=== PATIENT | female | born 1960 | race Caucasian/White ===

== ENCOUNTER 2016-08-26 19:50 | Inpatient (IN) | payer BC ==
[~2016-08-26] VITALS: Ht 167.6 cm; Wt 76.6 kg
[2016-08-26 19:51] VITALS: BP 184/81; PULSE 88; RESP 16; TEMP 98; O2SAT 96
[2016-08-26] MEDS ORDERED: SODIUM CHLOR 0.9% 1000 ML INJ 1,000 ML IV SCH (20:06)
--- NOTE | 2016-08-26 20:07 | PD ---
HPI Chief Complaint: GI Complaint Time Seen by Provider: 20:07 Travel History International Travel<30 days: No Contact w/Intl Traveler<30days: No Traveled to known affect area: No History of Present Illness HPI 56-year-old female presents to the emergency department for evaluation of abdominal pain with nausea and vomiting. The patient states that she has had intermittent abdominal pain for 5 months. States that it has become more frequent and over the past 2 days has become constant. States that the worst of the pain is epigastric and describes it as a squeezing. States that she has had bright blood in her stool intermittently for the past month. States that she has had brown vaginal discharge for the past week and intermittent light vaginal bleeding for 5 months. States her last bowel movement was this morning but was very small. States that she has been taking ibuprofen and drinking alcohol to try to help her pain. States she has been drinking 4 large glasses of wine daily for the past month. She denies any fever, chills, chest pain, shortness of breath, burning with urination, painful urination, hematuria. Denies any prior abdominal surgeries. States that she has not seen a physician or gone to the hospital about these complaints, today is the first time she has been seen because the pain was much worse today. No other complaints. [facility] Past Medical History Medical History: Denies Significant Hx ?: Not Past Surgical History Surgical History: No Previous Surgery Social History Alcohol Use: Yes (4 GLASSES OF WINE PER NIGHT) Tobacco Use: Yes (1 PPD) Substance Use: No Allergies-Medications (Allergen,Severity, Reaction): Coded Allergies: No Known Allergies (Unverified , 08/26/16) Reported Meds & Prescriptions Reported Meds & Active Scripts Active No Active Prescriptions or Reported Medications Review of Systems Except as stated in HPI: all other systems reviewed are Neg Physical Exam Narrative GENERAL: Well-nourished and well-developed pleasant patient in moderate amount of pain but no acute distress. SKIN: Warm and dry. HEAD: Normocephalic and atraumatic. EYES: No injection, drainage, or hyphema noted. PERRLA. EOMI. ENT: No nasal drainage noted. Oropharynx is clear. NECK: Supple and the trachea is midline. CARDIOVASCULAR: Regular rate and rhythm. RESPIRATORY: Breath sounds are equal bilaterally with no accessory muscle use, wheezing, rhonchi, or crackles. GASTROINTESTINAL: Diffuse tenderness to palpation worse in epigastric region. Positive rebound tenderness and guarding. Abdomen is soft and nondistended. GENITOURINARY: Normal external genitalia without lesions or erythema. Vaginal vault with small amount of brown discharge. Cervix noted with ulcerous lesion at 2'clock position. Cervix is friable and bleeds easily. No cervical motion tenderness. Slightly enlarged uterus but nontender. Bilateral adnexa nontender without masses. Rectovaginal exam does not reveal any obvious fistula or mass. Performed in the presence of Loly SAMAYOA. MUSCULOSKELETAL: No obvious deformities, swelling, cyanosis, or ecchymosis is present throughout the upper and lower extremities. Patient has full range of motion without any signs of neurovascular compromise. NEUROLOGICAL: Awake, alert, and oriented. Normal speech and gait. Cranial nerves are grossly intact. Data Data Last Documented VS Vital Signs Date Time Temp Pulse Resp B/P Pulse Ox O2 Delivery O2 Flow Rate FiO2 08/26/16 20:44 16 08/26/16 20:43 98 Room Air 08/26/16 19:51 98.0 88 184/81 Orders Complete Blood Count With Diff (08/26/16 20:06) Comprehensive Metabolic Panel (08/26/16 20:06) Lipase (08/26/16 20:06) Prothrombin Time / Inr (Pt) (08/26/16 20:06) Act Partial Throm Time (Ptt) (08/26/16 20:06) Urinalysis - C+S If Indicated (08/26/16 20:06) Ct Abd/Pel W Iv Contrast(Rout) (08/26/16 20:06) Iv Access Insert/Monitor (08/26/16 20:06) Ecg Monitoring (08/26/16 20:06) Oximetry (08/26/16 20:06) NPO (08/26/16 20:06) Morphine Inj (Morphine Inj) (08/26/16 20:15) Ondansetron Inj (Zofran Inj) (08/26/16 20:15) Sodium Chlor 0.9% 1000 Ml Inj (Ns 1000 M (08/26/16 20:06) Sodium Chloride 0.9% Flush (Ns Flush) (08/26/16 20:15) Troponin I (08/26/16 20:20) Electrocardiogram (08/26/16 20:20) Gc And Chlamydia Pcr (08/26/16 20:40) Wet Prep Profile (08/26/16 20:40) Iohexol 350 Inj (Omnipaque 350 Inj) (08/26/16 21:38) Lactic Acid Sepsis Protocol (08/26/16 21:56) Blood Culture (08/26/16 21:56) Hydromorphone Pf Inj (Dilaudid Pf Inj) (08/26/16 22:00) Metronidazole 500 Mg Inj (Flagyl 500 Mg (08/26/16 22:15) Levofloxacin 500 Mg Premix Inj (Levaquin (08/26/16 22:15) Urine Culture (08/26/16 22:10) Admit Order (Ed Use Only) (08/26/16 22:18) Consult General Surgery (08/26/16 ) Levofloxacin 750 Mg Premix Inj (Levaquin (08/27/16 22:00) Metronidazole 500 Mg Inj (Flagyl 500 Mg (08/27/16 06:00) Admit To Inpatient (08/26/16 ) Vital Signs (Adult) Q4H (08/26/16 22:18) Activity Oob With Assistance (08/26/16 22:18) Specialist Wound Care / Telemetry .CONTINUOUS (08/26/16 22:18) Intake + Output LISA.QSHIFT (08/26/16 22:18) Diet Clear Liquid (08/27/16 Breakfast) Sodium Chlor 0.9% 1000 Ml Inj (Ns 1000 M (08/26/16 22:18) Sodium Chloride 0.9% Flush (Ns Flush) (08/26/16 22:30) Sodium Chloride 0.9% Flush (Ns Flush) (08/27/16 09:00) Ondansetron Inj (Zofran Inj) (08/26/16 22:30) Bisacodyl Supp (Dulcolax Supp) (08/26/16 22:30) Comprehensive Metabolic Panel (08/27/16 06:00) Complete Blood Count With Diff (08/27/16 06:00) Scd Bilateral/Knee High LISA.BID (08/26/16 22:18) Acetaminophen (Tylenol) (08/26/16 22:30) Hydromorphone Pf Inj (Dilaudid Pf Inj) (08/26/16 22:30) Hydromorphone Pf Inj (Dilaudid Pf Inj) (08/26/16 22:30) Inpatient Certification (08/26/16 ) Lipase (08/27/16 06:00) Labs Laboratory Tests Test 08/26/16 08/26/16 08/26/16 20:15 20:50 21:15 White Blood Count 13.4 TH/MM3 Red Blood Count 4.56 MIL/MM3 Hemoglobin 15.2 GM/DL Hematocrit 44.5 % Mean Corpuscular Volume 97.6 FL Mean Corpuscular Hemoglobin 33.4 PG Mean Corpuscular Hemoglobin 34.2 % Concent Red Cell Distribution Width 12.4 % Platelet Count 458 TH/MM3 Mean Platelet Volume 7.9 FL Neutrophils (%) (Auto) 88.3 % Lymphocytes (%) (Auto) 6.5 % Monocytes (%) (Auto) 4.8 % Eosinophils (%) (Auto) 0.2 % Basophils (%) (Auto) 0.2 % Neutrophils # (Auto) 11.8 TH/MM3 Lymphocytes # (Auto) 0.9 TH/MM3 Monocytes # (Auto) 0.6 TH/MM3 Eosinophils # (Auto) 0.0 TH/MM3 Basophils # (Auto) 0.0 TH/MM3 CBC Comment DIFF FINAL Differential Comment Prothrombin Time 10.7 SEC Prothromb Time International 1.0 RATIO Ratio Activated Partial 24.5 SEC Thromboplast Time Sodium Level 133 MEQ/L Potassium Level 3.5 MEQ/L Chloride Level 96 MEQ/L Carbon Dioxide Level 26.1 MEQ/L Anion Gap 11 MEQ/L Blood Urea Nitrogen 15 MG/DL Creatinine 0.87 MG/DL Estimat Glomerular Filtration 67 ML/MIN Rate Random Glucose 187 MG/DL Calcium Level 9.1 MG/DL Total Bilirubin 0.3 MG/DL Aspartate Amino Transf 20 U/L (AST/SGOT) Alanine Aminotransferase 34 U/L (ALT/SGPT) Alkaline Phosphatase 122 U/L Total Protein 8.0 GM/DL Albumin 3.7 GM/DL Lipase 629 U/L Clue Cells (Wet Prep) PRESENT Vaginal Trichomonas (Wet Prep) NONE SEEN Vaginal Yeast (Wet Prep) NONE SEEN Urine Color YELLOW Urine Turbidity CLEAR Urine pH 5.5 Urine Specific [place] 1.021 Urine Protein 30 mg/dL Urine Glucose (UA) NEG mg/dL Urine Ketones 40 mg/dL Urine Occult Blood SMALL Urine Nitrite POS Urine Bilirubin NEG Urine Urobilinogen LESS THAN 2.0 MG/DL Urine Leukocyte Esterase SMALL Urine RBC 4 /hpf Urine WBC 7 /hpf Urine Squamous Epithelial <1 /hpf Cells Urine Bacteria RARE /hpf Urine Mucus FEW /lpf Microscopic Urinalysis Comment CULT NOT INDICATED MDM Medical Decision Making Medical Screen Exam Complete: Yes Emergency Medical Condition: Yes Differential Diagnosis Colitis versus diverticulitis versus gastritis versus malignancy versus vaginitis versus cervicitis versus uterine fibroids Narrative Course 56-year-old female presents to the emergency department for evaluation of abdominal pain, intermittent vaginal bleeding, intermittent bloody stool and vomiting. Patient is afebrile, vital signs are stable. Abdominal examination reveals diffusely tender abdomen. IV access is obtained, labs were drawn and sent. Patient is administered morphine 4 mg IV, Zofran 4 mg IV and a liter of fluid. CBC shows an elevated white blood cell count 13.4 and slightly elevated platelet count of 458. CMP shows slightly decreased sodium of 133 and elevated alkaline phosphatase of 122. Lipase is elevated at 629. Coags are unremarkable. Wet prep shows positive clue cells. Urinalysis shows 30 protein, 40 ketones, small occult blood, positive nitrites, small leukocyte esterase, 4 red blood cells, 7 white blood cells, rare bacteria and few mucus. CT of the abdomen and pelvis with IV contrast shows abnormal appearance to proximal small bowel with thickening and increased enhancement in several loops with associated fluid in the mesentery, tracking to the right upper quadrant and a moderate amount of free fluid in the pelvis. No dilated loops of small bowel or large bowel. The findings suggest a neoplastic or infectious process involving the jejunum. Patient is administered Levaquin and Flagyl IV as well as IV fluids. My attending physician spoke with Dr. Evangelista who requests Dr. Kenyon be consulted as well as LOCAL [employer]WORK SYSTEMS ADMINSTRATOR for evaluation of postmenopausal bleeding. She will be admitted to medicine service. [facility] Point of Care Internal Pos. & Neg. Controls: Passed Fecal Specimen Occult Blood: Positive Physician Communication Physician Communication Dr. Ovalle spoke with Dr. Evangelista regarding the patient's exam, CT and laboratory findings. He requests Dr. Kenyon be consulted as well as gynecology. I spoke with Dr. Mansfield OB hospitalist regarding the patient's vaginal bleeding. He requests I order a pelvic ultrasound to assess endometrial thickness and to consult the OB hospitalist who is on-call tomorrow, Dr. Rice. Diagnosis Primary Impression: Abdominal pain Qualified Code: R10.84 - Generalized abdominal pain Additional Impressions: Enteritis Postmenopausal vaginal bleeding GI bleed Qualified Code: K92.2 - Gastrointestinal hemorrhage, unspecified gastrointestinal hemorrhage type Admitting Information Admitting Physician Requests: Admit Scripts No Active Prescriptions or Reported Meds Trini Beltran Aug 26, 2016 20:07
[2016-08-26] MEDS ORDERED: MORPHINE SULFATE 4 MG/ML INJ IV PUSH ONE (20:15)
[2016-08-26] MEDS ORDERED: SODIUM CHLORIDE 0.9% FLUSH 5 ML FLUSH IVF PRN (20:15)
[2016-08-26] MEDS ORDERED: ONDANSETRON HCL 4 MG/2 ML VIAL IVP ONE (20:15)
[2016-08-26 20:43] VITALS: O2SAT 98
[2016-08-26 21:05] LABS: AUTOMATED NEUTROPHIL # 11.8 TH/MM3 (1.8-7.7); BASOPHIL % 0.2 % (0.0-2.0); EOSINOPHIL % 0.2 % (0.0-4.0); HEMATOCRIT 44.5 % (35.0-46.0); HEMO FLAGS DIFF FINAL; LYMPH % 6.5 % (9.0-44.0); LYMPHOCYTE # 0.9 TH/MM3 (1.0-4.8); MEAN CELL VOLUME 97.6 FL (80.0-100.0); MEAN CORPUSCULAR HEMOGLOBIN 33.4 PG (27.0-34.0); MEAN CORPUSCULAR HGB CONC 34.2 % (32.0-36.0); MONO % 4.8 % (0.0-8.0); NEUT % 88.3 % (16.0-70.0); PLATELET COUNT 458 TH/MM3 (150-450); RED BLOOD COUNT 4.56 MIL/MM3 (4.00-5.30); RED CELL DISTRIBUTION WIDTH 12.4 % (11.6-17.2); WHITE BLOOD COUNT 13.4 TH/MM3 (4.0-11.0)
[2016-08-26 21:12] LABS: APTT (PATIENT) 24.5 SEC (24.3-30.1); PROTHROMBIN TIME - PATIENT 10.7 SEC (9.8-11.6)
[2016-08-26 21:21] LABS: ANION GAP 11 MEQ/L (5-15); AST (GOT) 20 U/L (15-37); BICARBONATE 26.1 MEQ/L (21.0-32.0); BLOOD UREA NITROGEN 15 MG/DL (7-18); CHLORIDE 96 MEQ/L (98-107); GLOMERULAR FILTRATION RATE 67 ML/MIN (>89); POTASSIUM 3.5 MEQ/L (3.5-5.1); SODIUM (NA) 133 MEQ/L (136-145)
[2016-08-26 21:24] LABS: ALKALINE PHOSPHATASE 122 U/L (45-117); ALT (GPT) 34 U/L (10-53); TOTAL BILIRUBIN ADULT 0.3 MG/DL (0.2-1.0)
[2016-08-26] MEDS ORDERED: IOHEXOL 350 MG/ML 10 ML VIAL (for RAD DIAG) IV ONE (21:38)
--- NOTE | 2016-08-26 21:52 | RADRPT ---
EXAM DATE/TIME: 08/26/2016 21:37 This report includes an Addendum and supersedes previous reports for this exam. [facility] COMPARISON: No previous studies available for comparison. INDICATIONS : Medial abdominal pain with nausea and vomiting. IV CONTRAST: 95 cc Omnipaque 350 (iohexol) IV ORAL CONTRAST: No oral contrast ingested. RADIATION DOSE: 6.74 CTDIvol (mGy) MEDICAL HISTORY : None SURGICAL HISTORY : None. ENCOUNTER: Initial ACUITY: 1 day PAIN SCALE: 10/10 LOCATION: medial abdomen TECHNIQUE: Volumetric scanning of the abdomen and pelvis was performed. Using automated exposure control and ad justment of the mA and/or kV according to patient size, radiation dose was kept as low as reasonably achievable to obtain optimal diagnostic quality images. FINDINGS: LOWER LUNGS: The visualized lower lungs are clear. LIVER: Homogeneous density without lesion. There is no dilation of the biliary tree. No calcified gallston es. SPLEEN: Normal size without lesion. PANCREAS: Within normal limits. KIDNEYS: Normal in size and shape. There is no mass, stone or hydronephrosis. 2.5 cm cyst medial mid pole le ft kidney. 5 mm cortical cyst lower pole right kidney. ADRENAL GLANDS: Within normal limits. VASCULAR: There is no aortic aneurysm. BOWEL/MESENTERY: Abnormal appearance to the proximal small bowel with increased enhancement and thickness in the small bowel wall. No distended lumen. There is focal free fluid about the mesentery adjacent to these th ickened small bowel wall and some free fluid tracking around the free edge of the liver and into Celso son's pouch. Free fluid is also seen in the pelvis measuring up to 3.5 cm in thickness. ABDOMINAL WALL: Within normal limits. RETROPERITONEUM: There is no lymphadenopathy. BLADDER: No wall thickening or mass. REPRODUCTIVE: Within normal limits. INGUINAL: There is no lymphadenopathy or hernia. MUSCULOSKELETAL: Within normal limits for patient age. CONCLUSION: Abnormal appearance to proximal small bowel with thickening and increased enhancement in several loop s with associated fluid in the mesentery, tracking to the right upper quadrant and a moderate amount of free fluid in the pelvis. No dilated loops of small or large bowel. The findings suggest a neopl astic or infectious process involving the jejunum. Jose Aguilar MD on August 26, 2016 at 21:45 Board Certified Radiologist. This report was verified electronically. ADDENDUM: On evaluation of the images, there does appear to be some free air in the upper abdomen underneath th e hemidiaphragms. There is a small amount of fluid adjacent to the liver. There appears to be some in flammatory changes involving the proximal duodenum. There is some free fluid in the pelvis. These fin dings were discussed by telephone with the colorectal surgeon. The free air in the upper abdomen an i nflammatory-type changes associated with the proximal duodenum suggest a possible perforated peptic u lcer. Lico Thomas MD on August 27, 2016 at 12:45 Board Certified Radiologist. This report was verified electronically.
[2016-08-26 21:54] LABS: BACTERIA, URINE RARE /hpf; BLOOD, URINE SMALL (NEG); COMMENT (UR) CULT NOT INDICATED; CULTURE IF INDICATED CULT NOT INDICATED; GLUCOSE,URINE NEG (NEG); KETONE, URINE 40 mg/dL (NEG); MUCUS URINE FEW /lpf (OCC); PH, URINE 5.5 (5.0-8.5); SQUAMOUS EPITHELIAL CELL URINE <1 /hpf (0-5); URINE COLOR YELLOW (YELLW/STRAW)
[2016-08-26 21:56] LABS: NITRITE,URINE POS (NEG)
[2016-08-26 22:00] VITALS: BP 142/74; PULSE 83; RESP 16; O2SAT 99
[2016-08-26] MEDS ORDERED: HYDROmorphone HCL PF 1 MG/ML VIAL IV PUSH ONE (22:00)
--- NOTE | 2016-08-26 22:09 | PD ---
Physical Exam Narrative Patient was seen and examined with my college sports assistant. Data Data Last Documented VS Vital Signs Date Time Temp Pulse Resp B/P Pulse Ox O2 Delivery O2 Flow Rate FiO2 08/26/16 20:44 16 08/26/16 20:43 98 Room Air 08/26/16 19:51 98.0 88 184/81 Orders Complete Blood Count With Diff (08/26/16 20:06) Comprehensive Metabolic Panel (08/26/16 20:06) Lipase (08/26/16 20:06) Prothrombin Time / Inr (Pt) (08/26/16 20:06) Act Partial Throm Time (Ptt) (08/26/16 20:06) Urinalysis - C+S If Indicated (08/26/16 20:06) Ct Abd/Pel W Iv Contrast(Rout) (08/26/16 20:06) Iv Access Insert/Monitor (08/26/16 20:06) Ecg Monitoring (08/26/16 20:06) Oximetry (08/26/16 20:06) NPO (08/26/16 20:06) Morphine Inj (Morphine Inj) (08/26/16 20:15) Ondansetron Inj (Zofran Inj) (08/26/16 20:15) Sodium Chlor 0.9% 1000 Ml Inj (Ns 1000 M (08/26/16 20:06) Sodium Chloride 0.9% Flush (Ns Flush) (08/26/16 20:15) Troponin I (08/26/16 20:20) Electrocardiogram (08/26/16 20:20) Gc And Chlamydia Pcr (08/26/16 20:40) Wet Prep Profile (08/26/16 20:40) Iohexol 350 Inj (Omnipaque 350 Inj) (08/26/16 21:38) Lactic Acid Sepsis Protocol (08/26/16 21:56) Blood Culture (08/26/16 21:56) Hydromorphone Pf Inj (Dilaudid Pf Inj) (08/26/16 22:00) Metronidazole 500 Mg Inj (Flagyl 500 Mg (08/26/16 22:15) Levofloxacin 500 Mg Premix Inj (Levaquin (08/26/16 22:15) Labs Laboratory Tests Test 08/26/16 08/26/16 08/26/16 20:15 20:50 21:15 White Blood Count 13.4 TH/MM3 Red Blood Count 4.56 MIL/MM3 Hemoglobin 15.2 GM/DL Hematocrit 44.5 % Mean Corpuscular Volume 97.6 FL Mean Corpuscular Hemoglobin 33.4 PG Mean Corpuscular Hemoglobin 34.2 % Concent Red Cell Distribution Width 12.4 % Platelet Count 458 TH/MM3 Mean Platelet Volume 7.9 FL Neutrophils (%) (Auto) 88.3 % Lymphocytes (%) (Auto) 6.5 % Monocytes (%) (Auto) 4.8 % Eosinophils (%) (Auto) 0.2 % Basophils (%) (Auto) 0.2 % Neutrophils # (Auto) 11.8 TH/MM3 Lymphocytes # (Auto) 0.9 TH/MM3 Monocytes # (Auto) 0.6 TH/MM3 Eosinophils # (Auto) 0.0 TH/MM3 Basophils # (Auto) 0.0 TH/MM3 CBC Comment DIFF FINAL Differential Comment Prothrombin Time 10.7 SEC Prothromb Time International 1.0 RATIO Ratio Activated Partial 24.5 SEC Thromboplast Time Sodium Level 133 MEQ/L Potassium Level 3.5 MEQ/L Chloride Level 96 MEQ/L Carbon Dioxide Level 26.1 MEQ/L Anion Gap 11 MEQ/L Blood Urea Nitrogen 15 MG/DL Creatinine 0.87 MG/DL Estimat Glomerular Filtration 67 ML/MIN Rate Random Glucose 187 MG/DL Calcium Level 9.1 MG/DL Total Bilirubin 0.3 MG/DL Aspartate Amino Transf 20 U/L (AST/SGOT) Alanine Aminotransferase 34 U/L (ALT/SGPT) Alkaline Phosphatase 122 U/L Total Protein 8.0 GM/DL Albumin 3.7 GM/DL Lipase 629 U/L Clue Cells (Wet Prep) PRESENT Vaginal Trichomonas (Wet Prep) NONE SEEN Vaginal Yeast (Wet Prep) NONE SEEN Urine Color YELLOW Urine Turbidity CLEAR Urine pH 5.5 Urine Specific [place] 1.021 Urine Protein 30 mg/dL Urine Glucose (UA) NEG mg/dL Urine Ketones 40 mg/dL Urine Occult Blood SMALL Urine Nitrite POS Urine Bilirubin NEG Urine Urobilinogen LESS THAN 2.0 MG/DL Urine Leukocyte Esterase SMALL Urine RBC 4 /hpf Urine WBC 7 /hpf Urine Squamous Epithelial <1 /hpf Cells Urine Bacteria RARE /hpf Urine Mucus FEW /lpf Microscopic Urinalysis Comment CULT NOT INDICATED MDM Supervised Visit with FILIBERTO: Yes Scripts No Active Prescriptions or Reported Meds Vasquez,Hung MD Aug 26, 2016 22:09
[2016-08-26] MEDS ORDERED: metroNIDAZOLE 500 MG INJ 100 ML IV ONE (22:15)
[2016-08-26] MEDS ORDERED: LEVOFLOXACIN 500 MG PREMIX INJ 100 ML IV ONE (22:15)
--- NOTE | 2016-08-26 22:22 | HHI.HP ---
[facility] Service [place] [facility] Primary Care Physician No Primary Care Physician Admission Diagnosis Abdominal Pain, Enteritis, Postmenopausal Bleeding, GI Bleed, UTI Diagnoses: (1) Enteritis Diagnosis: Principal (2) Pancreatitis Diagnosis: Principal (3) GI bleed Diagnosis: Principal (4) Postmenopausal vaginal bleeding Diagnosis: Principal (5) UTI (urinary tract infection) Diagnosis: Principal Travel History International Travel<30 Days: No Contact w/Intl Traveler <30 Da: No Traveled to Known Affected Are: No History of Present Illness This is a 56-year-old female with no significant PMH who presented to the ER with complaints of abdominal pain, nausea and vomiting. States symptoms have been intermittent for approx 5 months, however they have become more frequent over the last 2-3 days. Denies fever, chills or diarrhea. Also notes intermittent vaginal bleeding and BRBPR since the start of her abdominal pain 5 months ago. Has not sought medical attention until now. On arrival, BP 184/81 , HR 88, O2 sat 96% on RA, Afebrile. WBC 13.4. Chemistry essentially unremarkable except for decreased GFR of 67. Lipase 629. Lactic Acid 1.1. UA positive for UTI. Hemoccult positive. CT Abd/Pelvis w/ abnormal appearance of proximal small bowel with thickening and increased enhancement in several loops with associated fluid in the mesentery tracking to the right upper quadrant and moderate amount of free fluid in the pelvis, findings suggestive of neoplastic or infectious process in the associate professor of theology in am. Dr. Evangelista consulted by ER physician , recommended further evaluation by Dr. Kenyon and Gynecology Consult in am. Review of Systems Other ROS: 14 point review of systems otherwise negative. Past Family Social History Past Medical History PMH: None Past Surgical History PAST SURGICAL HISTORY: None Allergies: Coded Allergies: No Known Allergies (Unverified , 08/26/16) Family History PAST FAMILY HISTORY: Reviewed. No h/o DM or CAD Social History PAST SOCIAL HISTORY: Drinks 4 glasses of wine per night. Smokes 1ppd. Negative for drugs. Physical Exam Vital Signs Vital Signs Date Time Temp Pulse Resp B/P Pulse Ox O2 Delivery O2 Flow Rate FiO2 08/26/16 20:44 16 08/26/16 20:43 98 Room Air 08/26/16 19:51 98.0 88 16 184/81 96 Physical Exam PE: GENERAL: Middle-aged white female in no acute distress. HEENT: PERRLA, EOMI. No scleral icterus or conjunctival pallor. No lid lag or facial droop. CARDIOVASCULAR: Regular rate and rhythm. No obvious murmurs to auscultation. No chest tenderness to palpation. RESPIRATORY: No obvious rhonchi or wheezing. Clear to auscultation. Breath sounds equal bilaterally. GASTROINTESTINAL: Abdomen soft, diffuse tenderness to palpation, nondistended. BS normal. MUSCULOSKELETAL: Extremities without clubbing, cyanosis, or edema. No obvious deformities. NEUROLOGICAL: Awake, alert and oriented x4. No focal neurologic deficits. Moving both upper and lower extremities spontaneously. Laboratory Laboratory Tests Test 08/26/16 08/26/16 08/26/16 20:15 20:50 21:15 White Blood Count 13.4 Red Blood Count 4.56 Hemoglobin 15.2 Hematocrit 44.5 Mean Corpuscular Volume 97.6 Mean Corpuscular Hemoglobin 33.4 Mean Corpuscular Hemoglobin 34.2 Concent Red Cell Distribution Width 12.4 Platelet Count 458 Mean Platelet Volume 7.9 Neutrophils (%) (Auto) 88.3 Lymphocytes (%) (Auto) 6.5 Monocytes (%) (Auto) 4.8 Eosinophils (%) (Auto) 0.2 Basophils (%) (Auto) 0.2 Neutrophils # (Auto) 11.8 Lymphocytes # (Auto) 0.9 Monocytes # (Auto) 0.6 Eosinophils # (Auto) 0.0 Basophils # (Auto) 0.0 CBC Comment DIFF FINAL Differential Comment Prothrombin Time 10.7 Prothromb Time International 1.0 Ratio Activated Partial 24.5 Thromboplast Time Sodium Level 133 Potassium Level 3.5 Chloride Level 96 Carbon Dioxide Level 26.1 Anion Gap 11 Blood Urea Nitrogen 15 Creatinine 0.87 Estimat Glomerular Filtration 67 Rate Random Glucose 187 Calcium Level 9.1 Total Bilirubin 0.3 Aspartate Amino Transf 20 (AST/SGOT) Alanine Aminotransferase 34 (ALT/SGPT) Alkaline Phosphatase 122 Total Protein 8.0 Albumin 3.7 Lipase 629 Clue Cells (Wet Prep) PRESENT Vaginal Trichomonas (Wet Prep) NONE SEEN Vaginal Yeast (Wet Prep) NONE SEEN Urine Color YELLOW Urine Turbidity CLEAR Urine pH 5.5 Urine Specific [place] 1.021 Urine Protein 30 Urine Glucose (UA) NEG Urine Ketones 40 Urine Occult Blood SMALL Urine Nitrite POS Urine Bilirubin NEG Urine Urobilinogen LESS THAN 2.0 Urine Leukocyte Esterase SMALL Urine RBC 4 Urine WBC 7 Urine Squamous Epithelial <1 Cells Urine Bacteria RARE Urine Mucus FEW Microscopic Urinalysis Comment CULT NOT INDICATED Result Diagram: 08/26/16201408/26/162014 Assessment and Plan Problem List: (1) Enteritis ICD Code: K52.9 Status: Acute (2) Pancreatitis ICD Code: K85.90 Status: Acute (3) GI bleed ICD Code: K92.2 Status: Acute (4) Postmenopausal vaginal bleeding ICD Code: N95.0 Status: Acute (5) UTI (urinary tract infection) ICD Code: N39.0 Status: Acute Assessment and Plan A/P: 1. Enteritis: c/o intermittent abdominal pain x5 months, symptoms worse in last 2-3 days, CT Abd/Pelvis w/ neoplastic vs infectious etiology, possible enteritis, images reviewed by me. Afebrile, WBC 13.4. S/p Levaquin/Flagyl in ER. Will continue w/ IV Abx, IVF, analgesics/antiemetics. Dr. Evangelista consulted by ER physician, recommendation for eval w/ Dr. Keynon and Gynecology in am. 2. Vaginal Bleeding: Postmenopausal vaginal bleeding x5 months, Consult for Gynecology placed for further eval. Transvaginal US w/ abnormal endometrial thickening and moderate free fluid in pelvis, images reviewed. 3. GI Bleed: h/o BRBPR, +Hemoccult. Vitals stable. Hgb 15.2. IVF, Protonix IV, Consult for GI. 4. UTI: U/a w/ UTI, s/p Levaquin/Flagyl for Enteritis, will continue w/ IV Abx for coverage of both. IVF, repeat labs in am. 5. DVT Prophylaxis: SCD/Teds. 6. Social work for d/c planning as needed. 7. Case discussed w/ ER physician at length. Physician Certification 2 Midnight Certification Type: Admission for Inpatient Services Order for Inpatient Services The services are ordered in accordance with Medicare regulations or non- Medicare payer requirements, as applicable. In the case of services not specified as inpatient-only, they are appropriately provided as inpatient services in accordance with the 2-midnight benchmark. Estimated LOS (days): 2 days is the estimated time the patient will need to remain in the hospital, assuming treatment plan goals are met and no additional complications. Post-Hospital Plan: Not yet determined Problem Qualifiers (1) GI bleed: Qualified Code: K92.2 - Gastrointestinal hemorrhage, unspecified gastrointestinal hemorrhage type Amy Lees MD Aug 26, 2016 22:22
[2016-08-26] MEDS ORDERED: SODIUM CHLORIDE 0.9% FLUSH 5 ML FLUSH FLUSH PRN (22:30)
[2016-08-26] MEDS ORDERED: HYDROmorphone HCL PF 1 MG/ML VIAL IV PRN (22:30)
[2016-08-26] MEDS ORDERED: BISACODYL 10 MG SUPP PR PRN (22:30)
[2016-08-26] MEDS ORDERED: ACETAMINOPHEN 325 MG TAB PO PRN (22:30)
[2016-08-26 23:58] LABS: CHLAMYDIA PCR NOT DETECTED (NOT DETECT); NEISSERIA PCR NOT DETECTED (NOT DETECT)
[2016-08-27] VITALS (7 sets, daily range): BP systolic 80–132; BP diastolic 49–76; PULSE 61–90; RESP 17–20; TEMP 96–97.8; O2SAT 92–97
[2016-08-27] MEDS: SODIUM CHLOR 0.9% 1000 ML INJ 1,000 ML IV SCH ×4 (00:18→21:33)
--- NOTE | 2016-08-27 00:38 | RADRPT ---
EXAM DATE/TIME: 08/26/2016 23:28 [place] COMPARISON: CT ABDOMEN & PELVIS W CONTRAST, August 26, 2016, 21:37. INDICATIONS : Pelvic pain and postmenopausal bleeding. MEDICAL HISTORY : . . SURGICAL HISTORY : None. ENCOUNTER: Initial ACUITY: 1 day PAIN SCORE: 8/10 LOCATION: Bilateral pelvis MEASUREMENTS: UTERUS: 5.5 x 4.5 x 2.8 cm ENDOMETRIAL STRIPE: 9.1 mm RIGHT OVARY: Non visualized. LEFT OVARY: Non visualized. FINDINGS: UTERUS: The endometrium is thickened up to 9.1 mm in this postmenopausal patient. There is a sliver of fluid in the endometrial cavity. RIGHT OVARY: Not visualized. LEFT OVARY: Not visualized. MISCELLANEOUS: Moderate amount of free fluid in the pelvis. CONCLUSION: 1. Moderate free fluid complex in appearance. 2. Abnormal endometrial thickening in this postmenopausal patient. 3. The ovaries are not seen. Hemanth Rice MD on August 27, 2016 at 0:34 Board Certified Radiologist. This report was verified electronically.
[2016-08-27] MEDS: HYDROmorphone HCL PF 1 MG/ML VIAL IV PRN ×4 (01:20→10:59)
[2016-08-27] MEDS: ONDANSETRON HCL 4 MG/2 ML VIAL IVP PRN ×2 (01:43→08:07)
[2016-08-27] MEDS ORDERED: HYDROmorphone HCL PF 1 MG/ML VIAL IV PUSH ONE ×2 (02:15→11:15)
[2016-08-27] MEDS: metroNIDAZOLE 500 MG INJ 100 ML IV SCH ×3 (05:04→21:28)
[2016-08-27 05:29] LABS: ALKALINE PHOSPHATASE 86 U/L (45-117); ALT (GPT) 27 U/L (10-53); ANION GAP 9 MEQ/L (5-15); AST (GOT) 13 U/L (15-37); BICARBONATE 24.9 MEQ/L (21.0-32.0); BLOOD UREA NITROGEN 14 MG/DL (7-18); CHLORIDE 102 MEQ/L (98-107); GLOMERULAR FILTRATION RATE 105 ML/MIN (>89); POTASSIUM 3.7 MEQ/L (3.5-5.1); SODIUM (NA) 136 MEQ/L (136-145); TOTAL BILIRUBIN ADULT 0.4 MG/DL (0.2-1.0)
[2016-08-27 05:37] LABS: AUTOMATED NEUTROPHIL # 6.7 TH/MM3 (1.8-7.7); BASOPHIL % 0.2 % (0.0-2.0); HEMATOCRIT 40.3 % (35.0-46.0); HEMO FLAGS DIFF FINAL; LYMPH % 2.8 % (9.0-44.0); LYMPHOCYTE # 0.2 TH/MM3 (1.0-4.8); MEAN CELL VOLUME 97.3 FL (80.0-100.0); MEAN CORPUSCULAR HEMOGLOBIN 34.1 PG (27.0-34.0); MONO % 4.4 % (0.0-8.0); NEUT % 92.6 % (16.0-70.0); PLATELET COUNT 294 TH/MM3 (150-450); RED BLOOD COUNT 4.14 MIL/MM3 (4.00-5.30); WHITE BLOOD COUNT 7.3 TH/MM3 (4.0-11.0)
[2016-08-27] MEDS: SODIUM CHLORIDE 0.9% FLUSH 5 ML FLUSH FLUSH SCH ×2 (08:08→21:28)
[2016-08-27] MEDS: PANTOPRAZOLE SODIUM 40 MG VIAL IV PUSH SCH ×2 (08:08→21:28)
--- NOTE | 2016-08-27 08:26 | PD.CONS ---
HPI Chief Complaint Abdominal pain, N/V, vaginal bleeding Date Seen: Aug 27, 2016 Time Seen: 08:17 Travel History International Travel<30 Days: No Contact w/Intl Traveler<30Days: No Known Affected Area: No History of Present Illness HPI Mrs. Vora is a 56 yo F with no significant PMH who presented to [facility] 08/26 with complaints of abdominal pain and nausea/vomiting. Abdominal pain has been crampy in nature and intermittently present for ~5 mo; nausea/vomiting has occurred for the past ~2-3 days. Patient also reports that she has had frequent dark brown, "tarry" vaginal "discharge" when wiping after urination for the past several months. Patient states that she occasionally also sees bright red blood after wiping. Quantity of dark brown/bright red vaginal blood is small/spotting and only noticed after voiding, and patient does not soak pads or require pad changes during the day. Patient states that she has been drinking more recently. Patient denies significant weight loss. No reported headache, visual changes, shortness of breath, chest pain. Patient reports less strength, but that she has also stopped exercising. Patient has not seen a physician in the past 25-30 years; she has not had a PAP smear in ~30 years. No reported pathology on prior PAP. Patient has a sister with cervical cancer requiring radiation therapy; no other family history of cervical, uterine, or ovarian cancer. Patient had menopause at 38 years; no vaginal bleeding reported until recently. Para: 2 : 2 History Past Medical History Narrative Medical Tobacco abuse Lack of medical care for >20 yrs Obstetric History Obstetric History Past Surgical History Surgical History: No Previous Surgery Family History Narrative Family History Sistercervical cancer diagnosed 2 years ago; requiring radiation therapy No other family history of malignancy reported Social History Narrative Social History Smoking- One pack per day for prolonged duration, ?PK yrs Patient reports chronic alcohol use which is recently increased due to her abdominal pain Patient reports prior marijuana use, but none recently Alcohol Use: Yes Tobacco Use: Yes Substance Abuse: Yes Allergies-Medications (Allergen,Severity, Reaction): Coded Allergies: No Known Allergies (Unverified , 08/26/16) Home Meds No Active Prescriptions or Reported Meds Review of Systems General / Constitutional: No: Weight Loss Eyes: No: Blurred Vision HENT: No: Headaches Cardiovascular: No: Chest Pain or Discomfort Respiratory: No: Short of Breath Gastrointestinal: Nausea, Vomiting, Abdominal Pain Genitourinary: No: Dysuria Physical Exam Narrative GENERAL: Patient appears uncomfortable; vomiting at initiation of exam. Nursing staff notified and patient received Zofran; since comfortable SKIN: Warm and dry, no rashes appreciated HEENT: No conjunctival erythema, EOM grossly I. Normal oral mucous membranes NECK: No appreciated pathology CARDIOVASCULAR: Regular rate and rhythm without murmurs. Normal peripheral perfusion grossly RESPIRATORY: Normal respiratory rate. Questionable minimal wheezing GASTROINTESTINAL: Abdomen firm, mild pain to palpation; exam limited due to pain. MUSCULOSKELETAL: No lower extremity swelling. No appreciated calf asymmetry. NEURO/PSYCH: Awake, alert, and oriented. Cranial nerves grossly normal. Grossly normal motor and sensory function. Pelvic/Speculum (performed by Dr. Mansfield): No external vaginal pathology. No visible cervical pathology. Bloody discharge within vaginal vault. Posterior vaginal wall with necrotic cavitary mass ~3-4 cm in diameter seemingly extending to rectum, with areas of firmness/nodularity and associated bleeding. Data Data Vital Signs Reviewed: Yes Orders Complete Blood Count With Diff (08/26/16 20:06) Comprehensive Metabolic Panel (08/26/16 20:06) Lipase (08/26/16 20:06) Prothrombin Time / Inr (Pt) (08/26/16 20:06) Act Partial Throm Time (Ptt) (08/26/16 20:06) Urinalysis - C+S If Indicated (08/26/16 20:06) Ct Abd/Pel W Iv Contrast(Rout) (08/26/16 20:06) Iv Access Insert/Monitor (08/26/16 20:06) Ecg Monitoring (08/26/16 20:06) Oximetry (08/26/16 20:06) NPO (08/26/16 20:06) Morphine Inj (Morphine Inj) (08/26/16 20:15) Ondansetron Inj (Zofran Inj) (08/26/16 20:15) Sodium Chlor 0.9% 1000 Ml Inj (Ns 1000 M (08/26/16 20:06) Sodium Chloride 0.9% Flush (Ns Flush) (08/26/16 20:15) Troponin I (08/26/16 20:20) Electrocardiogram (08/26/16 20:20) Gc And Chlamydia Pcr (08/26/16 20:40) Wet Prep Profile (08/26/16 20:40) Iohexol 350 Inj (Omnipaque 350 Inj) (08/26/16 21:38) Lactic Acid Sepsis Protocol (08/26/16 21:56) Blood Culture (08/26/16 21:56) Hydromorphone Pf Inj (Dilaudid Pf Inj) (08/26/16 22:00) Metronidazole 500 Mg Inj (Flagyl 500 Mg (08/26/16 22:15) Levofloxacin 500 Mg Premix Inj (Levaquin (08/26/16 22:15) Urine Culture (08/26/16 22:10) Admit Order (Ed Use Only) (08/26/16 22:18) Consult General Surgery (08/26/16 ) Levofloxacin 750 Mg Premix Inj (Levaquin (08/27/16 22:00) Metronidazole 500 Mg Inj (Flagyl 500 Mg (08/27/16 06:00) Admit To Inpatient (08/26/16 ) Vital Signs (Adult) Q4H (08/26/16 22:18) Activity Oob With Assistance (08/26/16 22:18) Utilization Review Coordinator / Telemetry .CONTINUOUS (08/26/16 22:18) Intake + Output LISA.QSHIFT (08/26/16 22:18) Diet Clear Liquid (08/27/16 Breakfast) Sodium Chlor 0.9% 1000 Ml Inj (Ns 1000 M (08/26/16 22:18) Sodium Chloride 0.9% Flush (Ns Flush) (08/26/16 22:30) Sodium Chloride 0.9% Flush (Ns Flush) (08/27/16 09:00) Ondansetron Inj (Zofran Inj) (08/26/16 22:30) Bisacodyl Supp (Dulcolax Supp) (08/26/16 22:30) Comprehensive Metabolic Panel (08/27/16 06:00) Complete Blood Count With Diff (08/27/16 06:00) Scd Bilateral/Knee High LISA.BID (08/26/16 22:18) Acetaminophen (Tylenol) (08/26/16 22:30) Hydromorphone Pf Inj (Dilaudid Pf Inj) (08/26/16 22:30) Hydromorphone Pf Inj (Dilaudid Pf Inj) (08/26/16 22:30) Inpatient Certification (08/26/16 ) Lipase (08/27/16 06:00) Consult Gynecology (08/26/16 ) (Hub Use Only)Inp Phy Cons/Ref (08/26/16 ) Consult Gastroenterology (08/26/16 ) (Hub Use Only)Inp Phy Cons/Ref (08/26/16 ) (Hub Use Only)Inp Phy Cons/Ref (08/26/16 ) Us Pelvis Comp W Dop Transvag (08/26/16 ) Pantoprazole Inj (Protonix Inj) (08/27/16 09:00) Hydromorphone Pf Inj (Dilaudid Pf Inj) (08/27/16 02:15) Physician Name Changes (08/27/16 ) Labs Laboratory Tests Test 08/26/16 08/26/16 08/26/16 08/26/16 20:15 20:50 21:15 22:15 White Blood Count 13.4 Red Blood Count 4.56 Hemoglobin 15.2 Hematocrit 44.5 Mean Corpuscular Volume 97.6 Mean Corpuscular Hemoglobin 33.4 Mean Corpuscular Hemoglobin 34.2 Concent Red Cell Distribution Width 12.4 Platelet Count 458 Mean Platelet Volume 7.9 Neutrophils (%) (Auto) 88.3 Lymphocytes (%) (Auto) 6.5 Monocytes (%) (Auto) 4.8 Eosinophils (%) (Auto) 0.2 Basophils (%) (Auto) 0.2 Neutrophils # (Auto) 11.8 Lymphocytes # (Auto) 0.9 Monocytes # (Auto) 0.6 Eosinophils # (Auto) 0.0 Basophils # (Auto) 0.0 CBC Comment DIFF FINAL Differential Comment Prothrombin Time 10.7 Prothromb Time International 1.0 Ratio Activated Partial 24.5 Thromboplast Time Sodium Level 133 Potassium Level 3.5 Chloride Level 96 Carbon Dioxide Level 26.1 Anion Gap 11 Blood Urea Nitrogen 15 Creatinine 0.87 Estimat Glomerular Filtration 67 Rate Random Glucose 187 Calcium Level 9.1 Total Bilirubin 0.3 Aspartate Amino Transf 20 (AST/SGOT) Alanine Aminotransferase 34 (ALT/SGPT) Alkaline Phosphatase 122 Total Protein 8.0 Albumin 3.7 Lipase 629 Troponin I LESS THAN 0.02 Clue Cells (Wet Prep) PRESENT Vaginal Trichomonas (Wet Prep) NONE SEEN Vaginal Yeast (Wet Prep) NONE SEEN Chlamydia trachomatis DNA NOT DETECTED (PCR) Neisseria gonorrhoeae DNA NOT DETECTED (PCR) Urine Color YELLOW Urine Turbidity CLEAR Urine pH 5.5 Urine Specific [place] 1.021 Urine Protein 30 Urine Glucose (UA) NEG Urine Ketones 40 Urine Occult Blood SMALL Urine Nitrite POS Urine Bilirubin NEG Urine Urobilinogen LESS THAN 2.0 Urine Leukocyte Esterase SMALL Urine RBC 4 Urine WBC 7 Urine Squamous Epithelial <1 Cells Urine Bacteria RARE Urine Mucus FEW Microscopic Urinalysis Comment CULT NOT INDICATED Lactic Acid Level 1.1 Test 08/27/16 04:15 White Blood Count 7.3 Red Blood Count 4.14 Hemoglobin 14.1 Hematocrit 40.3 Mean Corpuscular Volume 97.3 Mean Corpuscular Hemoglobin 34.1 Mean Corpuscular Hemoglobin 35.0 Concent Red Cell Distribution Width 12.0 Platelet Count 294 Mean Platelet Volume 8.1 Neutrophils (%) (Auto) 92.6 Lymphocytes (%) (Auto) 2.8 Monocytes (%) (Auto) 4.4 Eosinophils (%) (Auto) 0.0 Basophils (%) (Auto) 0.2 Neutrophils # (Auto) 6.7 Lymphocytes # (Auto) 0.2 Monocytes # (Auto) 0.3 Eosinophils # (Auto) 0.0 Basophils # (Auto) 0.0 CBC Comment DIFF FINAL Differential Comment Sodium Level 136 Potassium Level 3.7 Chloride Level 102 Carbon Dioxide Level 24.9 Anion Gap 9 Blood Urea Nitrogen 14 Creatinine 0.59 Estimat Glomerular Filtration 105 Rate Random Glucose 143 Calcium Level 8.1 Total Bilirubin 0.4 Aspartate Amino Transf 13 (AST/SGOT) Alanine Aminotransferase 27 (ALT/SGPT) Alkaline Phosphatase 86 Total Protein 6.6 Albumin 2.9 Lipase 921 Date/Time Procedure Status Source Growth 08/26/16 22:00 Aerobic Blood Culture Received Blood Peripheral Pending 08/26/16 22:00 Anaerobic Blood Culture Received Blood Peripheral Pending 08/26/16 21:15 Urine Culture Received Urine Clean Catch Pending MDM Medical Record Reviewed: Yes Narrative Course / MDM Ms. 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 Likely source of vaginal bleeding CT A/P visualized neoplastic/infectious process of jejunum but did not report rectal pathology; will plan to discuss with radiologist -Dr. Mansfield discussed with with Hospitalist Dr. Bauman: -Recommend Colorectal Surgery consultation for suspected rectal malignancy -Consultation placed to QUALITY ASSURANCE ENGINEER Oncology to assess for vaginal origin -Will check CEA and CA 125 markers -After discharge, patient will require PAP smear and endometrial biopsy; however , this is not suspected as cause of symptoms due to mass on exam Abdominal pain/vomiting Impression: Suspect pancreatitis due to lipase elevation, tenderness on exam, and alcohol use. Rectal/vaginal mass may also be contributing significantly symptoms -Management per primary team Admitting diagnosis: Abdominal Pain, Enteritis, Postmenopausal Bleeding, GI Bleed, UTI Scripts No Active Prescriptions or Reported Meds Ja Ham MD R2 Aug 27, 2016 08:26
--- NOTE | 2016-08-27 09:45 | PD.CONS ---
HPI Chief Complaint post menopausal bleeding abdominal pain Date Seen: Aug 27, 2016 Travel History International Travel<30 Days: No Contact w/Intl Traveler<30Days: No Known Affected Area: No History of Present Illness HPI 56-year-old white female with post menopausal bleeding for several months. And recent onset of severe abdominal pain. She's not had a gynecologic exam or Pap smear in 30 years she has also has a positive nausea and vomiting and her abdominal pain is mainly epigastric and upper abdominal Para: 2 : 2 History Obstetric History Obstetric History 2 vaginal deliveries Social History Alcohol Use: Yes Tobacco Use: Yes Substance Abuse: No Allergies-Medications (Allergen,Severity, Reaction): Coded Allergies: No Known Allergies (Unverified , 08/26/16) Home Meds No Active Prescriptions or Reported Meds Review of Systems Gastrointestinal: Nausea, Vomiting, Abdominal Pain Physical Exam Narrative GENERAL: Well-nourished, well-developed patient. SKIN: Warm and dry. HEAD: Normocephalic and atraumatic. EYES: No scleral icterus. No injection or drainage. ENT: No nasal drainage noted. Mucous membranes pink. Airway patent. NECK: Supple, trachea midline. No JVD. CARDIOVASCULAR: Regular rate and rhythm without murmurs, gallops, or rubs. RESPIRATORY: Breath sounds equal bilaterally. No accessory muscle use. BREASTS: Bilateral exam showed no masses , no retractions, no nipple discharge. ABDOMEN/GI: Abdomen firm, tender, bowel sounds present, no rebound minimal guarding Gravid to [-] weeks size Fundal Height: [-] GENITOURINARY: External Genitalia: intact and normal in appearance the posterior vagina lower 1/3 has a 3 cm necrotic crater indurated bleeding slightly and extends down toward the rectum which is likely a rectal neoplasm that has eroded into the vagina , however it is possible that it began as a vaginal cancer that spread down., rectal exam - I can feel a mass on the left side impinging on the lumen , there was no stool to sample Cervix: normal uterus and adnexa WNL EXTREMITIES: No cyanosis or edema. BACK: Nontender without obvious deformity. No CVA tenderness. NEUROLOGICAL: Awake and alert. Motor and sensory grossly within normal limits. Five out of 5 muscle strength in all muscle groups. Normal speech. Data Data Orders Complete Blood Count With Diff (08/26/16 20:06) Comprehensive Metabolic Panel (08/26/16 20:06) Lipase (08/26/16 20:06) Prothrombin Time / Inr (Pt) (08/26/16 20:06) Act Partial Throm Time (Ptt) (08/26/16 20:06) Urinalysis - C+S If Indicated (08/26/16 20:06) Ct Abd/Pel W Iv Contrast(Rout) (08/26/16 20:06) Iv Access Insert/Monitor (08/26/16 20:06) Ecg Monitoring (08/26/16 20:06) Oximetry (08/26/16 20:06) NPO (08/26/16 20:06) Morphine Inj (Morphine Inj) (08/26/16 20:15) Ondansetron Inj (Zofran Inj) (08/26/16 20:15) Sodium Chlor 0.9% 1000 Ml Inj (Ns 1000 M (08/26/16 20:06) Sodium Chloride 0.9% Flush (Ns Flush) (08/26/16 20:15) Troponin I (08/26/16 20:20) Electrocardiogram (08/26/16 20:20) Gc And Chlamydia Pcr (08/26/16 20:40) Wet Prep Profile (08/26/16 20:40) Iohexol 350 Inj (Omnipaque 350 Inj) (08/26/16 21:38) Lactic Acid Sepsis Protocol (08/26/16 21:56) Blood Culture (08/26/16 21:56) Hydromorphone Pf Inj (Dilaudid Pf Inj) (08/26/16 22:00) Metronidazole 500 Mg Inj (Flagyl 500 Mg (08/26/16 22:15) Levofloxacin 500 Mg Premix Inj (Levaquin (08/26/16 22:15) Urine Culture (08/26/16 22:10) Admit Order (Ed Use Only) (08/26/16 22:18) Consult General Surgery (08/26/16 ) Levofloxacin 750 Mg Premix Inj (Levaquin (08/27/16 22:00) Metronidazole 500 Mg Inj (Flagyl 500 Mg (08/27/16 06:00) Admit To Inpatient (08/26/16 ) Vital Signs (Adult) Q4H (08/26/16 22:18) Activity Oob With Assistance (08/26/16 22:18) Environmental Sciences Professor / Telemetry .CONTINUOUS (08/26/16 22:18) Intake + Output LISA.QSHIFT (08/26/16 22:18) Diet Clear Liquid (08/27/16 Breakfast) Sodium Chlor 0.9% 1000 Ml Inj (Ns 1000 M (08/26/16 22:18) Sodium Chloride 0.9% Flush (Ns Flush) (08/26/16 22:30) Sodium Chloride 0.9% Flush (Ns Flush) (08/27/16 09:00) Ondansetron Inj (Zofran Inj) (08/26/16 22:30) Bisacodyl Supp (Dulcolax Supp) (08/26/16 22:30) Comprehensive Metabolic Panel (08/27/16 06:00) Complete Blood Count With Diff (08/27/16 06:00) Scd Bilateral/Knee High LISA.BID (08/26/16 22:18) Acetaminophen (Tylenol) (08/26/16 22:30) Hydromorphone Pf Inj (Dilaudid Pf Inj) (08/26/16 22:30) Hydromorphone Pf Inj (Dilaudid Pf Inj) (08/26/16 22:30) Inpatient Certification (08/26/16 ) Lipase (08/27/16 06:00) Consult Gynecology (08/26/16 ) (Hub [facility] ([facility] ) Consult Gastroenterology (08/26/16 ) (Hub Use Only)[facility] Cons[facility] (08/26/16 ) Us Pelvis Comp W Dop Transvag (08/26/16 ) Pantoprazole Inj (Protonix Inj) (08/27/16 09:00) Hydromorphone Pf Inj (Dilaudid Pf Inj) (08/27/16 02:15) Physician Name Changes (08/27/16 ) Consult Catarino Nfs (08/27/16 ) (Hub Use Only)[facility] Cons[facility]Ref (08/27/16 09:09) Consult Resistance Machine Welder Setter Oncology (08/27/16 ) Labs Laboratory Tests Test 08/26/16 08/26/16 08/26/16 08/26/16 20:15 20:50 21:15 22:15 White Blood Count 13.4 Red Blood Count 4.56 Hemoglobin 15.2 Hematocrit 44.5 Mean Corpuscular Volume 97.6 Mean Corpuscular Hemoglobin 33.4 Mean Corpuscular Hemoglobin 34.2 Concent Red Cell Distribution Width 12.4 Platelet Count 458 Mean Platelet Volume 7.9 Neutrophils (%) (Auto) 88.3 Lymphocytes (%) (Auto) 6.5 Monocytes (%) (Auto) 4.8 Eosinophils (%) (Auto) 0.2 Basophils (%) (Auto) 0.2 Neutrophils # (Auto) 11.8 Lymphocytes # (Auto) 0.9 Monocytes # (Auto) 0.6 Eosinophils # (Auto) 0.0 Basophils # (Auto) 0.0 CBC Comment DIFF FINAL Differential Comment Prothrombin Time 10.7 Prothromb Time International 1.0 Ratio Activated Partial 24.5 Thromboplast Time Sodium Level 133 Potassium Level 3.5 Chloride Level 96 Carbon Dioxide Level 26.1 Anion Gap 11 Blood Urea Nitrogen 15 Creatinine 0.87 Estimat Glomerular Filtration 67 Rate Random Glucose 187 Calcium Level 9.1 Total Bilirubin 0.3 Aspartate Amino Transf 20 (AST/SGOT) Alanine Aminotransferase 34 (ALT/SGPT) Alkaline Phosphatase 122 Total Protein 8.0 Albumin 3.7 Lipase 629 Troponin I LESS THAN 0.02 Clue Cells (Wet Prep) PRESENT Vaginal Trichomonas (Wet Prep) NONE SEEN Vaginal Yeast (Wet Prep) NONE SEEN Chlamydia trachomatis DNA NOT DETECTED (PCR) Neisseria gonorrhoeae DNA NOT DETECTED (PCR) Urine Color YELLOW Urine Turbidity CLEAR Urine pH 5.5 Urine Specific [place] 1.021 Urine Protein 30 Urine Glucose (UA) NEG Urine Ketones 40 Urine Occult Blood SMALL Urine Nitrite POS Urine Bilirubin NEG Urine Urobilinogen LESS THAN 2.0 Urine Leukocyte Esterase SMALL Urine RBC 4 Urine WBC 7 Urine Squamous Epithelial <1 Cells Urine Bacteria RARE Urine Mucus FEW Microscopic Urinalysis Comment CULT NOT INDICATED Lactic Acid Level 1.1 Test 08/27/16 04:15 White Blood Count 7.3 Red Blood Count 4.14 Hemoglobin 14.1 Hematocrit 40.3 Mean Corpuscular Volume 97.3 Mean Corpuscular Hemoglobin 34.1 Mean Corpuscular Hemoglobin 35.0 Concent Red Cell Distribution Width 12.0 Platelet Count 294 Mean Platelet Volume 8.1 Neutrophils (%) (Auto) 92.6 Lymphocytes (%) (Auto) 2.8 Monocytes (%) (Auto) 4.4 Eosinophils (%) (Auto) 0.0 Basophils (%) (Auto) 0.2 Neutrophils # (Auto) 6.7 Lymphocytes # (Auto) 0.2 Monocytes # (Auto) 0.3 Eosinophils # (Auto) 0.0 Basophils # (Auto) 0.0 CBC Comment DIFF FINAL Differential Comment Sodium Level 136 Potassium Level 3.7 Chloride Level 102 Carbon Dioxide Level 24.9 Anion Gap 9 Blood Urea Nitrogen 14 Creatinine 0.59 Estimat Glomerular Filtration 105 Rate Random Glucose 143 Calcium Level 8.1 Total Bilirubin 0.4 Aspartate Amino Transf 13 (AST/SGOT) Alanine Aminotransferase 27 (ALT/SGPT) Alkaline Phosphatase 86 Total Protein 6.6 Albumin 2.9 Lipase 921 Date/Time Procedure Status Source Growth 08/26/16 22:00 Aerobic Blood Culture Received Blood Peripheral Pending 08/26/16 22:00 Anaerobic Blood Culture Received Blood Peripheral Pending 08/26/16 21:15 Urine Culture Received Urine Clean Catch Pending MDM Interpretation(s) This patient's 56-year-old white female with 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
[2016-08-27] MEDS ORDERED: HYDROmorphone HCL 4 MG TAB PO PRN (10:30)
--- NOTE | 2016-08-27 11:58 | HHI.PR ---
Subjective Remarks With nausea and vomiting. She also reports abdominal pain and says dilaudid did not help. Change to morphine. No fever or chills. Says she had a dark colored stool last night. Objective Vitals Vital Signs Date Time Temp Pulse Resp B/P Pulse Ox O2 Delivery O2 Flow Rate FiO2 08/27/16 11:39 97.8 80 18 99/66 97 08/27/16 07:43 97.5 78 17 94/57 95 08/27/16 04:00 96.7 61 20 117/76 96 08/27/16 01:51 90 08/27/16 00:30 96.2 83 20 132/60 96 08/26/16 22:00 83 16 142/74 99 Room Air 08/26/16 20:44 16 08/26/16 20:43 98 Room Air 08/26/16 19:51 98.0 88 16 184/81 96 I/O 08/26/16 08/26/16 08/26/16 08/27/16 08/27/16 08/27/16 07:00 15:00 23:00 07:00 15:00 23:00 Intake Total 859 ml 120 ml Output Total 300 ml Balance 559 ml 120 ml Intake Oral 120 ml 120 ml IV Total 739 ml Output Urine Total 300 ml # Voids 1 # Bowel Movements 0 Result Diagram: 08/27/165 08/27/165 Imaging Last Impressions Abdomen/Pelvis CT 08/26/162005 Signed Impressions: Service Date/Time: Friday, August 26, 2016 21:37 - CONCLUSION: Abnormal appearance to proximal small bowel with thickening and increased enhancement in several loops with associated fluid in the mesentery, tracking to the right upper quadrant and a moderate amount of free fluid in the pelvis. No dilated loops of small or large bowel. The findings suggest a neoplastic or infectious process involving the jejunum. Jose Aguilar MD Abdomen/Pelvis/Transvag US 08/26/16 0000 Signed Impressions: Service Date/Time: Friday, August 26, 2016 23:28 - CONCLUSION: 1. Moderate free fluid complex in appearance. 2. Abnormal endometrial thickening in this postmenopausal patient. 3. The ovaries are not seen. Hemanth Rice MD Objective Remarks GENERAL: Middle-aged white female in no acute distress. HEENT: PERRLA, EOMI. No scleral icterus or conjunctival pallor. No lid lag or facial droop. CARDIOVASCULAR: Regular rate and rhythm. No obvious murmurs to auscultation. No chest tenderness to palpation. RESPIRATORY: No obvious rhonchi or wheezing. Clear to auscultation. Breath sounds equal bilaterally. GASTROINTESTINAL: Abdomen soft, diffuse tenderness to palpation, nondistended. BS normal. MUSCULOSKELETAL: Extremities without clubbing, cyanosis, or edema. No obvious deformities. NEUROLOGICAL: Awake, alert and oriented x4. No focal neurologic deficits. Moving both upper and lower extremities spontaneously. A/P Problem List: (1) Enteritis ICD Code: K52.9 Status: Acute (2) Pancreatitis ICD Code: K85.90 Status: Acute (3) GI bleed ICD Code: K92.2 Status: Acute (4) Postmenopausal vaginal bleeding ICD Code: N95.0 Status: Acute (5) UTI (urinary tract infection) ICD Code: N39.0 Status: Acute Assessment and Plan Abdominal pain. Nausea/vomiting GI Bleed: h/o BRBPR, +Hemoccult. Vitals stable. Hgb 15.2. IVF, Protonix IV, Consult for GI. Enteritis: c/o intermittent abdominal pain x5 months, symptoms worse in last 2- 3 days, CT Abd/Pelvis w/ neoplastic vs infectious etiology, possible enteritis, images reviewed by me. Afebrile, WBC 13.4. S/p Levaquin/Flagyl in ER. Will continue w/ IV Abx, IVF, analgesics/antiemetics. Surgery on consult Dr. Evangelista Gynecology consulted GI also consulted, seen by Dr Mcarthur GI , insert NGT, cee for EGD in the morning Pain meds per pain scale, change dilaudid to morphine IV as per patient it works better for pain Vaginal Bleeding: Postmenopausal vaginal bleeding x5 months, Consult for Gynecology. Transvaginal US w/ abnormal endometrial thickening and moderate free fluid in pelvis, images reviewed. Discussed with media relations coordinator service Dr Mansfield recommends data officer/onc consultation. 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 Consult colorectal surgery UTI: U/a w/ UTI, s/p Levaquin/Flagyl for Enteritis, will continue w/ IV Abx for coverage of both. IVF, repeat labs in am. DVT Prophylaxis: SCD/Teds. CM for d/c planning as needed. Discussed with the patient, nurse, GI service, Certified Orthoptist service Problem Qualifiers (1) GI bleed: Qualified Code: K92.2 - Gastrointestinal hemorrhage, unspecified gastrointestinal hemorrhage type Ally Bauman MD Aug 27, 2016 11:58
[2016-08-27] MEDS ORDERED: ACETAMINOPHEN/HYDROcodone 325 MG/5 MG TAB PO PRN (12:00)
[2016-08-27] MEDS ORDERED: NALOXONE HCL 0.4 MG/ML AMP IV PRN ×2 (12:00→14:45)
[2016-08-27] MEDS ORDERED: MORPHINE SULFATE 4 MG/ML INJ IV PRN ×3 (12:00)
[2016-08-27] MEDS ORDERED: SODIUM CHLOR 0.9% 1000 ML INJ 1,000 ML IV ONE (12:15)
--- NOTE | 2016-08-27 12:15 | HHI.GIFU ---
Objective Vitals I&O Vital Signs Date Time Temp Pulse Resp B/P Pulse Ox O2 Delivery O2 Flow Rate FiO2 08/27/16 11:39 97.8 80 18 99/66 97 08/27/16 07:43 97.5 78 17 94/57 95 08/27/16 04:00 96.7 61 20 117/76 96 08/27/16 01:51 90 08/27/16 00:30 96.2 83 20 132/60 96 08/26/16 22:00 83 16 142/74 99 Room Air 08/26/16 20:44 16 08/26/16 20:43 98 Room Air 08/26/16 19:51 98.0 88 16 184/81 96 I/O 08/26/16 08/26/16 08/26/16 08/27/16 08/27/16 08/27/16 07:00 15:00 23:00 07:00 15:00 23:00 Intake Total 859 ml 120 ml Output Total 300 ml Balance 559 ml 120 ml Intake Oral 120 ml 120 ml IV Total 739 ml Output Urine Total 300 ml # Voids 1 # Bowel Movements 0 Laboratory Laboratory Tests Test 08/26/16 08/26/16 08/26/16 08/26/16 20:15 20:50 21:15 22:15 White Blood Count 13.4 Red Blood Count 4.56 Hemoglobin 15.2 Hematocrit 44.5 Mean Corpuscular Volume 97.6 Mean Corpuscular Hemoglobin 33.4 Mean Corpuscular Hemoglobin 34.2 Concent Red Cell Distribution Width 12.4 Platelet Count 458 Mean Platelet Volume 7.9 Neutrophils (%) (Auto) 88.3 Lymphocytes (%) (Auto) 6.5 Monocytes (%) (Auto) 4.8 Eosinophils (%) (Auto) 0.2 Basophils (%) (Auto) 0.2 Neutrophils # (Auto) 11.8 Lymphocytes # (Auto) 0.9 Monocytes # (Auto) 0.6 Eosinophils # (Auto) 0.0 Basophils # (Auto) 0.0 CBC Comment DIFF FINAL Differential Comment Prothrombin Time 10.7 Prothromb Time International 1.0 Ratio Activated Partial 24.5 Thromboplast Time Sodium Level 133 Potassium Level 3.5 Chloride Level 96 Carbon Dioxide Level 26.1 Anion Gap 11 Blood Urea Nitrogen 15 Creatinine 0.87 Estimat Glomerular Filtration 67 Rate Random Glucose 187 Calcium Level 9.1 Total Bilirubin 0.3 Aspartate Amino Transf 20 (AST/SGOT) Alanine Aminotransferase 34 (ALT/SGPT) Alkaline Phosphatase 122 Total Protein 8.0 Albumin 3.7 Lipase 629 Troponin I LESS THAN 0.02 Clue Cells (Wet Prep) PRESENT Vaginal Trichomonas (Wet Prep) NONE SEEN Vaginal Yeast (Wet Prep) NONE SEEN Chlamydia trachomatis DNA NOT DETECTED (PCR) Neisseria gonorrhoeae DNA NOT DETECTED (PCR) Urine Color YELLOW Urine Turbidity CLEAR Urine pH 5.5 Urine Specific [place] 1.021 Urine Protein 30 Urine Glucose (UA) NEG Urine Ketones 40 Urine Occult Blood SMALL Urine Nitrite POS Urine Bilirubin NEG Urine Urobilinogen LESS THAN 2.0 Urine Leukocyte Esterase SMALL Urine RBC 4 Urine WBC 7 Urine Squamous Epithelial <1 Cells Urine Bacteria RARE Urine Mucus FEW Microscopic Urinalysis Comment CULT NOT INDICATED Lactic Acid Level 1.1 Test 08/27/16 08/27/16 04:15 09:58 White Blood Count 7.3 Red Blood Count 4.14 Hemoglobin 14.1 Hematocrit 40.3 Mean Corpuscular Volume 97.3 Mean Corpuscular Hemoglobin 34.1 Mean Corpuscular Hemoglobin 35.0 Concent Red Cell Distribution Width 12.0 Platelet Count 294 Mean Platelet Volume 8.1 Neutrophils (%) (Auto) 92.6 Lymphocytes (%) (Auto) 2.8 Monocytes (%) (Auto) 4.4 Eosinophils (%) (Auto) 0.0 Basophils (%) (Auto) 0.2 Neutrophils # (Auto) 6.7 Lymphocytes # (Auto) 0.2 Monocytes # (Auto) 0.3 Eosinophils # (Auto) 0.0 Basophils # (Auto) 0.0 CBC Comment DIFF FINAL Differential Comment Sodium Level 136 Potassium Level 3.7 Chloride Level 102 Carbon Dioxide Level 24.9 Anion Gap 9 Blood Urea Nitrogen 14 Creatinine 0.59 Estimat Glomerular Filtration 105 Rate Random Glucose 143 Calcium Level 8.1 Total Bilirubin 0.4 Aspartate Amino Transf 13 (AST/SGOT) Alanine Aminotransferase 27 (ALT/SGPT) Alkaline Phosphatase 86 Total Protein 6.6 Albumin 2.9 Lipase 921 Carcinoembryonic Antigen 6.4 CA 125 Antigen 7.4 Date/Time Procedure Status Source Growth 08/26/16 22:00 Aerobic Blood Culture - Preliminary Resulted Blood Peripheral NO GROWTH IN 1 DAY 08/26/16 22:00 Anaerobic Blood Culture - Preliminary Resulted Blood Peripheral NO GROWTH IN 1 DAY 08/26/16 21:15 Urine Culture Received Urine Clean Catch Pending Assessment and Plan Physician Comments dictation line not available for now due to technical issues-we will dictate consult later mrcp enteroscopy in am ngt to suction iv antibiotics ivf colonoscopy when able to drink prep if enteroscopy negative ct enterography surgical evaluation await rn gynecology/oncology, colorectal evaluation also for pelvic mass Marilyn Mcarthur MD Aug 27, 2016 12:15 enteroscopy in am ngt to suction iv antibiotics ivf colonoscopy when able to drink prep if enteroscopy negative ct enterography surgical evaluation Marilyn Mcarthur MD Aug 27, 2016 12:15
--- NOTE | 2016-08-27 12:27 | EKG ---
Date Performed: 08/26/2016 Time Performed: 20:53:59 PTAGE: 56 years EKG: Sinus rhythm POSSIBLE LEFT ATRIAL ENLARGEMENT NONSPECIFIC T-WAVE ABNORMALITY BORDERLINE ECG NO PREVIOUS TRACING DOCTOR: Roge Smith Interpretating Date/Time 08/27/2016 12:25:23
--- NOTE | 2016-08-27 14:33 | HHI.PR ---
Subjective Remarks Pt seen. Full consult dictated. Moderate to severe abdominal pain. Objective Vital Signs Date Time Temp Pulse Resp B/P Pulse Ox O2 Delivery O2 Flow Rate FiO2 08/27/16 11:39 97.8 80 18 99/66 97 08/27/16 07:43 97.5 78 17 94/57 95 08/27/16 04:00 96.7 61 20 117/76 96 08/27/16 01:51 90 08/27/16 00:30 96.2 83 20 132/60 96 08/26/16 22:00 83 16 142/74 99 Room Air 08/26/16 20:44 16 08/26/16 20:43 98 Room Air 08/26/16 19:51 98.0 88 16 184/81 96 I/O 08/26/16 08/26/16 08/26/16 08/27/16 08/27/16 08/27/16 07:00 15:00 23:00 07:00 15:00 23:00 Intake Total 859 ml 120 ml Output Total 300 ml 550 ml Balance 559 ml -430 ml Intake Oral 120 ml 120 ml IV Total 739 ml Output Urine Total 300 ml Gastric Drainage Total 550 ml # Voids 1 # Bowel Movements 0 Result Diagram: 08/27/16 0415 08/27/16 0415 Objective Remarks Abd: severe guarding and diffusely tender on exam Assessment and Plan Assessment and Plan Free air on CT scan. No diverticulitis. ? perf ulcer. Palpable anterior rectal cancer with probable invasion of vagina D/W Dr Kenyon. He will see when out of OR. If he wishes assist I am available. I cancelled MRI as I don't think it will add to our clinical picture. I will plan on a colonoscopy when appropriate. She will at some point need pre- op RT and chemo for Rectal CA. Bernardino Barreto MD Aug 27, 2016 14:33
[2016-08-27] MEDS: PCA - TOTAL MG MORPHINE DELIVERED PER SHIFT SCH ×2 (14:45→21:32)
[2016-08-27] MEDS: MORPHINE SULFATE 30 MG/30 ML PCA IV SCH ×2 (15:17→23:27)
--- NOTE | 2016-08-27 15:36 | MB ---
cc: TAD SAWANT M.D., CARL N. MD TOLLAND,EAN Finn M.D. KAEL HARPER MD,MADHURI Esteban M.D. DOMINICK GALARZA MD DATE OF CONSULTATION: 08/27/2016 CHIEF COMPLAINT Abdominal pain. HISTORY OF PRESENT ILLNESS This patient says that she has been having about five months of abdominal pain. It has been progressively getting worse and she worked yesterday at a [employer] and by the end of the day she was having more in the way of pain and came to the emergency room last night about 7:[address] She [address] CT scanning of the abdomen and CT scan at that time showed abnormal appearance of the proximal small bowel, increased enhancement and thickness in the small bowel wall, but no distended lumen. There was focal free fluid about the mesentery adjacent to the thickened small bowel, free fluid tracking around the free edge of the liver and in Morison's pouch. There was free fluid seen in the pelvis as well. In speaking to Dr. Lico Thomas, radiologist pilot control operator, he said that in reviewing the CT scan he feels that the patient has free air. He said it is not a massive amount of free air but it is in the upper abdomen and it does show up over the liver as well. He sees the fluid around the Morison's pouch region and in the jejunal region. There is nothing in the lesser sac and the plane between the pancreas and the stomach is normal appearing. He does see some thickening in the rectum as well along with the pelvic fluid. He favors a perforated duodenal ulcer as a source of the free air, although he is not certain of the etiology of free air obviously. The patient did have IV contrast on the CT scan but no oral contrast. The patient has been seen by the hospitalist, gastroenterology and there is a consult for general surgery as well as for us. The patient states that she is still having a fair degree of pain and that the Dilaudid that they gave her really is not covering her. The morphine is starting to cover it a little bit and a nasogastric tube has been placed about an hour or two ago. She says that has given her some relief as well. Only about 200-400 cc of contents came out with vomiting and the nasogastric tube. She says that up until yesterday she was eating normally. She ate some food yesterday including soup and some yogurt, although no real solids. She did have bowel motion yesterday but she says it has been abnormal lately. She has seen blood both in her stool intermittently as well as brown vaginal drainage. She was seen by gynecology who felt that there was a rectal and a vaginal mass. The patient says that she has had no fevers or chills but has just not felt well for the last several months and as I said worsened over the last 24 hours. PAST MEDICAL HISTORY, FAMILY HISTORY, SOCIAL HISTORY, REVIEW OF SYSTEMS: Otherwise negative. SOCIAL HISTORY The patient smokes one pack of cigarettes per day and drinks four glasses of wine nightly. PHYSICAL EXAMINATION GENERAL: A well-developed, well-nourished female in moderate to severe abdominal pain. SKIN: Warm and dry. HEENT: Extraocular muscles intact. NECK: Supple. ABDOMEN: Firm with guarding throughout. She is tender throughout her abdomen on palpation. She is actually less tender in the epigastrium and softer than anywhere else. Rectovaginal examination reveals roughening in the vagina consistent with a growth into the vagina. Digital rectal examination reveals an obvious anterior rectal cancer, probably eroding into the posterior wall of the vagina above the anorectal ring. This is most likely an adenocarcinoma of the rectum as opposed to a squamous cell carcinoma of the anal canal. This lesion is not obstructing by any means and is palpably a cancer. EXTREMITIES: Range of motion within normal limits. NEUROLOGIC: Grossly normal. IMPRESSION 1. Rectal cancer with vaginal invasion. 2. Acute onset of abdominal pain less than 24 hours ago on top of chronic abdominal pain for the last months. CT scan shows free intra-abdominal air in the upper abdomen on last night's CT scan. PLAN She definitely has a rectal cancer and a vaginal component. At some point I will do a colonoscopy and a vaginal exam and biopsy this. This likely will require routine preoperative radiation therapy and chemotherapy prior to any surgical treatment. I do not think that this rectal cancer and vaginal component has anything to do with her abdominal pain, however. She is not distended, she has no diverticula on the CT scan, she has no areas of diverticulitis. It does not appear that she has any sort of bowel obstruction. I would favor duodenal ulcer possible perforation with the free air. I have discussed this case with Dr. Kenyon who is in the operating room and he will see the patient tonight. He has already been consulted and knows a little bit about the case. If he decides that laparotomy is in order and wants to do that, he will do that at his discretion. If he wants me present, I will be happy to be present to take care of any possible colorectal problem. An MRI was ordered of the abdomen and pelvis and I do not think this is necessary as we seem to have at least some etiology for her pain at this time. If Dr. Kenyon wants to proceed with the MRI, he will reorder that examination. I will continue to follow with you and if Dr. Kenyon wants me to assist in the operating room, I would be happy to do so. MD KLEBER Flores/EDWARD /2:20 PM /3:18 PM
--- NOTE | 2016-08-27 16:49 | HHI.GIFU ---
GI Follow-up Note Consult Follow-up Discussed with -there was a reevaluation of initial ct done -concern for free air, possible perforated duodenal ulcer-we will hold off on enteroscopy for now await surgical input if treated conservatively will need an enteroscopy in the near future , consider ugi series with Gastrografin -depending on surgery plan colonoscopy as per colorectal ASSESSMENT/PLAN: It was a pleasure seeing Michelle Vora Thank you for this consult. Entered by: Marilyn Maurice MD Aug 27, 2016 16:49
--- NOTE | 2016-08-27 17:44 | MB ---
cc: TAD SAWANT M.D. DATE OF CONSULTATION 08/27/2016 DATE OF [address] Bauman. REASON FOR CONSULTATION Abnormal CT, abdominal pain, rectal bleed. HISTORY The patient was seen earlier today and attempt to dictate the consultation was made, unfortunately the dictation system had technical issues, so the dictation is done a little bit later in the day. The patient was admitted yesterday through the emergency room with complaints of nausea and vomiting, abdominal pain. The patient has on and off abdominal pain for approximately five months, it got worse for the last few days to the point that she could not tolerate it anymore and she had to come to the emergency room. She reports having some vaginal bleeding and occasional rectal bleed. She denies any rectal bleed recently. She denies any major weight loss, constipation, diarrhea, dysphagia or odynophagia. She is taking [employer] classes and she stated she had lost some weight during this type of exercise. Never had an endoscopy or colonoscopy. The patient was evaluated by MANAGER ENT and she was felt to have vaginal mass beginning in the rectal vault and eroding in the posterior vagina, unclear which is the primary. Gynecologic oncology and surgical consultation and colorectal surgical consultation was obtained. Also general surgery consultation was called in view of CT findings. The patient is on clear liquid diet at this time. She stated that she has nausea and vomiting. The pain is uncontrolled by current treatment. She is quite agitated and she would like something done about this pain. PAST MEDICAL HISTORY None. PAST SURGICAL HISTORY None. ALLERGIES None. FAMILY HISTORY Denies any significant family history of colon cancer or any GI pathology. SOCIAL HISTORY She drinks four glasses of wine per night. Smokes one-half pack of cigarettes per day. Negative for drugs. REVIEW OF SYSTEMS She denies any fever or chills, weight loss or weight gain. ENT: No alteration in baseline hearing or visual acuity PULMONARY: Denies any chest pain, shortness of breath. GASTROINTESTINAL: As above. GENITOURINARY: Denies dysuria, hematuria. HEMATOLOGIC: No history of anemia or bleeding disorder. SKIN: No alteration in baseline skin lesion. NEUROLOGICAL: No history of TIA or CVA kind of symptoms. PHYSICAL EXAMINATION GENERAL: On clinical exam, the patient is sitting in bed in mild distress due to pain, trying to vomit. She wants more pain medications secondary to increase in abdominal pain. VITAL SIGNS: Temperature is 97.8, pulse 80, respiration 18, blood pressure 99/66, saturation 97%. HEENT: SANDRA. NECK: No JVD. No lymphadenopathy. CHEST: Clear to auscultation and palpation. CARDIOVASCULAR: S1-S2. No murmur. ABDOMEN: Soft but distended, tender in the epigastrium and lower abdomen. CENTRAL NERVOUS SYSTEM: Awake, alert, oriented x3. RECTAL/GYNECOLOGIC: She refused to have this done by me as she already had it done by secret code expert and she is in tremendous discomfort at this time. LABORATORY DATA Her hemoglobin is 14, white count 7.3. WBC was 13.4 upon admission. Hemoglobin was 15.2, platelets 294. Her glucose 187 currently 143, alkaline phosphatase was 122 currently 86. Lipase was 921, it was 629 before. A CEA level is 6.4. IMAGING She had a transvaginal ultrasound which showed a moderate free fluid complex in appearance, abnormal endometrial thickening in a postmenopausal patient. An abdominal CT scan showed abnormal appearance to proximal small bowel with thickening and increased enhancement in several loops with associated fluid in the mesentery , the right upper quadrant a moderate amount of free fluid in the pelvis. No dilated loops of small or large bowel. The findings suggest a neoplastic or infectious process involving the jejunum. IMPRESSION 1. Ms. Vora is a 56-year-old lady with multiple medical issues discovered on the current admission, admitted with nausea and vomiting, found to have abnormal CT, questionable mass in the jejunum 2.rectal bleed most likely secondary to the pelvic mass. May benefit from a colonoscopy when she is able to drink the contrast. 3. Vaginal bleeding secondary to pelvic mass. Sap Gatherer evaluated the patient already. 4. Elevated lipase, abdominal pain. Abnormal CT scan around the jejunum. Needs MRCP for further evaluation. RECOMMENDATIONS 1. N.p.o., NG tube to low intermittent suction. 2. Enteroscopy in the morning unless indicated otherwise. 3. Continue IV antibiotics, IV Protonix. 4. Await MANAGER ENT, oncology, colorectal surgery and surgical consultation. Further recommendation will depend on the patient's clinical status and the above results. Pain management to be adjusted by primary care team. Thank you again we will continue to follow the patient along with you. MD ALYSON Ennis/GRADY /4:40 PM /5:18 PM ZEN
[2016-08-27] MEDS: LEVOFLOXACIN 750 MG PREMIX INJ 150 ML IV SCH (21:33)
[2016-08-28 00:05] VITALS: BP 90/52; PULSE 89; RESP 21; TEMP 96; O2SAT 92
[2016-08-28] MEDS: metroNIDAZOLE 500 MG INJ 100 ML IV SCH ×3 (04:08→20:18)
[2016-08-28] MEDS: PCA - TOTAL MG MORPHINE DELIVERED PER SHIFT SCH ×3 (04:09→20:28)
[2016-08-28] MEDS: SODIUM CHLOR 0.9% 1000 ML INJ 1,000 ML IV SCH ×4 (04:09→20:20)
[2016-08-28 05:21] LABS: AUTOMATED NEUTROPHIL # 11.8 TH/MM3 (1.8-7.7); BASOPHIL % 0.3 % (0.0-2.0); EOSINOPHIL % 0.1 % (0.0-4.0); HEMATOCRIT 40.5 % (35.0-46.0); LYMPHOCYTE # 0.1 TH/MM3 (1.0-4.8); MEAN CELL VOLUME 99.9 FL (80.0-100.0); MEAN CORPUSCULAR HEMOGLOBIN 33.5 PG (27.0-34.0); MEAN CORPUSCULAR HGB CONC 33.5 % (32.0-36.0); MONO % 15.9 % (0.0-8.0); NEUT % 82.7 % (16.0-70.0); PLATELET COUNT 317 TH/MM3 (150-450); RED BLOOD COUNT 4.05 MIL/MM3 (4.00-5.30); RED CELL DISTRIBUTION WIDTH 12.3 % (11.6-17.2); WHITE BLOOD COUNT 14.3 TH/MM3 (4.0-11.0)
[2016-08-28 05:28] LABS: HEMO FLAGS AUTO DIFF
[2016-08-28 06:01] LABS: BICARBONATE 22.7 MEQ/L (21.0-32.0); POTASSIUM 4.2 MEQ/L (3.5-5.1)
--- NOTE | 2016-08-28 07:56 | MB ---
cc: TAD SAWANT M.D., JOHN T. M.D. BIANCHI, JOSEPH D. M.D. DATE OF CONSULTATION: 08/27/2016 REASON FOR CONSULTATION Abdominal pain, questionable mass in the jejunum. Later it was found that she had free air on the CT scan. HISTORY OF PRESENT ILLNESS This is a 56-year-old female who was admitted to the hospital by the medical team after a CT scan done for vaginal bleeding showed what was thought to be a jejunal mass. Subsequently, she was found to have actually a rectal tumor growing into her vagina. CT scan revealed a small amount of free air in the hemidiaphragms and surgery was consulted for surgical opinion. She noticed the abdominal pain started on Sunday. PAST MEDICAL HISTORY Negative for any chronic medical problems. No neurologic, cardiovascular or respiratory issues. SOCIAL HISTORY She is employed. ALLERGIES She is not allergic to anything. MEDICATIONS No prescriptions on outpatient. PHYSICAL EXAMINATION GENERAL: A pleasant lady, slightly obese. NECK: Supple. CHEST: Clear. HEART: Regular rate. ABDOMEN: Obese, soft, tender mainly in the left upper quadrant midepigastric region. There is no rebound or guarding. EXTREMITIES: She is sitting up Pakistani style in the bed. She is able to walk to the restroom as well. /RECTAL: Rectal and vaginal exam not performed as it was just recently performed by the hypnotherapist and the colorectal surgeon. IMAGING STUDIES CT scan shows this fluid and some free air thought to be perforated gastric ulcer or duodenal ulcer. She also has this rectal tumor. LABORATORY DATA White count is 7, H&H 14 and 40. Chemistries essentially normal. Creatinine is 0.5. Lipase is 921. CA-125 is 7.1. CEA is 6.4. I discussed with Dr. Barreto. I discussed with Dr. Sawant. Reviewed the images. ASSESSMENT/RECOMMENDATIONS A 56-year-old female who appears to have a rectal tumor growing into the vagina. She also has findings consistent with most likely a perforated ulcer that has been I think treated at this point nonoperatively with antibiotics and anti-ulcer medicine. At this time clinically will follow her. If she progresses then she will require surgical intervention for her suspected ulcer. If she is able to progress we can begin workup and treatment of her colorectal tumor. MD TESS Cherry/EDWARD /10:32 PM /7:34 AM
[2016-08-28 08:00] VITALS: BP 85/51; PULSE 88; RESP 17; TEMP 95.5; O2SAT 92
[2016-08-28] MEDS: SODIUM CHLORIDE 0.9% FLUSH 5 ML FLUSH FLUSH SCH ×2 (08:19→20:28)
[2016-08-28] MEDS: PANTOPRAZOLE SODIUM 40 MG VIAL IV PUSH SCH ×2 (08:19→20:22)
--- NOTE | 2016-08-28 08:40 | RADRPT ---
EXAM DATE/TIME: 08/28/2016 07:57 [facility] COMPARISON: No previous studies available for comparison. INDICATIONS : Patient has abdomen pain. MEDICAL HISTORY : None. SURGICAL HISTORY : None. ENCOUNTER: Subsequent ACUITY: 2 days PAIN SCORE: 5/10 LOCATION: Bilateral abdomen FINDINGS: Nasogastric tube is across the GE junction. Moderate free intraperitoneal air is present. Bowel gas pattern is otherwise unremarkable. Lung bases are clear. CONCLUSION: Moderate free air. Gino Hinds MD FACR on August 28, 2016 at 8:15 Board Certified Radiologist. This report was verified electronically.
--- NOTE | 2016-08-28 08:44 | HHI.PR ---
Subjective Subjective Notes DAILY PROGRESS NOTE FOR SURGICAL ATTENDING, DR. FAUSTO KENYON Pain 7 out of [address] tube in [address] Points to midepigastric region were tenderness is Objective Vitals/I&O Vital Signs Date Time Temp Pulse Resp B/P Pulse Ox O2 Delivery O2 Flow Rate FiO2 08/28/16 04:09 16 08/28/16 00:05 96.0 89 90/52 92 08/26/16 22:00 Room Air Labs Laboratory Tests Test 08/27/16 08/27/16 08/28/16 09:58 12:26 04:57 Carcinoembryonic Antigen 6.4 CA 125 Antigen 7.4 Erythrocyte Sedimentation Rate 27 White Blood Count 14.3 Red Blood Count 4.05 Hemoglobin 13.6 Hematocrit 40.5 Mean Corpuscular Volume 99.9 Mean Corpuscular Hemoglobin 33.5 Mean Corpuscular Hemoglobin 33.5 Concent Red Cell Distribution Width 12.3 Platelet Count 317 Mean Platelet Volume 7.8 Neutrophils (%) (Auto) 82.7 Lymphocytes (%) (Auto) 1.0 Monocytes (%) (Auto) 15.9 Eosinophils (%) (Auto) 0.1 Basophils (%) (Auto) 0.3 Neutrophils # (Auto) 11.8 Lymphocytes # (Auto) 0.1 Monocytes # (Auto) 2.3 Eosinophils # (Auto) 0.0 Basophils # (Auto) 0.0 CBC Comment AUTO DIFF Sodium Level 136 Potassium Level 4.2 Chloride Level 104 Carbon Dioxide Level 22.7 Anion Gap 9 Blood Urea Nitrogen 26 Creatinine 1.02 Estimat Glomerular Filtration 56 Rate Random Glucose 108 Calcium Level 7.9 Date/Time Procedure Status Source Growth 08/26/16 22:00 Aerobic Blood Culture - Preliminary Resulted Blood Peripheral NO GROWTH IN 1 DAY 08/26/16 22:00 Anaerobic Blood Culture - Preliminary Resulted Blood Peripheral NO GROWTH IN 1 DAY 08/26/16 21:15 Urine Culture - Preliminary Resulted Urine Clean Catch Gram Negative Manny [facility] KUB from today shows a lot more free air discussed with Dr. Vivek Hinds Last Impressions Abdomen/Pelvis CT 08/26/162005 Signed Impressions: Service Date/Time: Friday, August 26, 2016 21:37 - CONCLUSION: Abnormal appearance to proximal small bowel with thickening and increased enhancement in several loops with associated fluid in the mesentery, tracking to the right upper quadrant and a moderate amount of free fluid in the pelvis. No dilated loops of small or large bowel. The findings suggest a neoplastic or infectious process involving the jejunum. Jose Aguilar MD ADDENDUM: On evaluation of the images, there does appear to be some free air in the upper abdomen underneath the hemidiaphragms. There is a small amount of fluid adjacent to the liver. There appears to be some inflammatory changes involving the proximal duodenum. There is some free fluid in the pelvis. These findings were discussed by telephone with the colorectal surgeon. The free air in the upper abdomen an inflammatory-type changes associated with the proximal duodenum suggest a possible perforated peptic ulcer. Lico Thomas MD Abdomen/Pelvis/Transvag US 08/26/16 0000 Signed Impressions: Service Date/Time: Friday, August 26, 2016 23:28 - CONCLUSION: 1. Moderate free fluid complex in appearance. 2. Abnormal endometrial thickening in this postmenopausal patient. 3. The ovaries are not seen. Hemanth Rice MD Cardiovascular: Regular Lungs: Clear Abdomen: Other (tenderness with guarding) Extremities: Perfused A/P Problem List: (1) Free intraperitoneal air Plan: Much increased from last imaging study (2) Abdominal pain (3) Elevated white blood cell count (4) Enteritis (5) Pancreatitis (6) UTI (urinary tract infection) (7) GI bleed (8) Rectal mass Assessment and Plan 56-year-old female who has much more free air on examination her white counts elevated creatinines elevated her tenderness is still 7 out of 10 She also has a rectal mass that is being worked up by the colorectal surgeon Dr. Noe Barreto She will require operative intervention because of this increasing free air, which I suspect to be a perforated ulcer Problem Qualifiers (1) Abdominal pain: Qualified Code: R10.84 - Generalized abdominal pain (2) GI bleed: Qualified Code: K92.2 - Gastrointestinal hemorrhage, unspecified gastrointestinal hemorrhage type Fausto Kenyon MD Aug 28, 2016 08:44
[2016-08-28 08:53] LABS: BANDS 36 % (0-6); METAMYELOCYTES 10 % (0-1); MYELOCYTES 2 % (0-0); POLYS (SEG NEUTROPHILS) 50 % (16-70); WBC DIFF SAMPLE 100
[2016-08-28 08:54] LABS: PLATELET ESTIMATE SMEAR NORMAL (NORMAL); PLATELET MORPHOLOGY NORMAL (NORMAL); SCAN/DIFF FINAL DIFF MANUAL
--- NOTE | 2016-08-28 09:17 | HHI.GIFU ---
GI Follow-up Note Consult Follow-up Pt off floor in OR Entered by: Filomena Sanchez (Filomena Sanchez) Filomena Sanchez Aug 28, 2016 09:17 Carlos Machado MD Aug 28, 2016 23:15
[2016-08-28] MEDS ORDERED: MIDAZOLAM HCL 2 MG/2 ML VIAL ONE (09:24)
--- NOTE | 2016-08-28 09:52 | MB ---
cc: TAD MCARTHUR M.D., KELLY L. MD TOLLAND,EAN Finn M.D. KAEL MANSFIELD MD,MADHURI Esteban M.D. DOMINICK GALARZA MD DATE OF CONSULTATION 08/28/[address] Dominick Galarza REASON FOR CONSULTATION Postmenopausal bleeding, vaginal mass, thickened endometrial stripe. REASON FOR ADMISSION Abdominal pain, nausea, vomiting, necrotic pelvic mass. Abnormal-appearing small bowel, possible small amount of free air in the peritoneal cavity. This patient is seen. Her findings are reviewed. She is evaluated by me and examined by me in conjunction with our nurse practitioner (Akash Rios). I agree with the findings. ASSESSMENT AND PLAN OF CARE This is a 56-year-old female who says that she has been feeling poorly for least five months. Included in those symptoms are abdominal pain, nausea, vomiting, vaginal bleeding, rectal bleeding. She has not noticed any hematuria. In recent days she has not passed flatus or had bowel movement and she progressively felt worse. She presented to the emergency room. Evaluation thus far includes imaging. CAT scan of the abdomen and pelvis shows a small amount of possible free air underneath the diaphragm. There is an abnormal appearance to the proximal small bowel with increased enhancement and thickness in the small bowel. There is focal free fluid in the mesentery tracking around the liver. There is fluid seen in the pelvis. No overt adenopathy. CAT scan does not further elicit the reproductive anatomy. Pelvic ultrasound was obtained which shows slightly prominent endometrial stripe at 9 mm with a small amount of fluid in the cavity. The ovaries are not well-visualized. Preliminary WOOD GRAINER evaluation by Dr. Mansfield on his exam found a mass in the posterior vaginal wall that he believes is neoplastic and it is his impression that it is a probable tumor that started in the rectum and grew through the vaginal wall. No tissue was obtained. The possibility of a primary vaginal neoplasm must also be considered. She is seen now in consultation for further evaluation and recommendations regarding these findings. PAST MEDICAL HISTORY, MEDICATIONS, ALLERGIES, PAST SURGICAL HISTORY, FAMILY HISTORY All reviewed and are as documented in the chart. I did not decipher any further details other than as documented. Points to emphasize are the fact that it has been at least 30 years since her last gynecologic exam and Pap smear and she reports that her duration of symptoms are at least 5 months, possibly longer. PHYSICAL EXAMINATION VITAL SIGNS: She is afebrile, pulse 84-89, respirations 16-20, blood pressure 80-90/49-52, O2 saturations greater than or equal to 95% while awake. GENERAL: She is alert and oriented x3, in no acute distress. Nasogastric tube is in place on suction. She reports that her stomach is feeling somewhat better. ABDOMEN: Distended, slightly tense and slightly tender but no acute rebound or guarding. BACK: No CVA tenderness or spinal point tenderness. PELVIC EXAM: Deferred until exam under anesthesia. DISCUSSION Time is spent in discussion with her, reviewing the findings in her case to date. The reason for WOOD GRAINER Oncology consultation is explained. We are trying to further clarify the abnormalities seen on CAT scan and on preliminary exam as well as clarify the reason for her symptomatology. The WOOD GRAINER issues are that of the postmenopausal bleeding. It is uncertain if this is from the mass effect in the posterior vagina versus the endometrium, cervix or a combination of these findings. I recommend we obtain tissue biopsy of the vaginal mass and it may be prudent to consider dilation and curettage to sample the endometrium and cervix. This can be best obtained while under anesthesia and while under anesthesia it may be reasonable to perform cystoscopy to assess the bladder anatomy as well. We know that a number of physicians have been consulted and are involved in her case and we will try to coordinate these procedures with the other care services. If in fact of procedures under anesthesia are planned, the most important thing is to get tissue biopsy especially of the abnormality in the low pelvis and the anterior of vagina and rectal region, and we will try to clarify if this is or is not a primarily a WOOD GRAINER problem and try to clarify the source of problem so that appropriate treatment can be provided. She understands that the findings are suggestive of probable abnormality in the digestive tract as per input from Drs. Mcarthur and Dr. Barreto and I believe Dr. Tal Kenyon of General Surgery may also be seeing her as well. We will try to coordinate efforts in our effort to evaluate and make treatment recommendations. Discussion ensued. Questions were answered. She understands that our proposed procedure is diagnostic only, will not treat the problem but will hopefully help clarify the problem so that subsequent treatment recommendations may be made. She expresses good understanding and agrees. ASSESSMENT 1. Posterior vaginal wall mass, thickened endometrial stripe and postmenopausal bleeding. 2. Possible rectal mass, thickened small bowel with some intraperitoneal fluid, possible small amount of free air with signs and symptoms of ileus versus intestinal obstruction. 3. Discussion. PLAN 1. Tentatively schedule for tomorrow afternoon exam under anesthesia, biopsies of posterior vaginal wall mass, D&C, cystoscopy. 2. We will try to coordinate diagnostic efforts with other services as they move forward in their recommendations and procedures. MD SHELIA Jacobo/ALEXIA /7:50 AM /9:19 AM
--- NOTE | 2016-08-28 09:57 | PD.CONS ---
History of Present Illness Service NURSING FACULTY/ONC Consult Requested By Dr. Bauman Reason for Consult vaginal bleeding/ vaginal mass possible head of history malignancy Primary Care Physician No Primary Care Physician Diagnoses: (1) Rectal mass (2) Vaginal bleeding, abnormal (3) Vaginal mass History of Present Illness This is a 56 year old female who came into the ER with complaints of a 5 month history of abdominal pain, nausea and vomiting that she reports as intermittent. Patent reports that her symptoms have gotten worse over the past 3 days. She also states she has noticed rectal and vaginal bleeding. She states she has not had a head of history exam for many years and reports no PCP. Ct scan was obtained that shown proximal small bowel with thickening and increased enhancement in several loops with associated fluids in the mesentery and tracking to RUQ. Dr. Mansfield did a head of history exam and commented on blood in vaginal canal felt to be rectal tumor that was spreading to vaginal canal. U/S reported thickened endometrial stripe aprox 9mm with moderate amount of fluid in the endometrial canal. Gastroenterology and colorectal surgery has been consulted and are following. Review of Systems Constitutional: COMPLAINS OF: Weight loss Gastrointestinal: COMPLAINS OF: Abdominal pain, Nausea, Vomiting Genitourinary: COMPLAINS OF: Abnormal vaginal bleeding Past Family Social History Allergies: Coded Allergies: No Known Allergies (Unverified , 08/26/16) Past Medical History none reported Past Surgical History none Reported Medications none reported Active Ordered Medications Current Medications Morphine Sulfate (Morphine Inj) 4 mg ONCE ONCE IV PUSH Last administered on 20:39; Start 08/26/16 at 20:15; Stop 08/26/16 at 20:16; Status DC Ondansetron HCl 4 mg 4 mg ONCE ONCE IVP Last administered on 08/26/16 20:39; Start 08/26/16 at 20:15; Stop 08/26/16 at 20:16; Status DC Sodium Chloride (NS 1000 ml Inj) 1,000 ml @ 1,000 mls/hr Q1H IV Last administered on 08/26/16 20:38; Start 08/26/16 at 20:06; Stop 08/26/16 at 21:05 ; Status DC IV Flush (NS Flush) 2 ml UNSCH PRN IVF FLUSH AFTER USING IV ACCESS; Start 08/26 at 20:15; Stop 08/26/16 at 22:26; Status DC Iohexol (Omnipaque 350 Inj) 94 ml STK-MED ONCE IV Last administered on 21:38; Start 08/26/16 at 21:38; Stop 08/26/16 at 21:39; Status DC Hydromorphone HCl 1 mg 1 mg ONCE ONCE IV PUSH Last administered on 08/26/16 22:21; Start 08/26/16 at 22:00; Stop 08/27/16 at 11:52; Status DC Metronidazole 100 ml @ 100 mls/hr ONCE ONCE IV Last administered on 22:21; Start 08/26/16 at 22:15; Stop 08/26/16 at 23:14; Status DC Levofloxacin/ Dextrose 100 ml @ 100 mls/hr ONCE ONCE IV Last administered on 08/27/16 00:18; Start 08/26/16 at 22:15; Stop 08/26/16 at 23:14; Status DC Levofloxacin/ Dextrose 150 ml @ 100 mls/hr Q24H IV Last administered on 21:33; Start 08/27/16 at 22:00 Metronidazole 100 ml @ 100 mls/hr Q8H IV Last administered on 08/28/16 04:08 ; Start 08/27/16 at 06:00 Sodium Chloride (NS 1000 ml Inj) 1,000 ml @ 175 mls/hr Q5H43M IV Last administered on 08/28/16 08:34; Start 08/26/16 at 22:18 IV Flush (NS Flush) 2 ml UNSCH PRN FLUSH FLUSH AFTER USING IV ACCESS; Start at 22:30 IV Flush (NS Flush) 2 ml BID FLUSH Last administered on 08/28/16 08:19; Start 08/27/16 at 09:00 Ondansetron HCl (Zofran Inj) 4 mg Q6H PRN IVP NAUSEA OR VOMITING Last administered on 08/27/16 08:07; Start 08/26/16 at 22:30 Bisacodyl (Dulcolax Supp) 10 mg DAILY PRN MT CONSTIPATION; Start 08/26/16 at 22 :30 Acetaminophen (Tylenol) 650 mg Q6H PRN PO FEVER/PAIN SCALE 1 TO 2 Last administered on 08/27/16 00:17; Start 08/26/16 at 22:30 Hydromorphone HCl (Dilaudid Pf Inj) 0.5 mg Q3H PRN IV Pain 3-5; Start 08/26/16 at 22:30; Stop 08/27/16 at 11:52; Status DC Hydromorphone HCl (Dilaudid Pf Inj) 1 mg Q3H PRN IV Pain 6-10 Last administered on 08/27/16 08:24; Start 08/26/16 at 22:30; Stop 08/27/16 at 11:52 ; Status DC Pantoprazole Sodium (Protonix Inj) 40 mg Q12H IV PUSH Last administered on 08/28 08:19; Start 08/27/16 at 09:00 Hydromorphone HCl (Dilaudid Pf Inj) 1 mg ONCE ONCE IV PUSH Last administered on 08/27/16 02:42; Start 08/27/16 at 02:15; Stop 08/27/16 at 11:52; Status DC Hydromorphone HCl (Dilaudid) 4 mg Q4H PRN PO BREAKTHROUGH PAIN; Start 08/27/16 at 10:30; Stop 08/27/16 at 11:52; Status DC Hydromorphone HCl (Dilaudid Pf Inj) 1 mg NOW ONCE IV PUSH Last administered on 08/27/16 11:10; Start 08/27/16 at 11:15; Stop 08/27/16 at 11:52; Status DC Acetaminophen/ Hydrocodone Bitart (Sumerco 5-325 Mg) 1 tab Q4H PRN PO PAIN SCALE 3 TO 5; Start 08/27/16 at 12:00 Acetaminophen/ Hydrocodone Bitart (Sumerco 10-325 Mg) 1 tab Q4H PRN PO PAIN SCALE 6 TO 10; Start 08/27/16 at 12:00 Morphine Sulfate (Morphine Inj) 2 mg Q4H PRN IV Pain 3-5; if unable to take PO ; Start 08/27/16 at 12:00 Morphine Sulfate (Morphine Inj) 4 mg Q4H PRN IV Pain 6-10;if unable to take PO Last administered on 08/27/16 12:03; Start 08/27/16 at 12:00 Morphine Sulfate (Morphine Inj) 4 mg Q4H PRN IV BREAKTHROUGH PAIN; Start at 12:00 Naloxone HCl 0.4 mg 0.4 mg UNSCH PRN IV SEE LABEL COMMENTS; Start 08/27/16 at 12:00 Sodium Chloride (NS 1000 ml Inj) 1,000 ml @ 999 mls/hr BOLUS ONCE IV Last administered on 08/27/16 13:26; Start 08/27/16 at 12:15; Stop 08/27/16 at 13:15 ; Status DC Naloxone HCl (Narcan Inj) 0.4 mg UNSCH PRN IV RESPIRATORY RATE LESS THAN 10; Start 08/27/16 at 14:45 Morphine Sulfate (Morphine 1 Mg/ ml PRECISION LATHE OPERATOR) 30 mg UNSCH IV Last administered on 23:27; Start 08/27/16 at 14:45 PRECISION LATHE OPERATOR Dosage Infused (Pha) 1 Q8HR .XX Last administered on 08/28/16 04:09; Start 08/27/16 at 14:45 Social History drinks 4 glasses or wine per night smoker 1 ppd denies drugs Physical Exam Vital Signs Vital Signs Date Time Temp Pulse Resp B/P Pulse Ox O2 Delivery O2 Flow Rate FiO2 08/28/16 04:09 16 08/28/16 00:05 96.0 89 21 90/52 92 08/27/16 23:55 18 08/27/16 23:27 18 08/27/16 20:00 96.0 89 20 80/51 92 08/27/16 16:00 97.4 84 18 80/49 95 08/27/16 15:17 18 08/27/16 11:39 97.8 80 18 99/66 97 Physical Exam GENERAL: This is a well-nourished, well-developed patient, in no apparent distress. SKIN: No rashes, ecchymoses or lesions. Cool and dry. HEAD: Atraumatic. Normocephalic. No temporal or scalp tenderness. EYES: Pupils equal round and reactive. Extraocular motions intact. No scleral icterus. No injection or drainage. NECK: Trachea midline. CARDIOVASCULAR: Regular rate and rhythm without murmurs, gallops, or rubs. RESPIRATORY: Clear to auscultation. Breath sounds equal bilaterally. No wheezes , rales, or rhonchi. GASTROINTESTINAL: Abdomen soft, nondistended. No guarding. generalized tenderness to palpation NURSING FACULTY: differed for EUA MUSCULOSKELETAL: Extremities without clubbing, cyanosis, or edema. NEUROLOGICAL: Awake and alert. Normal speech. Laboratory Laboratory Tests Test 08/27/16 08/27/16 08/28/16 09:58 12:26 04:57 Carcinoembryonic Antigen 6.4 CA 125 Antigen 7.4 Erythrocyte Sedimentation Rate 27 White Blood Count 14.3 Red Blood Count 4.05 Hemoglobin 13.6 Hematocrit 40.5 Mean Corpuscular Volume 99.9 Mean Corpuscular Hemoglobin 33.5 Mean Corpuscular Hemoglobin 33.5 Concent Red Cell Distribution Width 12.3 Platelet Count 317 Mean Platelet Volume 7.8 Neutrophils (%) (Auto) 82.7 Lymphocytes (%) (Auto) 1.0 Monocytes (%) (Auto) 15.9 Eosinophils (%) (Auto) 0.1 Basophils (%) (Auto) 0.3 Neutrophils # (Auto) 11.8 Lymphocytes # (Auto) 0.1 Monocytes # (Auto) 2.3 Eosinophils # (Auto) 0.0 Basophils # (Auto) 0.0 CBC Comment AUTO DIFF Differential Total Cells 100 Counted Neutrophils % (Manual) 50 Band Neutrophils % 36 Lymphocytes % 2 Neutrophils # (Manual) 14.0 Metamyelocytes 10 Myelocytes 2 Differential Comment FINAL DIFF MANUAL Platelet Estimate NORMAL Platelet Morphology Comment NORMAL Sodium Level 136 Potassium Level 4.2 Chloride Level 104 Carbon Dioxide Level 22.7 Anion Gap 9 Blood Urea Nitrogen 26 Creatinine 1.02 Estimat Glomerular Filtration 56 Rate Random Glucose 108 Calcium Level 7.9 Date/Time Procedure Status Source Growth 08/26/16 22:00 Aerobic Blood Culture - Preliminary Resulted Blood Peripheral NO GROWTH IN 1 DAY 08/26/16 22:00 Anaerobic Blood Culture - Preliminary Resulted Blood Peripheral NO GROWTH IN 1 DAY 08/26/16 21:15 Urine Culture - Preliminary Resulted Urine Clean Catch Gram Negative Manny Result Diagram: 08/28/16 0457 08/28/16 0457 Imaging Last Impressions Abdomen/Pelvis CT 08/26/162005 Signed Impressions: Service Date/Time: Friday, August 26, 2016 21:37 - CONCLUSION: Abnormal appearance to proximal small bowel with thickening and increased enhancement in several loops with associated fluid in the mesentery, tracking to the right upper quadrant and a moderate amount of free fluid in the pelvis. No dilated loops of small or large bowel. The findings suggest a neoplastic or infectious process involving the jejunum. oJse Aguilar MD ADDENDUM: On evaluation of the images, there does appear to be some free air in the upper abdomen underneath the hemidiaphragms. There is a small amount of fluid adjacent to the liver. There appears to be some inflammatory changes involving the proximal duodenum. There is some free fluid in the pelvis. These findings were discussed by telephone with the colorectal surgeon. The free air in the upper abdomen an inflammatory-type changes associated with the proximal duodenum suggest a possible perforated peptic ulcer. Lico Thomas MD Abdomen/Pelvis/Transvag US 08/26/16 0000 Signed Impressions: Service Date/Time: Friday, August 26, 2016 23:28 - CONCLUSION: 1. Moderate free fluid complex in appearance. 2. Abnormal endometrial thickening in this postmenopausal patient. 3. The ovaries are not seen. Hemanth Rice MD Assessment and Plan Problem List: (1) Vaginal bleeding, abnormal Status: Acute (2) Vaginal mass Status: Acute Plan: Dr. Cruz is planning an EUA D&C with bx and cystoscopy to evaluate the endometrium and mass...tentatively scheduled for [facility] 08/29/[address] Cruz will contact Dr. Barreto and see if EUA can be combined with GI or colorectal surgery...NPO after midnight Consent from are signed and in pt's chart Biopsies will be obtained to obtain pathology treatment recommendations will be based on final pathology (3) Rectal mass Status: Acute (4) Thickened endometrium Status: Acute Discussed Condition With Dr. Cruz and he is in agreement with this plan and any additional orders may follow. Akash Rios Aug 28, 2016 09:57
--- NOTE | 2016-08-28 11:01 | HHI.PR ---
Subjective Remarks D/W Dr Kenyon. He has taken pt for laparotomy this AM for perforated viscous. Pt has a rectal cancer with invasion of posterior vaginal wall which will be addressed at another time. Objective Vital Signs Date Time Temp Pulse Resp B/P Pulse Ox O2 Delivery O2 Flow Rate FiO2 08/28/16 08:00 95.5 88 17 85/51 92 08/28/16 04:09 16 08/28/16 00:05 96.0 89 21 90/52 92 08/27/16 23:55 18 08/27/16 23:27 18 08/27/16 20:00 96.0 89 20 80/51 92 08/27/16 16:00 97.4 84 18 80/49 95 08/27/16 15:17 18 08/27/16 11:39 97.8 80 18 99/66 97 I/O 08/27/16 08/27/16 08/27/16 08/28/16 08/28/16 08/28/16 07:00 15:00 23:00 07:00 15:00 23:00 Intake Total 859 ml 1880 ml 1600 ml 2000 ml Output Total 300 ml 750 ml 800 ml 325 ml Balance 559 ml 1130 ml 800 ml 1675 ml Intake Oral 120 ml 840 ml 0 ml 0 ml IV Total 739 ml 1040 ml 1600 ml 2000 ml Output Urine Total 300 ml 200 ml 600 ml 250 ml Gastric Drainage Total 550 ml 200 ml 75 ml # Voids 1 # Bowel Movements 0 0 0 0 Result Diagram: 08/28/16 0457 08/28/16 0457 Assessment and Plan Assessment and Plan Laparotomy today. D/W Dr Kenyon. Will confirm rectal cancer with obvious vaginal invasion on bimanual exam at an interval when recovered from acute surgery. Bernardino Barreto MD Aug 28, 2016 11:01
--- NOTE | 2016-08-28 11:56 | HHI.PR ---
cc: Fausto Kenyon MD; Marilyn Mcarthur MD; Angeline Cruz MD; Bernardino Barreto MD Immediate Post Op Note Procedure Date: Aug 28, 2016 Pre Op Diagnosis: (1) Rectal mass (2) Abdominal pain (3) GI bleed (4) Elevated white blood cell count (5) Free intraperitoneal air Post Op Diagnosis: (1) Perforated duodenal ulcer (2) Free intraperitoneal air (3) Intra-abdominal abscess (4) GI bleed (5) Abdominal pain (6) Rectal mass (7) Elevated white blood cell count Surgeon: Fausto Kenyon M.D. Rental Manager(s): Please refer to OR records Procedure: Diagnostic lap Repair of duodenal ulcer with Jack patch Drainage of intra-abdominal abscess Findings: Large amount of free air Large amount of gastric contents in the intra-abdominal cavity Large perforated duodenal ulcer Normal small bowel Complications: None Specimen(s) removed: None Anesthesia: General Drains: None, GIO IVF Patient to: PACU Patient Condition: Good Implant/Devices: SEE IMPLANT LOG (if applicable) Date/Time of Procedure: SEE SURGICAL CARE RECORD Fausto Kenyon MD Aug 28, 2016 11:56
[2016-08-28] MEDS ORDERED: PHENYLEPH/NS 1000 MCG/10 ML SYR IV ONE (12:00)
[2016-08-28] MEDS ORDERED: ONDANSETRON HCL 4 MG/2 ML VIAL IV PUSH ONE (12:00)
[2016-08-28] MEDS ORDERED: LACTATED RINGER'S 1000 ML INJ 2,000 ML IV ONE (12:00)
[2016-08-28] MEDS ORDERED: PROPOFOL 200 MG/20 ML AMP IV ONE (12:00)
[2016-08-28] MEDS ORDERED: NEOSTIGMINE 3 MG/3 ML SYR IV ONE (12:00)
[2016-08-28] MEDS ORDERED: FERRIC SUBSULFATE 8 ML TOP SOLN TOPICAL ONE (12:18)
[2016-08-28] MEDS ORDERED: fentaNYL CITRATE 250 MCG/5 ML AMP ONE (12:51)
--- NOTE | 2016-08-28 12:52 | HHI.PR ---
Subjective Remarks Went for surgery today. S Was seen after surgery. With NG tube on suctioning copious amount of clear fluid. Says she doesn't have any pain at this time. Feels somehow much better. No n/v/d/c. Objective Vitals Vital Signs Date Time Temp Pulse Resp B/P Pulse Ox O2 Delivery O2 Flow Rate FiO2 08/28/16 08:00 95.5 88 17 85/51 92 08/28/16 04:09 16 08/28/16 00:05 96.0 89 21 90/52 92 08/27/16 23:55 18 08/27/16 23:27 18 08/27/16 20:00 96.0 89 20 80/51 92 08/27/16 16:00 97.4 84 18 80/49 95 08/27/16 15:17 18 I/O 08/27/16 08/27/16 08/27/16 08/28/16 08/28/16 08/28/16 07:00 15:00 23:00 07:00 15:00 23:00 Intake Total 859 ml 1880 ml 1600 ml 2000 ml Output Total 300 ml 750 ml 800 ml 325 ml Balance 559 ml 1130 ml 800 ml 1675 ml Intake Oral 120 ml 840 ml 0 ml 0 ml IV Total 739 ml 1040 ml 1600 ml 2000 ml Output Urine Total 300 ml 200 ml 600 ml 250 ml Gastric Drainage Total 550 ml 200 ml 75 ml # Voids 1 # Bowel Movements 0 0 0 0 Result Diagram: 08/28/16 0457 08/28/16 0457 Imaging Last Impressions Abdomen/Pelvis CT 08/26/162005 Signed Impressions: Service Date/Time: Friday, August 26, 2016 21:37 - CONCLUSION: Abnormal appearance to proximal small bowel with thickening and increased enhancement in several loops with associated fluid in the mesentery, tracking to the right upper quadrant and a moderate amount of free fluid in the pelvis. No dilated loops of small or large bowel. The findings suggest a neoplastic or infectious process involving the jejunum. Jose Aguilar MD ADDENDUM: On evaluation of the images, there does appear to be some free air in the upper abdomen underneath the hemidiaphragms. There is a small amount of fluid adjacent to the liver. There appears to be some inflammatory changes involving the proximal duodenum. There is some free fluid in the pelvis. These findings were discussed by telephone with the colorectal surgeon. The free air in the upper abdomen an inflammatory-type changes associated with the proximal duodenum suggest a possible perforated peptic ulcer. Lico Thomas MD Abdomen/Pelvis/Transvag US 08/26/16 0000 Signed Impressions: Service Date/Time: Friday, August 26, 2016 23:28 - CONCLUSION: 1. Moderate free fluid complex in appearance. 2. Abnormal endometrial thickening in this postmenopausal patient. 3. The ovaries are not seen. Hemanth Rice MD Objective Remarks GENERAL: Middle-aged white female in no acute distress. HEENT: PERRLA, EOMI. No scleral icterus or conjunctival pallor. No lid lag or facial droop. CARDIOVASCULAR: Regular rate and rhythm. No obvious murmurs to auscultation. No chest tenderness to palpation. RESPIRATORY: No obvious rhonchi or wheezing. Clear to auscultation. Breath sounds equal bilaterally. GASTROINTESTINAL: Abdomen soft, diffuse tenderness to palpation, nondistended. BS normal. MUSCULOSKELETAL: Extremities without clubbing, cyanosis, or edema. No obvious deformities. NEUROLOGICAL: Awake, alert and oriented x4. No focal neurologic deficits. Moving both upper and lower extremities spontaneously. A/P Problem List: (1) Enteritis ICD Code: K52.9 Status: Acute (2) Pancreatitis ICD Code: K85.90 Status: Acute (3) GI bleed ICD Code: K92.2 Status: Acute (4) Postmenopausal vaginal bleeding ICD Code: N95.0 Status: Acute (5) UTI (urinary tract infection) ICD Code: N39.0 Status: Acute Assessment and Plan Abdominal pain. Nausea/vomiting GI Bleed: h/o BRBPR, +Hemoccult. Vitals stable. Hgb 15.2. IVF, Protonix IV, Consult for GI. Enteritis: c/o intermittent abdominal pain x5 months, symptoms worse in last 2- 3 days, CT Abd/Pelvis w/ neoplastic vs infectious etiology, possible enteritis, images reviewed by me. Afebrile, WBC 13.4. S/p Levaquin/Flagyl in ER. Will continue w/ IV Abx, IVF, analgesics/antiemetics. Surgery on consult Dr. Evangelista Gynecology consulted GI also consulted, seen by Dr Mcarthur GI , insert NGT, cee for EGD in the morning Pain meds per pain scale, change dilaudid to morphine IV as per patient it works better for pain S/P multiple surgeries by Dr Kenyon 08/28/16: Diagnostic lap. Repair of duodenal ulcer with Jack patch. Drainage of intra-abdominal abscess Vaginal Bleeding: Postmenopausal vaginal bleeding x5 months, Consult for Gynecology. Transvaginal US w/ abnormal endometrial thickening and moderate free fluid in pelvis, images reviewed. Discussed with structural shop helper service Dr Mansfield recommends clay modeler/onc consultation. 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 Consult colorectal surgery Dr. Cruz is planning an EUA D&C with bx and cystoscopy to evaluate the endometrium and mass...tentatively scheduled for [facility] 08/29/[address] Cruz will contact Dr. Barreto and see if EUA can be combined with GI or colorectal surgery...NPO after midnight Biopsies will be obtained to obtain pathology treatment recommendations will be based on final pathology UTI: U/a w/ UTI, s/p Levaquin/Flagyl for Enteritis, will continue w/ IV Abx for coverage of both. IVF, repeat labs in am. DVT Prophylaxis: SCD/Teds. CM for d/c planning as needed. Discussed with the patient, nurse Problem Qualifiers (1) GI bleed: Qualified Code: K92.2 - Gastrointestinal hemorrhage, unspecified gastrointestinal hemorrhage type Ally Bauman MD Aug 28, 2016 12:52
[2016-08-28] MEDS ORDERED: DO NOT ADM ANY ANTICOAGULANT DRUGS XX PRN (14:00)
[2016-08-28] MEDS: FLUCONAZOLE 400 MG PREMIX BAG 200 ML IV SCH (15:09)
[2016-08-28] MEDS ORDERED: SODIUM CHLOR 0.9% 1000 ML INJ 1,000 ML IV ONE (15:45)
[2016-08-28 16:00] VITALS: BP 97/55; PULSE 100; RESP 18; TEMP 95.3; O2SAT 91
[2016-08-28 20:00] VITALS: BP 94/52; PULSE 84; RESP 18; TEMP 97.7; O2SAT 93
[2016-08-28] MEDS: MORPHINE SULFATE 30 MG/30 ML PCA IV SCH (20:11)
[2016-08-28] MEDS: LEVOFLOXACIN 750 MG PREMIX INJ 150 ML IV SCH (20:19)
[2016-08-29] VITALS: BP 90/58; PULSE 85; RESP 18; TEMP 96.5; O2SAT 93
[2016-08-29 04:00] VITALS: BP 90/52; PULSE 85; RESP 18; TEMP 97.5; O2SAT 93
[2016-08-29] MEDS: PCA - TOTAL MG MORPHINE DELIVERED PER SHIFT SCH ×3 (05:36→22:00)
[2016-08-29] MEDS: metroNIDAZOLE 500 MG INJ 100 ML IV SCH ×3 (05:36→22:12)
[2016-08-29] MEDS: SODIUM CHLOR 0.9% 1000 ML INJ 1,000 ML IV SCH ×4 (05:39→22:17)
[2016-08-29 05:51] LABS: MEAN CELL VOLUME 99.1 FL (80.0-100.0); MEAN CORPUSCULAR HEMOGLOBIN 33.2 PG (27.0-34.0); MEAN CORPUSCULAR HGB CONC 33.5 % (32.0-36.0); PLATELET COUNT 295 TH/MM3 (150-450); RED BLOOD COUNT 3.73 MIL/MM3 (4.00-5.30); RED CELL DISTRIBUTION WIDTH 12.2 % (11.6-17.2); REVIEW FLAG FINAL; WHITE BLOOD COUNT 13.2 TH/MM3 (4.0-11.0)
[2016-08-29 06:23] LABS: BICARBONATE 23.2 MEQ/L (21.0-32.0); MAGNESIUM 1.7 MG/DL (1.5-2.5); POTASSIUM 3.6 MEQ/L (3.5-5.1)
[2016-08-29 06:29] LABS: INDIRECT BILIRUBIN 0.2 MG/DL (0.0-0.8); TOTAL BILIRUBIN ADULT 0.3 MG/DL (0.2-1.0)
[2016-08-29] MEDS: PANTOPRAZOLE SODIUM 40 MG VIAL IV PUSH SCH ×2 (07:37→22:15)
[2016-08-29] MEDS: SODIUM CHLORIDE 0.9% FLUSH 5 ML FLUSH FLUSH SCH ×2 (07:47→21:00)
[2016-08-29 08:00] VITALS: BP 97/61; PULSE 85; RESP 16; TEMP 98.9; O2SAT 95
--- NOTE | 2016-08-29 10:09 | HHI.PR ---
Subjective Subjective Notes DAILY PROGRESS NOTE FOR SURGICAL ATTENDING, DR. FAUSTO KENYON i feel much better can you remove the ro Objective Vitals/I&O Vital Signs Date Time Temp Pulse Resp B/P Pulse Ox O2 Delivery O2 Flow Rate FiO2 08/29/16 08:00 98.9 85 16 97/61 95 08/28/16 14:15 Room Air 08/28/16 13:30 1.5 Labs Laboratory Tests Test 08/29/16 05:18 White Blood Count 13.2 Red Blood Count 3.73 Hemoglobin 12.4 Hematocrit 37.0 Mean Corpuscular Volume 99.1 Mean Corpuscular Hemoglobin 33.2 Mean Corpuscular Hemoglobin 33.5 Concent Red Cell Distribution Width 12.2 Platelet Count 295 Mean Platelet Volume 7.9 Sodium Level 138 Potassium Level 3.6 Chloride Level 107 Carbon Dioxide Level 23.2 Anion Gap 8 Blood Urea Nitrogen 23 Creatinine 0.59 Estimat Glomerular Filtration 105 Rate Random Glucose 82 Calcium Level 7.6 Magnesium Level 1.7 Total Bilirubin 0.3 Direct Bilirubin 0.1 Indirect Bilirubin 0.2 Aspartate Amino Transf 29 (AST/SGOT) Alanine Aminotransferase 27 (ALT/SGPT) Alkaline Phosphatase 51 Total Protein 5.2 Albumin 1.9 Date/Time Procedure Status Source Growth 08/28/16 10:27 Gram Stain Received Abscess Abdomen Pending 08/28/16 10:27 Wound Culture Received Abscess Abdomen Pending 08/28/16 10:27 Fungal Smear Received Abscess Abdomen Pending 08/28/16 10:27 Fungal Culture Received Abscess Abdomen Pending 08/28/16 10:27 Acid Fast Stain - Final Resulted Abscess Abdomen NO ACID FAST BACILLI SEEN 08/28/16 10:27 Mycobacterial Culture Resulted Abscess Abdomen Pending 08/26/16 22:00 Aerobic Blood Culture - Preliminary Resulted Blood Peripheral NO GROWTH IN 2 DAYS 08/26/16 22:00 Anaerobic Blood Culture - Preliminary Resulted Blood Peripheral NO GROWTH IN 2 DAYS 08/26/16 21:15 Urine Culture - Final Complete Urine Clean Catch Escherichia Coli Radiology KUB from today shows a lot more free air discussed with Dr. Vivek Hinds Last Impressions Abdomen/Pelvis CT 08/26/162005 Signed Impressions: Service Date/Time: Friday, August 26, 2016 21:37 - CONCLUSION: Abnormal appearance to proximal small bowel with thickening and increased enhancement in several loops with associated fluid in the mesentery, tracking to the right upper quadrant and a moderate amount of free fluid in the pelvis. No dilated loops of small or large bowel. The findings suggest a neoplastic or infectious process involving the jejunum. Jose Aguilar MD ADDENDUM: On evaluation of the images, there does appear to be some free air in the upper abdomen underneath the hemidiaphragms. There is a small amount of fluid adjacent to the liver. There appears to be some inflammatory changes involving the proximal duodenum. There is some free fluid in the pelvis. These findings were discussed by telephone with the colorectal surgeon. The free air in the upper abdomen an inflammatory-type changes associated with the proximal duodenum suggest a possible perforated peptic ulcer. Lico Thomas MD Abdomen/Pelvis/Transvag US 08/26/16 0000 Signed Impressions: Service Date/Time: Friday, August 26, 2016 23:28 - CONCLUSION: 1. Moderate free fluid complex in appearance. 2. Abnormal endometrial thickening in this postmenopausal patient. 3. The ovaries are not seen. Hemanth Rice MD Cardiovascular: Regular Lungs: Clear Abdomen: Other (NG tube in place GIO in place serosanguineous), Post-op tenderness Extremities: Perfused Wound Wound : Wound Location: Abdomen Appearance: Clean & Dry A/P Problem List: (1) Perforated duodenal ulcer (2) Rectal malignant neoplasm (3) Abdominal pain (4) Elevated white blood cell count (5) Pancreatitis (6) UTI (urinary tract infection) (7) Rectal mass (8) Intra-abdominal abscess Assessment and Plan 56-year-old female who has much improved after urgent surgery for perforated duodenal ulcer. She's also has a rectal cancer growing into her vagina She's done very well postoperatively with pain control and overall clinical condition Continue NG tube and nothing by mouth status Ambulate incentive spirometer dc ro Mobilize Problem Qualifiers (1) Abdominal pain: Qualified Code: R10.84 - Generalized abdominal pain (2) Pancreatitis: Fausto Kenyon MD Aug 29, 2016 10:09
[2016-08-29] MEDS: ACETAMINOPHEN INJ 100 ML IV SCH ×3 (10:31→23:00)
[2016-08-29] MEDS: FLUCONAZOLE 400 MG PREMIX BAG 200 ML IV SCH (10:33)
[2016-08-29 12:00] VITALS: BP 103/54; PULSE 88; RESP 17; TEMP 99; O2SAT 94
--- NOTE | 2016-08-29 13:55 | HHI.PR ---
Subjective Remarks At the margin of the bed. Dominguez removed and NGT clamped. Says she was able to void. Says she was walking. Using RESIDENTIAL SUPPORT WORKER pump, says pain is controlled by meds. Feels better today Objective Vitals Vital Signs Date Time Temp Pulse Resp B/P Pulse Ox O2 Delivery O2 Flow Rate FiO2 08/29/16 12:00 99.0 88 17 103/54 94 08/29/16 08:00 98.9 85 16 97/61 95 08/29/16 05:36 18 08/29/16 04:00 97.5 85 18 90/52 93 08/29/16 00:00 96.5 85 18 90/58 93 08/28/16 20:28 18 08/28/16 20:11 18 08/28/16 20:00 97.7 84 18 94/52 93 08/28/16 16:00 95.3 100 18 97/55 91 08/28/16 14:15 98.3 99 16 105/62 95 Room Air 08/28/16 14:00 99 16 105/60 97 Room Air I/O 08/28/16 08/28/16 08/28/16 08/29/16 08/29/16 08/29/16 07:00 15:00 23:00 07:00 15:00 23:00 Intake Total 2000 ml 4625 ml 669 ml 1440 ml 920 ml Output Total 325 ml 325 ml 450 ml 25 ml 30 ml Balance 1675 ml 4300 ml 219 ml 1415 ml 890 ml Intake Oral 0 ml 0 ml 0 ml IV Total 2000 ml 2625 ml 669 ml 1440 ml 920 ml Other 2000 ml Output Urine Total 250 ml 250 ml 425 ml Gastric Drainage Total 75 ml 0 ml Drainage Total 25 ml 25 ml 25 ml 30 ml Estimated Blood Loss 50 ml # Bowel Movements 0 0 Result Diagram: 08/29/1618 08/29/16 0518 Imaging Last Impressions Abdomen X-Ray 08/28/16 0600 Signed Impressions: Service Date/Time: Sunday, August 28, 2016 07:57 - CONCLUSION: Moderate free air. Gino Hinds MD FACR Abdomen/Pelvis CT 08/26/162005 Signed Impressions: Service Date/Time: Friday, August 26, 2016 21:37 - CONCLUSION: Abnormal appearance to proximal small bowel with thickening and increased enhancement in several loops with associated fluid in the mesentery, tracking to the right upper quadrant and a moderate amount of free fluid in the pelvis. No dilated loops of small or large bowel. The findings suggest a neoplastic or infectious process involving the jejunum. Jose Aguilar MD ADDENDUM: On evaluation of the images, there does appear to be some free air in the upper abdomen underneath the hemidiaphragms. There is a small amount of fluid adjacent to the liver. There appears to be some inflammatory changes involving the proximal duodenum. There is some free fluid in the pelvis. These findings were discussed by telephone with the colorectal surgeon. The free air in the upper abdomen an inflammatory-type changes associated with the proximal duodenum suggest a possible perforated peptic ulcer. Lico Thomas MD Abdomen/Pelvis/Transvag US 08/26/16 0000 Signed Impressions: Service Date/Time: Friday, August 26, 2016 23:28 - CONCLUSION: 1. Moderate free fluid complex in appearance. 2. Abnormal endometrial thickening in this postmenopausal patient. 3. The ovaries are not seen. Hemanth Rice MD Objective Remarks GENERAL: Middle-aged white female in no acute distress. HEENT: PERRLA, EOMI. No scleral icterus or conjunctival pallor. No lid lag or facial droop. CARDIOVASCULAR: Regular rate and rhythm. No obvious murmurs to auscultation. No chest tenderness to palpation. RESPIRATORY: No obvious rhonchi or wheezing. Clear to auscultation. Breath sounds equal bilaterally. GASTROINTESTINAL: Abdomen soft, diffuse tenderness to palpation, nondistended. BS normal. MUSCULOSKELETAL: Extremities without clubbing, cyanosis, or edema. No obvious deformities. NEUROLOGICAL: Awake, alert and oriented x4. No focal neurologic deficits. Moving both upper and lower extremities spontaneously. A/P Problem List: (1) Enteritis ICD Code: K52.9 Status: Acute (2) Pancreatitis ICD Code: K85.90 Status: Acute (3) GI bleed ICD Code: K92.2 Status: Acute (4) Postmenopausal vaginal bleeding ICD Code: N95.0 Status: Acute (5) UTI (urinary tract infection) ICD Code: N39.0 Status: Acute Assessment and Plan Abdominal pain. Nausea/vomiting GI Bleed: h/o BRBPR, +Hemoccult. Vitals stable. Hgb 15.2. IVF, Protonix IV, Consult for GI. Enteritis: c/o intermittent abdominal pain x5 months, symptoms worse in last 2- 3 days, CT Abd/Pelvis w/ neoplastic vs infectious etiology, possible enteritis, images reviewed by me. Afebrile, WBC 13.4. S/p Levaquin/Flagyl in ER. Will continue w/ IV Abx, IVF, analgesics/antiemetics. Surgery on consult Dr. Evangelista Gynecology consulted GI also consulted, seen by Dr Mcarthur GI , insert NGT, cee for EGD in the morning Pain meds per pain scale. RESIDENTIAL SUPPORT WORKER pump after surgery switch to Po and IV as tolerated S/P multiple surgeries by Dr Kenyon 08/28/16: Diagnostic lap. Repair of duodenal ulcer with Jack patch. Drainage of intra-abdominal abscess. Vaginal Bleeding: Postmenopausal vaginal bleeding x5 months, Consult for Gynecology. Transvaginal US w/ abnormal endometrial thickening and moderate free fluid in pelvis, images reviewed. Discussed with commutator undercutter service Dr Mansfield recommends safety sealer/onc consultation. 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 Consult colorectal surgery Dr. Cruz is planning an EUA D&C with bx and cystoscopy to evaluate the endometrium and mass...tentatively scheduled for [facility] 08/29/[address] Cruz will contact Dr. Barreto and see if EUA can be combined with GI or colorectal surgery...NPO after midnight Biopsies will be obtained to obtain pathology treatment recommendations will be based on final pathology UTI: U/a w/ UTI, s/p Levaquin/Flagyl for Enteritis, will continue w/ IV Abx for coverage of both. IVF, repeat labs in am. DVT Prophylaxis: SCD/Teds. CM for d/c planning as needed. Discussed with the patient, nurse Problem Qualifiers (1) Pancreatitis: (2) GI bleed: Qualified Code: K92.2 - Gastrointestinal hemorrhage, unspecified gastrointestinal hemorrhage type Ally Bauman MD Aug 29, 2016 13:55
--- NOTE | 2016-08-29 14:29 | HHI.GIFU ---
Subjective Remarks Resting in bed. NPO. NGT to LIWS. No flatus/stool yet. Pain controlled. ( Filomena Sanchez) Objective Vitals I&O Vital Signs Date Time Temp Pulse Resp B/P Pulse Ox O2 Delivery O2 Flow Rate FiO2 08/29/16 12:00 99.0 88 17 103/54 94 08/29/16 08:00 98.9 85 16 97/61 95 08/29/16 05:36 18 08/29/16 04:00 97.5 85 18 90/52 93 08/29/16 00:00 96.5 85 18 90/58 93 08/28/16 20:28 18 08/28/16 20:11 18 08/28/16 20:00 97.7 84 18 94/52 93 08/28/16 16:00 95.3 100 18 97/55 91 I/O 08/28/16 08/28/16 08/28/16 08/29/16 08/29/16 08/29/16 07:00 15:00 23:00 07:00 15:00 23:00 Intake Total 2000 ml 4625 ml 669 ml 1440 ml 920 ml Output Total 325 ml 325 ml 450 ml 25 ml 30 ml Balance 1675 ml 4300 ml 219 ml 1415 ml 890 ml Intake Oral 0 ml 0 ml 0 ml IV Total 2000 ml 2625 ml 669 ml 1440 ml 920 ml Other 2000 ml Output Urine Total 250 ml 250 ml 425 ml Gastric Drainage Total 75 ml 0 ml Drainage Total 25 ml 25 ml 25 ml 30 ml Estimated Blood Loss 50 ml # Bowel Movements 0 0 Laboratory Laboratory Tests Test 08/29/16 05:18 White Blood Count 13.2 Red Blood Count 3.73 Hemoglobin 12.4 Hematocrit 37.0 Mean Corpuscular Volume 99.1 Mean Corpuscular Hemoglobin 33.2 Mean Corpuscular Hemoglobin 33.5 Concent Red Cell Distribution Width 12.2 Platelet Count 295 Mean Platelet Volume 7.9 Sodium Level 138 Potassium Level 3.6 Chloride Level 107 Carbon Dioxide Level 23.2 Anion Gap 8 Blood Urea Nitrogen 23 Creatinine 0.59 Estimat Glomerular Filtration 105 Rate Random Glucose 82 Calcium Level 7.6 Magnesium Level 1.7 Total Bilirubin 0.3 Direct Bilirubin 0.1 Indirect Bilirubin 0.2 Aspartate Amino Transf 29 (AST/SGOT) Alanine Aminotransferase 27 (ALT/SGPT) Alkaline Phosphatase 51 Total Protein 5.2 Albumin 1.9 Date/Time Procedure Status Source Growth 08/28/16 10:27 Gram Stain - Final Resulted Abscess Abdomen 08/28/16 10:27 Wound Culture - Preliminary Resulted Esther Albicans 08/28/16 10:27 Fungal Smear - Final Resulted Abscess Abdomen RARE BUDDING YEAST CELLS 08/28/16 10:27 Fungal Culture Resulted Abscess Abdomen Pending 08/28/16 10:27 Acid Fast Stain - Final Resulted Abscess Abdomen NO ACID FAST BACILLI SEEN 08/28/16 10:27 Mycobacterial Culture Resulted Abscess Abdomen Pending 08/26/16 22:00 Aerobic Blood Culture - Preliminary Resulted Blood Peripheral NO GROWTH IN 3 DAYS 08/26/16 22:00 Anaerobic Blood Culture - Preliminary Resulted Blood Peripheral NO GROWTH IN 3 DAYS 08/26/16 21:15 Urine Culture - Final Complete Urine Clean Catch Escherichia Coli Imaging Last Impressions Abdomen X-Ray 08/28/16 0600 Signed Impressions: Service Date/Time: Sunday, August 28, 2016 07:57 - CONCLUSION: Moderate free air. Gino Hidns MD FACR Abdomen/Pelvis CT 08/26/162005 Signed Impressions: Service Date/Time: Friday, August 26, 2016 21:37 - CONCLUSION: Abnormal appearance to proximal small bowel with thickening and increased enhancement in several loops with associated fluid in the mesentery, tracking to the right upper quadrant and a moderate amount of free fluid in the pelvis. No dilated loops of small or large bowel. The findings suggest a neoplastic or infectious process involving the jejunum. Jose Aguilar MD ADDENDUM: On evaluation of the images, there does appear to be some free air in the upper abdomen underneath the hemidiaphragms. There is a small amount of fluid adjacent to the liver. There appears to be some inflammatory changes involving the proximal duodenum. There is some free fluid in the pelvis. These findings were discussed by telephone with the colorectal surgeon. The free air in the upper abdomen an inflammatory-type changes associated with the proximal duodenum suggest a possible perforated peptic ulcer. Lico Thomas MD Abdomen/Pelvis/Transvag US 08/26/16 0000 Signed Impressions: Service Date/Time: Friday, August 26, 2016 23:28 - CONCLUSION: 1. Moderate free fluid complex in appearance. 2. Abnormal endometrial thickening in this postmenopausal patient. 3. The ovaries are not seen. Hemanth Rice MD Physical Exam HEENT: Normocephalic CARDIOVASCULAR: RRR RESPIRATORY: CTA. Breath sounds equal bilaterally. GASTROINTESTINAL: Abdomen soft, diffuse tenderness to palpation, nondistended. midline incision drsg d/i with ashwini drain. Abdominal binder, nGT to liws MUSCULOSKELETAL: Extremities without clubbing, cyanosis, or edema. NEUROLOGICAL: Awake, alert and oriented x4. No focal neurologic deficits. Moving both upper and lower extremities spontaneously. (Filomena Sanchez) Assessment and Plan Plan ASSESSMENT: - Perforated duodenal ulcer. Abdomen/Pelvis CT (08/26/16)----> Abnormal appearance to proximal small bowel with thickening and increased enhancement in several loops with associated fluid in the mesentery, tracking to the right upper quadrant and a moderate amount of free fluid in the pelvis. No dilated loops of small or large bowel. The findings suggest a neoplastic or infectious process involving the jejunum. Jose Aguilar MD ADDENDUM: On evaluation of the images, there does appear to be some free air in the upper abdomen underneath the hemidiaphragms. There is a small amount of fluid adjacent to the liver. There appears to be some inflammatory changes involving the proximal duodenum. There is some free fluid in the pelvis. These findings were discussed by telephone with the colorectal surgeon. The free air in the upper abdomen an inflammatory-type changes associated with the proximal duodenum suggest a possible perforated peptic ulcer. S/P Exploratory laparotomy repair for duodenal ulcer with ammon patch and evaluation of abscess (08/29/16). NPO with NGT to LIWS. Midline drsg d/i with ashwini drain, abdominal binder. - Elevated lipase, likely related to above. - Rectal cancer cancer with invasion of posterior vaginal wall. CRS following. PLAN: - NPO - NGT to LIWS - S/P exp. lap for repair of duodenal ulcer with ammon patch/evaluation of absess - Post op care per GS - CRS following for rectal cancer with invasion of posterior vaginal wall - GI will sign off, please reconsult as needed - Pt seen and examined by Dr. Machado and myself and this note is written on his behalf (Filomena Sanchez) Physician Comments Patient seen and examined Agree with above Continue with current supportive care Monitor labs Plans as per surgery and colorectal surgery We will sign off (Carlos Machado MD) Filomena Sanchez Aug 29, 2016 14:29 Carlos Machado MD Aug 29, 2016 23:23
[2016-08-29 16:00] VITALS: BP 108/64; PULSE 89; RESP 16; TEMP 97.2; O2SAT 94
[2016-08-29 20:00] VITALS: BP 107/62; PULSE 85; RESP 20; TEMP 97.1; O2SAT 95
[2016-08-29] MEDS: MORPHINE SULFATE 30 MG/30 ML PCA IV SCH (22:10)
[2016-08-29] MEDS: LEVOFLOXACIN 750 MG PREMIX INJ 150 ML IV SCH (22:13)
[2016-08-30] VITALS (8 sets, daily range): BP systolic 102–134; BP diastolic 57–79; PULSE 80–93; RESP 16–20; TEMP 96.4–98.5; O2SAT 94–97
[2016-08-30] MEDS: ACETAMINOPHEN INJ 100 ML IV SCH (05:10)
[2016-08-30] MEDS: metroNIDAZOLE 500 MG INJ 100 ML IV SCH ×3 (05:11→23:12)
[2016-08-30] MEDS: SODIUM CHLOR 0.9% 1000 ML INJ 1,000 ML IV SCH ×4 (05:11→19:55)
[2016-08-30] MEDS: PCA - TOTAL MG MORPHINE DELIVERED PER SHIFT SCH ×3 (05:11→19:55)
[2016-08-30 06:42] LABS: HEMATOCRIT 36.6 % (35.0-46.0); MEAN CORPUSCULAR HEMOGLOBIN 32.8 PG (27.0-34.0); MEAN CORPUSCULAR HGB CONC 33.1 % (32.0-36.0); PLATELET COUNT 283 TH/MM3 (150-450); RED CELL DISTRIBUTION WIDTH 12.9 % (11.6-17.2); REVIEW FLAG FINAL; WHITE BLOOD COUNT 14.6 TH/MM3 (4.0-11.0)
[2016-08-30 07:06] LABS: BICARBONATE 22.4 MEQ/L (21.0-32.0); MAGNESIUM 1.9 MG/DL (1.5-2.5); POTASSIUM 3.1 MEQ/L (3.5-5.1)
[2016-08-30] MEDS: SODIUM CHLORIDE 0.9% FLUSH 5 ML FLUSH FLUSH SCH ×2 (08:31→19:54)
[2016-08-30] MEDS: PANTOPRAZOLE SODIUM 40 MG VIAL IV PUSH SCH ×2 (08:31→19:54)
--- NOTE | 2016-08-30 08:58 | HHI.PR ---
Subjective Subjective Notes DAILY PROGRESS NOTE FOR SURGICAL ATTENDING, DR. FAUSTO KENYON Sitting up in bed Doing well; pain controlled Has walked in the hallways multiple times Objective Vitals/I&O Vital Signs Date Time Temp Pulse Resp B/P Pulse Ox O2 Delivery O2 Flow Rate FiO2 08/30/16 05:11 18 08/30/16 04:00 96.7 93 115/60 95 08/28/16 14:15 Room Air 08/28/16 13:30 1.5 Labs Laboratory Tests Test 08/30/16 06:05 White Blood Count 14.6 Red Blood Count 3.70 Hemoglobin 12.1 Hematocrit 36.6 Mean Corpuscular Volume 99.0 Mean Corpuscular Hemoglobin 32.8 Mean Corpuscular Hemoglobin 33.1 Concent Red Cell Distribution Width 12.9 Platelet Count 283 Mean Platelet Volume 7.6 Sodium Level 138 Potassium Level 3.1 Chloride Level 104 Carbon Dioxide Level 22.4 Anion Gap 12 Blood Urea Nitrogen 17 Creatinine 0.44 Estimat Glomerular Filtration 147 Rate Random Glucose 78 Calcium Level 7.5 Magnesium Level 1.9 Date/Time Procedure Status Source Growth 1/30/17 10:27 Gram Stain - Final Resulted Abscess Abdomen 08/28/16 10:27 Wound Culture - Preliminary Resulted Esther Albicans 08/28/16 10:27 Fungal Smear - Final Resulted Abscess Abdomen RARE BUDDING YEAST CELLS 08/28/16 10:27 Fungal Culture Resulted Abscess Abdomen Pending 08/28/16 10:27 Acid Fast Stain - Final Resulted Abscess Abdomen NO ACID FAST BACILLI SEEN 08/28/16 10:27 Mycobacterial Culture Resulted Abscess Abdomen Pending 08/26/16 22:00 Aerobic Blood Culture - Preliminary Resulted Blood Peripheral NO GROWTH IN 3 DAYS 08/26/16 22:00 Anaerobic Blood Culture - Preliminary Resulted Blood Peripheral NO GROWTH IN 3 DAYS 08/26/16 21:15 Urine Culture - Final Complete Urine Clean Catch Escherichia Coli Radiology Last Impressions Abdomen X-Ray 08/28/16 0600 Signed Impressions: Service Date/Time: Sunday, August 28, 2016 07:57 - CONCLUSION: Moderate free air. Gino Hinds MD FACR Abdomen/Pelvis CT 08/26/162005 Signed Impressions: Service Date/Time: Friday, August 26, 2016 21:37 - CONCLUSION: Abnormal appearance to proximal small bowel with thickening and increased enhancement in several loops with associated fluid in the mesentery, tracking to the right upper quadrant and a moderate amount of free fluid in the pelvis. No dilated loops of small or large bowel. The findings suggest a neoplastic or infectious process involving the jejunum. Jose Aguilar MD ADDENDUM: On evaluation of the images, there does appear to be some free air in the upper abdomen underneath the hemidiaphragms. There is a small amount of fluid adjacent to the liver. There appears to be some inflammatory changes involving the proximal duodenum. There is some free fluid in the pelvis. These findings were discussed by telephone with the colorectal surgeon. The free air in the upper abdomen an inflammatory-type changes associated with the proximal duodenum suggest a possible perforated peptic ulcer. Lico Thomas MD Abdomen/Pelvis/Transvag US 08/26/16 0000 Signed Impressions: Service Date/Time: Friday, August 26, 2016 23:28 - CONCLUSION: 1. Moderate free fluid complex in appearance. 2. Abnormal endometrial thickening in this postmenopausal patient. 3. The ovaries are not seen. Hemanth Rice MD Cardiovascular: Regular Lungs: Clear Abdomen: Other (midline incision---stapled---no drainage; GIO in place with SS drainage ) Extremities: No edema Narrative Exam NGT in place GIO with serosanguineous A/P Problem List: (1) Duodenal ulcer due to nonsteroidal anti-inflammatory drug (NSAID) (2) Perforated duodenal ulcer (3) Rectal malignant neoplasm (4) Abdominal pain (5) Elevated white blood cell count (6) Pancreatitis (7) UTI (urinary tract infection) (8) Rectal mass (9) Intra-abdominal abscess Assessment and Plan 56-year-old female POD2 ax lap for perforated duodenal ulcer. 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 FAUSTO KENYON I agree with above assessment and plan. Obtain upper GI tomorrow to evaluate Jack duran Progressing nicely The exam, history, and the medical decision-making described in the above note were completed with the assistance of the mid-level provider. I reviewed and agree with the findings presented. I attest that I had a [id number] encounter with the patient on the same day, and personally performed and documented my assessment and findings in the medical record. The following services were provided during this hospital visit: Chart data review, vital sign assessments/reviewing monitor data Review of consultations notes if present. Medication orders/review and/or management Ordering and/or reviewing lab tests Ordering and/or interpreting/reviewing x-rays and/or diagnostic studies Care of the patient and discussion of the patient with the care team Documentation time To help prompt me to consider important information that might be impacting today's encounter and assessment, information from prior notes written by myself or my colleagues may have been "brought forward/copy and pasted" into today's note. Problem Qualifiers (1) Abdominal pain: Qualified Code: R10.84 - Generalized abdominal pain (2) Elevated white blood cell count: Qualified Code: D72.825 - Bandemia (3) Pancreatitis: Rosangela Valdes Aug 30, 2016 08:58 Fausto Kenyon MD Aug 30, 2016 11:17
--- NOTE | 2016-08-30 10:23 | HHI.PR ---
Subjective Remarks With abdominal pain. No nausea or vomiting. NGT in place suctioning. Says abd pain is controlled by meds. She is ambulating. Has a good UOP. No fever or chills. Objective Vitals Vital Signs Date Time Temp Pulse Resp B/P Pulse Ox O2 Delivery O2 Flow Rate FiO2 08/30/16 08:00 96.4 80 16 108/60 95 08/30/16 05:11 18 08/30/16 04:00 96.7 93 20 115/60 95 08/30/16 00:00 96.7 83 20 102/57 94 08/29/16 22:10 18 08/29/16 22:00 18 08/29/16 20:00 97.1 85 20 107/62 95 08/29/16 16:00 97.2 89 16 108/64 94 08/29/16 12:00 99.0 88 17 103/54 94 I/O 08/29/16 08/29/16 08/29/16 08/30/16 08/30/16 08/30/16 07:00 15:00 23:00 07:00 15:00 23:00 Intake Total 1440 ml 920 ml 1471 ml 396 ml Output Total 25 ml 455 ml 400 ml 600 ml Balance 1415 ml 465 ml 1071 ml -204 ml Intake Oral 0 ml 0 ml 0 ml IV Total 1440 ml 920 ml 1471 ml 396 ml Output Urine Total 425 ml 400 ml 600 ml Drainage Total 25 ml 30 ml # Bowel Movements 0 Result Diagram: 08/30/16 0605 08/30/16 0605 Imaging Last Impressions Abdomen X-Ray 08/28/16 06 Signed Impressions: Service Date/Time: Sunday, August 28, 2016 07:57 - CONCLUSION: Moderate free air. Gino Hinds MD FACR Abdomen/Pelvis CT 08/26/162005 Signed Impressions: Service Date/Time: Friday, August 26, 2016 21:37 - CONCLUSION: Abnormal appearance to proximal small bowel with thickening and increased enhancement in several loops with associated fluid in the mesentery, tracking to the right upper quadrant and a moderate amount of free fluid in the pelvis. No dilated loops of small or large bowel. The findings suggest a neoplastic or infectious process involving the jejunum. Jose Aguilar MD ADDENDUM: On evaluation of the images, there does appear to be some free air in the upper abdomen underneath the hemidiaphragms. There is a small amount of fluid adjacent to the liver. There appears to be some inflammatory changes involving the proximal duodenum. There is some free fluid in the pelvis. These findings were discussed by telephone with the colorectal surgeon. The free air in the upper abdomen an inflammatory-type changes associated with the proximal duodenum suggest a possible perforated peptic ulcer. Lico Thomas MD Abdomen/Pelvis/Transvag US 08/26/16 0000 Signed Impressions: Service Date/Time: Friday, August 26, 2016 23:28 - CONCLUSION: 1. Moderate free fluid complex in appearance. 2. Abnormal endometrial thickening in this postmenopausal patient. 3. The ovaries are not seen. Hemanth Rice MD Objective Remarks GENERAL: Middle-aged white female in no acute distress. HEENT: PERRLA, EOMI. No scleral icterus or conjunctival pallor. No lid lag or facial droop. CARDIOVASCULAR: Regular rate and rhythm. No obvious murmurs to auscultation. No chest tenderness to palpation. RESPIRATORY: No obvious rhonchi or wheezing. Clear to auscultation. Breath sounds equal bilaterally. GASTROINTESTINAL: Abdomen soft, diffuse tenderness to palpation, nondistended. BS normal. MUSCULOSKELETAL: Extremities without clubbing, cyanosis, or edema. No obvious deformities. NEUROLOGICAL: Awake, alert and oriented x4. No focal neurologic deficits. Moving both upper and lower extremities spontaneously. A/P Problem List: (1) Enteritis ICD Code: K52.9 Status: Acute (2) Pancreatitis ICD Code: K85.90 Status: Acute (3) GI bleed ICD Code: K92.2 Status: Acute (4) Postmenopausal vaginal bleeding ICD Code: N95.0 Status: Acute (5) UTI (urinary tract infection) ICD Code: N39.0 Status: Acute Assessment and Plan Abdominal pain. Nausea/vomiting Perforated duodenal ulcer s/p lap GI Bleed: h/o BRBPR, +Hemoccult. Vitals stable. Hgb 15.2. IVF, Protonix IV, Consult for GI. Enteritis: c/o intermittent abdominal pain x5 months, symptoms worse in last 2- 3 days, CT Abd/Pelvis w/ neoplastic vs infectious etiology, possible enteritis, images reviewed by me. Afebrile, WBC 13.4. S/p Levaquin/Flagyl in ER. Will continue w/ IV Abx, IVF, analgesics/antiemetics. Surgery on consult Dr. Evangelista Gynecology consulted GI also consulted, seen by Dr Mcarthur GI , insert NGT Pain meds per pain scale. PLANT PATHOLOGIST pump after surgery switch to Po and IV as tolerated S/P multiple surgeries by Dr Kenyon 08/28/16: Diagnostic lap. Repair of duodenal ulcer with Jack patch. Drainage of intra-abdominal abscess. Vaginal Bleeding: Postmenopausal vaginal bleeding x5 months, Consult for Gynecology. Transvaginal US w/ abnormal endometrial thickening and moderate free fluid in pelvis, images reviewed. Discussed with credit manager service Dr Mansfield recommends media job titles/onc consultation. 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 Consult colorectal surgery Dr. Cruz is planning an EUA D&C with bx and cystoscopy to evaluate the endometrium and mass...tentatively scheduled for eda 08/29/16 afternoon, however not done Dr Cruz will decide. Patient is s/p lap duodenal repair. . Dr. Cruz will contact Dr. Barreto and see if EUA can be combined with GI or colorectal surgery... Biopsies will be obtained to obtain pathology treatment recommendations will be based on final pathology UTI: U/a w/ UTI, s/p Levaquin/Flagyl for Enteritis, will continue w/ IV Abx for coverage of both. IVF, repeat labs in am. DVT Prophylaxis: SCD/Teds. CM for d/c planning as needed. Discussed with the patient, nurse Problem Qualifiers (1) Pancreatitis: (2) GI bleed: Qualified Code: K92.2 - Gastrointestinal hemorrhage, unspecified gastrointestinal hemorrhage type Ally Bauman MD Aug 30, 2016 10:23
[2016-08-30] MEDS: FLUCONAZOLE 400 MG PREMIX BAG 200 ML IV SCH (11:32)
[2016-08-30] MEDS: MORPHINE SULFATE 30 MG/30 ML PCA IV SCH (16:14)
[2016-08-30] MEDS: LEVOFLOXACIN 750 MG PREMIX INJ 150 ML IV SCH (19:54)
[2016-08-31] MEDS: SODIUM CHLOR 0.9% 1000 ML INJ 1,000 ML IV SCH ×4 (00:45→17:54)
[2016-08-31 04:15] VITALS: BP 130/63; PULSE 98; RESP 17; TEMP 98.3; O2SAT 95
[2016-08-31 06:00] VITALS: RESP 18
[2016-08-31] MEDS: PCA - TOTAL MG MORPHINE DELIVERED PER SHIFT SCH ×3 (06:00→20:08)
[2016-08-31] MEDS: metroNIDAZOLE 500 MG INJ 100 ML IV SCH ×3 (06:13→20:05)
[2016-08-31 08:00] VITALS: BP 106/67; PULSE 96; RESP 16; TEMP 97.8; O2SAT 94
[2016-08-31] MEDS: PANTOPRAZOLE SODIUM 40 MG VIAL IV PUSH SCH ×2 (08:37→20:04)
[2016-08-31] MEDS: SODIUM CHLORIDE 0.9% FLUSH 5 ML FLUSH FLUSH SCH ×2 (08:39→20:08)
[2016-08-31] MEDS ORDERED: DIATRIZOATE MEGLUM/DIATRIZOATE SOD 120 ML BTL (for RAD DIAG) PO ONE (09:34)
[2016-08-31] MEDS: MORPHINE SULFATE 30 MG/30 ML PCA IV SCH (10:42)
--- NOTE | 2016-08-31 11:01 | RADRPT ---
EXAM DATE/TIME: 08/31/2016 09:26 [facility] COMPARISON: No previous studies available for comparison. INDICATIONS : Post duodenal ulcer repair. FLUORO TIME: 1.4 minutes IMAGE COUNT: 14 CONTRAST: 1. MD [place]urbin MEDICAL HISTORY : None. SURGICAL HISTORY : None. ENCOUNTER: Initial ACUITY: 3 days PAIN SCORE: 6/10 LOCATION: Left abdomen. FINDINGS: Preliminary film shows surgical drain in place in the right upper quadrant. The patient swallowed Gastrografin contrast. Contrast passes without delay into the stomach. Gastroes ophageal Junction within normal limits. There is focal luminal narrowing of the duodenal bulb with luminal diameter of a 2 cm long segment me asuring 1cm. There is grossly moderate delay in gastric emptying observed. A small amount of contrast is seen in t he duodenum/proximal jejunum on the 20 minute minute radiograph. CONCLUSION: Luminal narrowing of the duodenal bulb in the postsurgical region. No evidence of contrast leak. Mode rate delay in gastric emptying. Tres Reed MD on August 31, 2016 at 10:51 Board Certified Radiologist. This report was verified electronically.
[2016-08-31 12:00] VITALS: BP 119/64; PULSE 101; RESP 16; TEMP 98.4; O2SAT 94
--- NOTE | 2016-08-31 12:01 | HHI.PR ---
Subjective Subjective Notes DAILY PROGRESS NOTE FOR SURGICAL ATTENDING, DR. FAUSTO KENYON Just back from UGI Objective Vitals/I&O Vital Signs Date Time Temp Pulse Resp B/P Pulse Ox O2 Delivery O2 Flow Rate FiO2 08/31/16 10:42 18 08/31/16 08:00 97.8 96 106/67 94 08/28/16 14:15 Room Air 08/28/16 13:30 1.5 Labs Date/Time Procedure Status Source Growth 08/28/16 10:27 Gram Stain - Final Complete Abscess Abdomen 08/28/16 10:27 Wound Culture - Final Complete Esther Albicans 08/28/16 10:27 Fungal Smear - Final Resulted Abscess Abdomen RARE BUDDING YEAST CELLS 08/28/16 10:27 Fungal Culture Resulted Abscess Abdomen Pending 08/28/16 10:27 Acid Fast Stain - Final Resulted Abscess Abdomen NO ACID FAST BACILLI SEEN 08/28/16 10:27 Mycobacterial Culture Resulted Abscess Abdomen Pending 08/26/16 22:00 Aerobic Blood Culture - Final Complete Blood Peripheral NO GROWTH IN 5 DAYS 08/26/16 22:00 Anaerobic Blood Culture - Final Complete Blood Peripheral NO GROWTH IN 5 DAYS 08/26/16 21:15 Urine Culture - Final Complete Urine Clean Catch Escherichia Coli Radiology Last Impressions Upper GI Series 08/31/16 06 Signed Impressions: Service Date/Time: August 09:26 - CONCLUSION: Luminal narrowing of the duodenal bulb in the postsurgical region. No evidence of contrast leak. Moderate delay in gastric emptying. Tres Reed MD Lower Extremity Ultrasound 08/31/16 0000 Signed Impressions: Service Date/Time: August 20:40 - CONCLUSION: Negative. No DVT of either lower extremity. Bernardino Rea MD Abdomen X-Ray 08/28/16 06 Signed Impressions: Service Date/Time: Sunday, August 28, 2016 07:57 - CONCLUSION: Moderate free air. Gino Hinds MD FACR Abdomen/Pelvis CT 08/26/162005 Signed Impressions: Service Date/Time: Friday, August 26, 2016 21:37 - CONCLUSION: Abnormal appearance to proximal small bowel with thickening and increased enhancement in several loops with associated fluid in the mesentery, tracking to the right upper quadrant and a moderate amount of free fluid in the pelvis. No dilated loops of small or large bowel. The findings suggest a neoplastic or infectious process involving the jejunum. Jose Aguilar MD ADDENDUM: On evaluation of the images, there does appear to be some free air in the upper abdomen underneath the hemidiaphragms. There is a small amount of fluid adjacent to the liver. There appears to be some inflammatory changes involving the proximal duodenum. There is some free fluid in the pelvis. These findings were discussed by telephone with the colorectal surgeon. The free air in the upper abdomen an inflammatory-type changes associated with the proximal duodenum suggest a possible perforated peptic ulcer. Lico Thomas MD Abdomen/Pelvis/Transvag US 08/26/16 0000 Signed Impressions: Service Date/Time: Friday, August 26, 2016 23:28 - CONCLUSION: 1. Moderate free fluid complex in appearance. 2. Abnormal endometrial thickening in this postmenopausal patient. 3. The ovaries are not seen. Hemanth Rice MD Cardiovascular: Regular Lungs: Clear Abdomen: Other (midline incision with minimal drainage on bandage; GIO with serous drainage (about 10 cc) ) Extremities: Other (generalized edema ) Narrative Exam NGT in place to suction A/P Problem List: (1) Duodenal ulcer due to nonsteroidal anti-inflammatory drug (NSAID) (2) Perforated duodenal ulcer (3) Rectal malignant neoplasm (4) Abdominal pain (5) Elevated white blood cell count (6) Pancreatitis (7) UTI (urinary tract infection) (8) Rectal mass (9) Intra-abdominal abscess Assessment and Plan 56-year-old female POD3 ex lap for perforated duodenal ulcer. -She also has a rectal cancer growing into her vagina -Keep NGT to suction unless walking -Sips of water okay -Await results from UGI -Change dressing daily and PRN -Ambulate in hallways -Incentive spirometer -Pain control -Discussed with DANITA Larsen Attending Statement NOTE FOR SURGICAL ATTENDING, DR. FAUSTO KENYON I agree with above assessment and plan. Patient feels great Unfortunately N G-tube fell out but upper GI through does not show any leak through the ulcer repair Minimal output from GIO mostly serosanguineous The exam, history, and the medical decision-making described in the above note were completed with the assistance of the mid-level provider. I reviewed and agree with the findings presented. I attest that I had a [id number] encounter with the patient on the same day, and personally performed and documented my assessment and findings in the medical record. The following services were provided during this hospital visit: Chart data review, vital sign assessments/reviewing monitor data Review of consultations notes if present. Medication orders/review and/or management Ordering and/or reviewing lab tests Ordering and/or interpreting/reviewing x-rays and/or diagnostic studies Care of the patient and discussion of the patient with the care team Documentation time To help prompt me to consider important information that might be impacting today's encounter and assessment, information from prior notes written by myself or my colleagues may have been "brought forward/copy and pasted" into today's note. Problem Qualifiers (1) Abdominal pain: Qualified Code: R10.84 - Generalized abdominal pain (2) Elevated white blood cell count: Qualified Code: D72.825 - Bandemia (3) Pancreatitis: Rosangela Valdes Aug 31, 2016 12:01 Fausto Kenyon MD Sep 01, 2016 17:34
[2016-08-31] MEDS: FLUCONAZOLE 400 MG PREMIX BAG 200 ML IV SCH (12:12)
--- NOTE | 2016-08-31 12:17 | MP ---
cc: TAD SAWANT M.D., KELLY L. MD TOLLAND, JOHN T. M.D. BIANCHI, JOSEPH D. M.D. DATE OF SURGERY 08/28/2016 PREOPERATIVE DIAGNOSIS Free air. POSTOPERATIVE DIAGNOSIS Duodenal ulcer, about 2 cm. PROCEDURE 1. Diagnostic laparotomy with evacuation of large amount of enteric contents from perforated duodenal ulcer. 2. Repair of duodenal ulcer with Jack patch with drainage. ANESTHESIA General. SURGEON Dr. Kenyon. INDICATIONS This is a pleasant 56-year-old female who came into the emergency room complaining of abdominal pain. It was found that she had a rectal cancer eroding into her vagina. In addition she was found to have a small amount of free air on CT scan. It was thought that we might be able to treat her nonoperatively for her suspected perforated ulcer; however, her imaging showed more free air and there were some changes in her blood work and clinical condition. Plans were made for above. PROCEDURE The patient was taken to the operating room, placed in supine on the operating room table. After anesthesia her abdomen was prepped with Betadine. We did a time-out. I entered the abdomen. There was a fair amount of free air that was evacuated, a fair amount of enteric gastric contents that is evacuated, probably over 1 liter. Explored the abdomen. The gallbladder is slightly edematous, a reaction from this 2 cm perforated duodenal ulcer about 2 cm from the pylorus. It is not bleeding but obviously needs to be repaired. We did irrigate. We run the small bowel because of the reading on the x-ray that thought there was something in the mid-jejunum. I do not feel anything; I think it is just reactions for the perforation. All the fluid is evacuated. Her uterus has a small fibroid. Both ovaries are palpate and appear normal. Once we evacuate all the enteric contents and wash it out with 3 liters of saline, we then repaired the duodenal ulcer. We sharply dissected away from the gallbladder where it was slightly stuck up. We freed up the superior aspect of the duodenum identifying the artery, the superior pancreaticoduodenal artery which is preserved. The area is then ready for primary closure and this is accomplished with silk pop-off sutures in a systematic fashion to reapproximate this in a vertical fashion to prevent narrowing of the proximal duodenum. Once all the sutures were placed, we left the long tags. We then filled the abdomen with water and I thread the NG tube past the pylorus and Anesthesia pumps in a fair amount of air. There is no leakage from the repair. This air is then evacuated. We then place a Jack patch by taking the harmonic scalpel and a tongue of the omentum and placing it in between the sutures where it is secured down to hold the omental flap on the repair in typical fashion for a Jack patch. We then place 4 cc of Tisseel around the repair, placed a GIO just below the gallbladder and next to the duodenum for drainage. We then close the abdomen with a #1 PDS suture and the skin is loosely reapproximated with skin stapling device. Sterile bandage applied. Dr. 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 Barreto and he going to do an exam and possible biopsy to get a tissue diagnosis. Fausto Kenyon MD JDB/SSB /11:40 AM /12:04 PM
[2016-08-31 13:52] LABS: ENDOMYSIAL AB TITER ND (<1:5); TISSUE TRANSGLUTAMINASE AB LESS THAN 1 U/mL (())
[2016-08-31 15:59] LABS: IGA SERUM 269 mg/dL (81-463); TISSUE TRANSGLUTAMINASE AB IGG ND U/mL (())
[2016-08-31 16:00] VITALS: BP 131/62; PULSE 92; RESP 16; TEMP 98.3; O2SAT 95
[2016-08-31 19:15] LABS: BICARBONATE 15.4 MEQ/L (21.0-32.0); POTASSIUM 3.1 MEQ/L (3.5-5.1)
[2016-08-31 20:00] VITALS: BP 131/65; PULSE 101; RESP 18; TEMP 96.4; O2SAT 97
[2016-08-31] MEDS: LEVOFLOXACIN 750 MG PREMIX INJ 150 ML IV SCH (20:05)
[2016-08-31] MEDS ORDERED: POTASSIUM CL 40 MEQ/30 ML LIQ UDC PO ONE (21:30)
--- NOTE | 2016-08-31 21:51 | HHI.PR ---
Subjective Remarks Deferred entry, patient seen at 6 PM. Patient complains of swollen bilateral lower extremities, she states her thighs are tight and bigger Creatinine trending down Denies chest pain or shots of breath Stable vital signs Objective Vitals Vital Signs Date Time Temp Pulse Resp B/P Pulse Ox O2 Delivery O2 Flow Rate FiO2 08/31/16 20:08 18 08/31/16 16:00 98.3 92 16 131/62 95 08/31/16 14:00 18 08/31/16 12:00 98.4 101 16 119/64 94 08/31/16 10:42 18 08/31/16 08:00 97.8 96 16 106/67 94 08/31/16 06:00 18 08/31/16 06:00 18 08/31/16 04:15 98.3 98 17 130/63 95 08/30/16 23:47 98.5 90 17 130/79 95 I/O 08/30/16 08/30/16 08/30/16 08/31/16 08/31/16 08/31/16 07:00 15:00 23:00 07:00 15:00 23:00 Intake Total 396 ml 3396 ml 1154 ml 1630 ml 1400 ml Output Total 600 ml 930 ml 600 ml 620 ml 305 ml Balance -204 ml 2466 ml 554 ml 1010 ml 1095 ml Intake Oral 0 ml 1998 ml 280 ml 360 ml 0 ml IV Total 396 ml 1398 ml 874 ml 1270 ml 1400 ml Output Urine Total 600 ml 800 ml 600 ml 600 ml 300 ml Gastric Drainage Total 100 ml 0 ml 0 ml Drainage Total 30 ml 20 ml 5 ml # Bowel Movements 0 0 Result Diagram: 08/30/16 0605 08/31/16 1840 Imaging Last Impressions Upper GI Series 08/31/16599 Signed Impressions: Service Date/Time: August 09:26 - CONCLUSION: Luminal narrowing of the duodenal bulb in the postsurgical region. No evidence of contrast leak. Moderate delay in gastric emptying. Tres Reed MD Abdomen X-Ray 08/28/16599 Signed Impressions: Service Date/Time: Sunday, August 28, 2016 07:57 - CONCLUSION: Moderate free air. Gino Hinds MD FACR Abdomen/Pelvis CT 08/26/162005 Signed Impressions: Service Date/Time: Friday, August 26, 2016 21:37 - CONCLUSION: Abnormal appearance to proximal small bowel with thickening and increased enhancement in several loops with associated fluid in the mesentery, tracking to the right upper quadrant and a moderate amount of free fluid in the pelvis. No dilated loops of small or large bowel. The findings suggest a neoplastic or infectious process involving the jejunum. Jose Aguilar MD ADDENDUM: On evaluation of the images, there does appear to be some free air in the upper abdomen underneath the hemidiaphragms. There is a small amount of fluid adjacent to the liver. There appears to be some inflammatory changes involving the proximal duodenum. There is some free fluid in the pelvis. These findings were discussed by telephone with the colorectal surgeon. The free air in the upper abdomen an inflammatory-type changes associated with the proximal duodenum suggest a possible perforated peptic ulcer. Lico Thomas MD Abdomen/Pelvis/Transvag US 08/26/16 0000 Signed Impressions: Service Date/Time: Friday, August 26, 2016 23:28 - CONCLUSION: 1. Moderate free fluid complex in appearance. 2. Abnormal endometrial thickening in this postmenopausal patient. 3. The ovaries are not seen. Hemanth Rice MD Objective Remarks GENERAL: Middle-aged white female in no acute distress. HEENT: PERRLA, EOMI. No scleral icterus or conjunctival pallor. No lid lag or facial droop. CARDIOVASCULAR: Regular rate and rhythm. No obvious murmurs to auscultation. No chest tenderness to palpation. RESPIRATORY: No obvious rhonchi or wheezing. Clear to auscultation. Breath sounds equal bilaterally. GASTROINTESTINAL: midline incision with minimal drainage on bandage; GIO with serous drainage. Bowel sounds present, abdomen is soft and mildly tender to palpation especially around the incision. MUSCULOSKELETAL: Extremities without clubbing, cyanosis, edema upper seed in bilateral thighs. No obvious deformities. NEUROLOGICAL: Awake, alert and oriented x4. No focal neurologic deficits. Moving both upper and lower extremities spontaneously. SKIN: Mottled skin in lower extremities. Procedures 1. Diagnostic laparotomy with a question of large amount of enteric contents from perforated duodenal ulcer. 2. Repair of duodenal ulcer with Jack patch with drainage. Medications and IVs Current Medications Medications (Trade) Dose Ordered Sig/Steven Route Start Time Stop Time Status Last Admin Levofloxacin/ Dextrose 150 ml @ 100 mls/hr Q24H IV 08/27/16 22:00 08/31/16 20:05 (Flagyl 500 Mg Inj) 100 ml @ 100 mls/hr Q8H IV 08/27/16 06:00 08/31/16 20:05 (NS Flush) 2 ml UNSCH PRN FLUSH 08/26/16 22:30 (NS Flush) 2 ml BID FLUSH 08/27/16 09:00 08/29/16 07:47 (Zofran Inj) 4 mg Q6H PRN IVP 08/26/16 22:30 08/27/16 08:07 (Dulcolax Supp) 10 mg DAILY PRN ND 08/26/16 22:30 (Tylenol) 650 mg Q6H PRN PO 08/26/16 22:30 08/27/16 00:17 (Protonix Inj) 40 mg Q12H IV PUSH 08/27/16 09:00 08/31/16 20:04 ([place] 5-325 Mg) 1 tab Q4H PRN PO 08/27/16 12:00 ([place] 10-325 Mg) 1 tab Q4H PRN PO 08/27/16 12:00 (Morphine Inj) 2 mg Q4H PRN IV 08/27/16 12:00 (Morphine Inj) 4 mg Q4H PRN IV 08/27/16 12:00 08/27/16 12:03 (Morphine Inj) 4 mg Q4H PRN IV 08/27/16 12:00 (Narcan Inj) 0.4 mg UNSCH PRN IV 08/27/16 12:00 (Narcan Inj) 0.4 mg UNSCH PRN IV 08/27/16 14:45 (Morphine 1 Mg/ ml CAR PORTER) 30 mg UNSCH IV 08/27/16 14:45 08/31/16 10:42 CAR PORTER Dosage Infused (Pha) 1 1 Q8HR .XX 08/27/16 14:45 08/31/16 20:08 (Diflucan 400 Mg Premix Bag) 200 ml @ 100 mls/hr Q24H IV 08/28/16 12:00 08/31/16 12:12 Urinary Catheter: No Vascular Central Line Catheter: No A/P Problem List: (1) GI bleed ICD Code: K92.2 Status: Resolved Plan: Patient with history of bright red blood per rectum, Hemoccult positive. CT abdomen and pelvis with neoplastic versus infectious tele-G, possible enteritis. GI consulted. Patient seen by Dr. Rm from GI, NG tube inserted Patient evaluated by surgery status post diagnostic laparotomy with a question of large amount of enteric contents from perforated duodenal ulcer as well as repair of duodenal ulcer with Jack patch with drainage of intra-abdominal abscess. This was performed and date 08/28/16 NG tube has been discontinued, GI has signed off. (2) Duodenal ulcer due to nonsteroidal anti-inflammatory drug (NSAID) ICD Code: T39.391A Status: Resolved Plan: As above Status post upper GI series, which shows moderate free air. (3) Perforated duodenal ulcer ICD Code: K26.5 Status: Resolved Plan: Post post multiple surgeries by Dr. Victoria and she as detailed above. Follow-up general surgery recommendations. (4) UTI (urinary tract infection) ICD Code: N39.0 Status: Resolved Plan: Continue Levaquin and Flagyl. Monitor BMP and CBC with differential. (5) Elevated lipase ICD Code: R74.8 Status: Acute Plan: Patient with elevated lipase likely secondary to enteritis and perforated duodenal ulcer. (6) Rectal mass ICD Code: K62.9 Status: Acute Plan: Possible rectal mass, thickened small bowel with some intraperitoneal fluid, possible small amount of free air with signs of symptoms of ileus versus intestinal obstruction. Follow-up MATERIAL CLERK versus oncology recommendations. (7) Postmenopausal vaginal bleeding ICD Code: N95.0 Status: Acute Plan: Patient presented with postmenopausal vaginal bleeding than 5 months. Check consulted. Transvaginal ultrasound showed abnormal endometrial thickening and moderate free fluid in pelvis. The case was discussed with CERTIFIED NURSES' AIDE service, Dr. Mansfield who recommended MATERIAL CLERK process on consultation. Dr Cruz consulted. Patient with posterior vaginal wall mass, thickened endometrial stripe and postmenopausal bleeding. Follow-up MATERIAL CLERK for stress oncology recommendations. Tentatively exam under anesthesia, biopsies of posterior vaginal wall mass, D&C and cystoscopy. (8) Thigh edema ICD Code: R60.0 Status: Acute Plan: Bilateral edema to thighs. Discontinue IV fluids. We'll check Dopplers of bilateral lower extremities to rule out DVT. (9) Hypokalemia ICD Code: E87.6 Status: Acute Plan: Likely secondary to decreased oral intake. Replace potassium R Byrant and continue to monitor BMP. Assessment and Plan Prophylaxis: PPI. DVT prophylaxis: SCDs, as per general surgery recommendations. Discharge Planning Jaymie to monitor in the medical floor. Problem Qualifiers (1) GI bleed: Qualified Code: K92.2 - Gastrointestinal hemorrhage, unspecified gastrointestinal hemorrhage type Rashawn Mahan MD Aug 31, 2016 21:51
--- NOTE | 2016-08-31 22:03 | RADRPT ---
EXAM DATE/TIME: 08/31/2016 20:40 [facility] COMPARISON: No previous studies available for comparison. INDICATIONS : Swelling. MEDICAL HISTORY : Dentures. Abdominal pain. Nausea. Vomitting. Weight loss. SURGICAL HISTORY : No previous surgery. ENCOUNTER: Initial ACUITY: 2 day PAIN SCORE: 5/10 LOCATION: Bilateral legs. TECHNIQUE: Venous ultrasound of the left and right leg was performed from the inguinal ligament to the proximal calf. Real-time, color Doppler and spectral tracing, compression and augmentation techniques were us ed. FINDINGS: RIGHT LEG: There is normal compressibility of the deep venous system from the inguinal region to the proximal ca lf. No echogenic clot is seen in the lumen of the common femoral, femoral, popliteal, and posterior tibial veins. There is a normal response of the venous system to proximal and distal augmentation an d respiration. LEFT LEG: There is normal compressibility of the deep venous system from the inguinal region to the proximal ca lf. No echogenic clot is seen in the lumen of the common femoral, femoral, popliteal, and posterior tibial veins. There is a normal response of the venous system to proximal and distal augmentation an d respiration. CONCLUSION: Negative. No DVT of either lower extremity. Bernardino Rea MD on August 31, 2016 at 22:01 Board Certified Radiologist. This report was verified electronically.
[2016-09-01] VITALS: BP 103/59; PULSE 93; RESP 17; TEMP 97.2; O2SAT 94
[2016-09-01] MEDS: metroNIDAZOLE 500 MG INJ 100 ML IV SCH ×3 (04:03→20:36)
[2016-09-01] MEDS: MORPHINE SULFATE 30 MG/30 ML PCA IV SCH ×2 (04:19→18:40)
[2016-09-01] MEDS: PCA - TOTAL MG MORPHINE DELIVERED PER SHIFT SCH ×3 (04:20→20:36)
[2016-09-01 04:23] VITALS: RESP 18
[2016-09-01 04:38] LABS: AUTOMATED NEUTROPHIL # 14.1 TH/MM3 (1.8-7.7); BASOPHIL # 0.1 TH/MM3 (0-0.2); BASOPHIL % 0.7 % (0.0-2.0); EOSINOPHIL # 0.1 TH/MM3 (0-0.4); EOSINOPHIL % 0.3 % (0.0-4.0); LYMPH % 3.2 % (9.0-44.0); LYMPHOCYTE # 0.5 TH/MM3 (1.0-4.8); MEAN CELL VOLUME 97.5 FL (80.0-100.0); MEAN CORPUSCULAR HEMOGLOBIN 32.9 PG (27.0-34.0); MEAN CORPUSCULAR HGB CONC 33.7 % (32.0-36.0); MONO % 10.2 % (0.0-8.0); NEUT % 85.6 % (16.0-70.0); PLATELET COUNT 321 TH/MM3 (150-450); RED BLOOD COUNT 3.79 MIL/MM3 (4.00-5.30); RED CELL DISTRIBUTION WIDTH 12.8 % (11.6-17.2); WHITE BLOOD COUNT 16.5 TH/MM3 (4.0-11.0)
[2016-09-01 04:48] LABS: HEMO FLAGS AUTO DIFF
[2016-09-01 05:09] LABS: ALKALINE PHOSPHATASE 70 U/L (45-117); ALT (GPT) 15 U/L (10-53); ANION GAP 9 MEQ/L (5-15); AST (GOT) 13 U/L (15-37); BICARBONATE 23.8 MEQ/L (21.0-32.0); BLOOD UREA NITROGEN 10 MG/DL (7-18); CHLORIDE 107 MEQ/L (98-107); GLOMERULAR FILTRATION RATE 133 ML/MIN (>89); MAGNESIUM 1.6 MG/DL (1.5-2.5); SODIUM (NA) 140 MEQ/L (136-145); TOTAL BILIRUBIN ADULT 0.2 MG/DL (0.2-1.0)
[2016-09-01 05:21] LABS: POTASSIUM 2.9 MEQ/L (3.5-5.1)
[2016-09-01] MEDS ORDERED: POTASSIUM CHLORIDE 10 MEQ CONTROLLED RELEASE TAB PO ONE ×2 (05:45→23:00)
[2016-09-01 07:23] LABS: BANDS 2 % (0-6); EOSINOPHILS 1 % (0-4); METAMYELOCYTES 2 % (0-1); MYELOCYTES 1 % (0-0); NEUTROPHIL # MANUAL DIFF 14.2 TH/MM3 (1.8-7.7); PLATELET ESTIMATE SMEAR NORMAL (NORMAL); PLATELET MORPHOLOGY NORMAL (NORMAL); POLYS (SEG NEUTROPHILS) 81 % (16-70); SCAN/DIFF FINAL DIFF MANUAL; WBC DIFF SAMPLE 100
[2016-09-01 08:00] VITALS: BP 111/59; PULSE 87; RESP 14; TEMP 97.8; O2SAT 94
--- NOTE | 2016-09-01 08:43 | MB ---
cc: TAD SAWANT M.D., JOSEPH D. M.D. MOLPUS, KELLY L. MD TOLLAND,EAN Finn M.D. TIA CURTIS MD DATE OF CONSULTATION: 09/01/2016 FOLLOW-UP CONSULT NOTE I met again with Michelle Vora to update her on the findings and as per our other discussion while she was under anesthesia from the procedure to repair her perforated ulcer by Dr. Kenyon, we moved forward with examination under anesthesia, fractional dilation and curettage, cystoscopy and biopsies from the rectal and vaginal tumor. I wanted to update her on the results and let her know that the findings confirmed the clinical suspicion and what had previously been discussed by Dr. Barreto and others that this appears to be an adenocarcinoma arising from the rectum that had grown completely through the bowel wall through the rectovaginal septum and into the vagina creating a disruption of the tissue between these two organs with a fairly large ulcerative an exophytic tumor present in the vagina. I explained that biopsies are adenocarcinoma that under the microscope and with special staining are consistent with adenocarcinoma from the rectum. It is not a squamous cell carcinoma arising from the vagina and accordingly any further evaluation and treatment will be guided by the colorectal team and treatment may include involvement of a radiation oncologist and possibly medical oncologist, and possibly surgical intervention, and they will outline treatment plan. The immediate goal is to get her well from her ulcer surgery and she seems to be recovering and once she is satisfactorily recovered, can move forward to address the rectal carcinoma. I explained from a SUPERINTENDENT SANITATION standpoint that D&C was performed, the endocervix and endometrial tissues were benign and cystoscopy of the bladder showed no significant abnormality. In further discussion with her she reports that she has had drainage from her vagina that is malodorous and had qualities of feculent drainage for many weeks prior to presentation to the hospital and she brings that to our attention again today. I again explained that there is abnormal communication between the rectum and the vagina due to the tumor eroding through this tissue such that the drainage discharge is resultant of a fistulous communication with chronic drainage, irritation and discharge. It is hoped that treatment will ultimately be able to resolve this issue. I wish her all the best and continued improvement. Discussion ensued. Questions were answered. She was grateful for the care provided. Angeline MD MIO Cruz 8:21 AM 8:29 AM
[2016-09-01] MEDS: MAGNESIUM SULFATE 1 GM PREMIX 100 ML IV SCH ×2 (08:54→10:04)
[2016-09-01] MEDS: PANTOPRAZOLE SODIUM 40 MG VIAL IV PUSH SCH ×2 (08:55→20:36)
[2016-09-01] MEDS: SODIUM CHLORIDE 0.9% FLUSH 5 ML FLUSH FLUSH SCH ×2 (08:56→20:35)
--- NOTE | 2016-09-01 10:51 | HHI.PR ---
Subjective . Pt seen again yesterday. Pathology of Rectal cancer was discussed. Objective . Abd: post op.tenderness. Assessment/Plan . Rectal cancer with direct invasion of posterior vaginal wall Plan: Will see in office in next couple weeks and do a colonoscopy when stable. Will likely get pre op RT and chemotherapy Bernardino Barreto MD Sep 01, 2016 10:51
[2016-09-01 12:00] VITALS: BP 97/54; PULSE 88; RESP 14; TEMP 97; O2SAT 95
[2016-09-01] MEDS: FLUCONAZOLE 400 MG PREMIX BAG 200 ML IV SCH (12:15)
--- NOTE | 2016-09-01 12:45 | MP ---
cc: TIA CURTIS MD, BEATRICE S. M.D. MOLPUS, KELLY L. MD TOLLAND, JOHN T. M.D. MADHURI KENYON M.D. DATE OF SURGERY: 08/28/2016 PREOPERATIVE DIAGNOSIS Mass in distal vagina and rectum, postmenopausal bleeding, thickened endometrial stripe. POSTOPERATIVE DIAGNOSIS Mass in distal vagina and rectum, postmenopausal bleeding, thickened endometrial stripe. PROCEDURE Examination under anesthesia, biopsies of distal vaginal mass, fractional dilation and curettage, cystoscopy, proctoscopy with biopsy of rectal mass. SURGEON Nancy STORE LOSS PREVENTION MANAGER Ware Regrader ANESTHESIA General endotracheal. ESTIMATED BLOOD LOSS Less than 20 cc. HISTORY A 56-year-old female whose history is well-outlined in the chart. She was seen by us this morning in consultation. She presented with a constellation of symptoms and findings including nausea, vomiting, abdominal distension, intraperitoneal free air postmenopausal bleeding, and a mass-like effect in the vagina and rectum. She was explored by Dr. Tal Kenyon for a perforated ulcer and he has completed exploration and surgical repair of the perforated ulcer which was the etiology of the intraperitoneal free air. She was counseled this morning and consented for a diagnostic procedure from our standpoint and we move forward with these steps while she is under anesthesia to avoid the necessity of additional anesthesia for her. FINDINGS On exam under anesthesia there is no appreciably enlarged inguinal lymph nodes. External genitalia without mass or lesion. On the posterior vaginal wall approximately 3-4 cm from the introitus starts an ulcerative and exophytic lesion that has essentially replaced the posterior vaginal wall and extends essentially to the 3 and 9 o'clock position of the vagina. It is across the entire posterior wall of the vagina and estimated 6-7 cm in width. On rectovaginal exam there is a palpable exophytic nodular mass just proximal to the anal sphincter approximately 3-4 cm proximal to the anus. The tumor is mostly on the anterior and lateral monge of the anorectal region. The uterus sounds to 8 cm. The amount of tissue obtained from the cervix and the endometrium is relatively small. No overt neoplastic change is found on preliminary evaluation. On cystoscopy the bladder mucosa appears normal circumferentially. There is no mass, polyp or nodularity. The ureteral ostia are well-visualized with good efflux of urine bilaterally. Frozen section analysis of the biopsy from the vaginal mass shows it to be an adenocarcinoma with necrosis in the tissue. DETAILS OF PROCEDURE The patient was already under general anesthesia. She was repositioned in lithotomy position and re-prepped for this procedure after an exam under anesthesia was performed with findings as described above. Biopsies were obtained from the posterior vaginal mass and sent for frozen section analysis. Additional biopsies were obtained to have additional tissue for permanent histopathologic analysis. The cervix was grasped, the uterine cavity was sounded, the cervix was dilated. Endocervical curettings were performed with multiple passes circumferentially. Tissue was labeled as endocervical curettings. The cervix was then further dilated and multiple passes were obtained from the endometrium. Tissue was collected as endometrial curettings. Cystoscopy was performed using a 30 degree scope with findings as described above. The bladder was drained and then rigid proctosigmoidoscopy was used just in the distal anus to visualize the tumor but the rigid proctoscope was not placed proximal to this in an effort to try to avoid tumor disruption or bleeding. An anal speculum was used to isolate the tumor which was visible just above the anal sphincter. Biopsies were obtained and rendered hemostatic with topical Monsel's solution. A change of sterile gloves was undertaken. The vaginal tumor was rendered hemostatic with Monsel's solution. We confirmed that we had an adequate diagnosis from the tissue showing adenocarcinoma and it was felt that all reasonable surgical objectives had been completed. There were no remaining foreign objects in the vagina. Preliminary and final counts from our procedure were correct. She was returned to dorsal supine position and was pending reversal of anesthesia when I left the operating room to precede her to the post-anesthesia care unit. MD SHELIA Jacobo/EDWARD /7:47 AM /12:34 PM
--- NOTE | 2016-09-01 14:38 | HHI.PR ---
Subjective Subjective Notes DAILY PROGRESS NOTE FOR SURGICAL ATTENDING, DR. FAUSTO KENYON Informed by RN at 0705 that patient now has green bile in GIO---saw immediately Ms. Vora reports pain slightly worse than yesterday Objective Vitals/I&O Vital Signs Date Time Temp Pulse Resp B/P Pulse Ox O2 Delivery O2 Flow Rate FiO2 09/01/16 13:46 18 09/01/16 12:00 97.0 88 97/54 95 08/28/16 14:15 Room Air 08/28/16 13:30 1.5 Labs Laboratory Tests Test 08/31/16 09/01/16 18:40 03:24 Sodium Level 140 140 Potassium Level 3.1 2.9 Chloride Level 107 107 Carbon Dioxide Level 15.4 23.8 Anion Gap 18 9 Blood Urea Nitrogen 12 10 Creatinine 0.45 0.48 Estimat Glomerular Filtration 143 133 Rate Random Glucose 102 163 Calcium Level 7.5 7.5 White Blood Count 16.5 Red Blood Count 3.79 Hemoglobin 12.5 Hematocrit 37.0 Mean Corpuscular Volume 97.5 Mean Corpuscular Hemoglobin 32.9 Mean Corpuscular Hemoglobin 33.7 Concent Red Cell Distribution Width 12.8 Platelet Count 321 Mean Platelet Volume 7.7 Neutrophils (%) (Auto) 85.6 Lymphocytes (%) (Auto) 3.2 Monocytes (%) (Auto) 10.2 Eosinophils (%) (Auto) 0.3 Basophils (%) (Auto) 0.7 Neutrophils # (Auto) 14.1 Lymphocytes # (Auto) 0.5 Monocytes # (Auto) 1.7 Eosinophils # (Auto) 0.1 Basophils # (Auto) 0.1 CBC Comment AUTO DIFF Differential Total Cells 100 Counted Neutrophils % (Manual) 81 Band Neutrophils % 2 Lymphocytes % 2 Monocytes % 11 Eosinophils % 1 Neutrophils # (Manual) 14.2 Metamyelocytes 2 Myelocytes 1 Differential Comment FINAL DIFF MANUAL Platelet Estimate NORMAL Platelet Morphology Comment NORMAL Phosphorus Level 1.3 Magnesium Level 1.6 Total Bilirubin 0.2 Aspartate Amino Transf 13 (AST/SGOT) Alanine Aminotransferase 15 (ALT/SGPT) Alkaline Phosphatase 70 Total Protein 4.7 Albumin 1.6 Date/Time Procedure Status Source Growth 08/28/16 10:27 Gram Stain - Final Complete Abscess Abdomen 08/28/16 10:27 Wound Culture - Final Complete Esther Albicans 08/28/16 10:27 Fungal Smear - Final Resulted Abscess Abdomen RARE BUDDING YEAST CELLS 08/28/16 10:27 Fungal Culture Resulted Abscess Abdomen Pending 08/28/16 10:27 Acid Fast Stain - Final Resulted Abscess Abdomen NO ACID FAST BACILLI SEEN 08/28/16 10:27 Mycobacterial Culture Resulted Abscess Abdomen Pending Radiology Last Impressions Abdomen X-Ray 08/28/16 0600 Signed Impressions: Service Date/Time: Sunday, August 28, 2016 07:57 - CONCLUSION: Moderate free air. Gino Hinds MD FACR Abdomen/Pelvis CT 08/26/162005 Signed Impressions: Service Date/Time: Friday, August 26, 2016 21:37 - CONCLUSION: Abnormal appearance to proximal small bowel with thickening and increased enhancement in several loops with associated fluid in the mesentery, tracking to the right upper quadrant and a moderate amount of free fluid in the pelvis. No dilated loops of small or large bowel. The findings suggest a neoplastic or infectious process involving the jejunum. Jose Aguilar MD ADDENDUM: On evaluation of the images, there does appear to be some free air in the upper abdomen underneath the hemidiaphragms. There is a small amount of fluid adjacent to the liver. There appears to be some inflammatory changes involving the proximal duodenum. There is some free fluid in the pelvis. These findings were discussed by telephone with the colorectal surgeon. The free air in the upper abdomen an inflammatory-type changes associated with the proximal duodenum suggest a possible perforated peptic ulcer. Lico Thomas MD Abdomen/Pelvis/Transvag US 08/26/16 0000 Signed Impressions: Service Date/Time: Friday, August 26, 2016 23:28 - CONCLUSION: 1. Moderate free fluid complex in appearance. 2. Abnormal endometrial thickening in this postmenopausal patient. 3. The ovaries are not seen. Hemanth Rice MD Cardiovascular: Regular Lungs: Clear Abdomen: Other (midline incision without drainage; GIO with large amount of cloudy green drainage ) Extremities: Other (mild generalized edema ) Narrative Exam Has bile coming from GIO now A/P Problem List: (1) Bile leak Plan: From duodenal ulcer repair (2) Duodenal ulcer due to nonsteroidal anti-inflammatory drug (NSAID) (3) Perforated duodenal ulcer (4) Rectal malignant neoplasm (5) Abdominal pain (6) Elevated white blood cell count (7) Pancreatitis (8) UTI (urinary tract infection) (9) Rectal mass (10) Intra-abdominal abscess (11) Hypokalemia due to loss of potassium (12) Magnesium deficiency Assessment and Plan 56-year-old female POD4 ex lap for perforated duodenal ulcer. -She also has a rectal cancer growing into her vagina -Insert NGT and place to LIWS -NPO -Change dressing daily and PRN -Ambulate in hallways -Incentive spirometer -Pain control -Discussed with DANITA Henry -Discussed also with Dr. Kenyon Attending Statement NOTE FOR SURGICAL ATTENDING, DR. FAUSTO KENYON I agree with above assessment and plan. Patient has bile leak from repair will cont GIO drainage replace ngt Replacement magnesium and potassium The exam, history, and the medical decision-making described in the above note were completed with the assistance of the mid-level provider. I reviewed and agree with the findings presented. I attest that I had a [id number] encounter with the patient on the same day, and personally performed and documented my assessment and findings in the medical record. The following services were provided during this hospital visit: Chart data review, vital sign assessments/reviewing monitor data Review of consultations notes if present. Medication orders/review and/or management Ordering and/or reviewing lab tests Ordering and/or interpreting/reviewing x-rays and/or diagnostic studies Care of the patient and discussion of the patient with the care team Documentation time To help prompt me to consider important information that might be impacting today's encounter and assessment, information from prior notes written by myself or my colleagues may have been "brought forward/copy and pasted" into today's note. Problem Qualifiers (1) Abdominal pain: Qualified Code: R10.84 - Generalized abdominal pain (2) Elevated white blood cell count: Qualified Code: D72.825 - Bandemia (3) Pancreatitis: Rosangela Valdes Sep 01, 2016 14:38 Fausto Kenyon MD Sep 01, 2016 17:37
[2016-09-01 16:00] VITALS: BP 113/64; PULSE 79; RESP 14; O2SAT 98
--- NOTE | 2016-09-01 17:40 | HHI.PR ---
Subjective Remarks Patient presented green bile in the GIO drain it in the morning. NG tube in place, patient denies nausea vomiting. Denies abdominal pain Stable vital signs Low phosphorus Low potassium noted. Objective Vitals Vital Signs Date Time Temp Pulse Resp B/P Pulse Ox O2 Delivery O2 Flow Rate FiO2 09/01/16 13:46 18 09/01/16 12:00 97.0 88 14 97/54 95 09/01/16 08:00 97.8 87 14 111/59 94 09/01/16 04:23 18 09/01/16 04:20 18 09/01/16 04:19 18 09/01/16 00:00 97.2 93 17 103/59 94 08/31/16 20:08 18 08/31/16 20:00 96.4 101 18 131/65 97 08/31/16 20:00 18 I/O 08/31/16 08/31/16 08/31/16 09/01/16 09/01/16 09/01/16 07:00 15:00 23:00 07:00 15:00 23:00 Intake Total 1630 ml 1400 ml 669 ml 582 ml 300 ml Output Total 620 ml 305 ml 500 ml 455 ml 1200 ml 80 ml Balance 1010 ml 1095 ml 169 ml 127 ml -900 ml -80 ml Intake Oral 360 ml 0 ml 240 ml 240 ml 0 ml IV Total 1270 ml 1400 ml 429 ml 342 ml 300 ml Output Urine Total 600 ml 300 ml 500 ml 400 ml 660 ml Gastric Drainage Total 0 ml 150 ml Drainage Total 20 ml 5 ml 0 ml 55 ml 390 ml 80 ml # Bowel Movements 0 0 Result Diagram: 09/01/16 0324 09/01/16 0324 Objective Remarks GENERAL: Middle-aged white female in no acute distress. HEENT: PERRLA, EOMI. No scleral icterus or conjunctival pallor. No lid lag or facial droop. CARDIOVASCULAR: Regular rate and rhythm. No obvious murmurs to auscultation. No chest tenderness to palpation. RESPIRATORY: No obvious rhonchi or wheezing. Clear to auscultation. Breath sounds equal bilaterally. GASTROINTESTINAL: midline incision with minimal drainage on bandage; GIO with serous drainage. Bowel sounds present, abdomen is soft and mildly tender to palpation especially around the incision. MUSCULOSKELETAL: Extremities without clubbing, cyanosis, edema upper seed in bilateral thighs. No obvious deformities. NEUROLOGICAL: Awake, alert and oriented x4. No focal neurologic deficits. Moving both upper and lower extremities spontaneously. SKIN: Mottled skin in lower extremities. Procedures 1. Diagnostic laparotomy with a question of large amount of enteric contents from perforated duodenal ulcer. 2. Repair of duodenal ulcer with Jack patch with drainage. A/P Problem List: (1) GI bleed ICD Code: K92.2 Status: Resolved Plan: Patient with history of bright red blood per rectum, Hemoccult positive. CT abdomen and pelvis with neoplastic versus infectious tele-G, possible enteritis. GI consulted. Patient seen by Dr. Rm from GI, NG tube inserted Patient evaluated by surgery status post diagnostic laparotomy with a question of large amount of enteric contents from perforated duodenal ulcer as well as repair of duodenal ulcer with Jack patch with drainage of intra-abdominal abscess. This was performed and date 08/28/16 NG tube has been discontinued, GI has signed off. (2) Duodenal ulcer due to nonsteroidal anti-inflammatory drug (NSAID) ICD Code: T39.391A Status: Resolved Plan: As above Status post upper GI series, which shows moderate free air. (3) Perforated duodenal ulcer ICD Code: K26.5 Status: Resolved Plan: Post post multiple surgeries by Dr. Victoria and she as detailed above. NG tube placed today. Follow-up general surgery recommendations. (4) UTI (urinary tract infection) ICD Code: N39.0 Status: Resolved Plan: Continue Levaquin and Flagyl. Monitor BMP and CBC with differential. (5) Elevated lipase ICD Code: R74.8 Status: Acute Plan: Patient with elevated lipase likely secondary to enteritis and perforated duodenal ulcer. (6) Rectal mass ICD Code: K62.9 Status: Acute Plan: Possible rectal mass, thickened small bowel with some intraperitoneal fluid, possible small amount of free air with signs of symptoms of ileus versus intestinal obstruction. Follow-up MEATMAN versus oncology recommendations. 2/3 patient is status post semination under anesthesia, biopsies of distal vaginal mass, fractional dilation and curettage, cystoscopy cooperative test. Biopsy of rectal mass. Follow-up pathology (7) Postmenopausal vaginal bleeding ICD Code: N95.0 Status: Acute Plan: Patient presented with postmenopausal vaginal bleeding than 5 months. Check consulted. Transvaginal ultrasound showed abnormal endometrial thickening and moderate free fluid in pelvis. The case was discussed with [employer] SUPERVISOR service, Dr. Mansfield who recommended MEATMAN process on consultation. Dr Cruz consulted. Patient with posterior vaginal wall mass, thickened endometrial stripe and postmenopausal bleeding. Follow-up MEATMAN for stress oncology recommendations. Tentatively exam under anesthesia, biopsies of posterior vaginal wall mass, D&C and cystoscopy. 2. 3 as above. (8) Thigh edema ICD Code: R60.0 Status: Acute Plan: Bilateral edema to thighs. I refuses continue. The Proteus and negative for DVTs. (9) Hypokalemia ICD Code: E87.6 Status: Acute Plan: Likely secondary to decreased oral intake. Monitor potassium and continue to replace as needed. Potassium 2.9 today. Systemic equivalent of oral potassium given in a.m. I will give 40 mEq more. Assessment and Plan Prophylaxis: PPI. DVT prophylaxis: SCDs, as per general surgery recommendations. Discharge Planning Jaymie to monitor in the medical floor. Problem Qualifiers (1) GI bleed: Qualified Code: K92.2 - Gastrointestinal hemorrhage, unspecified gastrointestinal hemorrhage type Rashawn Mahan MD Sep 01, 2016 17:40
[2016-09-01 20:00] VITALS: BP 133/64; PULSE 82; RESP 17; TEMP 96.8; O2SAT 97
[2016-09-01] MEDS: LEVOFLOXACIN 750 MG PREMIX INJ 150 ML IV SCH (21:47)
[2016-09-02] VITALS: BP 128/64; PULSE 77; RESP 17; TEMP 96.4; O2SAT 98
[2016-09-02 05:29] LABS: AUTOMATED NEUTROPHIL # 12.9 TH/MM3 (1.8-7.7); BASOPHIL % 0.2 % (0.0-2.0); EOSINOPHIL # 0.1 TH/MM3 (0-0.4); HEMATOCRIT 38.2 % (35.0-46.0); LYMPH % 4.3 % (9.0-44.0); LYMPHOCYTE # 0.6 TH/MM3 (1.0-4.8); MEAN CELL VOLUME 98.3 FL (80.0-100.0); MEAN CORPUSCULAR HEMOGLOBIN 32.8 PG (27.0-34.0); MEAN CORPUSCULAR HGB CONC 33.4 % (32.0-36.0); MONO % 8.7 % (0.0-8.0); NEUT % 85.8 % (16.0-70.0); PLATELET COUNT 331 TH/MM3 (150-450); RED BLOOD COUNT 3.89 MIL/MM3 (4.00-5.30); RED CELL DISTRIBUTION WIDTH 13.2 % (11.6-17.2); WHITE BLOOD COUNT 15.1 TH/MM3 (4.0-11.0)
[2016-09-02 05:38] LABS: HEMO FLAGS AUTO DIFF
[2016-09-02 05:47] LABS: ALT (GPT) 16 U/L (10-53); ANION GAP 9 MEQ/L (5-15); AST (GOT) 16 U/L (15-37); BICARBONATE 25.2 MEQ/L (21.0-32.0); BLOOD UREA NITROGEN 10 MG/DL (7-18); CHLORIDE 108 MEQ/L (98-107); GLOMERULAR FILTRATION RATE 198 ML/MIN (>89); MAGNESIUM 2.1 MG/DL (1.5-2.5); POTASSIUM 3.1 MEQ/L (3.5-5.1); SODIUM (NA) 142 MEQ/L (136-145)
[2016-09-02 05:49] LABS: ALKALINE PHOSPHATASE 65 U/L (45-117); TOTAL BILIRUBIN ADULT 0.3 MG/DL (0.2-1.0)
[2016-09-02] MEDS: PCA - TOTAL MG MORPHINE DELIVERED PER SHIFT SCH ×3 (06:00→22:00)
[2016-09-02] MEDS: metroNIDAZOLE 500 MG INJ 100 ML IV SCH ×2 (06:04→14:22)
[2016-09-02 08:00] VITALS: BP 113/70; PULSE 78; RESP 12; TEMP 97.8; O2SAT 96
[2016-09-02] MEDS: SODIUM CHLORIDE 0.9% FLUSH 5 ML FLUSH FLUSH SCH ×2 (08:53→20:59)
[2016-09-02] MEDS: PANTOPRAZOLE SODIUM 40 MG VIAL IV PUSH SCH ×2 (08:53→20:58)
--- NOTE | 2016-09-02 10:28 | HHI.PR ---
Subjective Subjective Notes feels fine, NG makes nose sore. Objective Vitals/I&O Vital Signs Date Time Temp Pulse Resp B/P Pulse Ox O2 Delivery O2 Flow Rate FiO2 09/02/16 08:00 97.8 78 12 113/70 96 Labs Laboratory Tests Test 09/01/16 09/02/16 22:03 04:06 Potassium Level 2.8 3.1 White Blood Count 15.1 Red Blood Count 3.89 Hemoglobin 12.7 Hematocrit 38.2 Mean Corpuscular Volume 98.3 Mean Corpuscular Hemoglobin 32.8 Mean Corpuscular Hemoglobin 33.4 Concent Red Cell Distribution Width 13.2 Platelet Count 331 Mean Platelet Volume 7.9 Neutrophils (%) (Auto) 85.8 Lymphocytes (%) (Auto) 4.3 Monocytes (%) (Auto) 8.7 Eosinophils (%) (Auto) 1.0 Basophils (%) (Auto) 0.2 Neutrophils # (Auto) 12.9 Lymphocytes # (Auto) 0.6 Monocytes # (Auto) 1.3 Eosinophils # (Auto) 0.1 Basophils # (Auto) 0.0 CBC Comment AUTO DIFF Sodium Level 142 Chloride Level 108 Carbon Dioxide Level 25.2 Anion Gap 9 Blood Urea Nitrogen 10 Creatinine 0.34 Estimat Glomerular Filtration 198 Rate Random Glucose 108 Calcium Level 7.8 Phosphorus Level 1.9 Magnesium Level 2.1 Total Bilirubin 0.3 Aspartate Amino Transf 16 (AST/SGOT) Alanine Aminotransferase 16 (ALT/SGPT) Alkaline Phosphatase 65 Total Protein 5.0 Albumin 1.6 Date/Time Procedure Status Source Growth 08/28/16 10:27 Gram Stain - Final Complete Abscess Abdomen 08/28/16 10:27 Wound Culture - Final Complete Esther Albicans 08/28/16 10:27 Fungal Smear - Final Resulted Abscess Abdomen RARE BUDDING YEAST CELLS 08/28/16 10:27 Fungal Culture Resulted Abscess Abdomen Pending 08/28/16 10:27 Acid Fast Stain - Final Resulted Abscess Abdomen NO ACID FAST BACILLI SEEN 08/28/16 10:27 Mycobacterial Culture Resulted Abscess Abdomen Pending Radiology Last Impressions Upper GI Series 08/31/16 0600 Signed Impressions: Service Date/Time: August 09:26 - CONCLUSION: Luminal narrowing of the duodenal bulb in the postsurgical region. No evidence of contrast leak. Moderate delay in gastric emptying. Tres Reed MD Lower Extremity Ultrasound 08/31/16 0000 Signed Impressions: Service Date/Time: August 20:40 - CONCLUSION: Negative. No DVT of either lower extremity. Bernardino Rea MD Abdomen X-Ray 08/28/16 0600 Signed Impressions: Service Date/Time: Sunday, August 28, 2016 07:57 - CONCLUSION: Moderate free air. Gino Hinds MD FACR Abdomen/Pelvis CT 08/26/162005 Signed Impressions: Service Date/Time: Friday, August 26, 2016 21:37 - CONCLUSION: Abnormal appearance to proximal small bowel with thickening and increased enhancement in several loops with associated fluid in the mesentery, tracking to the right upper quadrant and a moderate amount of free fluid in the pelvis. No dilated loops of small or large bowel. The findings suggest a neoplastic or infectious process involving the jejunum. Jose Aguilar MD ADDENDUM: On evaluation of the images, there does appear to be some free air in the upper abdomen underneath the hemidiaphragms. There is a small amount of fluid adjacent to the liver. There appears to be some inflammatory changes involving the proximal duodenum. There is some free fluid in the pelvis. These findings were discussed by telephone with the colorectal surgeon. The free air in the upper abdomen an inflammatory-type changes associated with the proximal duodenum suggest a possible perforated peptic ulcer. Lico Thomas MD Abdomen/Pelvis/Transvag US 08/26/16 0000 Signed Impressions: Service Date/Time: Friday, August 26, 2016 23:28 - CONCLUSION: 1. Moderate free fluid complex in appearance. 2. Abnormal endometrial thickening in this postmenopausal patient. 3. The ovaries are not seen. 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 will check KUB today GIO to low wall suction. K Problem Qualifiers (1) Abdominal pain: Qualified Code: R10.84 - Generalized abdominal pain (2) Elevated white blood cell count: Qualified Code: D72.825 - Bandemia (3) Pancreatitis: North Garcia MD Sep 02, 2016 10:28
[2016-09-02] MEDS: NS + KCL 40 MEQ INJ 1,000 ML IV SCH (10:56)
[2016-09-02] MEDS: FLUCONAZOLE 400 MG PREMIX BAG 200 ML IV SCH (10:59)
[2016-09-02 11:03] LABS: BANDS 15 % (0-6); EOSINOPHILS 2 % (0-4); NEUTROPHIL # MANUAL DIFF 13.4 TH/MM3 (1.8-7.7); POLYS (SEG NEUTROPHILS) 74 % (16-70); WBC DIFF SAMPLE 100
[2016-09-02 11:04] LABS: PLATELET ESTIMATE SMEAR NORMAL (NORMAL); PLATELET MORPHOLOGY NORMAL (NORMAL); SCAN/DIFF FINAL DIFF MANUAL
--- NOTE | 2016-09-02 11:07 | RADRPT ---
EXAM DATE/TIME: 09/02/2016 10:43 [facility] COMPARISON: No previous studies available for comparison. INDICATIONS : Abdominal Pain, Confirm NG Tube Placement. MEDICAL HISTORY : None. SURGICAL HISTORY : Duodenal Ulcer Repair. ENCOUNTER: Initial ACUITY: 1 day PAIN SCORE: 5/10 LOCATION: Abdomen. FINDINGS: Supine view of the abdomen was performed. Residual contrast in the colon. Nasogastric tube tip in st omach. Postsurgical changes. Surgical drain in right abdomen. The abdominal bowel gas pattern is norm al. No abnormal masses, calcifications, or organomegaly is seen. The osseous structures are unremar kable. CONCLUSION: No acute abnormalities. Postsurgical changes. NG tube with tip in stomach. Gama Medrano MD on September 02, 2016 at 11:05 Board Certified Radiologist. This report was verified electronically.
[2016-09-02 12:00] VITALS: BP 103/60; PULSE 83; RESP 14; TEMP 98.2; O2SAT 97
[2016-09-02] MEDS ORDERED: POTASSIUM CHLORIDE 10 MEQ CONTROLLED RELEASE TAB PO ONE (14:00)
--- NOTE | 2016-09-02 14:34 | HHI.PR ---
Subjective Remarks denies cp sob Denies fevers or chills Has mild diffuse abdominal pain Denies nausea or vomiting As per RN, NG tube was advanced by surgery and GIO drain was placed to suction. Objective Vitals Vital Signs Date Time Temp Pulse Resp B/P Pulse Ox O2 Delivery O2 Flow Rate FiO2 09/02/16 12:00 98.2 83 14 103/60 97 09/02/16 08:00 97.8 78 12 113/70 96 09/02/16 06:00 18 09/02/16 00:00 96.4 77 17 128/64 98 09/01/16 20:36 18 09/01/16 20:00 96.8 82 17 133/64 97 09/01/16 18:45 20 09/01/16 18:40 18 09/01/16 16:00 79 14 113/64 98 I/O 09/01/16 09/01/16 09/01/16 09/02/16 09/02/16 09/02/16 07:00 15:00 23:00 07:00 15:00 23:00 Intake Total 582 ml 300 ml 780 ml 630 ml Output Total 455 ml 1200 ml 610 ml 895 ml Balance 127 ml -900 ml 170 ml -265 ml Intake Oral 240 ml 0 ml 0 ml 240 ml IV Total 342 ml 300 ml 780 ml 390 ml Output Urine Total 400 ml 660 ml 400 ml 600 ml Gastric Drainage Total 150 ml 150 ml Drainage Total 55 ml 390 ml 210 ml 145 ml # Bowel Movements 0 # Sanitary Pads 1 Pads Result Diagram: 09/02/16 0406 09/02/16 0406 Imaging Last Impressions Abdomen X-Ray 09/02/16 0000 Signed Impressions: Service Date/Time: Friday, September 02, 2016 10:43 - CONCLUSION: No acute abnormalities. Postsurgical changes. NG tube with tip in stomach. Gama Medrano MD Upper GI Series 08/31/16 0600 Signed Impressions: Service Date/Time: August 09:26 - CONCLUSION: Luminal narrowing of the duodenal bulb in the postsurgical region. No evidence of contrast leak. Moderate delay in gastric emptying. Tres Reed MD Lower Extremity Ultrasound 08/31/16 0000 Signed Impressions: Service Date/Time: August 20:40 - CONCLUSION: Negative. No DVT of either lower extremity. Bernardino Rea MD Abdomen/Pelvis CT 08/26/162005 Signed Impressions: Service Date/Time: Friday, August 26, 2016 21:37 - CONCLUSION: Abnormal appearance to proximal small bowel with thickening and increased enhancement in several loops with associated fluid in the mesentery, tracking to the right upper quadrant and a moderate amount of free fluid in the pelvis. No dilated loops of small or large bowel. The findings suggest a neoplastic or infectious process involving the jejunum. Jose Aguilar MD ADDENDUM: On evaluation of the images, there does appear to be some free air in the upper abdomen underneath the hemidiaphragms. There is a small amount of fluid adjacent to the liver. There appears to be some inflammatory changes involving the proximal duodenum. There is some free fluid in the pelvis. These findings were discussed by telephone with the colorectal surgeon. The free air in the upper abdomen an inflammatory-type changes associated with the proximal duodenum suggest a possible perforated peptic ulcer. Lico Thomas MD Abdomen/Pelvis/Transvag US 08/26/16 0000 Signed Impressions: Service Date/Time: Friday, August 26, 2016 23:28 - CONCLUSION: 1. Moderate free fluid complex in appearance. 2. Abnormal endometrial thickening in this postmenopausal patient. 3. The ovaries are not seen. Hemanth Rice MD Objective Remarks GENERAL: Middle-aged white female in no acute distress. HEENT: PERRLA, EOMI. No scleral icterus or conjunctival pallor. No lid lag or facial droop. CARDIOVASCULAR: Regular rate and rhythm. No obvious murmurs to auscultation. No chest tenderness to palpation. RESPIRATORY: No obvious rhonchi or wheezing. Clear to auscultation. Breath sounds equal bilaterally. GASTROINTESTINAL: midline incision with minimal drainage on bandage; GIO with serous drainage. Bowel sounds present, abdomen is soft and mildly tender to palpation especially around the incision. MUSCULOSKELETAL: Extremities without clubbing, cyanosis, edema upper seed in bilateral thighs. No obvious deformities. NEUROLOGICAL: Awake, alert and oriented x4. No focal neurologic deficits. Moving both upper and lower extremities spontaneously. SKIN: Mottled skin in lower extremities. Procedures 1. Diagnostic laparotomy with a question of large amount of enteric contents from perforated duodenal ulcer. 2. Repair of duodenal ulcer with Jack patch with drainage. Medications and IVs Current Medications Medications (Trade) Dose Ordered Sig/Steven Route Start Time Stop Time Status Last Admin Levofloxacin/ Dextrose 150 ml @ 100 mls/hr Q24H IV 08/27/16 22:00 09/01/16 21:47 (Flagyl 500 Mg Inj) 100 ml @ 100 mls/hr Q8H IV 08/27/16 06:00 09/02/16 06:04 (NS Flush) 2 ml UNSCH PRN FLUSH 08/26/16 22:30 (NS Flush) 2 ml BID FLUSH 08/27/16 09:00 09/02/16 08:53 (Zofran Inj) 4 mg Q6H PRN IVP 08/26/16 22:30 08/27/16 08:07 (Dulcolax Supp) 10 mg DAILY PRN NH 08/26/16 22:30 (Tylenol) 650 mg Q6H PRN PO 08/26/16 22:30 08/27/16 00:17 (Protonix Inj) 40 mg Q12H IV PUSH 08/27/16 09:00 09/02/16 08:53 ([place] 5-325 Mg) 1 tab Q4H PRN PO 08/27/16 12:00 ([place] 10-325 Mg) 1 tab Q4H PRN PO 08/27/16 12:00 (Morphine Inj) 2 mg Q4H PRN IV 08/27/16 12:00 (Morphine Inj) 4 mg Q4H PRN IV 08/27/16 12:00 08/27/16 12:03 (Morphine Inj) 4 mg Q4H PRN IV 08/27/16 12:00 (Narcan Inj) 0.4 mg UNSCH PRN IV 08/27/16 12:00 (Narcan Inj) 0.4 mg UNSCH PRN IV 08/27/16 14:45 (Morphine 1 Mg/ ml BOOM MAN) 30 mg UNSCH IV 08/27/16 14:45 09/01/16 18:40 BOOM MAN Dosage Infused (Pha) 1 1 Q8HR .XX 08/27/16 14:45 09/02/16 06:00 Fluconazole/ Sodium Chloride 200 ml @ 100 mls/hr Q24H IV 08/28/16 12:00 09/02/16 10:59 (NS + KCl 40 Meq Inj) 1,000 ml @ 84 mls/hr [id number] IV 09/02/16 11:00 09/02/16 10:56 A/P Problem List: (1) GI bleed ICD Code: K92.2 Status: Resolved (2) Duodenal ulcer due to nonsteroidal anti-inflammatory drug (NSAID) ICD Code: T39.391A Status: Resolved (3) Perforated duodenal ulcer ICD Code: K26.5 Status: Resolved (4) UTI (urinary tract infection) ICD Code: N39.0 Status: Resolved (5) Elevated lipase ICD Code: R74.8 Status: Acute (6) Rectal mass ICD Code: K62.9 Status: Acute (7) Postmenopausal vaginal bleeding ICD Code: N95.0 Status: Acute (8) Thigh edema ICD Code: R60.0 Status: Acute (9) Hypokalemia ICD Code: E87.6 Status: Acute Assessment and Plan (1) GI bleed Plan: Patient with history of bright red blood per rectum, Hemoccult positive. CT abdomen and pelvis with neoplastic versus infectious tele-G, possible enteritis. GI consulted. Patient seen by Dr. Rm from GI, NG tube inserted Patient evaluated by surgery status post diagnostic laparotomy with a question of large amount of enteric contents from perforated duodenal ulcer as well as repair of duodenal ulcer with Jack patch with drainage of intra-abdominal abscess. This was performed and date 08/28/16 NG tube has been discontinued, GI has signed off. (2) Duodenal ulcer due to nonsteroidal anti-inflammatory drug (NSAID) Plan: As above Status post upper GI series, which shows moderate free air. (3) Perforated duodenal ulcer Plan: Post post multiple surgeries by Dr. Kenyon as detailed above. NG tube placed today. Follow-up general surgery recommendations. 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 will check KUB today - per GS GIO to low wall suction. - as per GS Consult ID - wound culture growing carlos albicans - Patient on Fluconazole (4) UTI (urinary tract infection) Plan: Patient on Levaquin, urine culture gre pansensitive E coli (5) Elevated lipase Plan: Patient with elevated lipase likely secondary to enteritis and perforated duodenal ulcer. (6) Rectal mass Plan: Possible rectal mass, thickened small bowel with some intraperitoneal fluid, possible small amount of free air with signs of symptoms of ileus versus intestinal obstruction. Follow-up MATH AND SCIENCE INSTRUCTOR versus oncology recommendations. 2/3 patient is status post semination under anesthesia, biopsies of distal vaginal mass, fractional dilation and curettage, cystoscopy cooperative test. Biopsy of rectal mass. Follow-up pathology (7) Postmenopausal vaginal bleeding ICD Code: N95.0 Status: Acute Plan: Patient presented with postmenopausal vaginal bleeding than 5 months. Check consulted. Transvaginal ultrasound showed abnormal endometrial thickening and moderate free fluid in pelvis. The case was discussed with CARBONIZER service, Dr. Mansfield who recommended MATH AND SCIENCE INSTRUCTOR process on consultation. Dr Cruz consulted. Patient with posterior vaginal wall mass, thickened endometrial stripe and postmenopausal bleeding. Follow-up MATH AND SCIENCE INSTRUCTOR for stress oncology recommendations. Tentatively exam under anesthesia, biopsies of posterior vaginal wall mass, D&C and cystoscopy. 2. 3 as above. (8) Thigh edema ICD Code: R60.0 Status: Acute Plan: Bilateral edema to thighs. I refuses continue. The Proteus and negative for DVTs. (9) Hypokalemia ICD Code: E87.6 Status: Acute Plan: Likely secondary to decreased oral intake. Monitor potassium and continue to replace as needed. K 3.1. K added to fluids by GS - I will give extra 30 mep PO x1. Assessment and Plan Prophylaxis: PPI. DVT prophylaxis: SCDs, as per general surgery recommendations. Discharge Planning Continue to monitor in the medical floor. Problem Qualifiers (1) GI bleed: Qualified Code: K92.2 - Gastrointestinal hemorrhage, unspecified gastrointestinal hemorrhage type Rashawn Mahan MD Sep 02, 2016 14:34
[2016-09-02] MEDS: MORPHINE SULFATE 30 MG/30 ML PCA IV SCH (14:35)
[2016-09-02 16:00] VITALS: BP 106/68; PULSE 82; RESP 16; TEMP 97.8; O2SAT 98
--- NOTE | 2016-09-02 18:51 | MB ---
cc: CHARLIE BRAMBILA MD DATE OF CONSULTATION 07/02/[address] Delvalle REASON FOR CONSULTATION Abdominal abscess with Esther. HISTORY OF PRESENT ILLNESS This is a 56-year-old white female who came to the emergency department for evaluation of abdominal pain, nausea and vomiting. The patient was evaluated and found to have free air under her diaphragm. There was abnormal appearance of the proximal small bowel with thickening and increased enhancement in several loops and associated free fluid in the mesentery track into the right upper quadrant and also moderate amount of free fluid in the pelvis. Plain x-ray of the abdomen on 08/28 showed free air. The patient was taken to surgery and was found to have a duodenal ulcer. This was perforated and a large amount of enteric contents was evacuated from the peritoneum. The patient underwent repair of the ulcer with a ammon patch. The patient currently has an NG tube in place. Culture from the fluid from surgery came back with Esther albicans. She also has UTI due to E-coli. She also had biopsies taken of the vagina and rectal masses. These were sent for pathology. The patient is in no acute distress currently. She does have pain in abdomen and is using FLOOR SPECIALIST. Her white count is still elevated at 15.1 and has been high since 08/28. She is currently in no acute distress. She has an NG tube in place and a GIO tube in the abdomen. The GIO abdomen tube is draining bilious fluid. PAST MEDICAL HISTORY Unremarkable. ALLERGIES NO KNOWN DRUG ALLERGIES. MEDICATIONS 1. Fluconazole. 2. Levaquin. 3. Morphine via FLOOR SPECIALIST. 4. Protonix. 5. Metronidazole. 6. Potassium. SOCIAL HISTORY The patient has been a smoker of 3/4 packs of cigarettes a day for the past 40 years. The patient drinks wine daily. No illicit drugs. FAMILY HISTORY Noncontributory. REVIEW OF SYSTEMS Significant for abdominal pain otherwise negative. PHYSICAL EXAMINATION GENERAL: She is a well-developed female who is in no acute distress. She is awake and alert and oriented. VITAL SIGNS: Temperature 97.8, BP 106/68, respirations 16, heart rate 82. HEENT: Head atraumatic. Extraocular movements grossly intact, pupils reactive to light. No icterus. No conjunctival erythema. Nose - No bleeding or drainage. Oropharynx - moist mucosa without lesions. NECK: Supple. No adenopathy or swelling. LUNGS: Clear breath sounds bilateral. HEART: Regular rate and rhythm without murmurs or rubs or gallops. ABDOMEN: Bowel sounds present, mildly tender. Incision appears intact. RECTAL: Not performed. EXTREMITIES: No clubbing or cyanosis or edema. SKIN: No rash. NEUROLOGIC: Nonfocal. PSYCHIATRIC: The patient calm and cooperative. LABORATORY DATA WBC 15.1, 85% neutrophils, hemoglobin 12.7, platelets 331. Creatinine 0.34, BUN 10, sodium 142. IMPRESSION 1. Peritonitis due to Esther albicans secondary to duodenal perforation 2. Leukocytosis 3. Status post perforated duodenum repair RECOMMENDATIONS 1. Continue fluconazole 2. Discontinue Flagyl 3. Discontinue Levaquin 4. Monitor white blood cell count 5. Monitor clinical status Thank you for this consultation. The patient's progress will be monitored and further recommendations will be given on followup if necessary. Charlie Brambila MD FD/ /6:08 PM /6:34 PM MTDD
[2016-09-02 20:00] VITALS: BP 117/63; PULSE 94; RESP 20; TEMP 97.5; O2SAT 94
[2016-09-03] VITALS: BP 118/69; PULSE 89; RESP 20; TEMP 97.8; O2SAT 97
[2016-09-03] MEDS: NS + KCL 40 MEQ INJ 1,000 ML IV SCH ×3 (03:03→19:45)
[2016-09-03] MEDS: PCA - TOTAL MG MORPHINE DELIVERED PER SHIFT SCH ×3 (06:00→19:44)
[2016-09-03 07:43] LABS: BICARBONATE 28.2 MEQ/L (21.0-32.0); POTASSIUM 3.4 MEQ/L (3.5-5.1)
[2016-09-03 08:00] VITALS: BP 125/63; PULSE 83; RESP 18; TEMP 97; O2SAT 93
[2016-09-03] MEDS: PANTOPRAZOLE SODIUM 40 MG VIAL IV PUSH SCH ×2 (08:25→19:43)
[2016-09-03] MEDS: SODIUM CHLORIDE 0.9% FLUSH 5 ML FLUSH FLUSH SCH ×2 (08:26→19:43)
[2016-09-03] MEDS ORDERED: POTASSIUM CHLORIDE 10 MEQ CONTROLLED RELEASE TAB PO ONE (11:45)
[2016-09-03] MEDS ORDERED: FUROSEMIDE 20 MG/2 ML VIAL IV PUSH ONE (11:45)
[2016-09-03 12:00] VITALS: BP 144/76; PULSE 80; RESP 18; TEMP 97; O2SAT 99
[2016-09-03 12:46] LABS: AUTOMATED NEUTROPHIL # 13.3 TH/MM3 (1.8-7.7); BASOPHIL # 0.1 TH/MM3 (0-0.2); BASOPHIL % 0.5 % (0.0-2.0); EOSINOPHIL # 0.1 TH/MM3 (0-0.4); EOSINOPHIL % 0.9 % (0.0-4.0); HEMATOCRIT 34.4 % (35.0-46.0); LYMPH % 4.8 % (9.0-44.0); LYMPHOCYTE # 0.7 TH/MM3 (1.0-4.8); MEAN CELL VOLUME 97.7 FL (80.0-100.0); MEAN CORPUSCULAR HEMOGLOBIN 32.6 PG (27.0-34.0); MEAN CORPUSCULAR HGB CONC 33.4 % (32.0-36.0); MONO % 6.5 % (0.0-8.0); NEUT % 87.3 % (16.0-70.0); PLATELET COUNT 331 TH/MM3 (150-450); RED BLOOD COUNT 3.52 MIL/MM3 (4.00-5.30); RED CELL DISTRIBUTION WIDTH 13.1 % (11.6-17.2); WHITE BLOOD COUNT 15.2 TH/MM3 (4.0-11.0)
[2016-09-03 12:48] LABS: HEMO FLAGS AUTO DIFF
[2016-09-03 13:03] LABS: ANION GAP 8 MEQ/L (5-15); AST (GOT) 16 U/L (15-37); BICARBONATE 27.9 MEQ/L (21.0-32.0); BLOOD UREA NITROGEN 9 MG/DL (7-18); CHLORIDE 108 MEQ/L (98-107); GLOMERULAR FILTRATION RATE 164 ML/MIN (>89); POTASSIUM 4.1 MEQ/L (3.5-5.1); SODIUM (NA) 144 MEQ/L (136-145)
[2016-09-03 13:08] LABS: ALKALINE PHOSPHATASE 71 U/L (45-117); ALT (GPT) 14 U/L (10-53); TOTAL BILIRUBIN ADULT 0.3 MG/DL (0.2-1.0)
[2016-09-03] MEDS: SUCRALFATE 1 GM/10 ML CUP PO SCH ×3 (13:08→19:43)
[2016-09-03] MEDS: FLUCONAZOLE 400 MG PREMIX BAG 200 ML IV SCH (13:08)
[2016-09-03] MEDS: MORPHINE SULFATE 30 MG/30 ML PCA IV SCH (13:20)
[2016-09-03 13:37] LABS: BANDS 16 % (0-6); MYELOCYTES 1 % (0-0); NEUTROPHIL # MANUAL DIFF 14.6 TH/MM3 (1.8-7.7); PLATELET ESTIMATE SMEAR NORMAL (NORMAL); PLATELET MORPHOLOGY NORMAL (NORMAL); POLYS (SEG NEUTROPHILS) 79 % (16-70); SCAN/DIFF FINAL DIFF MANUAL; TOXIC GRANULATION 1+ (NORMAL); WBC DIFF SAMPLE 100
[2016-09-03 16:00] VITALS: BP 130/60; PULSE 100; RESP 18; TEMP 96; O2SAT 93
--- NOTE | 2016-09-03 17:38 | HHI.PR ---
Subjective Subjective Notes still with high evaristo output, no nausea ng to sxn Objective Vitals/I&O Vital Signs Date Time Temp Pulse Resp B/P Pulse Ox O2 Delivery O2 Flow Rate FiO2 09/03/16 13:20 16 09/03/16 12:00 97.0 80 144/76 99 Labs Laboratory Tests Test 09/03/16 09/03/16 05:58 12:15 Sodium Level 143 144 Potassium Level 3.4 4.1 Chloride Level 107 108 Carbon Dioxide Level 28.2 27.9 Anion Gap 8 8 Blood Urea Nitrogen 10 9 Creatinine 0.34 0.40 Estimat Glomerular Filtration 198 164 Rate Random Glucose 118 149 Calcium Level 7.6 7.5 White Blood Count 15.2 Red Blood Count 3.52 Hemoglobin 11.5 Hematocrit 34.4 Mean Corpuscular Volume 97.7 Mean Corpuscular Hemoglobin 32.6 Mean Corpuscular Hemoglobin 33.4 Concent Red Cell Distribution Width 13.1 Platelet Count 331 Mean Platelet Volume 7.9 Neutrophils (%) (Auto) 87.3 Lymphocytes (%) (Auto) 4.8 Monocytes (%) (Auto) 6.5 Eosinophils (%) (Auto) 0.9 Basophils (%) (Auto) 0.5 Neutrophils # (Auto) 13.3 Lymphocytes # (Auto) 0.7 Monocytes # (Auto) 1.0 Eosinophils # (Auto) 0.1 Basophils # (Auto) 0.1 CBC Comment AUTO DIFF Differential Total Cells 100 Counted Neutrophils % (Manual) 79 Band Neutrophils % 16 Lymphocytes % 2 Monocytes % 2 Neutrophils # (Manual) 14.6 Myelocytes 1 Differential Comment FINAL DIFF MANUAL Toxic Granulation 1+ Platelet Estimate NORMAL Platelet Morphology Comment NORMAL Total Bilirubin 0.3 Aspartate Amino Transf 16 (AST/SGOT) Alanine Aminotransferase 14 (ALT/SGPT) Alkaline Phosphatase 71 Total Protein 5.2 Albumin 1.7 Radiology Last Impressions Upper GI Series 08/31/16 0600 Signed Impressions: Service Date/Time: August 09:26 - CONCLUSION: Luminal narrowing of the duodenal bulb in the postsurgical region. No evidence of contrast leak. Moderate delay in gastric emptying. Tres Reed MD Lower Extremity Ultrasound 08/31/16 0000 Signed Impressions: Service Date/Time: August 20:40 - CONCLUSION: Negative. No DVT of either lower extremity. Bernardino Rea MD Abdomen X-Ray 1/30/17 0600 Signed Impressions: Service Date/Time: Sunday, August 28, 2016 07:57 - CONCLUSION: Moderate free air. Gino Hinds MD FACR Abdomen/Pelvis CT 08/26/162005 Signed Impressions: Service Date/Time: Friday, August 26, 2016 21:37 - CONCLUSION: Abnormal appearance to proximal small bowel with thickening and increased enhancement in several loops with associated fluid in the mesentery, tracking to the right upper quadrant and a moderate amount of free fluid in the pelvis. No dilated loops of small or large bowel. The findings suggest a neoplastic or infectious process involving the jejunum. Jose Aguilar MD ADDENDUM: On evaluation of the images, there does appear to be some free air in the upper abdomen underneath the hemidiaphragms. There is a small amount of fluid adjacent to the liver. There appears to be some inflammatory changes involving the proximal duodenum. There is some free fluid in the pelvis. These findings were discussed by telephone with the colorectal surgeon. The free air in the upper abdomen an inflammatory-type changes associated with the proximal duodenum suggest a possible perforated peptic ulcer. Lico Thomas MD Abdomen/Pelvis/Transvag US 08/26/16 0000 Signed Impressions: Service Date/Time: Friday, August 26, 2016 23:28 - CONCLUSION: 1. Moderate free fluid complex in appearance. 2. Abnormal endometrial thickening in this postmenopausal patient. 3. The ovaries are not seen. Hemanth Rice MD Cardiovascular: Regular Lungs: Clear Abdomen: Other (soft mild ttp, incisions well approximated Evaristo- bilious) A/P Problem List: (1) Bile leak (2) Duodenal ulcer due to nonsteroidal anti-inflammatory drug (NSAID) (3) Perforated duodenal ulcer (4) Rectal malignant neoplasm (5) Abdominal pain (6) Elevated white blood cell count (7) Pancreatitis (8) UTI (urinary tract infection) (9) Rectal mass (10) Intra-abdominal abscess (11) Hypokalemia due to loss of potassium (12) Magnesium deficiency Assessment and Plan s/p exp lap for perf ulcer pod5 controlled fistula with EVARISTO kub shows NG in good position, EVARISTO to low wall suction. K improved BLE edema- will give 20mg lasix and replace K carafate added encourage oob Problem Qualifiers (1) Abdominal pain: Qualified Code: R10.84 - Generalized abdominal pain (2) Elevated white blood cell count: Qualified Code: D72.825 - Bandemia (3) Pancreatitis: Mukesh Alonso MD Sep 03, 2016 17:38
[2016-09-03 20:00] VITALS: BP 134/71; PULSE 87; RESP 18; TEMP 97.8; O2SAT 95
--- NOTE | 2016-09-03 23:18 | HHI.PR ---
Subjective Remarks Deferred entry - patient seen at 11:20 am Patient denies nausea, vomiting or diarrhea. Still draining biliary fluid into GIO drain Denies fevers or chills Stable Vital signs Objective Vitals Vital Signs Date Time Temp Pulse Resp B/P Pulse Ox O2 Delivery O2 Flow Rate FiO2 09/03/16 20:00 97.8 87 18 134/71 95 09/03/16 16:00 96.0 100 18 130/60 93 09/03/16 13:35 16 09/03/16 13:20 16 09/03/16 13:08 16 09/03/16 12:00 97.0 80 18 144/76 99 09/03/16 08:00 97.0 83 18 125/63 93 09/03/16 06:00 20 09/03/16 00:00 97.8 89 20 118/69 97 I/O 09/02/16 09/02/16 09/02/16 09/03/16 09/03/16 09/03/16 07:00 15:00 23:00 07:00 15:00 23:00 Intake Total 630 ml 1280 ml 360 ml 1730 ml 1623 ml 555 ml Output Total 895 ml 1500 ml 500 ml 1150 ml 2050 ml 350 ml Balance -265 ml -220 ml -140 ml 580 ml -427 ml 205 ml Intake Oral 240 ml 600 ml 360 ml 240 ml 1080 ml IV Total 390 ml 680 ml 1490 ml 543 ml 555 ml Output Urine Total 600 ml 800 ml 200 ml 1200 ml Gastric Drainage Total 150 ml 400 ml 750 ml 500 ml 250 ml Drainage Total 145 ml 300 ml 300 ml 400 ml 350 ml 100 ml # Voids 2 # Bowel Movements 0 0 0 0 # Sanitary Pads 0 Pads Result Diagram: 09/03/16 1215 09/03/16 1215 Objective Remarks GENERAL: Middle-aged white female in no acute distress. HEENT: PERRLA, EOMI. No scleral icterus or conjunctival pallor. No lid lag or facial droop. CARDIOVASCULAR: Regular rate and rhythm. No obvious murmurs to auscultation. No chest tenderness to palpation. RESPIRATORY: No obvious rhonchi or wheezing. Clear to auscultation. Breath sounds equal bilaterally. GASTROINTESTINAL: midline incision with minimal drainage on bandage; GIO with serous drainage. Bowel sounds present, abdomen is soft and mildly tender to palpation especially around the incision. MUSCULOSKELETAL: Extremities without clubbing, cyanosis, edema present in lower extremities which is +2 in lower extremities and nonpitting in thighs. No obvious deformities. NEUROLOGICAL: Awake, alert and oriented x4. No focal neurologic deficits. Moving both upper and lower extremities spontaneously. SKIN: Mottled skin in lower extremities. Procedures 1. Diagnostic laparotomy with a question of large amount of enteric contents from perforated duodenal ulcer. 2. Repair of duodenal ulcer with Jack patch with drainage. A/P Problem List: (1) GI bleed ICD Code: K92.2 Status: Resolved (2) Duodenal ulcer due to nonsteroidal anti-inflammatory drug (NSAID) ICD Code: T39.391A Status: Resolved (3) Perforated duodenal ulcer ICD Code: K26.5 Status: Resolved (4) UTI (urinary tract infection) ICD Code: N39.0 Status: Resolved (5) Elevated lipase ICD Code: R74.8 Status: Acute (6) Rectal mass ICD Code: K62.9 Status: Acute (7) Postmenopausal vaginal bleeding ICD Code: N95.0 Status: Acute (8) Thigh edema ICD Code: R60.0 Status: Acute (9) Hypokalemia ICD Code: E87.6 Status: Acute (10) Edema of both legs ICD Code: R60.0 Status: Acute (11) Bile leak ICD Code: K83.9 Status: Acute (12) Hypokalemia due to loss of potassium ICD Code: E87.6 Status: Acute (13) Colon cancer ICD Code: C18.9 Status: Acute Assessment and Plan (1) GI bleed Plan: Patient with history of bright red blood per rectum, Hemoccult positive. CT abdomen and pelvis with neoplastic versus infectious tele-G, possible enteritis. GI consulted. Patient seen by Dr. Rm from GI, NG tube inserted Patient evaluated by surgery status post diagnostic laparotomy with a question of large amount of enteric contents from perforated duodenal ulcer as well as repair of duodenal ulcer with Jack patch with drainage of intra-abdominal abscess. This was performed and date 08/28/16 NG tube has been discontinued, GI has signed off. (2) Duodenal ulcer due to nonsteroidal anti-inflammatory drug (NSAID) Plan: As above Status post upper GI series, which shows moderate free air. (3) Perforated duodenal ulcer Plan: Post post multiple surgeries by Dr. Kenyon as detailed above. NG tube placed today. Follow-up general surgery recommendations. 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 will check KUB today - per GS GIO to low wall suction. - as per GS Consult ID - wound culture growing carlos albicans - Patient on Fluconazole 09/03 ID consulted, appreciate recommendations. Levaquin and Flagyl discontinued and fluconazole continued as per ID recommendations. Continue antibiotics as per ID. (4) UTI (urinary tract infection) Plan: Patient on Levaquin, urine culture grew pansensitive E coli Levaquin stop date to 09/03/16 (5) Elevated lipase Plan: Patient with elevated lipase likely secondary to enteritis and perforated duodenal ulcer. (6) Rectal mass Plan: Possible rectal mass, thickened small bowel with some intraperitoneal fluid, possible small amount of free air with signs of symptoms of ileus versus intestinal obstruction. Follow-up CAR STORER versus oncology recommendations. 09/01 patient is status post examination under anesthesia, biopsies of distal vaginal mass, fractional dilation and curettage, cystoscopy cooperative test. Biopsy of rectal mass. Follow-up pathology. 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 Follow-up CAR STORER oncology recommendations. (7) Postmenopausal vaginal bleeding Plan: Patient presented with postmenopausal vaginal bleeding than 5 months. Check consulted. Transvaginal ultrasound showed abnormal endometrial thickening and moderate free fluid in pelvis. The case was discussed with LAUNDRY SUPERINTENDENT service, Dr. Mansfield who recommended CAR STORER process on consultation. Dr Cruz consulted. Patient with posterior vaginal wall mass, thickened endometrial stripe and postmenopausal bleeding. Follow-up CAR STORER for stress oncology recommendations. Tentatively exam under anesthesia, biopsies of posterior vaginal wall mass, D&C and cystoscopy. 2. 3 as above. (8) bilateral lower extremity edema Plan: Bilateral edema to thighs. DVT ruled out with venous Dopplers. Patient was given 1 dose of IV Lasix by general surgery. I will place on Lasix 20 mg by mouth daily. Monitor edema lower extremities (9) Hypokalemia Plan: Likely secondary to decreased oral intake. Potassium level now 4.1. Continue to monitor and replace as needed Assessment and Plan Prophylaxis: PPI. DVT prophylaxis: SCDs, as per general surgery recommendations. Discharge Planning Continue to monitor in the medical floor. Problem Qualifiers (1) GI bleed: Qualified Code: K92.2 - Gastrointestinal hemorrhage, unspecified gastrointestinal hemorrhage type Delvalle Solomon,Rashawn MD Sep 03, 2016 23:18
[2016-09-04] VITALS (7 sets, daily range): BP systolic 120–134; BP diastolic 61–75; PULSE 79–88; RESP 17–20; TEMP 97.3–97.7; O2SAT 95–97
[2016-09-04] MEDS: SUCRALFATE 1 GM/10 ML CUP PO SCH ×4 (05:03→20:08)
[2016-09-04] MEDS: PCA - TOTAL MG MORPHINE DELIVERED PER SHIFT SCH ×3 (05:04→20:08)
[2016-09-04 05:34] LABS: MEAN CELL VOLUME 97.8 FL (80.0-100.0); MEAN CORPUSCULAR HGB CONC 33.7 % (32.0-36.0); PLATELET COUNT 331 TH/MM3 (150-450); RED BLOOD COUNT 3.79 MIL/MM3 (4.00-5.30); RED CELL DISTRIBUTION WIDTH 13.1 % (11.6-17.2); REVIEW FLAG FINAL; WHITE BLOOD COUNT 16.1 TH/MM3 (4.0-11.0)
[2016-09-04 05:59] LABS: BICARBONATE 27.1 MEQ/L (21.0-32.0); POTASSIUM 3.4 MEQ/L (3.5-5.1)
[2016-09-04] MEDS: SODIUM CHLORIDE 0.9% FLUSH 5 ML FLUSH FLUSH SCH ×2 (08:13→20:08)
[2016-09-04] MEDS: PANTOPRAZOLE SODIUM 40 MG VIAL IV PUSH SCH ×2 (08:13→20:08)
[2016-09-04] MEDS: FUROSEMIDE 20 MG TAB PO SCH (08:14)
[2016-09-04] MEDS: NS + KCL 40 MEQ INJ 1,000 ML IV SCH (09:15)
[2016-09-04] MEDS: MORPHINE SULFATE 30 MG/30 ML PCA IV SCH (10:04)
[2016-09-04] MEDS: FLUCONAZOLE 400 MG PREMIX BAG 200 ML IV SCH (10:59)
--- NOTE | 2016-09-04 11:45 | HHI.PR ---
Subjective Subjective Notes feels better no nausea or vomiting Objective Vitals/I&O Vital Signs Date Time Temp Pulse Resp B/P Pulse Ox O2 Delivery O2 Flow Rate FiO2 09/04/16 10:13 22 09/04/16 08:00 97.6 86 120/61 95 Labs Laboratory Tests Test 09/03/16 09/04/16 12:15 04:24 White Blood Count 15.2 16.1 Red Blood Count 3.52 3.79 Hemoglobin 11.5 12.5 Hematocrit 34.4 37.0 Mean Corpuscular Volume 97.7 97.8 Mean Corpuscular Hemoglobin 32.6 33.0 Mean Corpuscular Hemoglobin 33.4 33.7 Concent Red Cell Distribution Width 13.1 13.1 Platelet Count 331 331 Mean Platelet Volume 7.9 8.4 Neutrophils (%) (Auto) 87.3 Lymphocytes (%) (Auto) 4.8 Monocytes (%) (Auto) 6.5 Eosinophils (%) (Auto) 0.9 Basophils (%) (Auto) 0.5 Neutrophils # (Auto) 13.3 Lymphocytes # (Auto) 0.7 Monocytes # (Auto) 1.0 Eosinophils # (Auto) 0.1 Basophils # (Auto) 0.1 CBC Comment AUTO DIFF Differential Total Cells 100 Counted Neutrophils % (Manual) 79 Band Neutrophils % 16 Lymphocytes % 2 Monocytes % 2 Neutrophils # (Manual) 14.6 Myelocytes 1 Differential Comment FINAL DIFF MANUAL Toxic Granulation 1+ Platelet Estimate NORMAL Platelet Morphology Comment NORMAL Sodium Level 144 142 Potassium Level 4.1 3.4 Chloride Level 108 105 Carbon Dioxide Level 27.9 27.1 Anion Gap 8 10 Blood Urea Nitrogen 9 6 Creatinine 0.40 0.33 Estimat Glomerular Filtration 164 205 Rate Random Glucose 149 118 Calcium Level 7.5 7.8 Total Bilirubin 0.3 Aspartate Amino Transf 16 (AST/SGOT) Alanine Aminotransferase 14 (ALT/SGPT) Alkaline Phosphatase 71 Total Protein 5.2 Albumin 1.7 Radiology Last Impressions Abdomen X-Ray 09/02/16 0000 Signed Impressions: Service Date/Time: Friday, September 02, 2016 10:43 - CONCLUSION: No acute abnormalities. Postsurgical changes. NG tube with tip in stomach. Gama Medrano MD Upper GI Series 08/31/16 0600 Signed Impressions: Service Date/Time: August 09:26 - CONCLUSION: Luminal narrowing of the duodenal bulb in the postsurgical region. No evidence of contrast leak. Moderate delay in gastric emptying. Tres Reed MD Lower Extremity Ultrasound 08/31/16 0000 Signed Impressions: Service Date/Time: August 20:40 - CONCLUSION: Negative. No DVT of either lower extremity. Bernardino Rea MD Abdomen/Pelvis CT 08/26/162005 Signed Impressions: Service Date/Time: Friday, August 26, 2016 21:37 - CONCLUSION: Abnormal appearance to proximal small bowel with thickening and increased enhancement in several loops with associated fluid in the mesentery, tracking to the right upper quadrant and a moderate amount of free fluid in the pelvis. No dilated loops of small or large bowel. The findings suggest a neoplastic or infectious process involving the jejunum. Jose Aguilar MD ADDENDUM: On evaluation of the images, there does appear to be some free air in the upper abdomen underneath the hemidiaphragms. There is a small amount of fluid adjacent to the liver. There appears to be some inflammatory changes involving the proximal duodenum. There is some free fluid in the pelvis. These findings were discussed by telephone with the colorectal surgeon. The free air in the upper abdomen an inflammatory-type changes associated with the proximal duodenum suggest a possible perforated peptic ulcer. Lico Thomas MD Abdomen/Pelvis/Transvag US 08/26/16 0000 Signed Impressions: Service Date/Time: Friday, August 26, 2016 23:28 - CONCLUSION: 1. Moderate free fluid complex in appearance. 2. Abnormal endometrial thickening in this postmenopausal patient. 3. The ovaries are not seen. Hemanth Rice MD Cardiovascular: Regular Lungs: Clear Abdomen: Non-distended, Post-op tenderness Extremities: SCD's on Narrative Exam Has less bile coming from GIO now on wall suction Wound Wound : Wound Location: Abdomen Appearance: Clean & Dry Dressing: Dry A/P Problem List: (1) Bile leak (2) Duodenal ulcer due to nonsteroidal anti-inflammatory drug (NSAID) (3) Magnesium deficiency (4) Hypokalemia due to loss of potassium (5) Perforated duodenal ulcer (6) Rectal malignant neoplasm (7) Abdominal pain (8) Elevated white blood cell count (9) Rectal mass Assessment and Plan 56-year-old female who has much improved after urgent surgery for perforated duodenal ulcer. She's also has a rectal cancer growing into her vagina She's done very well postoperatively with pain control. Continue NG tube and nothing by mouth status Ambulate incentive spirometer will need to start TPN Problem Qualifiers (1) Abdominal pain: Qualified Code: R10.84 - Generalized abdominal pain (2) Elevated white blood cell count: Qualified Code: D72.825 - Bandemia Fausto Kenyon MD Sep 04, 2016 11:45
--- NOTE | 2016-09-04 19:37 | HHI.PR ---
Subjective Remarks Appears in nad. She is ambulating in the hallways. Complaints of LE edema getting worse today. Feels sob if she walks too much. No n/v/d/c. No fever or chills overnight. Objective Vitals Vital Signs Date Time Temp Pulse Resp B/P Pulse Ox O2 Delivery O2 Flow Rate FiO2 09/04/16 14:00 20 09/04/16 12:00 97.4 88 17 123/66 95 09/04/16 10:13 22 09/04/16 10:04 20 09/04/16 08:00 97.6 86 18 120/61 95 09/04/16 05:04 18 09/04/16 04:00 97.3 81 18 134/73 97 09/04/16 00:00 97.6 86 18 127/66 95 09/03/16 20:00 97.8 87 18 134/71 95 I/O 09/03/16 09/03/16 09/03/16 09/04/16 09/04/16 09/04/16 07:00 15:00 23:00 07:00 15:00 23:00 Intake Total 1730 ml 1623 ml 915 ml 460 ml 812 ml Output Total 1150 ml 2050 ml 350 ml 430 ml 625 ml Balance 580 ml -427 ml 565 ml 30 ml 187 ml Intake Oral 240 ml 1080 ml 360 ml 460 ml 150 ml IV Total 1490 ml 543 ml 555 ml 662 ml Output Urine Total 1200 ml Gastric Drainage Total 750 ml 500 ml 250 ml 180 ml 600 ml Drainage Total 400 ml 350 ml 100 ml 250 ml 25 ml # Voids 2 2 3 5 # Bowel Movements 0 0 0 0 0 # Sanitary Pads 0 Pads Result Diagram: 09/04/16 0424 09/04/16 0424 Objective Remarks GENERAL: Middle-aged white female in no acute distress. HEENT: PERRLA, EOMI. No scleral icterus or conjunctival pallor. No lid lag or facial droop. CARDIOVASCULAR: Regular rate and rhythm. No obvious murmurs to auscultation. No chest tenderness to palpation. RESPIRATORY: No obvious rhonchi or wheezing. Clear to auscultation. Breath sounds equal bilaterally. GASTROINTESTINAL: Abdomen soft, diffuse tenderness to palpation, nondistended. BS normal. Mid abdominal surgical scar with diamante on, healing well. MUSCULOSKELETAL: Extremities without clubbing, cyanosis, or edema. No obvious deformities. NEUROLOGICAL: Awake, alert and oriented x4. No focal neurologic deficits. Moving both upper and lower extremities spontaneously. Procedures 1. Diagnostic laparotomy with a question of large amount of enteric contents from perforated duodenal ulcer. 2. Repair of duodenal ulcer with Jack patch with drainage. A/P Problem List: (1) GI bleed ICD Code: K92.2 Status: Resolved (2) Duodenal ulcer due to nonsteroidal anti-inflammatory drug (NSAID) ICD Code: T39.391A Status: Resolved (3) Perforated duodenal ulcer ICD Code: K26.5 Status: Resolved (4) UTI (urinary tract infection) ICD Code: N39.0 Status: Resolved (5) Elevated lipase ICD Code: R74.8 Status: Acute (6) Rectal mass ICD Code: K62.9 Status: Acute (7) Postmenopausal vaginal bleeding ICD Code: N95.0 Status: Acute (8) Thigh edema ICD Code: R60.0 Status: Acute (9) Hypokalemia ICD Code: E87.6 Status: Acute (10) Edema of both legs ICD Code: R60.0 Status: Acute (11) Bile leak ICD Code: K83.9 Status: Acute (12) Hypokalemia due to loss of potassium ICD Code: E87.6 Status: Acute (13) Colon cancer ICD Code: C18.9 Status: Acute Assessment and Plan (1) GI bleed Plan: Patient with history of bright red blood per rectum, Hemoccult positive. CT abdomen and pelvis with neoplastic versus infectious tele-G, possible enteritis. GI consulted. Patient seen by Dr. Rm from GI, NG tube inserted Patient evaluated by surgery status post diagnostic laparotomy with a question of large amount of enteric contents from perforated duodenal ulcer as well as repair of duodenal ulcer with Jack patch with drainage of intra-abdominal abscess. This was performed and date 08/28/16 NG tube has been discontinued, GI has signed off. (2) Duodenal ulcer due to nonsteroidal anti-inflammatory drug (NSAID) Plan: As above Status post upper GI series, which shows moderate free air. (3) Perforated duodenal ulcer Plan: Post post multiple surgeries by Dr. Kenyon as detailed above. NG tube placed today. Follow-up general surgery recommendations. 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 will check KUB today - per GS GIO to low wall suction. - as per GS Consult ID - wound culture growing carlos albicans - Patient on Fluconazole 09/03 ID consulted, appreciate recommendations. Levaquin and Flagyl discontinued and fluconazole continued as per ID recommendations. Continue antibiotics as per ID. (4) UTI (urinary tract infection) Plan: Patient on Levaquin, urine culture grew pansensitive E coli Levaquin stop date to 09/03/16 (5) Elevated lipase Plan: Patient with elevated lipase likely secondary to enteritis and perforated duodenal ulcer. (6) Rectal mass Plan: Possible rectal mass, thickened small bowel with some intraperitoneal fluid, possible small amount of free air with signs of symptoms of ileus versus intestinal obstruction. Follow-up DATA SECURITY ANALYST versus oncology recommendations. 2/3 patient is status post examination under anesthesia, biopsies of distal vaginal mass, fractional dilation and curettage, cystoscopy cooperative test. Biopsy of rectal mass. Follow-up pathology. 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 Follow-up DATA SECURITY ANALYST oncology recommendations. (7) Postmenopausal vaginal bleeding Plan: Patient presented with postmenopausal vaginal bleeding than 5 months. Check consulted. Transvaginal ultrasound showed abnormal endometrial thickening and moderate free fluid in pelvis. The case was discussed with APPEALS AND GENERALIST CLERK service, Dr. Mansfield who recommended DATA SECURITY ANALYST process on consultation. Dr Cruz consulted. Patient with posterior vaginal wall mass, thickened endometrial stripe and postmenopausal bleeding. Follow-up DATA SECURITY ANALYST for stress oncology recommendations. Tentatively exam under anesthesia, biopsies of posterior vaginal wall mass, D&C and cystoscopy. 2. 3 as above. (8) bilateral lower extremity edema Plan: Bilateral edema to thighs. DVT ruled out with venous Dopplers. Patient was given 1 dose of IV Lasix by general surgery. Give Lasix 20 mg by mouth daily. Monitor edema lower extremities DC IVF (9) Hypokalemia Plan: Likely secondary to decreased oral intake. Potassium level now 4.1. Continue to monitor and replace as needed Assessment and Plan Prophylaxis: PPI. DVT prophylaxis: SCDs, as per general surgery recommendations. Discharge Planning Continue to monitor in the medical floor. Discussed with the patient, nurse, family at bedside Problem Qualifiers (1) GI bleed: Qualified Code: K92.2 - Gastrointestinal hemorrhage, unspecified gastrointestinal hemorrhage type Ally Bauman MD Sep 04, 2016 19:37
[2016-09-05 04:47] LABS: BASOPHIL % 0.1 % (0.0-2.0); EOSINOPHIL # 0.1 TH/MM3 (0-0.4); HEMATOCRIT 34.1 % (35.0-46.0); HEMO FLAGS DIFF FINAL; LYMPH % 5.6 % (9.0-44.0); LYMPHOCYTE # 0.8 TH/MM3 (1.0-4.8); MEAN CELL VOLUME 97.3 FL (80.0-100.0); MEAN CORPUSCULAR HEMOGLOBIN 32.5 PG (27.0-34.0); MEAN CORPUSCULAR HGB CONC 33.4 % (32.0-36.0); MONO % 5.7 % (0.0-8.0); NEUT % 87.6 % (16.0-70.0); PLATELET COUNT 346 TH/MM3 (150-450); RED CELL DISTRIBUTION WIDTH 13.2 % (11.6-17.2); WHITE BLOOD COUNT 14.8 TH/MM3 (4.0-11.0)
[2016-09-05] MEDS: SUCRALFATE 1 GM/10 ML CUP PO SCH ×4 (04:48→21:01)
[2016-09-05] MEDS: PCA - TOTAL MG MORPHINE DELIVERED PER SHIFT SCH ×3 (04:49→21:03)
[2016-09-05] MEDS: MORPHINE SULFATE 30 MG/30 ML PCA IV SCH (04:52)
[2016-09-05 05:02] LABS: BICARBONATE 29.4 MEQ/L (21.0-32.0); POTASSIUM 3.2 MEQ/L (3.5-5.1)
[2016-09-05 08:00] VITALS: BP 122/81; PULSE 79; RESP 20; TEMP 97.8; O2SAT 96
[2016-09-05] MEDS ORDERED: POTASSIUM CL 40 MEQ/30 ML LIQ UDC PO ONE ×2 (08:00→10:00)
[2016-09-05] MEDS: PANTOPRAZOLE SODIUM 40 MG VIAL IV PUSH SCH ×2 (08:14→21:02)
[2016-09-05] MEDS: SODIUM CHLORIDE 0.9% FLUSH 5 ML FLUSH FLUSH SCH ×2 (08:15→21:02)
[2016-09-05] MEDS: FUROSEMIDE 20 MG TAB PO SCH (08:15)
--- NOTE | 2016-09-05 08:26 | HHI.PR ---
Subjective Remarks Discussed with the patient regarding TPN use, she is reluctant. Patient says she feels much better today. However her electrolytes are low and were replaced. Says she felt nauseated after she had K supplements. Did not have a BM/Has LE wedema, says is getting better. Will also consult precision instrument maker and repairer. Objective Vitals Vital Signs Date Time Temp Pulse Resp B/P Pulse Ox O2 Delivery O2 Flow Rate FiO2 09/05/16 04:52 18 09/05/16 04:49 18 09/04/16 23:43 97.7 80 20 131/75 95 09/04/16 20:30 18 09/04/16 20:08 18 09/04/16 20:00 97.6 79 20 133/73 96 09/04/16 14:00 20 09/04/16 12:00 97.4 88 17 123/66 95 09/04/16 10:13 22 09/04/16 10:04 20 I/O 09/04/16 09/04/16 09/04/16 09/05/16 09/05/16 09/05/16 07:00 15:00 23:00 07:00 15:00 23:00 Intake Total 460 ml 812 ml 30 ml 625 ml Output Total 430 ml 625 ml 950 ml 1200 ml Balance 30 ml 187 ml -920 ml -575 ml Intake Oral 460 ml 150 ml 30 ml 0 ml IV Total 662 ml 625 ml Output Urine Total 900 ml 1000 ml Gastric Drainage Total 180 ml 600 ml 50 ml 200 ml Drainage Total 250 ml 25 ml 0 ml 0 ml # Voids 3 5 # Bowel Movements 0 0 0 0 # Sanitary Pads 0 Pads Result Diagram: 09/05/165 09/05/16 0315 Imaging Last Impressions Abdomen X-Ray 09/02/16 0000 Signed Impressions: Service Date/Time: Friday, September 02, 2016 10:43 - CONCLUSION: No acute abnormalities. Postsurgical changes. NG tube with tip in stomach. Gama Medrano MD Upper GI Series 08/31/16 0600 Signed Impressions: Service Date/Time: August 09:26 - CONCLUSION: Luminal narrowing of the duodenal bulb in the postsurgical region. No evidence of contrast leak. Moderate delay in gastric emptying. Tres Reed MD Lower Extremity Ultrasound 08/31/16 0000 Signed Impressions: Service Date/Time: August 20:40 - CONCLUSION: Negative. No DVT of either lower extremity. Bernardino Rea MD Abdomen/Pelvis CT 08/26/162005 Signed Impressions: Service Date/Time: Friday, August 26, 2016 21:37 - CONCLUSION: Abnormal appearance to proximal small bowel with thickening and increased enhancement in several loops with associated fluid in the mesentery, tracking to the right upper quadrant and a moderate amount of free fluid in the pelvis. No dilated loops of small or large bowel. The findings suggest a neoplastic or infectious process involving the jejunum. Jose Aguilar MD ADDENDUM: On evaluation of the images, there does appear to be some free air in the upper abdomen underneath the hemidiaphragms. There is a small amount of fluid adjacent to the liver. There appears to be some inflammatory changes involving the proximal duodenum. There is some free fluid in the pelvis. These findings were discussed by telephone with the colorectal surgeon. The free air in the upper abdomen an inflammatory-type changes associated with the proximal duodenum suggest a possible perforated peptic ulcer. Lico Thomas MD Abdomen/Pelvis/Transvag US 08/26/16 0000 Signed Impressions: Service Date/Time: Friday, August 26, 2016 23:28 - CONCLUSION: 1. Moderate free fluid complex in appearance. 2. Abnormal endometrial thickening in this postmenopausal patient. 3. The ovaries are not seen. Hemanth Rice MD Objective Remarks GENERAL: Middle-aged white female in no acute distress. HEENT: PERRLA, EOMI. No scleral icterus or conjunctival pallor. No lid lag or facial droop. CARDIOVASCULAR: Regular rate and rhythm. No obvious murmurs to auscultation. No chest tenderness to palpation. RESPIRATORY: No obvious rhonchi or wheezing. Clear to auscultation. Breath sounds equal bilaterally. GASTROINTESTINAL: Abdomen soft, diffuse tenderness to palpation, nondistended. BS normal. Mid abdominal surgical scar with diamante on, healing well. MUSCULOSKELETAL: Extremities without clubbing, cyanosis, or edema. No obvious deformities. NEUROLOGICAL: Awake, alert and oriented x4. No focal neurologic deficits. Moving both upper and lower extremities spontaneously. Procedures 1. Diagnostic laparotomy with a question of large amount of enteric contents from perforated duodenal ulcer. 2. Repair of duodenal ulcer with Jack patch with drainage. A/P Problem List: (1) GI bleed ICD Code: K92.2 Status: Resolved (2) Duodenal ulcer due to nonsteroidal anti-inflammatory drug (NSAID) ICD Code: T39.391A Status: Resolved (3) Perforated duodenal ulcer ICD Code: K26.5 Status: Resolved (4) UTI (urinary tract infection) ICD Code: N39.0 Status: Resolved (5) Elevated lipase ICD Code: R74.8 Status: Acute (6) Rectal mass ICD Code: K62.9 Status: Acute (7) Postmenopausal vaginal bleeding ICD Code: N95.0 Status: Acute (8) Thigh edema ICD Code: R60.0 Status: Acute (9) Hypokalemia ICD Code: E87.6 Status: Acute (10) Edema of both legs ICD Code: R60.0 Status: Acute (11) Bile leak ICD Code: K83.9 Status: Acute (12) Hypokalemia due to loss of potassium ICD Code: E87.6 Status: Acute (13) Colon cancer ICD Code: C18.9 Status: Acute Assessment and Plan (1) GI bleed Plan: Patient with history of bright red blood per rectum, Hemoccult positive. CT abdomen and pelvis with neoplastic versus infectious tele-G, possible enteritis. GI consulted. Patient seen by Dr. Rm from GI, NG tube inserted Patient evaluated by surgery status post diagnostic laparotomy with a question of large amount of enteric contents from perforated duodenal ulcer as well as repair of duodenal ulcer with Jack patch with drainage of intra-abdominal abscess. This was performed and date 08/28/16 NG tube has been discontinued, GI has signed off. (2) Duodenal ulcer due to nonsteroidal anti-inflammatory drug (NSAID) Plan: As above Status post upper GI series, which shows moderate free air. (3) Perforated duodenal ulcer Plan: Post post multiple surgeries by Dr. Kenyon as detailed above. NG tube placed today. Follow-up general surgery recommendations. 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 will check KUB today - per GS GIO to low wall suction. - as per GS Consult ID - wound culture growing carlos albicans - Patient on Fluconazole 2/ ID consulted, appreciate recommendations. Levaquin and Flagyl discontinued and fluconazole continued as per ID recommendations. Continue antibiotics as per ID. (4) UTI (urinary tract infection) Plan: Patient on Levaquin, urine culture grew pansensitive E coli Levaquin stop date to 09/03/16 (5) Elevated lipase Plan: Patient with elevated lipase likely secondary to enteritis and perforated duodenal ulcer. (6) Rectal mass Plan: Possible rectal mass, thickened small bowel with some intraperitoneal fluid, possible small amount of free air with signs of symptoms of ileus versus intestinal obstruction. Follow-up YARDING AND FOLDING MACHINE OPERATOR versus oncology recommendations. 2/3 patient is status post examination under anesthesia, biopsies of distal vaginal mass, fractional dilation and curettage, cystoscopy cooperative test. Biopsy of rectal mass. Follow-up pathology. 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 Follow-up YARDING AND FOLDING MACHINE OPERATOR oncology recommendations. (7) Postmenopausal vaginal bleeding Plan: Patient presented with postmenopausal vaginal bleeding than 5 months. Check consulted. Transvaginal ultrasound showed abnormal endometrial thickening and moderate free fluid in pelvis. The case was discussed with CHEMICAL ETCHING PROCESSOR service, Dr. Mansfield who recommended YARDING AND FOLDING MACHINE OPERATOR process on consultation. Dr Cruz consulted. Patient with posterior vaginal wall mass, thickened endometrial stripe and postmenopausal bleeding. Follow-up YARDING AND FOLDING MACHINE OPERATOR for stress oncology recommendations. Tentatively exam under anesthesia, biopsies of posterior vaginal wall mass, D&C and cystoscopy. 2. 3 as above. (8) bilateral lower extremity edema Plan: Bilateral edema to thighs. DVT ruled out with venous Dopplers. Patient was given 1 dose of IV Lasix by general surgery. Give Lasix 20 mg by mouth daily. Monitor edema lower extremities DC IVF (9) Hypokalemia Severe protein angel luis malnutrition, low albumin. Plan: Likely secondary to decreased oral intake. Continue to monitor and replace as needed Check mag and phos Consult precision instrument maker and repairer Prophylaxis: PPI. DVT prophylaxis: SCDs, as per general surgery recommendations. Discharge Planning Continue to monitor in the medical floor. Discussed with the patient, nurse, family at bedside Problem Qualifiers (1) GI bleed: Qualified Code: K92.2 - Gastrointestinal hemorrhage, unspecified gastrointestinal hemorrhage type Ally Bauman MD Sep 05, 2016 08:26
[2016-09-05] MEDS ORDERED: POTASSIUM CHLORIDE 25 MEQ EFFERVESCENT TAB PO SCH (09:00)
[2016-09-05 09:14] LABS: MAGNESIUM 1.6 MG/DL (1.5-2.5)
[2016-09-05] MEDS: FLUCONAZOLE 400 MG PREMIX BAG 200 ML IV SCH (11:32)
--- NOTE | 2016-09-05 11:48 | HHI.PR ---
Subjective Subjective Notes DAILY PROGRESS NOTE FOR SURGICAL ATTENDING, DR. FAUSTO KENYON Feeling better Fairly active Doesn't want TPN or PPN Objective Vitals/I&O 09/04/16 09/04/16 09/05/16 15:00 23:00 07:00 Intake Total 812 ml 30 ml 625 ml Output Total 625 ml 950 ml 1200 ml Balance 187 ml -920 ml -575 ml Intake Oral 150 ml 30 ml 0 ml IV Total 662 ml 625 ml Output Urine Total 900 ml 1000 ml Gastric Drainage Total 600 ml 50 ml 200 ml Drainage Total 25 ml 0 ml 0 ml # Voids 5 # Bowel Movements 0 0 0 # Sanitary Pads 0 Pads Vital Signs Date Time Temp Pulse Resp B/P Pulse Ox O2 Delivery O2 Flow Rate FiO2 09/05/16 08:00 97.8 79 20 122/81 96 Labs Laboratory Tests Test 09/05/16 03:15 White Blood Count 14.8 Red Blood Count 3.50 Hemoglobin 11.4 Hematocrit 34.1 Mean Corpuscular Volume 97.3 Mean Corpuscular Hemoglobin 32.5 Mean Corpuscular Hemoglobin 33.4 Concent Red Cell Distribution Width 13.2 Platelet Count 346 Mean Platelet Volume 8.3 Neutrophils (%) (Auto) 87.6 Lymphocytes (%) (Auto) 5.6 Monocytes (%) (Auto) 5.7 Eosinophils (%) (Auto) 1.0 Basophils (%) (Auto) 0.1 Neutrophils # (Auto) 13.0 Lymphocytes # (Auto) 0.8 Monocytes # (Auto) 0.9 Eosinophils # (Auto) 0.1 Basophils # (Auto) 0.0 CBC Comment DIFF FINAL Differential Comment Sodium Level 140 Potassium Level 3.2 Chloride Level 101 Carbon Dioxide Level 29.4 Anion Gap 10 Blood Urea Nitrogen 5 Creatinine 0.27 Estimat Glomerular Filtration 258 Rate Random Glucose 92 Calcium Level 7.7 Phosphorus Level 3.4 Magnesium Level 1.6 Radiology Last Impressions Abdomen X-Ray 09/02/16 0000 Signed Impressions: Service Date/Time: Friday, September 02, 2016 10:43 - CONCLUSION: No acute abnormalities. Postsurgical changes. NG tube with tip in stomach. Gama Medrano MD Upper GI Series 08/31/16 0600 Signed Impressions: Service Date/Time: August 09:26 - CONCLUSION: Luminal narrowing of the duodenal bulb in the postsurgical region. No evidence of contrast leak. Moderate delay in gastric emptying. Tres Reed MD Lower Extremity Ultrasound 08/31/16 0000 Signed Impressions: Service Date/Time: August 20:40 - CONCLUSION: Negative. No DVT of either lower extremity. Bernardino Rea MD Abdomen/Pelvis CT 08/26/162005 Signed Impressions: Service Date/Time: Friday, August 26, 2016 21:37 - CONCLUSION: Abnormal appearance to proximal small bowel with thickening and increased enhancement in several loops with associated fluid in the mesentery, tracking to the right upper quadrant and a moderate amount of free fluid in the pelvis. No dilated loops of small or large bowel. The findings suggest a neoplastic or infectious process involving the jejunum. Jose Aguilar MD ADDENDUM: On evaluation of the images, there does appear to be some free air in the upper abdomen underneath the hemidiaphragms. There is a small amount of fluid adjacent to the liver. There appears to be some inflammatory changes involving the proximal duodenum. There is some free fluid in the pelvis. These findings were discussed by telephone with the colorectal surgeon. The free air in the upper abdomen an inflammatory-type changes associated with the proximal duodenum suggest a possible perforated peptic ulcer. Lico Thomas MD Abdomen/Pelvis/Transvag US 08/26/16 0000 Signed Impressions: Service Date/Time: Friday, August 26, 2016 23:28 - CONCLUSION: 1. Moderate free fluid complex in appearance. 2. Abnormal endometrial thickening in this postmenopausal patient. 3. The ovaries are not seen. Hemanth Rice MD Cardiovascular: Regular Lungs: Clear Abdomen: Non-tender, Other Extremities: SCD's on Narrative Exam Has much less bile coming from GIO now on wall suction Good urine output NG tube output slowed A/P Problem List: (1) Bile leak (2) Duodenal ulcer due to nonsteroidal anti-inflammatory drug (NSAID) (3) Magnesium deficiency (4) Hypokalemia due to loss of potassium (5) Perforated duodenal ulcer (6) Rectal malignant neoplasm (7) Abdominal pain (8) Elevated white blood cell count (9) Rectal mass Assessment and Plan 56-year-old female who has much improved after urgent surgery for perforated duodenal ulcer. She's also has a rectal cancer growing into her vagina She's done very well postoperatively with pain control. Continue NG tube and nothing by mouth status Ambulate incentive spirometer will need to start TPN but patient does not want TPN or PPM GIO drainage has slowed significantly We'll obtain upper GI to evaluate ulcer repair tomorrow Replace electrolytes as needed Problem Qualifiers (1) Abdominal pain: Qualified Code: R10.84 - Generalized abdominal pain (2) Elevated white blood cell count: Qualified Code: D72.825 - Bandemia Fausto Kenyon MD Sep 05, 2016 11:48
[2016-09-05 12:00] VITALS: BP 115/72; PULSE 87; RESP 19; TEMP 97.4; O2SAT 95
[2016-09-05 16:00] VITALS: BP 120/72; PULSE 80; RESP 18; TEMP 97.4; O2SAT 95
[2016-09-05] MEDS: SODIUM CHLOR 0.9% 1000 ML INJ 1,000 ML IV SCH (17:09)
[2016-09-05 20:00] VITALS: BP 109/85; PULSE 91; RESP 19; RESP 20; TEMP 96; O2SAT 93
[2016-09-06] VITALS: BP 143/78; PULSE 83; RESP 20; TEMP 96; O2SAT 94
[2016-09-06] MEDS: MORPHINE SULFATE 30 MG/30 ML PCA IV SCH (03:05)
[2016-09-06 04:00] VITALS: BP 115/59; PULSE 89; RESP 20; TEMP 96.5; O2SAT 93
[2016-09-06] MEDS: SUCRALFATE 1 GM/10 ML CUP PO SCH ×4 (04:42→21:23)
[2016-09-06] MEDS: PCA - TOTAL MG MORPHINE DELIVERED PER SHIFT SCH ×3 (04:44→21:24)
[2016-09-06 07:17] LABS: AUTOMATED NEUTROPHIL # 11.5 TH/MM3 (1.8-7.7); BASOPHIL % 0.1 % (0.0-2.0); EOSINOPHIL # 0.1 TH/MM3 (0-0.4); EOSINOPHIL % 0.8 % (0.0-4.0); HEMATOCRIT 32.9 % (35.0-46.0); HEMO FLAGS DIFF FINAL; LYMPH % 4.8 % (9.0-44.0); LYMPHOCYTE # 0.6 TH/MM3 (1.0-4.8); MEAN CELL VOLUME 97.3 FL (80.0-100.0); MEAN CORPUSCULAR HEMOGLOBIN 32.3 PG (27.0-34.0); MEAN CORPUSCULAR HGB CONC 33.2 % (32.0-36.0); MONO % 5.9 % (0.0-8.0); NEUT % 88.4 % (16.0-70.0); PLATELET COUNT 365 TH/MM3 (150-450); RED BLOOD COUNT 3.38 MIL/MM3 (4.00-5.30); WHITE BLOOD COUNT 13.1 TH/MM3 (4.0-11.0)
[2016-09-06 07:40] LABS: BICARBONATE 30.9 MEQ/L (21.0-32.0); MAGNESIUM 1.6 MG/DL (1.5-2.5); POTASSIUM 3.2 MEQ/L (3.5-5.1)
[2016-09-06 08:00] VITALS: BP 125/70; PULSE 82; RESP 17; TEMP 98.2; O2SAT 94
[2016-09-06] MEDS: PANTOPRAZOLE SODIUM 40 MG VIAL IV PUSH SCH ×2 (08:51→21:24)
[2016-09-06] MEDS: POTASSIUM CL 40 MEQ/30 ML LIQ UDC PO SCH (08:51)
[2016-09-06] MEDS: FUROSEMIDE 20 MG TAB PO SCH (08:51)
[2016-09-06] MEDS: SODIUM CHLORIDE 0.9% FLUSH 5 ML FLUSH FLUSH SCH ×2 (08:52→21:24)
--- NOTE | 2016-09-06 09:30 | HHI.PR ---
Subjective Remarks Feels good today. Says she wants to eat and is considering TPN. No n/v/d/c. Says GIO drain is dry and no more drainage. Plan for HIDA scan per gen surg. Objective Vitals Vital Signs Date Time Temp Pulse Resp B/P Pulse Ox O2 Delivery O2 Flow Rate FiO2 09/06/16 08:00 98.2 82 17 125/70 94 09/06/16 04:44 20 09/06/16 04:00 96.5 89 20 115/59 93 09/06/16 03:10 20 09/06/16 03:05 20 09/06/16 00:00 96.0 83 20 143/78 94 09/05/16 21:03 20 09/05/16 20:00 20 09/05/16 20:00 96.0 91 19 109/85 93 09/05/16 16:00 97.4 80 18 120/72 95 09/05/16 14:00 17 09/05/16 12:00 97.4 87 19 115/72 95 I/O 09/05/16 09/05/16 09/05/16 09/06/16 09/06/16 09/06/16 07:00 15:00 23:00 07:00 15:00 23:00 Intake Total 625 ml 1640 ml 60 ml 524 ml Output Total 1200 ml 1700 ml 300 ml 1450 ml Balance -575 ml -60 ml -240 ml -926 ml Intake Oral 0 ml 240 ml 60 ml 0 ml IV Total 625 ml 1400 ml 524 ml Output Urine Total 1000 ml 1100 ml 300 ml 500 ml Gastric Drainage Total 200 ml 300 ml 500 ml Drainage Total 0 ml 300 ml 450 ml # Bowel Movements 0 0 0 0 # Sanitary Pads 0 Pads 0 Pads Result Diagram: 09/06/16 0600 09/06/16 0600 Imaging Last Impressions Upper GI Series 09/06/16 0000 Signed Impressions: Service Date/Time: Tuesday, September 06, 2016 09:58 - CONCLUSION: 1. There is no residual leak. Gino Hinds MD FACR Abdomen X-Ray 09/02/16 0000 Signed Impressions: Service Date/Time: Friday, September 02, 2016 10:43 - CONCLUSION: No acute abnormalities. Postsurgical changes. NG tube with tip in stomach. Gama Medrano MD Lower Extremity Ultrasound 08/31/16 0000 Signed Impressions: Service Date/Time: August 20:40 - CONCLUSION: Negative. No DVT of either lower extremity. Bernardino Rea MD Abdomen/Pelvis CT 08/26/162005 Signed Impressions: Service Date/Time: Friday, August 26, 2016 21:37 - CONCLUSION: Abnormal appearance to proximal small bowel with thickening and increased enhancement in several loops with associated fluid in the mesentery, tracking to the right upper quadrant and a moderate amount of free fluid in the pelvis. No dilated loops of small or large bowel. The findings suggest a neoplastic or infectious process involving the jejunum. Jose Aguilar MD ADDENDUM: On evaluation of the images, there does appear to be some free air in the upper abdomen underneath the hemidiaphragms. There is a small amount of fluid adjacent to the liver. There appears to be some inflammatory changes involving the proximal duodenum. There is some free fluid in the pelvis. These findings were discussed by telephone with the colorectal surgeon. The free air in the upper abdomen an inflammatory-type changes associated with the proximal duodenum suggest a possible perforated peptic ulcer. Lico Thomas MD Abdomen/Pelvis/Transvag US 08/26/16 0000 Signed Impressions: Service Date/Time: Friday, August 26, 2016 23:28 - CONCLUSION: 1. Moderate free fluid complex in appearance. 2. Abnormal endometrial thickening in this postmenopausal patient. 3. The ovaries are not seen. Hemanth Rice MD Objective Remarks GENERAL: Middle-aged white female in no acute distress. HEENT: PERRLA, EOMI. No scleral icterus or conjunctival pallor. No lid lag or facial droop. CARDIOVASCULAR: Regular rate and rhythm. No obvious murmurs to auscultation. No chest tenderness to palpation. RESPIRATORY: No obvious rhonchi or wheezing. Clear to auscultation. Breath sounds equal bilaterally. GASTROINTESTINAL: Abdomen soft, diffuse tenderness to palpation, nondistended. BS normal. Mid abdominal surgical scar with diamante on, healing well. MUSCULOSKELETAL: Extremities without clubbing, cyanosis, or edema. No obvious deformities. NEUROLOGICAL: Awake, alert and oriented x4. No focal neurologic deficits. Moving both upper and lower extremities spontaneously. Procedures 1. Diagnostic laparotomy with a question of large amount of enteric contents from perforated duodenal ulcer. 2. Repair of duodenal ulcer with Jack patch with drainage. A/P Problem List: (1) GI bleed ICD Code: K92.2 Status: Resolved (2) Duodenal ulcer due to nonsteroidal anti-inflammatory drug (NSAID) ICD Code: T39.391A Status: Resolved (3) Perforated duodenal ulcer ICD Code: K26.5 Status: Resolved (4) UTI (urinary tract infection) ICD Code: N39.0 Status: Resolved (5) Elevated lipase ICD Code: R74.8 Status: Acute (6) Rectal mass ICD Code: K62.9 Status: Acute (7) Postmenopausal vaginal bleeding ICD Code: N95.0 Status: Acute (8) Thigh edema ICD Code: R60.0 Status: Acute (9) Hypokalemia ICD Code: E87.6 Status: Acute (10) Edema of both legs ICD Code: R60.0 Status: Acute (11) Bile leak ICD Code: K83.9 Status: Acute (12) Hypokalemia due to loss of potassium ICD Code: E87.6 Status: Acute (13) Colon cancer ICD Code: C18.9 Status: Acute Assessment and Plan (1) GI bleed Plan: Patient with history of bright red blood per rectum, Hemoccult positive. CT abdomen and pelvis with neoplastic versus infectious tele-G, possible enteritis. GI consulted. Patient seen by Dr. Rm from GI, NG tube inserted Patient evaluated by surgery status post diagnostic laparotomy with a question of large amount of enteric contents from perforated duodenal ulcer as well as repair of duodenal ulcer with Jack patch with drainage of intra-abdominal abscess. This was performed and date 08/28/16 GI has signed off. (2) Duodenal ulcer due to nonsteroidal anti-inflammatory drug (NSAID) Plan: As above Status post upper GI series, which shows moderate free air. (3) Perforated duodenal ulcer Plan: Post post multiple surgeries by Dr. Kenyon as detailed above. NG tube placed today. Follow-up general surgery recommendations. 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 will check KUB today - per GS GIO to low wall suction. - as per GS Consult ID - wound culture growing carlos albicans - Patient on Fluconazole 2/ ID consulted, appreciate recommendations. Levaquin and Flagyl discontinued and fluconazole continued as per ID recommendations. Continue antibiotics as per ID. (4) UTI (urinary tract infection) Plan: Patient on Levaquin, urine culture grew pansensitive E coli Levaquin stop date to 09/03/16 (5) Elevated lipase Plan: Patient with elevated lipase likely secondary to enteritis and perforated duodenal ulcer. (6) Rectal mass Plan: Possible rectal mass, thickened small bowel with some intraperitoneal fluid, possible small amount of free air with signs of symptoms of ileus versus intestinal obstruction. Follow-up GUINEA PIG BREEDER versus oncology recommendations. 2/3 patient is status post examination under anesthesia, biopsies of distal vaginal mass, fractional dilation and curettage, cystoscopy cooperative test. Biopsy of rectal mass. Follow-up pathology. 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 Follow-up GUINEA PIG BREEDER oncology recommendations. (7) Postmenopausal vaginal bleeding Plan: Patient presented with postmenopausal vaginal bleeding than 5 months. Check consulted. Transvaginal ultrasound showed abnormal endometrial thickening and moderate free fluid in pelvis. The case was discussed with PLASTIC DOLLS MOLD FILLER service, Dr. Mansfield who recommended GUINEA PIG BREEDER process on consultation. Dr Cruz consulted. Patient with posterior vaginal wall mass, thickened endometrial stripe and postmenopausal bleeding. Follow-up GUINEA PIG BREEDER for stress oncology recommendations. Tentatively exam under anesthesia, biopsies of posterior vaginal wall mass, D&C and cystoscopy. 2. 3 as above. (8) bilateral lower extremity edema Plan: Bilateral edema to thighs. DVT ruled out with venous Dopplers. Patient was given 1 dose of IV Lasix by general surgery. Give Lasix 20 mg by mouth daily. Monitor edema lower extremities DC IVF (9) Hypokalemia Severe protein angel luis malnutrition, low albumin. Plan: Likely secondary to decreased oral intake. Continue to monitor and replace as needed Check mag and phos Consult coding advisor Prophylaxis: PPI. DVT prophylaxis: SCDs, as per general surgery recommendations. Discharge Planning Continue to monitor in the medical floor. Discussed with the patient, nurse Problem Qualifiers (1) GI bleed: Qualified Code: K92.2 - Gastrointestinal hemorrhage, unspecified gastrointestinal hemorrhage type lAly Bauman MD Sep 06, 2016 09:30
--- NOTE | 2016-09-06 10:16 | PD.CONS ---
History & Physical H&P OBGYN CONSULT PROGRESS NOTE Subjective: Pt c/o abdominal pain just left and inferior to epigastrium- hopes the scan will show she can tolerate food since she does not want IV nutrition. Denies vaginal bleeding. Has good understanding of illness- "I have cancer of my rectum that is infiltrating my vaginal wall". We discussed that care of her cancer would be more appropriately managed by the ELECTRONIC ENGINEERING TECHNICIAN oncology doctors, with limited further contributions available from OBGYN team Patient expressed understanding OBGYN signing off while she continues to see ELECTRONIC ENGINEERING TECHNICIAN oncology. She had no questions. Objective: Vital Signs 3 Date Time Temp Pulse Resp B/P Pulse Ox O2 Delivery O2 Flow Rate FiO2 09/06/16 08:00 98.2 82 17 125/70 94 Intake and Output 3 09/05/16 09/05/16 09/06/16 08:00 16:00 00:00 Intake Total 625 ml 1640 ml 60 ml Output Total 1200 ml 1700 ml 300 ml Balance -575 ml -60 ml -240 ml Physical Exam CONST: Adult female in no acute distress. Appears tired, mildly ill. DERM: Warm and dry. CV: Regular rate and rhythm, no murmurs. RESP: Breathing well on room air. ABD: Mildly distended, mildly-tender to palpation : Deferred (Prior exam showed 3 cm necrotic crater of posterior vagina, indurated bleeding slightly, extending down toward the rectum. Cervix/adnexa was wnl) NEURO:Motor and sensory grossly within normal limits Assessment/Plan 56-year-old female admitted 08/26/16 with post menopausal bleeding for several months, lacking milking worker exam or PAP smear in 30 years and severe abdominal pain. 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 -Malignancy would be more appropriately managed by [facility] Onc team who is already following -Will defer further management to [facility] Onc, GI, and primary team -OBGYN signing off DW: Little Arnold MD R1 Sep 06, 2016 10:16
[2016-09-06] MEDS ORDERED: DIATRIZOATE MEGLUM/DIATRIZOATE SOD 120 ML BTL (for RAD DIAG) NG ONE (10:30)
[2016-09-06 12:00] VITALS: BP 127/75; PULSE 83; RESP 18; TEMP 98.5; O2SAT 95
[2016-09-06] MEDS: FLUCONAZOLE 400 MG PREMIX BAG 200 ML IV SCH (12:00)
--- NOTE | 2016-09-06 12:10 | RADRPT ---
EXAM DATE/TIME: 09/06/2016 09:58 [place] COMPARISON: CT ABDOMEN & PELVIS W CONTRAST, August 26, 2016, 21:37. GASTROGRAFIN GI SERIES, August 31, 2016, 9:26. INDICATIONS: Evaluate duodenal ulcer repair. FLUORO TIME: 1.1 minutes IMAGE COUNT: 11 CONTRAST: 1. MD Durbin MEDICAL HISTORY: Rectal CA growing to vagina. SURGICAL HISTORY: Duodenal Ulcer Repair ENCOUNTER: Subsequent ACUITY: 3 days PAIN SCORE: 5/10 LOCATION: Bilateral Abdomen. FINDINGS: There is small amount of air is adjacent to the GIO drain on the plant cytologist film. Gastrografin upper GI wa s performed through the nasogastric tube. There is excellent visualization of the duodenum adjacent to the surgical drain. There is no extrava sation evident. CONCLUSION: 1. There is no residual leak. Gino Hinds MD FACR on September 06, 2016 at 11:25 Board Certified Radiologist. This report was verified electronically.
--- NOTE | 2016-09-06 13:10 | HHI.PR ---
Subjective Subjective Notes DAILY PROGRESS NOTE FOR SURGICAL ATTENDING, DR. FAUSTO KENYON I feel better today I had my upper GI there is no leak Objective Vitals/I&O Vital Signs Date Time Temp Pulse Resp B/P Pulse Ox O2 Delivery O2 Flow Rate FiO2 09/06/16 12:00 98.5 83 18 127/75 95 Labs Laboratory Tests Test 09/06/16 06:00 White Blood Count 13.1 Red Blood Count 3.38 Hemoglobin 10.9 Hematocrit 32.9 Mean Corpuscular Volume 97.3 Mean Corpuscular Hemoglobin 32.3 Mean Corpuscular Hemoglobin 33.2 Concent Red Cell Distribution Width 13.0 Platelet Count 365 Mean Platelet Volume 8.3 Neutrophils (%) (Auto) 88.4 Lymphocytes (%) (Auto) 4.8 Monocytes (%) (Auto) 5.9 Eosinophils (%) (Auto) 0.8 Basophils (%) (Auto) 0.1 Neutrophils # (Auto) 11.5 Lymphocytes # (Auto) 0.6 Monocytes # (Auto) 0.8 Eosinophils # (Auto) 0.1 Basophils # (Auto) 0.0 CBC Comment DIFF FINAL Differential Comment Sodium Level 139 Potassium Level 3.2 Chloride Level 98 Carbon Dioxide Level 30.9 Anion Gap 10 Blood Urea Nitrogen 5 Creatinine 0.29 Estimat Glomerular Filtration 238 Rate Random Glucose 81 Calcium Level 7.6 Magnesium Level 1.6 Prealbumin 6 Radiology Discussed upper GI with Dr. Vivek Hinds no leak small amount of air near the duodenum where the drain is located Last Impressions Upper GI Series 09/06/16 Signed Impressions: Service Date/Time: Tuesday, September 06, 2016 09:58 - CONCLUSION: 1. There is no residual leak. Gino Hinds MD FACR Abdomen X-Ray 09/02/16 0000 Signed Impressions: Service Date/Time: Friday, September 02, 2016 10:43 - CONCLUSION: No acute abnormalities. Postsurgical changes. NG tube with tip in stomach. Gama Medrano MD Lower Extremity Ultrasound 08/31/16 0000 Signed Impressions: Service Date/Time: August 20:40 - CONCLUSION: Negative. No DVT of either lower extremity. Bernardino Rea MD Abdomen/Pelvis CT 08/26/162005 Signed Impressions: Service Date/Time: Friday, August 26, 2016 21:37 - CONCLUSION: Abnormal appearance to proximal small bowel with thickening and increased enhancement in several loops with associated fluid in the mesentery, tracking to the right upper quadrant and a moderate amount of free fluid in the pelvis. No dilated loops of small or large bowel. The findings suggest a neoplastic or infectious process involving the jejunum. Jose Aguilar MD ADDENDUM: On evaluation of the images, there does appear to be some free air in the upper abdomen underneath the hemidiaphragms. There is a small amount of fluid adjacent to the liver. There appears to be some inflammatory changes involving the proximal duodenum. There is some free fluid in the pelvis. These findings were discussed by telephone with the colorectal surgeon. The free air in the upper abdomen an inflammatory-type changes associated with the proximal duodenum suggest a possible perforated peptic ulcer. Lico Thomas MD Abdomen/Pelvis/Transvag US 08/26/16 0000 Signed Impressions: Service Date/Time: Friday, August 26, 2016 23:28 - CONCLUSION: 1. Moderate free fluid complex in appearance. 2. Abnormal endometrial thickening in this postmenopausal patient. 3. The ovaries are not seen. Hemanth Rice MD Cardiovascular: Regular Lungs: Clear Abdomen: Other Extremities: Perfused, SCD's on Narrative Exam Has much less bile coming from GIO now on wall suction Good urine output NG tube output slowed A/P Problem List: (1) Bile leak (2) Duodenal ulcer due to nonsteroidal anti-inflammatory drug (NSAID) (3) Magnesium deficiency (4) Hypokalemia due to loss of potassium (5) Perforated duodenal ulcer (6) Rectal malignant neoplasm (7) Abdominal pain (8) Elevated white blood cell count (9) Rectal mass Assessment and Plan 56-year-old female who has much improved after urgent surgery for perforated duodenal ulcer. She's also has a rectal cancer growing into her vagina She's done very well postoperatively with pain control. NG tube clamped today Ambulate incentive spirometer will need to start TPN but patient does not want TPN or PPM GIO drainage has slowed significantly Replace electrolytes as needed Upper GI no leak Start by mouth clamp NG tube If GIO output increases consider HIDA scan to see with the bile was coming from Problem Qualifiers (1) Abdominal pain: Qualified Code: R10.84 - Generalized abdominal pain (2) Elevated white blood cell count: Qualified Code: D72.825 - Bandemia Fausto Kenyon MD Sep 06, 2016 13:10
[2016-09-06 20:00] VITALS: BP 143/72; PULSE 87; RESP 17; TEMP 98.7; O2SAT 94
[2016-09-06] MEDS: SODIUM CHLOR 0.9% 1000 ML INJ 1,000 ML IV SCH (21:24)
[2016-09-07] VITALS: BP 128/69; PULSE 79; RESP 17; TEMP 98.2; O2SAT 96
[2016-09-07 04:00] VITALS: BP 141/74; PULSE 79; RESP 17; TEMP 97.9; O2SAT 95
[2016-09-07] MEDS: PCA - TOTAL MG MORPHINE DELIVERED PER SHIFT SCH ×3 (06:00→21:58)
[2016-09-07] MEDS: SUCRALFATE 1 GM/10 ML CUP PO SCH ×4 (06:02→21:58)
[2016-09-07] MEDS: FUROSEMIDE 20 MG TAB PO SCH (07:33)
[2016-09-07] MEDS: POTASSIUM CL 40 MEQ/30 ML LIQ UDC PO SCH (07:34)
[2016-09-07] MEDS: PANTOPRAZOLE SODIUM 40 MG VIAL IV PUSH SCH (07:44)
[2016-09-07] MEDS: SODIUM CHLORIDE 0.9% FLUSH 5 ML FLUSH FLUSH SCH ×2 (07:45→21:00)
[2016-09-07 08:00] VITALS: BP 146/71; PULSE 76; RESP 17; TEMP 97.1; O2SAT 95
[2016-09-07] MEDS: MORPHINE SULFATE 30 MG/30 ML PCA IV SCH (08:05)
--- NOTE | 2016-09-07 11:00 | HHI.PR ---
Subjective Remarks Ambulating in the hallways. Doesn't appear in acute distress. No n/v/d/c. Patient says she is able to tolerate diet. No n/v/d/c. Had a normal BM last night. No fever or chills. Abd pain is controlled by meds. Objective Vitals Vital Signs Date Time Temp Pulse Resp B/P Pulse Ox O2 Delivery O2 Flow Rate FiO2 09/07/16 08:00 97.1 76 17 146/71 95 09/07/16 06:00 18 09/07/16 04:00 97.9 79 17 141/74 95 09/07/16 00:00 98.2 79 17 128/69 96 09/06/16 21:24 17 09/06/16 20:00 98.7 87 17 143/72 94 09/06/16 14:00 16 09/06/16 12:00 98.5 83 18 127/75 95 I/O 09/06/16 09/06/16 09/06/16 09/07/16 09/07/16 09/07/16 07:00 15:00 23:00 07:00 15:00 23:00 Intake Total 524 ml 240 ml 689 ml 497 ml Output Total 1450 ml 600 ml 975 ml 500 ml Balance -926 ml -360 ml -286 ml -3 ml Intake Oral 0 ml 240 ml 240 ml 240 ml IV Total 524 ml 449 ml 257 ml Output Urine Total 500 ml 600 ml 350 ml 500 ml Gastric Drainage Total 500 ml 275 ml Drainage Total 450 ml 350 ml 0 ml # Bowel Movements 0 2 # Sanitary Pads 0 Pads Result Diagram: 09/06/16 0600 09/06/16 0600 Imaging Last Impressions Upper GI Series 09/06/16 0000 Signed Impressions: Service Date/Time: Tuesday, September 06, 2016 09:58 - CONCLUSION: 1. There is no residual leak. Gino Hinds MD FACR Abdomen X-Ray 09/02/16 0000 Signed Impressions: Service Date/Time: Friday, September 02, 2016 10:43 - CONCLUSION: No acute abnormalities. Postsurgical changes. NG tube with tip in stomach. Gmaa Medrano MD Lower Extremity Ultrasound 08/31/16 0000 Signed Impressions: Service Date/Time: August 20:40 - CONCLUSION: Negative. No DVT of either lower extremity. Bernardino Rea MD Abdomen/Pelvis CT 08/26/162005 Signed Impressions: Service Date/Time: Friday, August 26, 2016 21:37 - CONCLUSION: Abnormal appearance to proximal small bowel with thickening and increased enhancement in several loops with associated fluid in the mesentery, tracking to the right upper quadrant and a moderate amount of free fluid in the pelvis. No dilated loops of small or large bowel. The findings suggest a neoplastic or infectious process involving the jejunum. Jose Aguilar MD ADDENDUM: On evaluation of the images, there does appear to be some free air in the upper abdomen underneath the hemidiaphragms. There is a small amount of fluid adjacent to the liver. There appears to be some inflammatory changes involving the proximal duodenum. There is some free fluid in the pelvis. These findings were discussed by telephone with the colorectal surgeon. The free air in the upper abdomen an inflammatory-type changes associated with the proximal duodenum suggest a possible perforated peptic ulcer. Lico Thomas MD Abdomen/Pelvis/Transvag US 08/26/16 0000 Signed Impressions: Service Date/Time: Friday, August 26, 2016 23:28 - CONCLUSION: 1. Moderate free fluid complex in appearance. 2. Abnormal endometrial thickening in this postmenopausal patient. 3. The ovaries are not seen. Hemanth Rice MD Objective Remarks GENERAL: Middle-aged white female in no acute distress. HEENT: PERRLA, EOMI. No scleral icterus or conjunctival pallor. No lid lag or facial droop. CARDIOVASCULAR: Regular rate and rhythm. No obvious murmurs to auscultation. No chest tenderness to palpation. RESPIRATORY: No obvious rhonchi or wheezing. Clear to auscultation. Breath sounds equal bilaterally. GASTROINTESTINAL: Abdomen soft, diffuse tenderness to palpation, nondistended. BS normal. Mid abdominal surgical scar with diamante on, healing well. MUSCULOSKELETAL: Extremities without clubbing, cyanosis, or edema. No obvious deformities. NEUROLOGICAL: Awake, alert and oriented x4. No focal neurologic deficits. Moving both upper and lower extremities spontaneously. Procedures 1. Diagnostic laparotomy with a question of large amount of enteric contents from perforated duodenal ulcer. 2. Repair of duodenal ulcer with Jack patch with drainage. A/P Problem List: (1) GI bleed ICD Code: K92.2 Status: Resolved (2) Duodenal ulcer due to nonsteroidal anti-inflammatory drug (NSAID) ICD Code: T39.391A Status: Resolved (3) Perforated duodenal ulcer ICD Code: K26.5 Status: Resolved (4) UTI (urinary tract infection) ICD Code: N39.0 Status: Resolved (5) Elevated lipase ICD Code: R74.8 Status: Acute (6) Rectal mass ICD Code: K62.9 Status: Acute (7) Postmenopausal vaginal bleeding ICD Code: N95.0 Status: Acute (8) Thigh edema ICD Code: R60.0 Status: Acute (9) Hypokalemia ICD Code: E87.6 Status: Acute (10) Edema of both legs ICD Code: R60.0 Status: Acute (11) Bile leak ICD Code: K83.9 Status: Acute (12) Hypokalemia due to loss of potassium ICD Code: E87.6 Status: Acute (13) Colon cancer ICD Code: C18.9 Status: Acute Assessment and Plan (1) GI bleed Plan: Patient with history of bright red blood per rectum, Hemoccult positive. CT abdomen and pelvis with neoplastic versus infectious tele-G, possible enteritis. GI consulted. Patient seen by Dr. Rm from GI, NG tube inserted Patient evaluated by surgery status post diagnostic laparotomy with a question of large amount of enteric contents from perforated duodenal ulcer as well as repair of duodenal ulcer with Jack patch with drainage of intra-abdominal abscess. This was performed and date 08/28/16 GI has signed off. (2) Duodenal ulcer due to nonsteroidal anti-inflammatory drug (NSAID) Plan: As above Status post upper GI series, which shows moderate free air. (3) Perforated duodenal ulcer Plan: Post post multiple surgeries by Dr. Kenyon as detailed above. NG tube placed today. Follow-up general surgery recommendations. 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 will check KUB today - per GS GIO to low wall suction. - as per GS Consult ID - wound culture growing carlos albicans - Patient on Fluconazole / ID consulted, appreciate recommendations. Levaquin and Flagyl discontinued and fluconazole continued as per ID recommendations. Continue antibiotics as per ID. Advanced to regular diet Monitor for refeeding sdr check bmp, mag, phos. (4) UTI (urinary tract infection) Plan: Patient on Levaquin, urine culture grew pansensitive E coli Levaquin stop date to 09/03/16 (5) Elevated lipase Plan: Patient with elevated lipase likely secondary to enteritis and perforated duodenal ulcer. (6) Rectal mass Plan: Possible rectal mass, thickened small bowel with some intraperitoneal fluid, possible small amount of free air with signs of symptoms of ileus versus intestinal obstruction. Follow-up PERSONAL SECURITY SPECIALIST versus oncology recommendations. 2/3 patient is status post examination under anesthesia, biopsies of distal vaginal mass, fractional dilation and curettage, cystoscopy cooperative test. Biopsy of rectal mass. Follow-up pathology. 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 Follow-up PERSONAL SECURITY SPECIALIST oncology recommendations. (7) Postmenopausal vaginal bleeding Plan: Patient presented with postmenopausal vaginal bleeding than 5 months. Check consulted. Transvaginal ultrasound showed abnormal endometrial thickening and moderate free fluid in pelvis. The case was discussed with FITNESS AND WELLNESS MANAGER service, Dr. Mansfield who recommended PERSONAL SECURITY SPECIALIST process on consultation. Dr Cruz consulted. Patient with posterior vaginal wall mass, thickened endometrial stripe and postmenopausal bleeding. Follow-up PERSONAL SECURITY SPECIALIST for stress oncology recommendations. Tentatively exam under anesthesia, biopsies of posterior vaginal wall mass, D&C and cystoscopy. 2. 3 as above. (8) bilateral lower extremity edema Plan: Bilateral edema to thighs. DVT ruled out with venous Dopplers. Patient was given 1 dose of IV Lasix by general surgery. Give Lasix 20 mg by mouth daily. Monitor edema lower extremities DC IVF (9) Hypokalemia Severe protein angel luis malnutrition, low albumin. Plan: Likely secondary to decreased oral intake. Continue to monitor and replace as needed Check mag and phos Consult jigger crown pouncing machine operator Prophylaxis: PPI. DVT prophylaxis: SCDs, as per general surgery recommendations. Discharge Planning Continue to monitor in the medical floor. Discharge when improved and cleared by consultants. Discussed with the patient, nurse Problem Qualifiers (1) GI bleed: Qualified Code: K92.2 - Gastrointestinal hemorrhage, unspecified gastrointestinal hemorrhage type Ally Bauman MD Sep 07, 2016 11:00
[2016-09-07] MEDS: FLUCONAZOLE 400 MG PREMIX BAG 200 ML IV SCH (11:02)
[2016-09-07 12:00] VITALS: BP 142/78; PULSE 82; RESP 18; TEMP 97.7; O2SAT 95
[2016-09-07 14:51] LABS: BICARBONATE 33.5 MEQ/L (21.0-32.0)
[2016-09-07 15:08] LABS: CALCIUM-PROTEIN CORRECTED 8.3 MG/DL (8.5-10.1)
[2016-09-07] MEDS: SODIUM CHLOR 0.9% 1000 ML INJ 1,000 ML IV SCH (15:11)
[2016-09-07 15:25] LABS: POTASSIUM 2.8 MEQ/L (3.5-5.1)
--- NOTE | 2016-09-07 16:54 | HHI.PR ---
Subjective Subjective Notes DAILY PROGRESS NOTE FOR SURGICAL ATTENDING, DR. FAUSTO KENYON I feel good Can I get the NG tube out GIO has slowed output Objective Vitals/I&O Vital Signs Date Time Temp Pulse Resp B/P Pulse Ox O2 Delivery O2 Flow Rate FiO2 09/07/16 12:00 97.7 82 18 142/78 95 Labs Laboratory Tests Test 09/07/16 14:02 Sodium Level 135 Potassium Level 2.8 Chloride Level 95 Carbon Dioxide Level 33.5 Anion Gap 7 Blood Urea Nitrogen 3 Creatinine 0.42 Estimat Glomerular Filtration 155 Rate Random Glucose 133 Calcium Level 7.4 Protein Corrected Calcium 8.3 Phosphorus Level 3.5 Total Protein 5.4 Radiology Discussed upper GI with Dr. Vivek Hinds no leak small amount of air near the duodenum where the drain is located Last Impressions Upper GI Series 09/06/16 0000 Signed Impressions: Service Date/Time: Tuesday, September 06, 2016 09:58 - CONCLUSION: 1. There is no residual leak. Gino Hinds MD FACR Abdomen X-Ray 2/4/17 0000 Signed Impressions: Service Date/Time: Friday, September 02, 2016 10:43 - CONCLUSION: No acute abnormalities. Postsurgical changes. NG tube with tip in stomach. Gama Medrano MD Lower Extremity Ultrasound 08/31/16 0000 Signed Impressions: Service Date/Time: August 20:40 - CONCLUSION: Negative. No DVT of either lower extremity. Bernardino Rea MD Abdomen/Pelvis CT 08/26/162005 Signed Impressions: Service Date/Time: Friday, August 26, 2016 21:37 - CONCLUSION: Abnormal appearance to proximal small bowel with thickening and increased enhancement in several loops with associated fluid in the mesentery, tracking to the right upper quadrant and a moderate amount of free fluid in the pelvis. No dilated loops of small or large bowel. The findings suggest a neoplastic or infectious process involving the jejunum. Jose Aguilar MD ADDENDUM: On evaluation of the images, there does appear to be some free air in the upper abdomen underneath the hemidiaphragms. There is a small amount of fluid adjacent to the liver. There appears to be some inflammatory changes involving the proximal duodenum. There is some free fluid in the pelvis. These findings were discussed by telephone with the colorectal surgeon. The free air in the upper abdomen an inflammatory-type changes associated with the proximal duodenum suggest a possible perforated peptic ulcer. Lico Thomas MD Abdomen/Pelvis/Transvag US 08/26/16 0000 Signed Impressions: Service Date/Time: Friday, August 26, 2016 23:28 - CONCLUSION: 1. Moderate free fluid complex in appearance. 2. Abnormal endometrial thickening in this postmenopausal patient. 3. The ovaries are not seen. Hemanth Rice MD Cardiovascular: Regular Lungs: Clear Abdomen: Non-distended, Post-op tenderness Narrative Exam Minimal GIO output Minimal NG tube output Wound Wound : Wound Location: Abdomen Appearance: Clean & Dry Dressing: Dry A/P Problem List: (1) Bile leak (2) Duodenal ulcer due to nonsteroidal anti-inflammatory drug (NSAID) (3) Magnesium deficiency (4) Hypokalemia due to loss of potassium (5) Perforated duodenal ulcer (6) Rectal malignant neoplasm (7) Abdominal pain (8) Elevated white blood cell count (9) Rectal mass Assessment and Plan 56-year-old female who has much improved after urgent surgery for perforated duodenal ulcer. She's also has a rectal cancer growing into her vagina She's done very well postoperatively with pain control. NG tube clamped today Ambulate incentive spirometer will need to start TPN but patient does not want TPN or PPM GIO drainage has slowed significantly Replace electrolytes as needed Upper GI no leak NG tube removed today We'll keep GIO in place Anticipate discharge in the next 24-48 hours depending on clinical source Problem Qualifiers (1) Abdominal pain: Qualified Code: R10.84 - Generalized abdominal pain (2) Elevated white blood cell count: Qualified Code: D72.825 - Bandemia Fausto Kenyon MD Sep 07, 2016 16:54
[2016-09-07] MEDS ORDERED: POTASSIUM CHLORIDE 20 MEQ CONTROLLED RELEASE TAB PO ONE (18:00)
[2016-09-07] MEDS ORDERED: CALCIUM CARBONATE 500 MG CHEWABLE TAB CHEW ONE (18:00)
[2016-09-07] MEDS ORDERED: MAGNESIUM OXIDE 400 MG TAB PO ONE (18:00)
[2016-09-07] MEDS ORDERED: POTASSIUM CHLOR 20 MEQ PREMIX 100 ML IV ONE (18:00)
[2016-09-07 20:00] VITALS: BP 147/70; PULSE 81; RESP 17; TEMP 98.5; O2SAT 96
[2016-09-07] MEDS: POTASSIUM CHLOR 20 MEQ PREMIX 100 ML IV SCH ×2 (21:57→22:37)
[2016-09-07] MEDS: CALCIUM CARBONATE 500 MG CHEWABLE TAB CHEW SCH (21:58)
[2016-09-07] MEDS: PANTOPRAZOLE SOD 40 MG DELAYED RELEASE TAB PO SCH (21:58)
[2016-09-08] VITALS: BP 149/72; PULSE 70; RESP 17; TEMP 98.3; O2SAT 95
[2016-09-08 04:00] VITALS: BP 155/70; PULSE 78; RESP 17; TEMP 97.7; O2SAT 95
[2016-09-08 05:41] LABS: AUTOMATED NEUTROPHIL # 8.7 TH/MM3 (1.8-7.7); BASOPHIL % 0.3 % (0.0-2.0); EOSINOPHIL # 0.2 TH/MM3 (0-0.4); EOSINOPHIL % 1.8 % (0.0-4.0); HEMATOCRIT 32.4 % (35.0-46.0); HEMO FLAGS DIFF FINAL; LYMPH % 8.5 % (9.0-44.0); LYMPHOCYTE # 0.9 TH/MM3 (1.0-4.8); MEAN CELL VOLUME 96.4 FL (80.0-100.0); MEAN CORPUSCULAR HEMOGLOBIN 32.8 PG (27.0-34.0); MONO % 7.8 % (0.0-8.0); NEUT % 81.6 % (16.0-70.0); PLATELET COUNT 364 TH/MM3 (150-450); RED BLOOD COUNT 3.36 MIL/MM3 (4.00-5.30); RED CELL DISTRIBUTION WIDTH 12.8 % (11.6-17.2); WHITE BLOOD COUNT 10.7 TH/MM3 (4.0-11.0)
[2016-09-08] MEDS: SUCRALFATE 1 GM/10 ML CUP PO SCH ×4 (05:51→21:01)
[2016-09-08] MEDS: PCA - TOTAL MG MORPHINE DELIVERED PER SHIFT SCH ×3 (05:51→21:02)
[2016-09-08 05:53] LABS: BICARBONATE 35.4 MEQ/L (21.0-32.0); MAGNESIUM 1.4 MG/DL (1.5-2.5)
[2016-09-08 06:00] LABS: POTASSIUM 2.8 MEQ/L (3.5-5.1)
[2016-09-08] MEDS ORDERED: POTASSIUM CL 40 MEQ/30 ML LIQ UDC PO ONE (06:15)
[2016-09-08] MEDS ORDERED: MAGNESIUM SULFATE 1 GM PREMIX 100 ML IV ONE (06:15)
[2016-09-08] MEDS: POTASSIUM CHLOR 20 MEQ PREMIX 100 ML IV SCH ×4 (07:04→16:43)
[2016-09-08 08:00] VITALS: BP 131/60; PULSE 76; RESP 18; TEMP 97.7; O2SAT 96
[2016-09-08] MEDS: SODIUM CHLORIDE 0.9% FLUSH 5 ML FLUSH FLUSH SCH ×2 (08:11→21:00)
[2016-09-08] MEDS: MAGNESIUM OXIDE 400 MG TAB PO SCH (08:17)
[2016-09-08] MEDS: FUROSEMIDE 20 MG TAB PO SCH (08:18)
[2016-09-08] MEDS: PANTOPRAZOLE SOD 40 MG DELAYED RELEASE TAB PO SCH ×2 (08:18→21:01)
[2016-09-08] MEDS: CALCIUM CARBONATE 500 MG CHEWABLE TAB CHEW SCH ×2 (08:18→21:01)
[2016-09-08] MEDS: POTASSIUM CL 40 MEQ/30 ML LIQ UDC PO SCH (08:19)
[2016-09-08] MEDS: MORPHINE SULFATE 30 MG/30 ML PCA IV SCH (10:43)
[2016-09-08] MEDS: FLUCONAZOLE 400 MG PREMIX BAG 200 ML IV SCH (11:07)
--- NOTE | 2016-09-08 11:34 | HHI.PR ---
Subjective Remarks Potassium and mag still low. Will replace by IV. Patient says she is eating well. No n/v/d/c. No fever or chills. 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 Ambulating in the hallways at times. Objective Vitals Vital Signs Date Time Temp Pulse Resp B/P Pulse Ox O2 Delivery O2 Flow Rate FiO2 09/08/16 10:43 18 09/08/16 08:00 97.7 76 18 131/60 96 09/08/16 05:51 18 09/08/16 04:00 97.7 78 17 155/70 95 09/08/16 00:00 98.3 70 17 149/72 95 09/07/16 21:58 16 09/07/16 20:00 98.5 81 17 147/70 96 09/07/16 12:00 97.7 82 18 142/78 95 I/O 09/07/16 09/07/16 09/07/16 09/08/16 09/08/16 09/08/16 07:00 15:00 23:00 07:00 15:00 23:00 Intake Total 497 ml 727 ml 715 ml 1213 ml Output Total 500 ml 500 ml 20 ml Balance -3 ml 227 ml 715 ml 1213 ml -20 ml Intake Oral 240 ml 480 ml 480 ml 480 ml IV Total 257 ml 247 ml 235 ml 733 ml Output Urine Total 500 ml 500 ml Drainage Total 0 ml 0 ml 20 ml # Voids 3 3 # Bowel Movements 1 # Sanitary Pads 0 Pads Result Diagram: 09/08/1643809/08/16438 Imaging Last Impressions Upper GI Series 09/06/16 0000 Signed Impressions: Service Date/Time: Tuesday, September 06, 2016 09:58 - CONCLUSION: 1. There is no residual leak. Gino Hinds MD FACR Abdomen X-Ray 09/02/16 0000 Signed Impressions: Service Date/Time: Friday, September 02, 2016 10:43 - CONCLUSION: No acute abnormalities. Postsurgical changes. NG tube with tip in stomach. Gama Medrano MD Lower Extremity Ultrasound 08/31/16 0000 Signed Impressions: Service Date/Time: August 20:40 - CONCLUSION: Negative. No DVT of either lower extremity. Bernardino Rea MD Abdomen/Pelvis CT 08/26/16 2006 Signed Impressions: Service Date/Time: Friday, August 26, 2016 21:37 - CONCLUSION: Abnormal appearance to proximal small bowel with thickening and increased enhancement in several loops with associated fluid in the mesentery, tracking to the right upper quadrant and a moderate amount of free fluid in the pelvis. No dilated loops of small or large bowel. The findings suggest a neoplastic or infectious process involving the jejunum. Jose Aguilar MD ADDENDUM: On evaluation of the images, there does appear to be some free air in the upper abdomen underneath the hemidiaphragms. There is a small amount of fluid adjacent to the liver. There appears to be some inflammatory changes involving the proximal duodenum. There is some free fluid in the pelvis. These findings were discussed by telephone with the colorectal surgeon. The free air in the upper abdomen an inflammatory-type changes associated with the proximal duodenum suggest a possible perforated peptic ulcer. Lico Thomas MD Abdomen/Pelvis/Transvag US 08/26/16 0000 Signed Impressions: Service Date/Time: Friday, August 26, 2016 23:28 - CONCLUSION: 1. Moderate free fluid complex in appearance. 2. Abnormal endometrial thickening in this postmenopausal patient. 3. The ovaries are not seen. Hemanth Rice MD Objective Remarks GENERAL: Middle-aged white female in no acute distress. HEENT: PERRLA, EOMI. No scleral icterus or conjunctival pallor. No lid lag or facial droop. CARDIOVASCULAR: Regular rate and rhythm. No obvious murmurs to auscultation. No chest tenderness to palpation. RESPIRATORY: No obvious rhonchi or wheezing. Clear to auscultation. Breath sounds equal bilaterally. GASTROINTESTINAL: Abdomen soft, diffuse tenderness to palpation, nondistended. BS normal. Mid abdominal surgical scar with diamante on, healing well. MUSCULOSKELETAL: Extremities without clubbing, cyanosis, or edema. No obvious deformities. NEUROLOGICAL: Awake, alert and oriented x4. No focal neurologic deficits. Moving both upper and lower extremities spontaneously. Procedures 1. Diagnostic laparotomy with a question of large amount of enteric contents from perforated duodenal ulcer. 2. Repair of duodenal ulcer with Jack patch with drainage. A/P Problem List: (1) GI bleed ICD Code: K92.2 Status: Resolved (2) Duodenal ulcer due to nonsteroidal anti-inflammatory drug (NSAID) ICD Code: T39.391A Status: Resolved (3) Perforated duodenal ulcer ICD Code: K26.5 Status: Resolved (4) UTI (urinary tract infection) ICD Code: N39.0 Status: Resolved (5) Elevated lipase ICD Code: R74.8 Status: Acute (6) Rectal mass ICD Code: K62.9 Status: Acute (7) Postmenopausal vaginal bleeding ICD Code: N95.0 Status: Acute (8) Thigh edema ICD Code: R60.0 Status: Acute (9) Hypokalemia ICD Code: E87.6 Status: Acute (10) Edema of both legs ICD Code: R60.0 Status: Acute (11) Bile leak ICD Code: K83.9 Status: Acute (12) Hypokalemia due to loss of potassium ICD Code: E87.6 Status: Acute (13) Colon cancer ICD Code: C18.9 Status: Acute Assessment and Plan (1) GI bleed Plan: Patient with history of bright red blood per rectum, Hemoccult positive. CT abdomen and pelvis with neoplastic versus infectious tele-G, possible enteritis. GI consulted. Patient seen by Dr. Rm from GI, NG tube inserted Patient evaluated by surgery status post diagnostic laparotomy with a question of large amount of enteric contents from perforated duodenal ulcer as well as repair of duodenal ulcer with Jack patch with drainage of intra-abdominal abscess. This was performed and date 08/28/16 GI has signed off. (2) Duodenal ulcer due to nonsteroidal anti-inflammatory drug (NSAID) Plan: As above Status post upper GI series, which shows moderate free air. (3) Perforated duodenal ulcer Plan: Post post multiple surgeries by Dr. Kenyon as detailed above. NG tube placed today. Follow-up general surgery recommendations. 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 will check KUB today - per GS GIO to low wall suction. - as per GS Consult ID - wound culture growing carlos albicans - Patient on Fluconazole 2/ ID consulted, appreciate recommendations. Levaquin and Flagyl discontinued and fluconazole continued as per ID recommendations. Continue antibiotics as per ID. Advanced to regular diet Monitor for refeeding sdr check bmp, mag, phos. (4) UTI (urinary tract infection) Plan: Patient on Levaquin, urine culture grew pansensitive E coli Levaquin stop date to 09/03/16 (5) Elevated lipase Plan: Patient with elevated lipase likely secondary to enteritis and perforated duodenal ulcer. (6) Rectal mass Plan: Possible rectal mass, thickened small bowel with some intraperitoneal fluid, possible small amount of free air with signs of symptoms of ileus versus intestinal obstruction. Follow-up PERINATAL BREASTFEEDING ASSISTANT versus oncology recommendations. 2/3 patient is status post examination under anesthesia, biopsies of distal vaginal mass, fractional dilation and curettage, cystoscopy cooperative test. Biopsy of rectal mass. Follow-up pathology. 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 Follow-up PERINATAL BREASTFEEDING ASSISTANT oncology recommendations. (7) Postmenopausal vaginal bleeding Plan: Patient presented with postmenopausal vaginal bleeding than 5 months. Check consulted. Transvaginal ultrasound showed abnormal endometrial thickening and moderate free fluid in pelvis. The case was discussed with HOOP MACHINE OPERATOR service, Dr. Mansfield who recommended PERINATAL BREASTFEEDING ASSISTANT process on consultation. Dr Cruz consulted. Patient with posterior vaginal wall mass, thickened endometrial stripe and postmenopausal bleeding. Follow-up PERINATAL BREASTFEEDING ASSISTANT for stress oncology recommendations. Tentatively exam under anesthesia, biopsies of posterior vaginal wall mass, D&C and cystoscopy. 2. 3 as above. (8) bilateral lower extremity edema Plan: Bilateral edema to thighs. DVT ruled out with venous Dopplers. Patient was given 1 dose of IV Lasix by general surgery. Give Lasix 20 mg by mouth daily. Monitor edema lower extremities DC IVF (9) Hypokalemia Severe protein angel luis malnutrition, low albumin. Plan: Likely secondary to decreased oral intake. Continue to monitor and replace as needed Check mag and phos Consult java analyst Prophylaxis: PPI. DVT prophylaxis: SCDs, as per general surgery recommendations. Discharge Planning Continue to monitor in the medical floor. Discharge when improved and cleared by consultants. Discussed with the patient, nurse Problem Qualifiers (1) GI bleed: Qualified Code: K92.2 - Gastrointestinal hemorrhage, unspecified gastrointestinal hemorrhage type Ally Bauman MD Sep 08, 2016 11:34
[2016-09-08] MEDS ORDERED: MAGN400T3 PO (11:38)
[2016-09-08] MEDS ORDERED: CALC500C16 CHEW (11:38)
[2016-09-08] MEDS ORDERED: EFFE25TA PO (11:38)
[2016-09-08] MEDS ORDERED: NORC5TAB PO (11:39)
--- NOTE | 2016-09-08 11:40 | HHI.DCPOC ---
Discharge Care Plan Goals to Promote Your Health * To prevent worsening of your condition and complications * To maintain your health at the optimal level Directions to Meet Your Goals Take your medications as prescribed Follow your dietary instruction Follow activity as directed Keep your appointments as scheduled Take your immunizations and boosters as scheduled If your symptoms worsen call your PCP, if no PCP go to Urgent Care Center or Emergency Room Smoking is Dangerous to Your Health. Avoid second hand smoke Call the 24-hour hour crisis hotline for domestic abuse at Ally Bauman MD Sep 08, 2016 11:40
--- NOTE | 2016-09-08 11:41 | HHI.FF ---
Face to Face Verification Diagnosis: (1) Rectal mass (2) Free intraperitoneal air (3) Vaginal mass (4) GI bleed (5) Hypokalemia (6) Magnesium deficiency (7) Intra-abdominal abscess (8) UTI (urinary tract infection) (9) Colon cancer (10) Perforated duodenal ulcer (11) Thickened endometrium (12) Edema of both legs (13) Rectal malignant neoplasm (14) Duodenal ulcer due to nonsteroidal anti-inflammatory drug (NSAID) (15) Hypokalemia due to loss of potassium (16) Bile leak Physical Therapy Order: Evaluate and Treat Home Health Nursing Order: Medical education Signs/symptoms of disease process Medication education-adverse effect Nursing assessment with vital signs I have seen patient Michelle Vora on 09/08/16. My clinical findings support the need for the requested home health care services because: Ltd mobility - disease progression I certify that my clinical findings support that this patient is homebound because: Post-op weakness Ally Bauman MD Sep 08, 2016 11:41
[2016-09-08] MEDS ORDERED: FLUC200T2 PO (11:44)
[2016-09-08] MEDS ORDERED: CIPR250T2 PO (11:44)
[2016-09-08 12:00] VITALS: BP 127/66; PULSE 71; RESP 18; TEMP 98.9; O2SAT 95
[2016-09-08] MEDS ORDERED: cefTRIAXone INJ 1,000 MG in SODIUM CHLORIDE 0.9% INJ 100 ML IV SCH (13:00)
[2016-09-08] MEDS: MAGNESIUM SULFATE 1 GM PREMIX 100 ML IV SCH ×2 (13:00→13:53)
--- NOTE | 2016-09-08 15:53 | HHI.PR ---
Subjective Subjective Notes DAILY PROGRESS NOTE FOR SURGICAL ATTENDING, DR. FAUSTO KENYON doing well shereen diet cloudy drainage in GIO Objective Vitals/I&O Vital Signs Date Time Temp Pulse Resp B/P Pulse Ox O2 Delivery O2 Flow Rate FiO2 09/08/16 12:00 98.9 71 18 127/66 95 Labs Laboratory Tests Test 09/08/16 04:39 White Blood Count 10.7 Red Blood Count 3.36 Hemoglobin 11.0 Hematocrit 32.4 Mean Corpuscular Volume 96.4 Mean Corpuscular Hemoglobin 32.8 Mean Corpuscular Hemoglobin 34.0 Concent Red Cell Distribution Width 12.8 Platelet Count 364 Mean Platelet Volume 8.5 Neutrophils (%) (Auto) 81.6 Lymphocytes (%) (Auto) 8.5 Monocytes (%) (Auto) 7.8 Eosinophils (%) (Auto) 1.8 Basophils (%) (Auto) 0.3 Neutrophils # (Auto) 8.7 Lymphocytes # (Auto) 0.9 Monocytes # (Auto) 0.8 Eosinophils # (Auto) 0.2 Basophils # (Auto) 0.0 CBC Comment DIFF FINAL Differential Comment Sodium Level 138 Potassium Level 2.8 Chloride Level 95 Carbon Dioxide Level 35.4 Anion Gap 8 Blood Urea Nitrogen 2 Creatinine 0.36 Estimat Glomerular Filtration 185 Rate Random Glucose 111 Calcium Level 7.6 Phosphorus Level 3.5 Magnesium Level 1.4 Radiology Discussed upper GI with Dr. Vivek Hinds no leak small amount of air near the duodenum where the drain is located Last Impressions Upper GI Series 09/06/16 Signed Impressions: Service Date/Time: Tuesday, September 06, 2016 09:58 - CONCLUSION: 1. There is no residual leak. Gino Hinds MD FACR Abdomen X-Ray 09/02/16 Signed Impressions: Service Date/Time: Friday, September 02, 2016 10:43 - CONCLUSION: No acute abnormalities. Postsurgical changes. NG tube with tip in stomach. Gama Medrano MD Lower Extremity Ultrasound 08/31/16 Signed Impressions: Service Date/Time: August 20:40 - CONCLUSION: Negative. No DVT of either lower extremity. Bernardino Rea MD Abdomen/Pelvis CT 08/26/162005 Signed Impressions: Service Date/Time: Friday, August 26, 2016 21:37 - CONCLUSION: Abnormal appearance to proximal small bowel with thickening and increased enhancement in several loops with associated fluid in the mesentery, tracking to the right upper quadrant and a moderate amount of free fluid in the pelvis. No dilated loops of small or large bowel. The findings suggest a neoplastic or infectious process involving the jejunum. Jose Aguilar MD ADDENDUM: On evaluation of the images, there does appear to be some free air in the upper abdomen underneath the hemidiaphragms. There is a small amount of fluid adjacent to the liver. There appears to be some inflammatory changes involving the proximal duodenum. There is some free fluid in the pelvis. These findings were discussed by telephone with the colorectal surgeon. The free air in the upper abdomen an inflammatory-type changes associated with the proximal duodenum suggest a possible perforated peptic ulcer. Lico Thomas MD Abdomen/Pelvis/Transvag US 08/26/16 0000 Signed Impressions: Service Date/Time: Friday, August 26, 2016 23:28 - CONCLUSION: 1. Moderate free fluid complex in appearance. 2. Abnormal endometrial thickening in this postmenopausal patient. 3. The ovaries are not seen. Hemanth Rice MD Abdomen: Post-op tenderness Narrative Exam Minimal GIO output Minimal NG tube output Wound Wound : Wound Location: Abdomen Appearance: Clean & Dry Dressing: Dry A/P Problem List: (1) Bile leak (2) Duodenal ulcer due to nonsteroidal anti-inflammatory drug (NSAID) (3) Magnesium deficiency (4) Hypokalemia due to loss of potassium (5) Perforated duodenal ulcer (6) Rectal malignant neoplasm (7) Abdominal pain (8) Elevated white blood cell count (9) Rectal mass Assessment and Plan DAILY PROGRESS NOTE FOR SURGICAL ATTENDING, DR. FAUSTO KENYON 56-year-old female who has much improved after urgent surgery for perforated duodenal ulcer. She's also has a rectal cancer growing into her vagina She's done very well postoperatively with pain control. At this point she is ready to discharge from a general surgery standpoint Medical team is working on replacing magnesium and potassium She will need a follow-up appointment next week in my office She will need home health for GIO care I will remove the GIO in the office at the appropriate time Need to continue antifungals as per ID Problem Qualifiers (1) Abdominal pain: Qualified Code: R10.84 - Generalized abdominal pain (2) Elevated white blood cell count: Qualified Code: D72.825 - Bandemia Fausto Kenyon MD Sep 08, 2016 15:53
[2016-09-08 16:00] VITALS: BP 117/57; PULSE 75; RESP 18; TEMP 97.5; O2SAT 97
[2016-09-08] MEDS: SODIUM CHLOR 0.9% 1000 ML INJ 1,000 ML IV SCH (17:30)
[2016-09-08 20:00] VITALS: BP 140/74; PULSE 76; RESP 18; TEMP 98.2; O2SAT 95
[2016-09-08] MEDS ORDERED: MAGNESIUM SULFATE 1 GM PREMIX 100 ML IV SCH (21:15)
[2016-09-08 22:51] LABS: BICARBONATE 35.3 MEQ/L (21.0-32.0); POTASSIUM 3.9 MEQ/L (3.5-5.1)
[2016-09-09] VITALS: BP 138/75; PULSE 79; RESP 18; TEMP 97.8; O2SAT 95
[2016-09-09 04:00] VITALS: BP 134/77; PULSE 72; RESP 18; TEMP 97.5; O2SAT 94
[2016-09-09 05:37] LABS: BICARBONATE 34.7 MEQ/L (21.0-32.0)
[2016-09-09] MEDS: PCA - TOTAL MG MORPHINE DELIVERED PER SHIFT SCH (06:00)
[2016-09-09] MEDS: SUCRALFATE 1 GM/10 ML CUP PO SCH ×2 (06:03→11:17)
[2016-09-09 08:00] VITALS: BP 119/74; PULSE 71; RESP 16; TEMP 97.2; O2SAT 95
[2016-09-09] MEDS: MAGNESIUM OXIDE 400 MG TAB PO SCH (08:16)
[2016-09-09] MEDS: PANTOPRAZOLE SOD 40 MG DELAYED RELEASE TAB PO SCH (08:16)
[2016-09-09] MEDS: POTASSIUM CL 40 MEQ/30 ML LIQ UDC PO SCH (08:16)
[2016-09-09] MEDS: CALCIUM CARBONATE 500 MG CHEWABLE TAB CHEW SCH (08:16)
[2016-09-09] MEDS: FUROSEMIDE 20 MG TAB PO SCH (08:16)
[2016-09-09] MEDS: SODIUM CHLORIDE 0.9% FLUSH 5 ML FLUSH FLUSH SCH (08:17)
[2016-09-09] MEDS: ACETAMINOPHEN/HYDROcodone 325 MG/10 MG TAB PO PRN ×2 (08:23→12:01)
[2016-09-09 09:23] VITALS: RESP 20
--- NOTE | 2016-09-09 10:10 | HHI.PR ---
Subjective Subjective Notes pt feeling better, no fevers, ashwini drain decreasing Objective Vitals/I&O Vital Signs Date Time Temp Pulse Resp B/P Pulse Ox O2 Delivery O2 Flow Rate FiO2 09/09/16 08:00 97.2 71 16 119/74 95 Labs Laboratory Tests Test 09/08/16 09/09/16 22:02 05:05 Sodium Level 136 136 Potassium Level 3.9 4.0 Chloride Level 97 97 Carbon Dioxide Level 35.3 34.7 Anion Gap 4 4 Blood Urea Nitrogen 3 2 Creatinine 0.43 0.46 Estimat Glomerular Filtration 151 140 Rate Random Glucose 121 119 Calcium Level 7.8 8.1 Magnesium Level 2.0 Radiology Discussed upper GI with Dr. Vivek Hinds no leak small amount of air near the duodenum where the drain is located Last Impressions Upper GI Series 09/06/16 0000 Signed Impressions: Service Date/Time: Tuesday, September 06, 2016 09:58 - CONCLUSION: 1. There is no residual leak. Gino Hinds MD FACR Abdomen X-Ray 09/02/16 0000 Signed Impressions: Service Date/Time: Friday, September 02, 2016 10:43 - CONCLUSION: No acute abnormalities. Postsurgical changes. NG tube with tip in stomach. Gama Medrano MD Lower Extremity Ultrasound 08/31/16 Signed Impressions: Service Date/Time: August 20:40 - CONCLUSION: Negative. No DVT of either lower extremity. Bernardino Rea MD Abdomen/Pelvis CT 08/26/162005 Signed Impressions: Service Date/Time: Friday, August 26, 2016 21:37 - CONCLUSION: Abnormal appearance to proximal small bowel with thickening and increased enhancement in several loops with associated fluid in the mesentery, tracking to the right upper quadrant and a moderate amount of free fluid in the pelvis. No dilated loops of small or large bowel. The findings suggest a neoplastic or infectious process involving the jejunum. Jose Aguilar MD ADDENDUM: On evaluation of the images, there does appear to be some free air in the upper abdomen underneath the hemidiaphragms. There is a small amount of fluid adjacent to the liver. There appears to be some inflammatory changes involving the proximal duodenum. There is some free fluid in the pelvis. These findings were discussed by telephone with the colorectal surgeon. The free air in the upper abdomen an inflammatory-type changes associated with the proximal duodenum suggest a possible perforated peptic ulcer. Lico Thomas MD Abdomen/Pelvis/Transvag US 08/26/16 0000 Signed Impressions: Service Date/Time: Friday, August 26, 2016 23:28 - CONCLUSION: 1. Moderate free fluid complex in appearance. 2. Abnormal endometrial thickening in this postmenopausal patient. 3. The ovaries are not seen. Hemanth Rice MD Cardiovascular: Regular Lungs: Clear Abdomen: Other (incisions c/d/i, ashwini greenish white) A/P Problem List: (1) Bile leak (2) Duodenal ulcer due to nonsteroidal anti-inflammatory drug (NSAID) (3) Magnesium deficiency (4) Hypokalemia due to loss of potassium (5) Perforated duodenal ulcer (6) Rectal malignant neoplasm (7) Abdominal pain (8) Elevated white blood cell count (9) Rectal mass Assessment and Plan s/p exp lap for perf ulcer doing well controlled fistula with ASHWINI diet ASHWINI to sxn bulb ok to d/c home Problem Qualifiers (1) Abdominal pain: Qualified Code: R10.84 - Generalized abdominal pain (2) Elevated white blood cell count: Qualified Code: D72.825 - Bandemia Mukesh Alonso MD Sep 09, 2016 10:10
--- NOTE | 2016-09-28 18:22 | HHI.DS ---
Discharge Summary Admission Date Aug 26, 2016 at 22:33 Discharge Date: Sep 09, 2016 Admitting Diagnosis Abdominal Pain, Enteritis, Postmenopausal Bleeding, GI Bleed, UTI (1) GI bleed ICD Code: K92.2 Diagnosis: Principal (2) Duodenal ulcer due to nonsteroidal anti-inflammatory drug (NSAID) ICD Code: T39.391A Diagnosis: Principal (3) Perforated duodenal ulcer ICD Code: K26.5 Diagnosis: Principal (4) UTI (urinary tract infection) ICD Code: N39.0 Diagnosis: Principal (5) Elevated lipase ICD Code: R74.8 Diagnosis: Principal (6) Rectal mass ICD Code: K62.9 Diagnosis: Principal (7) Postmenopausal vaginal bleeding ICD Code: N95.0 Diagnosis: Principal (8) Thigh edema ICD Code: R60.0 Diagnosis: Principal (9) Hypokalemia ICD Code: E87.6 Diagnosis: Principal (10) Edema of both legs ICD Code: R60.0 Diagnosis: Principal (11) Bile leak ICD Code: K83.9 Diagnosis: Principal (12) Hypokalemia due to loss of potassium ICD Code: E87.6 Diagnosis: Principal (13) Colon cancer ICD Code: C18.9 Diagnosis: Principal Procedures 1. Diagnostic laparotomy with a question of large amount of enteric contents from perforated duodenal ulcer. 2. Repair of duodenal ulcer with Jack patch with drainage. Brief History - From Admission This is a 56-year-old female with no significant PMH who presented to the ER with complaints of abdominal pain, nausea and vomiting. States symptoms have been intermittent for approx 5 months, however they have become more frequent over the last 2-3 days. Denies fever, chills or diarrhea. Also notes intermittent vaginal bleeding and BRBPR since the start of her abdominal pain 5 months ago. Has not sought medical attention until now. On arrival, BP 184/81 , HR 88, O2 sat 96% on RA, Afebrile. WBC 13.4. Chemistry essentially unremarkable except for decreased GFR of 67. Lipase 629. Lactic Acid 1.1. UA positive for UTI. Hemoccult positive. CT Abd/Pelvis w/ abnormal appearance of proximal small bowel with thickening and increased enhancement in several loops with associated fluid in the mesentery tracking to the right upper quadrant and moderate amount of free fluid in the pelvis, findings suggestive of neoplastic or infectious process in the hat maker in am. Dr. Evangelista consulted by ER physician , recommended further evaluation by Dr. Kenyon and Gynecology Consult in am. Imaging Last Impressions Upper GI Series 09/06/16 Signed Impressions: Service Date/Time: Tuesday, September 06, 2016 09:58 - CONCLUSION: 1. There is no residual leak. Gino Hinds MD FACR Abdomen X-Ray 09/02/16 Signed Impressions: Service Date/Time: Friday, September 02, 2016 10:43 - CONCLUSION: No acute abnormalities. Postsurgical changes. NG tube with tip in stomach. Gama Medrano MD Lower Extremity Ultrasound 08/31/16 Signed Impressions: Service Date/Time: August 20:40 - CONCLUSION: Negative. No DVT of either lower extremity. Bernardino Rea MD Abdomen/Pelvis CT 08/26/162005 Signed Impressions: Service Date/Time: Friday, August 26, 2016 21:37 - CONCLUSION: Abnormal appearance to proximal small bowel with thickening and increased enhancement in several loops with associated fluid in the mesentery, tracking to the right upper quadrant and a moderate amount of free fluid in the pelvis. No dilated loops of small or large bowel. The findings suggest a neoplastic or infectious process involving the jejunum. Jose Aguilar MD ADDENDUM: On evaluation of the images, there does appear to be some free air in the upper abdomen underneath the hemidiaphragms. There is a small amount of fluid adjacent to the liver. There appears to be some inflammatory changes involving the proximal duodenum. There is some free fluid in the pelvis. These findings were discussed by telephone with the colorectal surgeon. The free air in the upper abdomen an inflammatory-type changes associated with the proximal duodenum suggest a possible perforated peptic ulcer. Lico Thomas MD Abdomen/Pelvis/Transvag US 08/26/16 0000 Signed Impressions: Service Date/Time: Friday, August 26, 2016 23:28 - CONCLUSION: 1. Moderate free fluid complex in appearance. 2. Abnormal endometrial thickening in this postmenopausal patient. 3. The ovaries are not seen. Hemanth Rice MD PE at Discharge GENERAL: Middle-aged white female in no acute distress. HEENT: PERRLA, EOMI. No scleral icterus or conjunctival pallor. No lid lag or facial droop. CARDIOVASCULAR: Regular rate and rhythm. No obvious murmurs to auscultation. No chest tenderness to palpation. RESPIRATORY: No obvious rhonchi or wheezing. Clear to auscultation. Breath sounds equal bilaterally. GASTROINTESTINAL: Abdomen soft, diffuse tenderness to palpation, nondistended. BS normal. Mid abdominal surgical scar with diamante on, healing well. MUSCULOSKELETAL: Extremities without clubbing, cyanosis, or edema. No obvious deformities. NEUROLOGICAL: Awake, alert and oriented x4. No focal neurologic deficits. Moving both upper and lower extremities spontaneously. Pt update on day of discharge Improved. Tolerates PO food. Electrolytes corrected. Feels much better and would like to go home. Cleared for DC by consultants, to followup as OP. Discussed with Dr Gavin gibson/surg Hospital Course (1) GI bleed Plan: Patient with history of bright red blood per rectum, Hemoccult positive. CT abdomen and pelvis with neoplastic versus infectious tele-G, possible enteritis. GI consulted. Patient seen by Dr. Rm from GI, NG tube inserted Patient evaluated by surgery status post diagnostic laparotomy with a question of large amount of enteric contents from perforated duodenal ulcer as well as repair of duodenal ulcer with Jack patch with drainage of intra-abdominal abscess. This was performed and date 08/28/16 GI has signed off. (2) Duodenal ulcer due to nonsteroidal anti-inflammatory drug (NSAID) Plan: As above Status post upper GI series, which shows moderate free air. (3) Perforated duodenal ulcer Plan: Post post multiple surgeries by Dr. Kenyon as detailed above. NG tube placed today. Follow-up general surgery recommendations. 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 will check KUB today - per GS GIO to low wall suction. - as per GS Consult ID - wound culture growing carlos albicans - Patient on Fluconazole 2/ ID consulted, appreciate recommendations. Levaquin and Flagyl discontinued and fluconazole continued as per ID recommendations. Continue antibiotics as per ID. Advanced to regular diet Monitor for refeeding sdr check bmp, mag, phos. (4) UTI (urinary tract infection) Plan: Patient on Levaquin, urine culture grew pansensitive E coli Levaquin stop date to 09/03/16 (5) Elevated lipase Plan: Patient with elevated lipase likely secondary to enteritis and perforated duodenal ulcer. (6) Rectal mass Plan: Possible rectal mass, thickened small bowel with some intraperitoneal fluid, possible small amount of free air with signs of symptoms of ileus versus intestinal obstruction. Follow-up FLUE BLOWER versus oncology recommendations. 2/3 patient is status post examination under anesthesia, biopsies of distal vaginal mass, fractional dilation and curettage, cystoscopy cooperative test. Biopsy of rectal mass. Follow-up pathology. 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 Follow-up FLUE BLOWER oncology recommendations. (7) Postmenopausal vaginal bleeding Plan: Patient presented with postmenopausal vaginal bleeding than 5 months. Check consulted. Transvaginal ultrasound showed abnormal endometrial thickening and moderate free fluid in pelvis. The case was discussed with ENGLISH COMPOSITION TEACHER service, Dr. Mansfield who recommended FLUE BLOWER process on consultation. Dr Cruz consulted. Patient with posterior vaginal wall mass, thickened endometrial stripe and postmenopausal bleeding. Follow-up FLUE BLOWER for stress oncology recommendations. Tentatively exam under anesthesia, biopsies of posterior vaginal wall mass, D&C and cystoscopy. 2. 3 as above. (8) bilateral lower extremity edema Plan: Bilateral edema to thighs. DVT ruled out with venous Dopplers. Patient was given 1 dose of IV Lasix by general surgery. Give Lasix 20 mg by mouth daily. Monitor edema lower extremities DC IVF (9) Hypokalemia Severe protein angel luis malnutrition, low albumin. Plan: Likely secondary to decreased oral intake. Continue to monitor and replace as needed Check mag and phos Consult steel rod buster Prophylaxis: PPI. DVT prophylaxis: SCDs, as per general surgery recommendations. Patient improved, she was walking in the hallways, tolerated PO, electrolyte improved and normal, pain controlled by meds Cleared by consultants for DC. To follow up as OP with PCP and consultants. She was discharged home with home health in stable condition. Pt Condition on Discharge: Stable Discharge Disposition: Disch w/ Home Health Serv Discharge Time: > 30 minutes Discharge Instructions DIET: Follow Instructions for: As Tolerated, No Restrictions Activities you can perform: Regular-No Restrictions Follow up Referrals: Appointment for Follow Up - 1 Week with Angeline Cruz MD Appointment for Follow Up - 1 Week with Fausto Kenyon MD Colorectal Surgery - 10 Days with Bernardino Barreto MD Oncology - 09/17/16 PCP Follow-up - 3-5 Days New Orders: BASIC METABOLIC PROF - 2-3 Days MAGNESIUM (MG) - 2-3 Days New Medications: Fluconazole (Fluconazole) 200 Mg Tab 200 MG PO DAILY Infection #7 Ref 0 TAB Hydrocodone-Acetaminophen (Errol) 5-325 mg Tab 1 TAB PO Q4H PRN PAIN #12 Ref 0 TAB Potassium Bicarb-Chloride Effervescent (Potassium Bicarb-Chloride Effervescent) 25 Meq Tab 25 MEQ PO BIDPC Electrolyte Replacement #60 Ref 0 TAB Calcium Carbonate (Antacid) (Calcium Carbonate (Antacid)) 500 Mg Chew 500 MG CHEW Q12HR low ca/dyspepsia #30 EA Magnesium Oxide (Magnesium Oxide) 241.3 Mg Tab 400 MG PO DAILY low mag #10 TAB Ally Bauman MD Sep 28, 2016 18:22
== END 2016-09-09 12:28 | disposition home health service (06) | DRG 326 ==
LOC: NEPE 19:50 → NEDA 22:33 → N07B 23:15
PROVIDERS: ADMIT Hospitalist; ATTEND Hospitalist
PROC: 0DU907Z Supplement Duodenum with Autologous Tissue Substitute, Open Approach (ICD-10-PCS; 2016-08-28)
PROC: 0UBGXZX Excision of Vagina, External Approach, Diagnostic (ICD-10-PCS; 2016-08-28)
PROC: 0TJB8ZZ Inspection of Bladder, Via Natural or Artificial Opening Endoscopic (ICD-10-PCS; 2016-08-28)
PROC: 0DJD8ZZ Inspection of Lower Intestinal Tract, Via Natural or Artificial Opening Endoscopic (ICD-10-PCS; 2016-08-28)
PROC: 0DBQ7ZX Excision of Anus, Via Natural or Artificial Opening, Diagnostic (ICD-10-PCS; 2016-08-28)
PROC: 0DQ90ZZ Repair Duodenum, Open Approach (ICD-10-PCS; principal; 2016-08-28 09:39)
PROC: 0UBC7ZX Excision of Cervix, Via Natural or Artificial Opening, Diagnostic (ICD-10-PCS; 2016-08-28 09:39)
DX: K26.5 Chronic or unspecified duodenal ulcer with perforation (principal); K65.1 Peritoneal abscess; E43 Unspecified severe protein-calorie malnutrition; B37.89 Other sites of candidiasis; N39.0 Urinary tract infection, site not specified; C79.82 Secondary malignant neoplasm of genital organs; B96.20 Unspecified Escherichia coli [E. coli] as the cause of diseases classified elsewhere; N82.3 Fistula of vagina to large intestine; C20 Malignant neoplasm of rectum; K52.9 Noninfective gastroenteritis and colitis, unspecified; T39.395A Adverse effect of other nonsteroidal anti-inflammatory drugs [NSAID], initial encounter; E87.6 Hypokalemia; D72.825 Bandemia; F17.210 Nicotine dependence, cigarettes, uncomplicated; Z68.27 Body mass index [BMI] 27.0-27.9, adult; Z80.49 Family history of malignant neoplasm of other genital organs
CPT/HCPCS: 74000; 74020; 74177; 74240; 76830; 76856; 76937; 80048; 80053; 80076; 81001; 82378; 82784; 83516; 83605; 83690; 83735; 84100; 84132; 84134; 84155; 84484; 85007; 85025; 85027; 85610; 85652; 85730; 86304; 87015; 87040; 87070; 87077; 87086; 87102; 87116; 87186; 87205; 87206; 87210; 87491; 87591; 88305; 88331; 88341; 88342; 93005; 93970; 93975; 94150; 96361; 96374; 96375; C9113; J0131; J0696; J1170; J1450; J1940; J1956; J2250; J2270; J2370; J2405; J2710; J3010; J3475; J3480; J7030; J7120; Q9963; Q9967

== ENCOUNTER → 2016-10-04 | Day surgery (SDC) | payer BC ==
[~2016-10-04] MED LIST: BUPIVACAINE/EPINEPHRINE 0.5% PF 30 ML VIAL ONE; CALC500C16 CHEW; EFFE25TA PO; FLUC200T2 PO; LACTATED RINGER'S 1000 ML INJ 1,000 ML ONE; LIDOCAINE 1%/EPINEPHrine 1:100,000 SOLN 20 ML VIAL ONE; MAGN400T3 PO; MIDAZOLAM HCL 2 MG/2 ML VIAL ONE; NORC5TAB PO; PROPOFOL 500 MG/50 ML BTL IV ONE; SODIUM CHLORIDE 0.9% INJ 10 ML ONE; ceFAZolin INJ 1,000 MG VIAL ONE
--- NOTE | 2016-10-04 11:09 | TN ---
cc: MADHURI KENYON TIMOTHY DATE OF SURGERY: 10/04/2016 PREOPERATIVE DIAGNOSIS Need of Ommviu-Q-Awch for rectal cancer. POSTOPERATIVE DIAGNOSIS Need of Kfknhl-U-Mpnl for rectal cancer. PROCEDURE Placement of left side Cgoict-K-Noac for chemotherapy. ANESTHESIA TIVA. SURGEON Dr. Kenyon. INDICATION This is a pleasant 56-year-old female who was found to have a rectal cancer in addition to a perforated ulcer that was repaired. She is under the care Dr. Noe Barreto for evaluating a rectal cancer and subsequent treatment. He is setting up radiation and chemotherapy and she needs an Khcmrv-R-Mksm. PROCEDURE The patient was taken to the operating room and placed on the operating table in the supine position. After anesthesia her left shoulder is prepped with Betadine. A time-out was given, antibiotics were given. We cannulate the subclavian vein after anesthetizing the infraclavicular area with a Marcaine solution. Under fluoroscopic guidance we cannulate the subclavian vein, advance the guidewire into the superior vena cava. The introducer dilator is then threaded over the guidewire in the typical Seldinger technique. The 8-[place] Power-Port is utilized and it is threaded in at 20 cm. It is connected to the port. It aspirates blood quite easily and flushed with heparinized saline solution. We then secured to the deep layer with a 3-0 Vicryl and skin is closed with 4-0 Monocryl. Steri-Strips were applied. Sterile bandage was applied. The patient tolerated the procedure well and had no immediate postop complications. Madhuri Kenyon MD JDB/TLL /10:37 AM /10:56 AM
== END | disposition home or self-care (01) ==
LOC: ESDC 08:52
PROVIDERS: ATTEND Surgery
DX: C20 Malignant neoplasm of rectum (principal)
CPT/HCPCS: 00532; 36561; 76000; C1788; J0690; J1642; J2250; J3010; J7120

== ENCOUNTER 2017-04-26 10:45 | Inpatient (IN) | payer BC ==
[~2017-04-26] VITALS: Ht 167.6 cm; Wt 49.0 kg
[~2017-04-26 10:45] MED LIST changes: -BUPIVACAINE/EPINEPHRINE 0.5% PF 30 ML VIAL ONE; -LACTATED RINGER'S 1000 ML INJ 1,000 ML ONE; -LIDOCAINE 1%/EPINEPHrine 1:100,000 SOLN 20 ML VIAL ONE; -MIDAZOLAM HCL 2 MG/2 ML VIAL ONE; -PROPOFOL 500 MG/50 ML BTL IV ONE; -SODIUM CHLORIDE 0.9% INJ 10 ML ONE; -ceFAZolin INJ 1,000 MG VIAL ONE
--- NOTE | 2017-04-26 11:55 | RADRPT ---
EXAM DATE/TIME: 04/26/2017 11:33 [facility] COMPARISON: No previous studies available for comparison. INDICATIONS : Evaluate for pneumonia, pneumothorax or communicable disease/ Pre op for rectal surgery today. MEDICAL HISTORY : rectal cancer growing to vagina SURGICAL HISTORY : duodenal ulcer repair ENCOUNTER: Initial ACUITY: 1 day PAIN SCORE: 0/10 LOCATION: Bilateral chest FINDINGS: A single view of the chest demonstrates the lungs to be symmetrically aerated without evidence of mas s, infiltrate or effusion. The cardiomediastinal contours are unremarkable. Osseous structures are intact. A left chest port catheter is present in satisfactory position. CONCLUSION: No acute disease Bernardino Crouch MD on April 26, 2017 at 11:53 Board Certified Radiologist. This report was verified electronically.
[2017-04-26] MEDS ORDERED: ROCURONIUM INJ 50 MG/5 ML SYRINGE IV PUSH ONE (12:00)
[2017-04-26] MEDS ORDERED: PROPOFOL 200 MG/20 ML AMP IV ONE (12:00)
[2017-04-26] MEDS ORDERED: SODIUM CHLORIDE 0.9% 20 ML VIAL IV ONE (12:00)
[2017-04-26] MEDS ORDERED: LIDOCAINE HCL 1% PF 5 ML AMPULE OTHER ONE (12:00)
[2017-04-26] MEDS ORDERED: LACTATED RINGER'S 1000 ML INJ 4,000 ML IV ONE (12:00)
[2017-04-26] MEDS ORDERED: PHENYLEPH/NS 1000 MCG/10 ML SYR IV ONE (12:00)
[2017-04-26] MEDS ORDERED: DILA4TAB2 PO (12:04)
[2017-04-26] MEDS ORDERED: metroNIDAZOLE 500 MG INJ 100 ML IV ONE (12:15)
[2017-04-26] MEDS ORDERED: SODIUM CHLORIDE 0.9% INJ 100 ML ONE (12:15)
[2017-04-26] MEDS ORDERED: LACTATED RINGER'S 1000 ML INJ 1,000 ML ONE (12:15)
[2017-04-26] MEDS ORDERED: ceFAZolin INJ 1,000 MG VIAL ONE (12:15)
[2017-04-26] MEDS ORDERED: ALVIMOPAN 12 MG CAPSULE ONE (12:15)
--- NOTE | 2017-04-26 13:00 | PD.HP.UP ---
H&P Update Note The Pre-Admit History and Physical Examination regarding the above named patient was reviewed (including, but not limited to, vital signs, heart, lungs, co-morbid conditions), and upon re-examination it is noted that: the patient's condition has not significantly changed since the last examination. Bernardino Barreto MD Apr 26, 2017 13:00
--- NOTE | 2017-04-26 13:19 | PD.WCN.NOT ---
Wound Consult Description: Consult for permanent colostomy marking and teaching pre operatively per Dr Barreto/ELKIN Communicated with: Patient Patient sister Additional Information: Patient seen in [facility] pre op for ostomy marking for permanent colostomy Ostomy Date of Surgery: Apr 26, 2017 Complete: Education materials Educated patient on: Site marking for colostomy Additional information Patient was assessed in lying, sitting, and standing positions. Patient was asked to cough multiple times before and after site marking. Clothing, career, and hobbies taken into consideration for site chosen. Site was marked away from umbilicus and away from rib cage and within the rectus muscle. One site chosen after discussing options with patient. Will follow up with patient post operatively for ostomy assessment and teaching. Khalida Whitten [facility] Apr 26, 2017 13:19
[2017-04-26] MEDS ORDERED: ACETAMINOPHEN 1000 MG/100 ML 100 ML IV ONE (13:35)
[2017-04-26] MEDS ORDERED: MIDAZOLAM HCL 2 MG/2 ML VIAL ONE (13:35)
[2017-04-26] MEDS ORDERED: FAMOTIDINE 20 MG/2 ML VIAL ONE (13:36)
[2017-04-26] MEDS ORDERED: INSULIN HUMAN REGULAR 1,000 UNITS/10 ML VIAL SQ PRN (14:30)
[2017-04-26] MEDS ORDERED: SODIUM CHLORID 0.9% 500 ML IV PRN (14:30)
[2017-04-26] MEDS ORDERED: ceFAZolin 1,000 MG/NS 100 ML IV SCH ×2 (14:30)
[2017-04-26] MEDS ORDERED: LACTATED RINGER'S 1000 ML IV PRN (14:30)
[2017-04-26] MEDS ORDERED: METOPROLOL TARTRATE 25 MG TAB PO PRN (14:30)
[2017-04-26] MEDS ORDERED: ALVIMOPAN 12 MG CAPSULE - On Call PO SCH (14:30)
[2017-04-26] MEDS ORDERED: POVIDONE IODINE 5% (ANTISEPSIS KIT) 4 APPLICATIONS EACH NARE PRN (14:30)
[2017-04-26] MEDS ORDERED: CHLORHEXIDINE GLUCONATE 2 % 1 PACK (2 CLOTHS) TOPICAL PRN (14:30)
[2017-04-26] MEDS ORDERED: METRONIDAZOLE 500 MG/100 ML ISONTONIC SOLN IV SCH (14:45)
[2017-04-26] MEDS ORDERED: DEXT 5%-NACL 0.9% 1000 ML INJ 1,000 ML IV SCH (15:00)
[2017-04-26] MEDS ORDERED: SUGAMMADEX SODIUM 200 MG/2 ML VIAL IV PUSH ONE ×2 (15:32)
--- NOTE | 2017-04-26 16:51 | EKG ---
Date Performed: 04/26/2017 Time Performed: 11:18:08 PTAGE: 57 years EKG: Sinus rhythm WITH SHORT HI INTERVAL BORDERLINE ECG Since PREVIOUS TRACING , no significant change noted PREVIOUS TRACIN08/26/2016 20.53 DOCTOR: Penny Varela Interpretating Date/Time 04/26/2017 16:48:07
[2017-04-26] MEDS ORDERED: HYDROmorphone HCL PF 2 MG/ML VIAL ONE (17:17)
--- NOTE | 2017-04-26 17:19 | MB ---
cc: KIRA CUEVAS MD,EUNICE CHEW,SRIKANTH Vernon MD DATE OF CONSULTATION 04/26/2017 PREOPERATIVE DIAGNOSIS Persistent rectal cancer. She has undergone treatment with persistence of tumor in the pelvis and has a very troublesome symptomatic rectovaginal fistula. I also met with Dr. Kira Cuevas who was consulted to help repair the surgical defect with anticipated plan to use TRAM flap, possible neovagina. I had seen her in consultation in my office at the request of Dr. Noe Barreto with anticipated potential need to be involved surgically from a gynecologic oncology standpoint as the tumor was invading into the posterior vagina. She was seen again prior to surgery and then I checked the status of her case during the operative procedure. Dr. Barreto and Dr. Charles were scrubbed and had progressed very nicely in the necessary radical dissection and transected the descending colon, was formulating a colostomy as the uterus and cervix were uninvolved with tumor. The anterior vagina and bladder, ureters regions were all free of tumor such that they initiated dissection posteriorly to remove approximately the posterior 2/3 of the vagina and subvaginal adjacent tissue and they were working as a team in a combined abdominal perineal approach such that hysterectomy or other input from gynecologic oncology standpoint was not required. MD SHELIA Jacobo/BALJIT /4:36 PM /5:00 PM ZEN
[2017-04-26] MEDS ORDERED: BUPIVACAINE HCL PF 0.25% 30 ML VIAL ONE (17:21)
[2017-04-26] MEDS ORDERED: MUPIROCIN 2% OINT 22 GM TUBE ONE (17:25)
[2017-04-26] MEDS ORDERED: Post-op Orders (for Pharmacy) MISC XX ONE (17:45)
[2017-04-26] MEDS ORDERED: SODIUM CHLORIDE 0.9% FLUSH 10 ML FLUSH IV FLUSH PRN (17:45)
[2017-04-26] MEDS ORDERED: ONDANSETRON HCL 4 MG/2 ML VIAL IV PUSH PRN (17:45)
[2017-04-26] MEDS ORDERED: ENALAPRILAT 1.25 MG/ML VIAL IV PUSH PRN (17:45)
[2017-04-26] MEDS ORDERED: BENZOCAINE 6 MG/MENTHOL 10 MG LOZENGE BUCCAL PRN (17:45)
[2017-04-26] MEDS ORDERED: POTASSIUM CHLOR 40 MEQ PREMIX 100 ML IV PRN (17:45)
[2017-04-26] MEDS ORDERED: POTASSIUM CHLOR 20 MEQ PREMIX 100 ML IV PRN (17:45)
[2017-04-26] MEDS ORDERED: DO NOT ADM ANY ANTICOAGULANT DRUGS PRN (17:49)
[2017-04-26] MEDS ORDERED: *morphine SULFATE 8 MG/ML PERIprocedure ONLY ONE (17:57)
[2017-04-26] MEDS ORDERED: HYDROmorphone HCL PCA 6 MG/30 ML IV ONE (18:00)
[2017-04-26] MEDS: METOCLOPRAMIDE HCL 10 MG/2 ML VIAL IVS SCH ×2 (18:00→23:04)
[2017-04-26] MEDS ORDERED: NALOXONE HCL 0.4 MG/ML AMP IV PUSH PRN (18:15)
[2017-04-26] MEDS: HYDROmorphone HCL PCA 6 MG/30 ML IV SCH ×3 (18:25→23:11)
[2017-04-26] MEDS: ceFAZolin 2 GM PREMIX 50 ML IV SCH (19:12)
[2017-04-26] MEDS: D5-LR + KCL 20 MEQ INJ 1,000 ML IV SCH (19:34)
[2017-04-26 19:42] LABS: AUTOMATED NEUTROPHIL # 13.2 TH/MM3 (1.8-7.7); BASOPHIL % 0.1 % (0.0-2.0); EOSINOPHIL % 0.1 % (0.0-4.0); HEMATOCRIT 38.9 % (35.0-46.0); HEMO FLAGS DIFF FINAL; LYMPH % 2.3 % (9.0-44.0); LYMPHOCYTE # 0.3 TH/MM3 (1.0-4.8); MEAN CELL VOLUME 87.8 FL (80.0-100.0); MEAN CORPUSCULAR HEMOGLOBIN 29.4 PG (27.0-34.0); MEAN CORPUSCULAR HGB CONC 33.5 % (32.0-36.0); MONO % 3.6 % (0.0-8.0); NEUT % 93.9 % (16.0-70.0); PLATELET COUNT 290 TH/MM3 (150-450); RED BLOOD COUNT 4.43 MIL/MM3 (4.00-5.30); RED CELL DISTRIBUTION WIDTH 13.7 % (11.6-17.2)
[2017-04-26] MEDS: FUROSEMIDE 20 MG/2 ML VIAL IV PUSH SCH (20:01)
[2017-04-26] MEDS: metroNIDAZOLE 500 MG INJ 100 ML IV SCH (20:01)
[2017-04-26] MEDS: SODIUM CHLORIDE 0.9% FLUSH 10 ML FLUSH IV FLUSH SCH (20:01)
[2017-04-26 20:04] LABS: BICARBONATE 27.9 MEQ/L (21.0-32.0); POTASSIUM 3.5 MEQ/L (3.5-5.1)
--- NOTE | 2017-04-26 20:17 | MP ---
cc: KIRA CUEVAS MD,MADHURI ALEXADNER MD, ABDUL DATE OF SURGERY 04/26/17 PREOPERATIVE DIAGNOSIS Rectal cancer with large rectovaginal fistula. POSTOPERATIVE DIAGNOSIS Rectal cancer with large rectovaginal fistula. PROCEDURE 1. Abdominal perineal resection with posterior vaginectomy and permanent colostomy 2. Rectus muscle flap reconstruction of vagina - Dr. Kira Cuevas. SURGEON Dr. Sacha Barreto DRILL OPERATOR Dr. Eulalia Charles. Dr. Jamey Cuevas. ANESTHESIA Endotracheal ESTIMATED BLOOD LOSS 300 mL. OPERATIVE FINDINGS This patient first presented to the hospital in July of 2016 with abdominal pain and perforated duodenal ulcer requiring laparotomy. At that time, she was found to have a large rectal carcinoma with rectovaginal fistula. She underwent laparotomy and Jack patch for the duodenal ulcer perforation and had a somewhat prolonged hospital course but was discharged from the hospital on August 2016. After recuperation, she was started on radiation therapy, chemotherapy for this rectal carcinoma and completed that several months ago. She still remained with a bulky ulcerated lesion with a large rectovaginal fistula requiring abdominal perineal resection for this. Because a significant portion of the vaginal wall was going to need to be resected, Dr. Kira Cuevas was consulted from the plastic surgery department and a right rectus muscle and skin flap was used to reconstruct the vagina. Dr. Cuevas will dictate her portion of the procedure. At surgery, exploration of the abdominal cavity reveals that the liver was not really palpable due to adhesions. There was omentum stuck up in the right upper quadrant at the site of the previous duodenal ulcer. The remainder of the abdominal cavity exploration was within normal limits including the colon, small bowel, uterus and tubes. No ovaries were identified. A rectosigmoidectomy/abdominal perineal resection was done with a posterior vaginectomy and Dr. Cuevas reconstructed the vagina and closed the perineum. After mobilization of the abdominal wall, closure of the abdomen was done primarily without use of mesh. OPERATIVE TECHNIQUE The patient was placed on the table in the supine position. After adequate general endotracheal anesthesia, the legs were placed in the perineal lithotomy position and the abdomen and perineum were prepped and draped in usual manner. Midline incision was made from the pubis up to the epigastrium. The linea alba was entered and the peritoneal cavity was entered with the above-mentioned findings. There was not much in the way of adhesions and our attention was turned to the sigmoid colon and descending colon. It was mobilized along its peroneal reflection and the left ureter was identified and protected at all times. The inferior mesenteric artery was clamped, cut and ligated doubly with 0 Vicryl ligatures and the inferior mesenteric vein was clamped, cut and ligated as well. The retrorectal space was entered and the dissection was taken down to the pelvic floor and the lateral pelvic peritoneum was incised bilaterally. Anteriorly the cul-de-sac was seen and entered slightly, but the tumor was anterior in the rectum and through the posterior vaginal wall and the cervix was palpable in the upper vagina and the posterior wall of the vagina was entered just below the cervix. Once this was done, the lateral vaginal monge were excised, especially on the left side, and the tissue lateral to the vagina was excised en bloc with the vaginal wall. Once this was done all the way down near the end of the vagina, Dr. Charles went below and did the perineal resection making an elliptical incision laterally and posteriorly and entering the retrorectal space and the levator muscles were divided bilaterally. Next, the sigmoid was divided with a DAYANNA 55 stapling device after clamping, cutting and ligating the remainder of the sigmoid mesentery and the bowel was delivered through the perineum. Dr. Charles then did the anterior portion of the resection en bloc with the posterior wall of the vagina distal to the ulcerated area. Once this was completed, Dr. Kira Ray did a right rectus muscle and skin mobilization with my assistance and she will dictate her portion of the procedure. She placed that in the pelvis and recreated the posterior wall of the vagina and closed the perineum. I irrigated the abdominal cavity thoroughly with 2 liters of saline solution, aspirated dry and then checked for hemostasis. Once this was done, the bowels were replaced in the abdominal cavity in an rail express clerk manner and the stoma site was created in the left upper quadrant where it was previously marked by the enterostomal nurse. The sigmoid colon was brought out through the stoma site and the abdominal wall was then closed after mobilizing the subcutaneous tissue on both sides of the anterior rectus sheath laterally to the rib cage. There was some upper anterior rectus sheath defect due to the rectus muscle flap that was mobilized to the pelvis as mentioned above. The wound was then closed in a single running layer using a double-stranded #1 PDS from the pubis up to the upper abdomen including both the posterior and anterior rectus sheath on the right side without the rectus muscle present. With the mobilization, there was some tension on this but it was felt that the mesh was not needed. The subcutaneous tissue was then irrigated thoroughly with a liter of saline solution, aspirated dry and then the subcutaneous tissue was again further mobilized laterally, especially on the right side, and the skin was closed with a subcuticular suture in a simple running manner. In the upper portion, the subcutaneous space was closed with interrupted 3-0 Vicryl sutures before doing the subcuticular suture. Once this was done, the colostomy was matured with interrupted 3-0 Vicryl sutures and a 57-mm appliance was placed. Dressings were applied. It should be mentioned there was a drain placed in the pelvis and brought out through a separate stab wound on the left side and a drain placed in the subcutaneous tissue on the right side and brought out through a separate stab wound. Sponge, needle and instrument counts were poor as correct as mentioned above. The patient tolerated the procedure well and left the operating room in good condition. MD KLEBER Flores/ /5:59 PM /7:58 PM
[2017-04-26 21:00] VITALS: BP 139/78; PULSE 72; PULSE 75; RESP 16; TEMP 97.4; O2SAT 100
[2017-04-26 22:00] VITALS: PULSE 74
[2017-04-26] MEDS: PCA - TOTAL MG DILAUDID DELIVERED PER SHIFT SCH (22:34)
[2017-04-26 23:00] VITALS: BP 100/69; PULSE 83; PULSE 84; RESP 14; TEMP 98.3; O2SAT 97
[2017-04-26 23:58] VITALS: PULSE 82
[2017-04-27] VITALS (22 sets, daily range): BP systolic 103–125; BP diastolic 54–70; PULSE 73–95; RESP 14–20; TEMP 97.6–98.7; O2SAT 93–98
[2017-04-27] MEDS: HYDROmorphone HCL PCA 6 MG/30 ML IV SCH ×5 (03:45→18:02)
[2017-04-27] MEDS: ceFAZolin 2 GM PREMIX 50 ML IV SCH ×2 (04:00→11:35)
[2017-04-27] MEDS: METOCLOPRAMIDE HCL 10 MG/2 ML VIAL IVS SCH ×4 (05:22→23:36)
[2017-04-27] MEDS: metroNIDAZOLE 500 MG INJ 100 ML IV SCH ×2 (05:22→11:36)
[2017-04-27] MEDS: KETOROLAC TROMETHAMINE 30 MG/ML (IVP) VIAL IV PUSH PRN ×2 (05:22→21:54)
[2017-04-27] MEDS: PCA - TOTAL MG DILAUDID DELIVERED PER SHIFT SCH ×3 (06:23→22:10)
[2017-04-27 07:36] LABS: AUTOMATED NEUTROPHIL # 13.3 TH/MM3 (1.8-7.7); BASOPHIL % 0.1 % (0.0-2.0); HEMATOCRIT 36.7 % (35.0-46.0); HEMO FLAGS DIFF FINAL; LYMPH % 2.6 % (9.0-44.0); LYMPHOCYTE # 0.4 TH/MM3 (1.0-4.8); MEAN CORPUSCULAR HGB CONC 32.9 % (32.0-36.0); MONO % 3.6 % (0.0-8.0); NEUT % 93.7 % (16.0-70.0); PLATELET COUNT 289 TH/MM3 (150-450); RED BLOOD COUNT 4.17 MIL/MM3 (4.00-5.30); RED CELL DISTRIBUTION WIDTH 13.6 % (11.6-17.2); WHITE BLOOD COUNT 14.2 TH/MM3 (4.0-11.0)
[2017-04-27] MEDS: PANTOPRAZOLE SODIUM 40 MG VIAL IVP SCH (07:39)
[2017-04-27] MEDS: ALVIMOPAN 12 MG CAPSULE - Post-op dosing PO SCH ×2 (07:39→21:53)
[2017-04-27] MEDS: FUROSEMIDE 20 MG/2 ML VIAL IV PUSH SCH ×2 (07:40→21:53)
[2017-04-27] MEDS: SODIUM CHLORIDE 0.9% FLUSH 10 ML FLUSH IV FLUSH SCH ×2 (07:40→21:00)
[2017-04-27] MEDS: HYDROmorphone HCL PF 1 MG/ML VIAL IV PUSH PRN ×3 (07:41→17:57)
[2017-04-27 08:05] LABS: BICARBONATE 31.2 MEQ/L (21.0-32.0); POTASSIUM 3.9 MEQ/L (3.5-5.1)
--- NOTE | 2017-04-27 11:17 | MP ---
cc: IVETT BALES MD DATE OF SURGERY: 04/26/2017 PREOPERATIVE DIAGNOSIS Rectal cancer and rectovaginal fistula. POSTOPERATIVE DIAGNOSIS Rectal cancer and rectovaginal fistula. PROCEDURE PERFORMED rectus abdominis flap to the pelvis was inset in reconstruction of the new vagina with closure of left labial defect. ATTENDING SURGEON Faith. COPIER TECHNICIAN No technology assistant. ANESTHESIA General endotracheal with staff anesthesia. OPERATIVE INDICATION Michelle Vora is a 57-year-old female with a diagnosis of rectal cancer. The cancer is very severe involving multiple pelvic organs. She underwent pelvic exenteration with the colorectal surgeons and they asked me to be involved for reconstruction of the pelvic floor. I discussed the risks and benefits of the case with the patient preoperatively and she wanted to proceed. OPERATIVE NOTE After informed consent was obtained, the patient was taken back to the operating room and placed in supine position under general anesthesia. A timeout was held to identify the patient and the procedure to be performed. Antibiotics were given prior to operative start in the form of intravenous Flagyl. After the colorectal surgeons had finished performing their abdominoperineal resection I directed my attention to the abdomen which had been marked preoperatively. I used the Doppler to Doppler off the perforators from the rectus to the anterior abdominal wall skin. I marked out an ellipse of skin to be taken from the right anterior abdominal wall. I dissected down through the skin and subcutaneous tissues and directly onto the fascia of the rectus. I then mapped out all the blood vessels which were freed up to the skin. These were preserved in their entirety. I carefully incised around the anterior abdominal wall fascia to remove the fascia and a portion of the abdominal wall perforators. I then dissected the entire flap free and tunneled it down into the pelvis. At this point the flap was extremely viable and the skin appeared healthy. Once this flap was matured down into the pelvis our colorectal colleagues proceeded with the closing portion of the case as well as maturation of the ostomy. Therefore, I directed my attention down to the end of the bed where I inset the skin flap at the posterior vaginal wall. This was done with interrupted sutures. Please note that all of these sutures were inset using absorbable sutures. of cervix was preserved with the posterior vaginal wall utilizing a skin flap. The remaining tissue was then collapsed on itself and sutured together with several layers of sutures. I then directed my attention to the defect of the left labia. undermining was performed medially. Interrupted and running sutures were placed to approximate the labial edges. This total closure measured 7 cm. Please note that all counts and instrument counts were correct at the end of the case and I was present and scrubbed for the entire case. MD ROBERT Toledo/EDWARD /10:02 PM /11:03 AM
[2017-04-27] MEDS: D5-LR + KCL 20 MEQ INJ 1,000 ML IV SCH ×2 (11:35→23:36)
--- NOTE | 2017-04-27 12:19 | PD.WCN.NOT ---
Wound Consult Description: Consult for new ostomy teaching of new colostomy per Dr Barreto Communicated with: Patient DANITA Atkins Recommendation: Empty pouch of effluent when 1/3-1/2 full Read educational booklet left in [employer] kit provided Write down any questions you may have for next teaching session this afternoon Additional Information: Patient seen earlier this am @1000 on [facility] for ostomy assessment and teaching. Ostomy Type: Colostomy Surgeon: Bernardino Barreto MD Date of Surgery: Apr 26, 2017 Complete: Education materials, Rx (left on chart) Educated patient on: Write down any questions in back of educational booklet provided Empty pouch when 1/3-1/2 full Supplies ordered from [facility] to take home Obtained verbal consent for starter kit to be sent to patient home Additional information Patient was ambulating prior with DANITA Atkins and now up to chair in room with KNITTING MACHINE FIXER HEAD at bedside. Stoma was visualized on left abdomen underneath binder. Stoma is dark pink, round, moist, lumen noted in center of stoma, functioning with minimal liquid green output and measuring 1 3/4". Appliances from [facility] ordered in size 2 1/4" to go home with and script left on chart. Patient gave verbal consent for [facility] to send out starter kit to home. Patient states that she has no questions at this time and she had a bad night last night. It was explained to patient that racebook writer would like to come back this afternoon for more teaching and discussion before the weekend. Patient agrees and states that she would like to do everything she can to go home. Khalida Whitten [facility] Apr 27, 2017 12:19
--- NOTE | 2017-04-27 15:05 | PD.WCN.NOT ---
Wound Consult Description: Consult for new ostomy teaching of new colostomy per Dr Barreto Communicated with: Patient Milly,RN Recommendation: Empty pouch of effluent when 1/3-1/2 full Read educational booklet left in [employer] kit provided Additional Information: Patient seen again this afternoon for more education and teaching on [facility] Supplies ordered from [facility] for patient to go home with Ostomy Type: Colostomy Surgeon: Bernardino Barreto MD Date of Surgery: Apr 26, 2017 Complete: Starter kit (Verbal consent obtained for [facility] to send out starter kit via 2 day air), Education materials (Replaced By [facility] supplies and educational material given), Rx (left on chart) Educated patient on: Stoma size and appearance Peristomal skin care Supplies How often to change the barrier When to empty the pouch Additional information Patient was seen again on [facility] for more education and teaching and to answer any questions that she may have prior to discharge. Discussed at length with patient what to expect when she is discharged. Khalida Whitten KEKE Apr 27, 2017 15:05
--- NOTE | 2017-04-27 17:04 | HHI.PR ---
Subjective Remarks No N or V. Pain better controlled. Up walking and in chair. Very motivated for D /C. Objective Vital Signs Date Time Temp Pulse Resp B/P (MAP) Pulse Ox O2 Delivery O2 Flow Rate FiO2 04/27/17 16:00 80 04/27/17 15:00 97.9 90 20 122/67 (85) 97 04/27/17 15:00 92 04/27/17 14:38 18 04/27/17 14:00 88 04/27/17 13:52 18 04/27/17 13:00 73 04/27/17 12:00 80 04/27/17 11:00 76 04/27/17 11:00 97.6 73 20 113/57 (75) 98 04/27/17 10:54 20 04/27/17 10:00 95 04/27/17 09:00 84 04/27/17 07:00 98.7 83 20 125/70 (88) 94 04/27/17 06:00 80 04/27/17 05:00 88 04/27/17 04:00 80 04/27/17 03:00 98.2 87 14 125/70 (88) 93 04/27/17 03:00 82 04/27/17 02:00 82 04/27/17 01:00 80 04/26/17 23:58 82 04/26/17 23:00 84 04/26/17 23:00 98.3 83 14 100/69 (79) 97 04/26/17 22:00 74 04/26/17 21:00 72 04/26/17 21:00 97.4 75 16 139/78 (98) 100 04/26/17 20:50 12 04/26/17 20:00 72 16 135/65 (88) 99 Nasal Cannula 2 04/26/17 19:30 75 14 147/69 (95) 100 Nasal Cannula 2 04/26/17 19:15 78 14 137/65 (89) 95 Nasal Cannula 2 04/26/17 18:55 16 04/26/17 18:45 74 14 147/71 (96) 99 Nasal Cannula 2 04/26/17 18:30 77 16 148/80 (102) 96 Nasal Cannula 2 04/26/17 18:25 16 04/26/17 18:15 70 16 152/65 (94) 93 Nasal Cannula 2 04/26/17 18:00 75 16 133/67 (89) 95 Nasal Cannula 2 04/26/17 17:45 97.5 78 16 147/71 (96) 98 Nasal Cannula 2 I/O 04/26/17 04/26/17 04/26/17 04/27/17 04/27/17 04/27/17 07:00 15:00 23:00 07:00 15:00 23:00 Intake Total 4315 ml 2755 ml Output Total 780 ml 1650 ml Balance 3535 ml 1105 ml Intake Oral 480 ml IV Total 215 ml 2275 ml Other 4100 ml Output Urine Total 200 ml 1450 ml Drainage Total 180 ml 200 ml Estimated Blood Loss 400 ml Result Diagram: 04/27/17 0710 04/27/17 0710 Objective Remarks VS-S Abd: flat,soft,colostomy pink Labs and I&Os-OK Assessment and Plan Assessment and Plan Stable POD#1 HHC, CLD, Contiue to ambulate Bernardino Barreto MD Apr 27, 2017 17:04
[2017-04-27] MEDS ORDERED: ALVIMOPAN 12 MG CAPSULE PO SCH (21:00)
[2017-04-28] VITALS (16 sets, daily range): BP systolic 105–121; BP diastolic 54–68; PULSE 69–103; RESP 16–20; TEMP 97.8–98.7; O2SAT 92–97
[2017-04-28] MEDS: HYDROmorphone HCL PCA 6 MG/30 ML IV SCH ×4 (03:40→20:27)
[2017-04-28 05:22] LABS: AUTOMATED NEUTROPHIL # 10.4 TH/MM3 (1.8-7.7); BASOPHIL % 0.1 % (0.0-2.0); EOSINOPHIL # 0.1 TH/MM3 (0-0.4); EOSINOPHIL % 0.6 % (0.0-4.0); HEMO FLAGS DIFF FINAL; LYMPH % 3.8 % (9.0-44.0); LYMPHOCYTE # 0.4 TH/MM3 (1.0-4.8); MEAN CELL VOLUME 87.8 FL (80.0-100.0); MEAN CORPUSCULAR HEMOGLOBIN 29.6 PG (27.0-34.0); MEAN CORPUSCULAR HGB CONC 33.8 % (32.0-36.0); MONO % 3.8 % (0.0-8.0); NEUT % 91.7 % (16.0-70.0); PLATELET COUNT 215 TH/MM3 (150-450); RED BLOOD COUNT 3.41 MIL/MM3 (4.00-5.30); RED CELL DISTRIBUTION WIDTH 13.6 % (11.6-17.2); WHITE BLOOD COUNT 11.3 TH/MM3 (4.0-11.0)
[2017-04-28 05:44] LABS: BICARBONATE 30.6 MEQ/L (21.0-32.0)
[2017-04-28] MEDS: PCA - TOTAL MG DILAUDID DELIVERED PER SHIFT SCH ×3 (06:23→20:30)
[2017-04-28] MEDS: METOCLOPRAMIDE HCL 10 MG/2 ML VIAL IVS SCH ×4 (06:24→23:44)
[2017-04-28] MEDS: HYDROmorphone HCL PF 1 MG/ML VIAL IV PUSH PRN (09:00)
[2017-04-28] MEDS: SODIUM CHLORIDE 0.9% FLUSH 10 ML FLUSH IV FLUSH SCH ×2 (09:00→20:31)
[2017-04-28] MEDS: FUROSEMIDE 20 MG/2 ML VIAL IV PUSH SCH ×2 (10:16→20:31)
[2017-04-28] MEDS: PANTOPRAZOLE SODIUM 40 MG VIAL IVP SCH (10:16)
[2017-04-28] MEDS: ALVIMOPAN 12 MG CAPSULE - Post-op dosing PO SCH ×2 (10:16→20:31)
[2017-04-28] MEDS: D5-LR + KCL 20 MEQ INJ 1,000 ML IV SCH ×2 (10:17→16:58)
--- NOTE | 2017-04-28 10:42 | HHI.PR ---
Subjective Remarks C/R Surg POD #2 afebrile, VSS shereen PO stoma liq output drains mod Objective - Vital Signs Date Time Temp Pulse Resp B/P (MAP) Pulse Ox O2 Delivery O2 Flow Rate FiO2 04/28/17 10:19 18 04/28/17 03:00 98.4 81 107/57 (74) 92 04/26/17 20:00 Nasal Cannula 2 Result Diagram: 04/28/1745104/28/17 045 Objective Remarks PE alert Abd - soft, wound clean, drains serous A/P Assessment and Plan Imp: stable, OOB incr PO DSD prn dc Truman He MD Apr 28, 2017 10:42
[2017-04-29 00:26] VITALS: BP 98/58; PULSE 77; RESP 17; TEMP 98.9; O2SAT 93
[2017-04-29] MEDS: HYDROmorphone HCL PCA 6 MG/30 ML IV SCH ×2 (00:58→07:44)
[2017-04-29 04:30] VITALS: BP 100/56; PULSE 70; RESP 17; TEMP 99.3; O2SAT 93
[2017-04-29] MEDS: PCA - TOTAL MG DILAUDID DELIVERED PER SHIFT SCH (05:00)
[2017-04-29] MEDS: METOCLOPRAMIDE HCL 10 MG/2 ML VIAL IVS SCH (05:26)
[2017-04-29] MEDS: PANTOPRAZOLE SODIUM 40 MG VIAL IVP SCH (07:44)
[2017-04-29] MEDS: FUROSEMIDE 20 MG/2 ML VIAL IV PUSH SCH (07:45)
[2017-04-29] MEDS: SODIUM CHLORIDE 0.9% FLUSH 10 ML FLUSH IV FLUSH SCH ×2 (07:45→20:39)
[2017-04-29] MEDS: ALVIMOPAN 12 MG CAPSULE - Post-op dosing PO SCH ×2 (07:45→20:35)
[2017-04-29 08:00] VITALS: BP 113/61; PULSE 84; RESP 18; TEMP 98; O2SAT 92
--- NOTE | 2017-04-29 10:06 | HHI.PR ---
Subjective Remarks C/R Surg POD #3 afebrile, VSS shereen PO stoma liq output, more solid drains mod Objective - Vital Signs Date Time Temp Pulse Resp B/P (MAP) Pulse Ox O2 Delivery O2 Flow Rate FiO2 04/29/17 08:00 98.0 84 18 113/61 (78) 92 04/26/17 20:00 Nasal Cannula 2 Result Diagram: 04/28/1745104/28/17 045 Objective Remarks PE alert Abd - soft, wound clean, drains serous A/P Assessment and Plan Imp: stable, OOB incr PO DSD prn DC IVF Truman Fang MD Apr 29, 2017 10:06
[2017-04-29] MEDS ORDERED: METOCLOPRAMIDE HCL 10 MG/2 ML VIAL IVS PRN (10:15)
[2017-04-29] MEDS: oxyCODONE/ACETAMINOPHEN 5 MG/325 MG TAB PO PRN ×2 (11:21→17:04)
[2017-04-29 12:00] VITALS: BP 100/59; PULSE 103; RESP 18; TEMP 98.2; O2SAT 96
[2017-04-29] MEDS: HYDROmorphone HCL PF 1 MG/ML VIAL IV PUSH PRN ×2 (12:04→15:02)
[2017-04-29] MEDS: D5-LR + KCL 20 MEQ INJ 1,000 ML IV SCH (12:25)
[2017-04-29 16:00] VITALS: BP 99/54; PULSE 79; RESP 18; TEMP 97.8; O2SAT 97
[2017-04-29] MEDS: HYDROmorphone HCL 4 MG TAB PO PRN ×2 (18:01→22:37)
[2017-04-29 20:00] VITALS: BP 101/56; PULSE 78; RESP 18; TEMP 97.9; O2SAT 96
[2017-04-29] MEDS: KETOROLAC TROMETHAMINE 30 MG/ML (IVP) VIAL IV PUSH PRN (20:35)
[2017-04-30 00:30] VITALS: BP 111/61; PULSE 88; RESP 20; TEMP 96.8
[2017-04-30] MEDS: HEPARIN SODIUM - SQ 10,000 UNITS/ML VIAL SQ SCH ×2 (01:16→12:31)
[2017-04-30] MEDS: HYDROmorphone HCL 4 MG TAB PO PRN ×5 (01:22→20:22)
[2017-04-30] MEDS: D5-LR + KCL 20 MEQ INJ 1,000 ML IV SCH ×2 (01:45→12:33)
[2017-04-30] MEDS: HYDROmorphone HCL PF 1 MG/ML VIAL IV PUSH PRN ×10 (03:09→23:22)
[2017-04-30] MEDS: KETOROLAC TROMETHAMINE 30 MG/ML (IVP) VIAL IV PUSH PRN ×2 (05:17→20:29)
[2017-04-30 08:00] VITALS: BP 100/60; PULSE 65; RESP 20; TEMP 97.5; O2SAT 97
[2017-04-30] MEDS: SODIUM CHLORIDE 0.9% FLUSH 10 ML FLUSH IV FLUSH SCH ×2 (08:31→20:20)
[2017-04-30] MEDS: ALVIMOPAN 12 MG CAPSULE - Post-op dosing PO SCH ×2 (08:31→20:19)
[2017-04-30] MEDS: PANTOPRAZOLE SODIUM 40 MG VIAL IVP SCH (08:31)
--- NOTE | 2017-04-30 10:35 | HHI.FF ---
Face to Face Verification Diagnosis: (1) Colostomy status (2) Cancer of rectum Home Health Nursing Order: Medical education Signs/symptoms of disease process Medication education-adverse effect Wound care and dressing changes Instructions: Colostomy care and teaching and supplies. Empty drains and instruct patient in emptying drains I have seen patient Michelle Vora on 04/30/17. My clinical findings support the need for the requested home health care services because: Ltd mobility - disease progression Deconditioned w/ increased weakness Limited ability to care for self Need for psychosocial assistance High risk of falls I certify that my clinical findings support that this patient is homebound because: Post-op weakness Hx COPD- exertion dyspnea/weakness Unsteady gait/balance Unsafe to leave home unassisted Bernardino Barreto MD Apr 30, 2017 10:35
--- NOTE | 2017-04-30 11:05 | MH ---
cc: VLAD MILES M.D., JOSEPH D. M.D. LENTZ, ASHLEY K. MD TOLLAND, JOHN T. M.D. DATE OF ADMISSION: 04/26/2017 CHIEF COMPLAINT Rectal carcinoma with rectovaginal fistula. HISTORY OF PRESENT ILLNESS This patient originally presented to the hospital in July of 2016 with abdominal pain and perforated duodenal ulcer requiring surgery by Dr. Fausto Kenyon. At that time she was found to have a large rectal cancer with rectovaginal fistula. She was seen by myself and Dr. Angeline Cruz and biopsy of the vaginal fistula showed adenocarcinoma of the rectum. She underwent laparotomy for the ulcer as mentioned. After recuperation she was started on radiation therapy, chemotherapy for this rectal carcinoma and that was completed several months ago. She still remained with a bulky ulcerated rectal carcinoma with a large rectovaginal fistula requiring abdominoperineal resection for this. Because of significant portion of the vaginal wall was going to need to be resected and she has had preoperative radiation therapy and clearly has COPD and vascular disease from smoking, Dr. Kira Cuevas was consulted from the plastic surgery department and a right rectus muscle skin flap was anticipated to reconstruct the vagina and the perineum. PAST MEDICAL HISTORY Past medical history is significant as above. SOCIAL HISTORY, FAMILY HISTORY AND REVIEW OF SYSTEMS Otherwise negative. MEDICATIONS Dilaudid 4 mg p.o. q.4 hours p.r.n. pain. REVIEW OF SYSTEMS Review of systems negative. PHYSICAL EXAMINATION GENERAL: Well-developed thin female, in no acute distress with a large bulky rectal cancer and rectovaginal fistula. SKIN: Warm and dry. HEENT: Extraocular muscles intact. NECK: Supple. CHEST: Clear. S1-S2 is heard. ABDOMEN: Abdomen is flat, soft, nontender without masses. RECTAL: Exam shows a large rectal cancer with rectovaginal fistula. EXTREMITIES: Range of motion within normal limits. Of note, her left great toe is slightly cyanotic and has been that way for a couple of days prior to surgery, according to the patient. It is mildly tender but does have capillary refill. I cannot identify a dorsalis pedis pulse. NEUROLOGIC: Grossly normal. IMPRESSION 1. Large bulky rectal carcinoma with rectovaginal fistula. PLAN 1. Abdominal perineal resection with permanent colostomy. 2. Rectus muscle flap for reconstruction of the perineum by Dr. Kira Cuevas. MD KLEBER Flores/YOLI /10:41 AM /10:55 AM
[2017-04-30 12:00] VITALS: BP_SYST 167; BP_SYST 185; BP_DIAS 76; BP_DIAS 95; PULSE 104; PULSE 80; RESP 19; RESP 20; TEMP 97.8; TEMP 99.9; O2SAT 92; O2SAT 97
--- NOTE | 2017-04-30 12:55 | MD ---
cc: VLAD MILES M.D., KELLY L. MD TOLLAND,EAN Finn M.D. DANIEL NORIEGA,MADHURI Esteban M.D. ADMISSION DATE: 04/26/2017 DISCHARGE DATE: 05/02/2017 [place] Visit Search.Discharge Date ADMISSION DIAGNOSES 1. Rectal carcinoma. 2. Large rectovaginal fistula. DISCHARGE DIAGNOSES 1. Rectal carcinoma. 2. Large rectovaginal fistula. 3. Iliac artery stenosis OPERATIVE PROCEDURE 1. Abdominoperineal resection with posterior vaginectomy and permanent colostomy. 2. Rectus muscle flap reconstruction of vagina and perineum. 3. Iliac artery stent HISTORY This patient first presented to the hospital on July of 2016 with abdominal pain and a perforated duodenal ulcer requiring laparotomy. At that time she was found have a large rectal carcinoma with rectovaginal fistula. She underwent laparotomy and patch for the duodenal ulcer perforation and was discharged from the hospital after a couple of weeks. After recuperation she was started on preoperative radiation therapy and chemotherapy for the rectal carcinoma and that was completed several months prior to this admission. She still remained with a bulky ulcerated rectal cancer with a large rectovaginal fistula requiring abdominoperineal resection. Because of the significant portion of the vaginal wall that was going to need to be resected and the preoperative radiation, Dr. Kira Cuevas and Dr. Angeline Cruz were consulted from the Plastic Surgery Department and the Gynecologic Oncology department and Dr. Cuevas was planning a right rectus muscle skin flap to reconstruct the vagina and the perineum. LABORATORY DATA The pathology report on the removed specimen is not available at this dictation. HOSPITAL COURSE The patient was admitted to the hospital on April 25 ml April 26, 2017 and underwent (1) abdominoperineal resection with posterior vaginectomy and permanent colostomy, (2) Rectus muscle flap reconstruction of the vagina and perineum. On 05/01/2017 she underwent stenting of her left Iliac artery with Dr Nikita Mcclure. On the first postoperative day she looked quite good. She was up walking around and sitting in a chair on the first postoperative day and was started on clear liquids. Of note, she had an ischemic cyanotic left great toe preoperatively and it was noted on the operating table as well. At that time it had good capillary refill. When I saw her on the first postoperative day her toe was quite pink and she said it felt much better. She continued to do well and was placed on full liquid diet on the second postoperative day and on the third postoperative day. She was placed on a regular diet. When I saw her on the fourth postoperative day she said that her left great toe was starting to bother her more and it was somewhat cyanotic. For this reason consult was placed to Dr. Daniel Noriega and I spoke with him personally. She eventually needed a Left Iliac artery stent with return of pulses in her left leg. She was D/C on 05/02/2017. DISCHARGE INSTRUCTIONS She was instructed to follow up with Dr. Cuevas in one days' time and with me in 2 weeks time for drain removal. She was instructed to no driving for 2 weeks, to do no heavy lifting for 6 weeks and she was discharged with hydromorphone 4 mg one q.4-6 hours p.r.n. pain. She was instructed to call me with any problems. MD KLEBER Flores/ALEXIA /10:46 AM /12:43 PM ZEN
--- NOTE | 2017-04-30 13:58 | PD.WCN.NOT ---
Wound Consult Description: Consult for new ostomy teaching of new colostomy per Dr Barreto Communicated with: Patient JennyRN Dr Martinez Recommendation: Empty pouch of effluent when 1/3-1/2 full Go through [facility] kit provided and write down any questions you may have Additional Information: Patient seen on for ostomy assessment and teaching with change of pouch from urostomy pouch to colostomy pouch. Ostomy Type: Colostomy Surgeon: Bernardino Barreto MD Date of Surgery: Apr 26, 2017 Complete: Starter kit (Verbal consent obtained for [facility] to send out starter kit via 2 day air), Education materials ([facility] supplies and educational material given), Rx (left on chart) Educated patient on: How to change the pouch How to open and close the end of the pouch When to empty pouch How to inspect the barrier for wear Color and shape of stoma Measuring stoma for correct barrier size Additional information Patient was up to chair in room upon entering for assessment of stoma with sister at bedside. Stoma was visualized on left abdomen with an intact barrier and urostomy pouch in place. Stoma is pink, round, moist, lumen noted in center of stoma, functioning with minimal soft liquid green output and measuring 1 1/2 ". Appliances from [facility] were ordered in size 2 1/4" last week and are at bedside for patient to go home with and script was also left on chart. Patient gave verbal consent for [facility] to send out starter kit to home which should be arriving Sunday. Patient states that she has been having pain in her left great toe which is a blue/purple color and blanchable. It was explained to patient that the urostomy pouch needed to be changed to the appropriate colostomy pouch and asked if she would like to change the entire appliance. Patient states that if we could change the pouch only that would be great since Vascular was going to be coming by to check her pulses soon. Urostomy pouch was removed and patient was given the correct colostomy pouch to close and apply to the flange on her intact barrier. Barrier was inspected for breakdown and explained to patient. Dr Martinez came to bedside after pouch was placed. Patient is supposed to be having a study today or tomorrow morning. Patient will be followed up on by teletypewriter operator if in house tomorrow. Khalida Whitten [facility] Apr 30, 2017 13:58
[2017-04-30 16:00] VITALS: BP 92/55; PULSE 75; RESP 19; TEMP 97.5; O2SAT 98
[2017-04-30] MEDS ORDERED: IOHEXOL 350 MG/ML 10 ML VIAL (for RAD DIAG) IVCONTRAST ONE (17:11)
[2017-04-30 20:00] VITALS: BP 124/56; PULSE 80; RESP 17; TEMP 97.9; O2SAT 99
[2017-04-30] MEDS: ZOLPIDEM TARTRATE 5 MG TAB PO PRN (23:21)
[2017-05-01] VITALS (12 sets, daily range): BP systolic 99–167; BP diastolic 55–76; PULSE 56–80; RESP 16–20; TEMP 96.8–99.9; O2SAT 93–99
[2017-05-01] MEDS: HYDROmorphone HCL 4 MG TAB PO PRN ×5 (01:57→21:56)
[2017-05-01] MEDS: HYDROmorphone HCL PF 1 MG/ML VIAL IV PUSH PRN ×5 (03:03→10:23)
[2017-05-01] MEDS: D5-LR + KCL 20 MEQ INJ 1,000 ML IV SCH ×2 (04:25→15:40)
[2017-05-01] MEDS: PANTOPRAZOLE SODIUM 40 MG VIAL IVP SCH (07:37)
[2017-05-01] MEDS: ALVIMOPAN 12 MG CAPSULE - Post-op dosing PO SCH ×2 (07:38→20:35)
[2017-05-01] MEDS: SODIUM CHLORIDE 0.9% FLUSH 10 ML FLUSH IV FLUSH SCH ×2 (07:38→20:35)
--- NOTE | 2017-05-01 08:24 | RADRPT ---
EXAM DATE/TIME: 04/30/2017 17:05 [place] COMPARISON: CT ABDOMEN & PELVIS W CONTRAST, August 26, 2016, 21:37. INDICATIONS : Left lower extremity pain. IV CONTRAST: 80 cc Omnipaque 350 (iohexol) IV RADIATION DOSE: 1.25 CTDIvol (mGy) MEDICAL HISTORY : Carcinoma, rectal. SURGICAL HISTORY : rectal surgery ENCOUNTER: Initial ACUITY: 1 day PAIN SCALE: 7/10 LOCATION: Left lower extremity TECHNIQUE: Volumetric scanning was performed using a multi-row detector CT scanner. The data was post processed with a variety of visualization algorithms including full volume maximum intensity projection, multi -planar sliding thin slab reformation, curved planar reformation, and surface rendering techniques. Using automated exposure control and adjustment of the mA and/or kV according to patient size, radiat ion dose was kept as low as reasonably achievable to obtain optimal diagnostic quality images. DICO M format image data is available electronically for review and comparison. FINDINGS: There is 11 mm nodule in the right lower lobe. Malignancy is not excluded. PET/CT scan is recommended to further evaluation if clinically indicated. There is a second 13 mm nodule in the left lower lobe . The liver and spleen are normal in size and no focal defects are identified. The gallbladder and panc reas are unremarkable. No intrahepatic or extrahepatic ductal dilatation is seen. The adrenal glands are unremarkable. The right kidney is unremarkable. There is a single simple cyst in the left kidney measuring 3.5 cm. An ostomy is present in the left lower quadrant. The aorta is normal in caliber. There is no evidence of aneurysm or dissection. The renal artery orig ins are patent bilaterally. The celiac axis and superior mesenteric artery origins are also patent. There is focal stenosis involving both common iliac artery origins to be amenable to stenting. Examination right lower extremity demonstrates the common femoral artery to be patent. The superficia l femoral artery is patent. The popliteal artery is patent. There is two vessel runoff to the ankle v ia the posterior tibial and peroneal branch On the left side the femoral artery is patent. The superficial femoral artery is patent. The poplitea l artery is patent. There is two vessel runoff to the ankle via the posterior tibial and peroneal bra [facility]. CONCLUSION: 1. Possible inflow stenosis at the level of aortic bifurcation. This would be amenable to endovascula r repair. 2. Bilateral lower lobe pulmonary nodule suspicious for metastatic disease. PET/CT scan is recommende d to further evaluation if clinically indicated. Roge Jain MD on May 01, 2017 at 8:02 Board Certified Radiologist. This report was verified electronically.
[2017-05-01] MEDS ORDERED: MIDAZOLAM HCL 2 MG/2 ML VIAL ONE ×2 (11:18→12:37)
[2017-05-01] MEDS ORDERED: ceFAZolin 2 GM PREMIX 50 ML ONE (11:46)
[2017-05-01] MEDS ORDERED: HEPARIN SODIUM - IV 10,000 UNITS/10 ML VIAL ONE (12:09)
[2017-05-01] MEDS ORDERED: STERILE WATER FOR INJECTION 10 ML VIAL ONE (12:09)
[2017-05-01] MEDS ORDERED: ALTEPLASE RECOMBINANT 2 MG VIAL I-ARTERIAL ONE (12:10)
[2017-05-01] MEDS ORDERED: HYDROmorphone HCL PF 2 MG/ML VIAL ONE ×2 (12:20→12:36)
[2017-05-01] MEDS ORDERED: HEPARIN-D5W 25,000 U/250 ML 250 ML ONE (13:27)
[2017-05-01] MEDS ORDERED: HEPARIN-D5W 25,000 U/250 ML 250 ML IV PRN (13:30)
--- NOTE | 2017-05-01 13:35 | PD.RAD ---
Post Procedure Progress Note Pre Procedure Diagnosis: (1) Claudication of left lower extremity (2) Iliac artery stenosis, left Post Procedure Diagnosis: (1) Iliac artery stenosis, left (2) Claudication of left lower extremity Procedure Date: May 01, 2017 Supervising Radiologist: Nikita Mcclure Proceduralist/Assist: London Pacheco, RT(R), Sixto Moon, RT(R) Anesthesia: Local, Analgesia, Conscious Sedation Plan of Activity Patient to Unit: ROPU Patient Condition: Good See PACS Report for procedural detail/treatment Vascular-Arterial Procedure Procedure 1 Procedure Site: Left Leg Procedure(s): Angiogram, Stent Placement (left common/external iliac artery) Access Access Site(s): Right Femoral Artery Closure Site(s): Right vascular closure device (PerClose) Findings: High grade stenosis left VANCE with evidence of soft plaque. Stent placed antegrade with 7mm distal protection. 4 mg TPA after stent. Moderate mottling left great and second toe with good pulse and excellent capillary refill. No emboli to trifurcation Nikita Mcclure MD May 01, 2017 13:35
--- NOTE | 2017-05-01 13:49 | MB ---
cc: EAN BARRETO M.D., JAMES DATE OF CONSULTATION: 04/30/2017 REASON FOR CONSULTATION Left lower extremity ischemia. HISTORY OF PRESENT ILLNESS This 57-year-old female in January presented to the [facility] with rectal bleeding. In addition to rectal cancer perforating into the vaginal vault, she was also found to have a perforated duodenal ulcer. She underwent duodenal ulcer repair and recovered without complication. She subsequently received combined radiation and chemotherapy and last week abdominoperineal resection with pelvic exoneration by Drs. Barreto and Nancy. She has recovered uneventfully. Two days prior to her most recent operative intervention, she developed acute ischemic symptoms within the left leg manifested by coolness, pallor and vague discomfort extending from the knee into the toes. Prior to the acute onset of symptoms she was very active without any ischemic complaints. She participated in daily Anthony exercises and was ambulating freely without claudication in her left leg. PAST MEDICAL/SURGICAL HISTORY, MEDICATIONS, ALLERGIES, REVIEW OF SYSTEMS, SOCIAL/FAMILY HISTORY: Are well-documented in the [facility] records - I have reviewed and will not reiterate. PHYSICAL EXAMINATION GENERAL: A well-developed, well-nourished 57-year-old female with pleasant affect. LUNGS: Symmetrically expanded and clear. CARDIAC: Rhythm is sinus. NECK: Carotid upstrokes are brisk without bruits. No neck vein distension or HJR. ABDOMEN: A midline laparotomy incision extends from the xyphoid to the pubis and appears to be healing without complication. The abdomen is scaphoid, soft and free of any peritoneal signs. No palpable masses, hepatic or splenic enlargement. EXTREMITIES: Good joint range of motion. No edema. The left leg exhibits ischemic trophic changes as manifested by diminished capillary refill and warmth. The left great toe exhibits diffuse cyanosis. Femoral pulses are 2+ on the right, nonpalpable on the left. Right popliteal and pedal pulses are easily palpable. Left popliteal and pedal pulses are nonpalpable. Doppler flow is monophasic within the left posterior tibial. IMPRESSION Limb-threatening left lower extremity ischemia secondary to left iliac inflow occlusive disease. RECOMMENDATIONS Proceed with CT angiogram and revascularization, depending upon angiographic images. Thank you for allowing me to participate in this nice lady's care. MD IGNACIO Marks/EDWARD /1:35 PM /1:43 PM
[2017-05-01] MEDS ORDERED: KETOROLAC TROMETHAMINE 60 MG/2 ML (IM) VIAL IM ONE (13:52)
[2017-05-01] MEDS: KETOROLAC TROMETHAMINE 30 MG/ML (IVP) VIAL IV PUSH PRN ×2 (13:57→20:35)
[2017-05-01] MEDS ORDERED: IODIXANOL 320 MG/ML 50 ML VIAL (for RAD SPEC) I-ARTERIAL ONE (13:59)
--- NOTE | 2017-05-01 16:00 | RADRPT ---
EXAM DATE/TIME: 05/01/2017 10:53 [facility] COMPARISON: No previous studies available for comparison. INDICATIONS : Patient presents with iliac stenosis in need of angiogram with stent placement. MEDICAL HISTORY : Rectal carcinoma Rectovaginal fistula Duodenal ulcer Chemotherapy Radiation therapy COPD Vascular disease SURGICAL HISTORY : Laparotomy Abdominoperineal resection Colostomy ENCOUNTER: Initial ACUITY: 1 week PAIN SCORE: 4/10 LOCATION: Bilateral abdomen FLUORO TIME: 17.6 minutes IMAGE SERIES: 13 ACCESS SITE: Right Femoral artery SEDATION TIME: 60 minutes CONTRAST: 1.) 65 cc Visipaque (iodixanol) MEDICATION(S): 1.) 7 mg midazolam (Versed) IV 2.) 4 mg hydromorphone (Dilaudid) IV 3.) 300 mcg fentanyl (Sublimaze) IV 4.) 4 mg TPA IART 5.) 3000 units Heparin IV Prophylactic antibiotics were administered with appropriate pre-procedure timing. Vancomycin within 2 hrs of procedure, Ancef (or alternative) within 1 hr of procedure. DEVICE(S): 1.) Left common femoral artery 7.00 mm SpideRX embolic protection 2.) Left common iliac artery Protege 9x60mm 80cm stent (self expanding) 3.) Left common iliac artery Meek 8x40mm 135cm [employer] balloon 4.) Right superficial femoral artery 6fr Perclose PROCEDURE : 1. Ultrasound-guided puncture of the access site. 2. Angiography of the access site prior to closure device. 3. Conscious sedation with continuous EKG and Oximetry monitoring. 4. Percutaneous closure of the access site. 5. Angiography of the left common femoral artery 6. 7 mm distal embolic protection. 7. stent placement, left common and external iliac arteries. The risks, benefits and alternatives to the procedure were explained and verbal and written consent w as obtained. The site was prepped in sterile fashion. Full sterile technique was used, including ca p, mask, sterile gloves and gown and a large sterile sheet. Hand hygiene and 2% chlorhexidine and/or betadine/alcohol prep was utilized per protocol for cutaneous antisepsis. Sterile gel and sterile p robe cover were utilized for ultrasound guidance. The skin and subcutaneous tissues were infiltrated with local anesthetic solution. Patient's prior CTA was reviewed. This showed severe disease in the left common iliac artery a with possible regional soft plaquing suggesting acute on chronic process. In conjunction with the relative new onset of symptoms, approximately 2 weeks ago, and findings of e mbolic disease to the first and second digit of the affected lower extremity, I felt it was prudent t o attempt an antegrade approach to repair with distal protection to limit peripheral embolic disease. As such, access was obtained in the right groin region. With ultrasound and fluoroscopic guidance the selected artery was punctured and a vascular sheath was placed. Angiography of the common femoral artery was performed for evaluation prior to percutaneous closure device placement. Over the wire and through the sheath, the Omni Flush catheter was advanced to the aortic bifurcation. Hand-injection showed severe disease with eccentric sequential stenosis in the common iliac. The ext ernal iliac, profunda and SFA all appeared to be patent down to the trifurcation.. Wire was exchanged for a stiff angle Glidewire to facilitate placement of a 7 Georgian 55 cm Rabbe montemayor th. This was advanced past the area of stenosis in the common iliac. A 100 cm straight glide catheter was advanced over the wire and the wire was used to determine the appropriate stent length. 7 mm by direct vascular was then advanced through the glide catheter and deployed in the common femoral arter y/distal external junction. The 9 mm x 6 cm Proteg stent was then advanced over the wire and into th e sheath. The sheath was then withdrawn proximal to the bifurcation. Contrast injection was performed to confirm stent position. The stent was then deployed. Contrast injection showed adequate coverage of the diseased segment but there were still areas of hypodensity suggesting concentric plaque. There fore, the stent was balloon angioplastied to 8 mm. Final run showed excellent flow through the previo usly diseased region with no significant residual stenosis. A spot run over the trifurcation again, s howed patent flow with no embolic disease to the runoff vasculature. Hemostasis was obtained with the prescribed medicated closure device. Conscious sedation was perform ed with the prescribed dosages and duration as above in the presence of an independent trained radiol ogy nurse to assist in the monitoring of the patient. EKG and oximetry remained stable throughout th e procedure. CONCLUSION: 1. Severe disease in the left common iliac artery with findings of calcified and soft plaquing. This may represent an acute on chronic process. 2. Successful stenting of the same area with distal protection to limit embolization. 3. Post stenting and balloon angioplasty, there was advent of palpable pedal pulses with no find ings of embolic disease. 4. Due to the nature of the plaque, the patient will be kept on a heparin drip overnight. If there ar e no issues in the a.m., I will start the patient on Plavix regimen with a 300 mg loading dose. Patie nt should be on antiplatelet agent for at least 6-12 weeks to maintain stent patency. The importance of smoking cessation was also emphasized to both the patient and her family members present Nikita Mcclure MD on May 01, 2017 at 15:30 Board Certified Radiologist. This report was verified electronically.
[2017-05-01] MEDS ORDERED: HYDROmorphone HCL PF 1 MG/ML VIAL IV PUSH PRN (16:15)
[2017-05-01 22:17] LABS: HEMATOCRIT 26.5 % (35.0-46.0); MEAN CELL VOLUME 86.9 FL (80.0-100.0); MEAN CORPUSCULAR HEMOGLOBIN 29.3 PG (27.0-34.0); MEAN CORPUSCULAR HGB CONC 33.7 % (32.0-36.0); PLATELET COUNT 232 TH/MM3 (150-450); RED BLOOD COUNT 3.05 MIL/MM3 (4.00-5.30); RED CELL DISTRIBUTION WIDTH 13.5 % (11.6-17.2); REVIEW FLAG FINAL; WHITE BLOOD COUNT 5.3 TH/MM3 (4.0-11.0)
[2017-05-01 22:27] LABS: APTT (PATIENT) 36.1 SEC (24.3-30.1); PROTHROMBIN TIME - PATIENT 10.7 SEC (9.8-11.6)
[2017-05-02] MEDS: HYDROmorphone HCL 4 MG TAB PO PRN ×4 (00:41→09:50)
[2017-05-02] MEDS: ZOLPIDEM TARTRATE 5 MG TAB PO PRN (00:41)
[2017-05-02 00:42] VITALS: BP 102/58; PULSE 72; RESP 16; TEMP 97.5; O2SAT 97
[2017-05-02] MEDS: KETOROLAC TROMETHAMINE 30 MG/ML (IVP) VIAL IV PUSH PRN ×2 (03:31→11:01)
[2017-05-02 04:08] LABS: APTT (PATIENT) 41.8 SEC (24.3-30.1)
[2017-05-02] MEDS: D5-LR + KCL 20 MEQ INJ 1,000 ML IV SCH (07:05)
[2017-05-02 08:00] VITALS: BP 96/53; PULSE 68; RESP 18; TEMP 97.6; O2SAT 98
[2017-05-02] MEDS: ALVIMOPAN 12 MG CAPSULE - Post-op dosing PO SCH (08:57)
[2017-05-02] MEDS: PANTOPRAZOLE SODIUM 40 MG VIAL IVP SCH (08:57)
[2017-05-02] MEDS: SODIUM CHLORIDE 0.9% FLUSH 10 ML FLUSH IV FLUSH SCH (08:57)
[2017-05-02] MEDS ORDERED: CLOPIDOGREL 300 MG TAB PO ONE (09:00)
[2017-05-02] MEDS ORDERED: COMMODE BEDSIDE1 MI1 (18:35)
[2017-05-03] MEDS ORDERED: CLOPIDOGREL 75 MG TAB PO SCH (09:00)
== END 2017-05-02 12:52 | disposition home or self-care (01) | DRG 329 ==
LOC: HSDI 10:45 → HCIS 20:06 → N07B 04-28 19:58
PROVIDERS: ADMIT Colon & Rectal Surgery; ATTEND Colon & Rectal Surgery
PROC: 0D1M0Z4 Bypass Descending Colon to Cutaneous, Open Approach (ICD-10-PCS; 2017-04-26)
PROC: 0DTP0ZZ Resection of Rectum, Open Approach (ICD-10-PCS; 2017-04-26)
PROC: 0WUF07Z Supplement Abdominal Wall with Autologous Tissue Substitute, Open Approach (ICD-10-PCS; 2017-04-26)
PROC: 0DTQ0ZZ Resection of Anus, Open Approach (ICD-10-PCS; 2017-04-26)
PROC: 0UQG0ZZ Repair Vagina, Open Approach (ICD-10-PCS; 2017-04-26)
PROC: 0UTG0ZZ Resection of Vagina, Open Approach (ICD-10-PCS; principal; 2017-04-26 13:38)
PROC: 0DTN0ZZ Resection of Sigmoid Colon, Open Approach (ICD-10-PCS; 2017-04-26 13:38)
PROC: 047D341 Dilation of Left Common Iliac Artery with Drug-eluting Intraluminal Device, using Drug-Coated Balloon, Percutaneous Approach (ICD-10-PCS; 2017-05-01)
PROC: 047J341 Dilation of Left External Iliac Artery with Drug-eluting Intraluminal Device, using Drug-Coated Balloon, Percutaneous Approach (ICD-10-PCS; 2017-05-01)
DX: C20 Malignant neoplasm of rectum (principal); K26.5 Chronic or unspecified duodenal ulcer with perforation; N82.3 Fistula of vagina to large intestine; I73.9 Peripheral vascular disease, unspecified; I70.8 Atherosclerosis of other arteries; J44.9 Chronic obstructive pulmonary disease, unspecified; Z92.3 Personal history of irradiation; Z92.21 Personal history of antineoplastic chemotherapy
CPT/HCPCS: 37221; 71010; 75635; 75710; 76937; 80048; 85025; 85027; 85610; 85730; 86850; 86900; 86901; 87070; 87205; 88305; 88309; 93005; 94150; 99152; 99153; C1725; C1760; C1769; C1876; C1884; C1887; C1894; C9113; J0131; J0690; J1170; J1644; J1885; J1940; J2250; J2270; J2370; J2765; J2997; J3010; J3480; J7042; J7120; Q9967

== ENCOUNTER 2017-05-09 14:25 | Day surgery (SDC) | payer BC ==
[~2017-05-09 14:25] MED LIST changes: -CALC500C16 CHEW; +COMMODE BEDSIDE1 MI1; +DILA4TAB2 PO; -EFFE25TA PO; -FLUC200T2 PO; -MAGN400T3 PO; -NORC5TAB PO
--- NOTE | 2017-05-17 08:05 | RADRPT ---
EXAM DATE/TIME: 05/09/2017 14:41 [facility] COMPARISON : No previous studies available for comparison. INDICATIONS : FOLLOW UP LEFT ILIAC ANGIO WIT STENTING OBJECTIVE: Temperature: 98.0 Heart Rate: 68 Blood Pressure: 88/48 Respiratory: 16 Oximetry: 99 PNEUMONIA VACCINE: HISTORY OF PRESENT ILLNESS: 57-year-old female with history of blue toe syndrome and severe left common iliac artery plaquing sta tus post uncomplicated stent placement. Patient had an uneventful hospital course. Patient reports si gnificantly improved discoloration of the left great toe but notes excoriation particularly along the dorsal and lateral aspect of the great toe. PAST MEDICAL HISTORY : ILIAC STENTING PAST SURGICAL HISTORY : ABDOMINOPERINEAL RESECTION COLOSTOMY SOCIAL HISTORY : 1. NKDA 1. Plavix (Clopidogrel Bisulfate) 2. DILAUDID 4 mg PHYSICAL EXAMINATION: General: No acute distress Left lower extremity: Mild discoloration and excoriation of the left great toe. Otherwise, unremarkable. Vascular: Palpable dorsalis pedal and posterior tibial artery pulses on the left. Dopplerable left great toe di gital artery. ASSESSMENT: Status post left iliac artery stenting for blue toe syndrome with excellent postoperative course. The re is now excellent flow to the left great toe with expected excoriation and hyperemia. PLAN: Patient was reassured regarding the expected postoperative appearance of the toe and advised to conta ct our office if there are any changes particularly ulceration, gangrene or fever. TIME SPENT: 20 minutes Nestor Majano MD on May 17, 2017 at 7:53 Board Certified Radiologist. This report was verified electronically.
== END 2017-05-09 16:00 | disposition home or self-care (01) ==
LOC: HROP 14:25 → HRIP 14:26 → HROP 16:00
PROVIDERS: ATTEND Radiology Body Imaging
DX: I70.202 Unspecified atherosclerosis of native arteries of extremities, left leg (principal)
CPT/HCPCS: 99212; G0463

== ENCOUNTER 2018-05-19 17:18 | Inpatient (IN) ==
[2018-05-19] MEDS ORDERED: HYDROmorphone PF Inj 2 MG/ML Vial IV.PUSH ONE ×3 (18:02→22:38)
[2018-05-19 18:24] LABS: Baso % (Auto) 0.2 % (0.0-2.0); Eos # (Auto) 0.1 th/mm3 (0.0-0.4); Eos % (Auto) 2.3 % (0.0-4.0); Hematocrit 35.5 % (35.0-46.0); Hemoglobin 12.1 gm/dL (11.6-15.3); Lymph # (Auto) 0.3 th/mm3 (1.0-4.8); Lymph % (Auto) 5.1 % (9.0-44.0); Mean Corpuscular HGB Conc 34.1 % (32.0-36.0); Mean Corpuscular Hemoglobin 30.7 pg (27.0-34.0); Mean Platelet Volume 7.4 fL (7.0-11.0); Mono # (Auto) 0.4 th/mm3 (0.0-0.9); Mono % (Auto) 6.9 % (0.0-8.0); Neut # (Auto) 4.8 th/mm3 (1.8-7.7); Neut % (Auto) 85.5 % (16.0-70.0); Platelet Count 224 th/mm3 (150-450); Red Blood Count 3.95 mil/mm3 (4.00-5.30); Red Cell Distribution Width 16.7 % (11.6-17.2); White Blood Count 5.6 th/mm3 (4.0-11.0)
[2018-05-19 18:42] LABS: Albumin 3.3 g/dL (3.4-5.0); Anion Gap 9 meq/L (5-15); Aspartate Aminotransferase 16 U/L (15-37); Blood Urea Nitrogen 10 mg/dL (7-18); Calcium 8.3 mg/dL (8.5-10.1); Carbon Dioxide 23.7 meq/L (21.0-32.0); Chloride 107 meq/L (98-107); Glomerular Filtration Rate 70 mL/min (>89); Glucose,Random 145 mg/dL (74-106); Lipase 126 U/L (73-393); Magnesium 1.6 mg/dL (1.5-2.5); Potassium 3.9 meq/L (3.5-5.1); Sodium 140 meq/L (136-145)
[2018-05-19 18:43] LABS: Alanine Aminotransferase 17 U/L (10-53)
[2018-05-19 18:45] LABS: Alkaline Phosphatase 136 U/L (45-117); Total Protein 7.2 g/dL (6.4-8.2)
--- NOTE | 2018-05-19 19:17 | ED ---
HPI General Chief complaint: Extremity Problem,Nontraumatic Stated complaint: leg pain Time Seen by Provider: 05/19/18 17:56 History of Present Illness HPI narrative: Patient is a 58-year-old female presents emergency department for evaluation of fairly sudden onset left lower extremity pain. Patient has a history of rectal cancer status post rectal resection and permanent colostomy. She states that several hours prior to presentation patient had fairly sudden onset of left lower extremity pain as well as pain over her vagina and pain in her sacrum area. Patient states she has a history of a chronic nonhealing wound initially attributed the pain to this. She also has a history of either a stenting or a graft to her left leg and states that she had problems for circulation down her left leg and is concerned about this as well. No fevers no cough no congestion no nausea no vomiting. 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) Surgical History Surgical History History of colostomy (Acute ~04/26/17) History of laparotomy (Acute ~08/28/16) Status post insertion of iliac artery stent (Acute ~2016) Family History Family History Sister Cervical cancer Social History Social History Substance History: No History of Abuse Second Hand Smoke Exposure: No Smoking Status: Former smoker Tobacco Type: Cigarettes Packs Per Day: 1 Cigarettes Per Day: 20.0 Years Smoked: 40 Pack-Years: 40.00 Smoking End Date: 04/2017 How Often Do You Have a Drink Containing Alcohol: Monthly or less Recent Travel in [facility] within the Last 8 Weeks: No Recent Out of Country Travel within the Last 8 Weeks: No Immunization History Tetanus Immunization: Unsure Exam Narrative Exam Narrative: GENERAL: Well-developed well-nourished, appears quite uncomfortable limiting exam SKIN: Focused skin assessment warm/dry. Appears to have chronic candidal infection perianally. HEAD: Atraumatic. Normocephalic. EYES: Pupils equal and round. No scleral icterus. No injection or drainage. ENT: No nasal bleeding or discharge. Mucous membranes pink and moist. NECK: Trachea midline. No JVD. CARDIOVASCULAR: Regular rate and rhythm. No murmur appreciated. RESPIRATORY: No accessory muscle use. Clear to auscultation. Breath sounds equal bilaterally. GASTROINTESTINAL: Abdomen soft, non-tender, nondistended. Hepatic and splenic margins not palpable. MUSCULOSKELETAL: No obvious deformities. No clubbing. No cyanosis. No edema. Patient is in such extreme pain that she is limited in her evaluation of muscle strength bilateral lower extremities however she has bounding dorsalis pedis pulses of both lower extremities and cap refill is brisk in all 10 digits of the lower extremities. Sensation is normal but when the patient sits up she has extreme pain and has a positive straight leg raise. NEUROLOGICAL: Awake and alert. No obvious cranial nerve deficits. Motor grossly within normal limits. Normal speech. PSYCHIATRIC: Appropriate mood and affect; insight and judgment normal. Course Initial Documented Vital Signs Temperature 98.2 F 05/19/18 17:27 Pulse Rate 102 H 05/19/18 17:27 Respiratory Rate 32 H 05/19/18 17:27 Blood Pressure 164/74 H 05/19/18 17:27 Pulse Oximetry 100 05/19/18 17:27 Last Documented Vital Signs Temperature 97.8 F 05/20/18 09:00 Pulse Rate 64 05/20/18 09:00 Respiratory Rate 18 05/20/18 09:00 Blood Pressure 132/62 05/20/18 09:00 Pulse Oximetry 99 05/20/18 09:00 Critical Care Time Critical Care Time: Yes Total Critical Care Time: 42 Attestation: Aggregate critical care time was 42 minutes. Time to perform other separately billable procedures was not included in the critical care time. My time did not include minutes spent treating any other patients simultaneously or on activities that did not directly contribute to the patient's treatment. The services I provided to this patient were to treat and/or prevent clinically significant deterioration that could result in: Cardiovascular collapse from sepsis related to wound infection, versus acute arterial occlusion I provided critical care services requiring my management, as noted below: Chart data review, documentation time, medication orders and management, vital sign assessments/reviewing monitor data, ordering and reviewing lab tests, ordering and interpreting/reviewing x-rays and diagnostic studies, care of the patient and discussion of the patient with the admitting physicians. Sign Out Sign Out Data: Patient Sign Out occurred on 05/19/18 at 20:12. Patient's care was discussed, and care was transferred from Aime Rothman MD to Milli Sy MD. Sign Out Comment: Follow up MRI in this patient with history of rectal ca. LLE pain today and has loss of urine without sensation. Last updated by Aime Rothman MD at 05/19/18 19:28 Post-Handoff Eval: The patient's case was checked out to me by Dr. Rothman. Please see his initial history and physical. The patient's case was checked out to me at the conclusion of his shift. The patient reports multiple concerns to me on my initial evaluation. #1, the patient reports that since yesterday she has had pain, numbness and tingling in the left leg. She reports that today she is noticed some change in the coloration of the left leg that is coming and going. She reports that she had a history of stent placement approximately 1 year ago. The patient additionally reports that she has a history of rectal cancer with metastasis. She reports that she last had chemotherapy 4 months ago, however as she had a significant amount of weight loss she was given a break from the chemotherapy. She reports that she has metastasis to the lung noted. She reports that since having the rectal cancer resected a year ago and a colostomy placed by Dr. Ernandez she has had a chronic wound on the buttock area. She reports that over the last 3 weeks this has increased in size and now she is starting to have pelvic pain, vaginal pain and swelling, and groin pain. General: The patient is a well-developed well-nourished female, uncomfortable appearing on my arrival to room. Head and Neck exam: Head is normocephalic atraumatic. Eyes: EOMI, pupils are equal round and reactive to light. Nose: Midline septum with pink mucous membranes Mouth: Dentition unremarkable. Moist mucus membranes. Posterior oropharynx is not erythematous. No tonsillar hypertrophy. Uvula midline. Airway patent. Neck: No palpable lymphadenopathy. No nuchal rigidity. No thyromegaly. Cardiovascular: Regular rate and rhythm without murmurs, gallops, or rubs. No pulse deficit to the extremities on simultaneous auscultation and palpation of her radial artery. Lungs: Clear to auscultation bilaterally. No wheezes, rhonchi, or rales. Abdomen: Soft, with some mild erythema noted along the lower pelvis and suprapubic area. Patient reports tenderness on palpation overlying the suprapubic area. No other tenderness on palpation of the other quadrants of the abdomen. No guarding, rebound, or rigidity. Normal bowel sounds are audible. Negative Flynn's sign. Extremities: No clubbing, cyanosis, or edema. Patient has pallor of the left leg compared to the right. The patient has no palpable pulse in the left foot with diminished capillary refill and coolness to the left foot. A Doppler was done to evaluate for a dopplerable pulse. The patient was noted to have a an audible pulse in the dorsalis pedis that was quite soft. Back: No spinous process tenderness to palpation. No costovertebral angle tenderness to palpation. Neurologic Exam: Grossly nonfocal. Skin Exam: No rash noted. The patient on examination of her back is noted to have a wound without any active drainage in the gluteal fold, however there is surrounding tenderness on palpation. The patient is also noted to have erythema to the buttock area with induration most prominent along the right buttock, associated with erythema and induration involving the labia majora. During the course of the patient's emergency department visit, the patient's history, examination, and differential diagnosis were reviewed with the patient. The patient was placed on a personnel monitor with oximetry and frequent blood pressure monitoring. The patient had IV access obtained and blood work sent for analysis. A left lower extremity ultrasound was ordered. A CTA with runoff of the lower extremities was ordered. The patient was provided Dilaudid for pain, Zofran for nausea. The patient's diagnostic studies are remarkable for a CBC that shows a normal white count, normal hemoglobin, platelets of 224 with 85.8 neutrophils PTT 24.3 , chemistry is remarkable for a GFR of 70, glucose 145, calcium 8.3, alk phos 136, albumin 3.3. Urinalysis showed no acute abnormality. An ultrasound of the left lower extremity showed no evidence of DVT, lumbar spine MRI showed a broad-based left paracentral disc protrusion with lateral left recess stenosis, normal alignment of the lumbar spine, conus medullaris is intact, no significant central canal stenosis. CTA with runoff revealed occlusion of the iliac artery. I did discuss this further with the interventional radiologist on -call regarding the possibility of acute intervention. I spoke to Dr. Smallwood. After reviewing the images he explained that as the patient has a history of rectal cancer with metastasis a vascular surgery consultation would be preferred as the risk of bleeding would be too high through IR intervention. I also asked Dr. mSallwood to review the images regarding the possibility of an abscess. He explained that there is induration down into the pelvis, however no abscess formation. I then spoke to Dr. Felix, the vascular surgeon on- call, who did agree to see the patient in consultation. He recommended that the patient be started on heparin as a drip. I spoke to Dr. Barreto, the patient's colorectal surgeon regarding the patient's admission. He will also see the patient in consultation. Lastly, I spoke to the hospitalist, Dr. Lees , who did agree to admit the patient for further evaluation and treatment at this time. The patient's results were discussed with the patient, including the plan of care. I explained that further testing and/ or monitoring is indicated based on the patient's history, examination, and/ or laboratory findings. Therefore, I recommended admission for additional evaluation. The patient expressed understanding and was agreeable with this plan. The patient was admitted to the hospital in guarded condition and sent to a bed under the care of the [facility] service. Medical Decision Making MDM Narrative Medical decision making narrative: Patient room in the emergency department, several chronic issues including peripheral vascular disease, cancer of the rectum. She appears quite uncomfortable when she arrived and was given a milligram of Dilaudid IV. While being evaluated by nursing it was noted the patient was urinating on herself and she did not even feel it. I think that cauda equina really needs to be entertained in this woman and I have ordered an MRI of her lumbar spine. The patient was discussed with Dr. Sy at 1900 shift change will follow up the MRI and disposition the patient properly. Medical Screen Exam Complete: Yes Emergency Medical Condition: Yes Differential Diagnosis Differential Diagnosis: Chronic pain, pathologic fracture, cauda equina is a possibility. Lab Data Result diagrams: 05/20/18 04:52 05/20/18 04:52 Lab Results 05/19/18 05/19/18 05/19/18 Range/Units 18:11 18:11 22:10 WBC 5.6 (4.0-11.0) th/mm3 RBC 3.95 L (4.00-5.30) mil/mm3 Hgb 12.1 (11.6-15.3) gm/dL Hct 35.5 (35.0-46.0) % MCV 90.0 (80.0-100.0) fL MCH 30.7 (27.0-34.0) pg MCHC 34.1 (32.0-36.0) % RDW 16.7 (11.6-17.2) % Plt Count 224 (150-450) th/mm3 MPV 7.4 (7.0-11.0) fL Neut % (Auto) 85.5 H (16.0-70.0) % Lymph % (Auto) 5.1 L (9.0-44.0) % [place] % (Auto) 6.9 (0.0-8.0) % Eos % (Auto) 2.3 (0.0-4.0) % Baso % (Auto) 0.2 (0.0-2.0) % Neut # (Auto) 4.8 (1.8-7.7) th/mm3 Lymph # (Auto) 0.3 L (1.0-4.8) th/mm3 [place] # (Auto) 0.4 (0.0-0.9) th/mm3 Eos # (Auto) 0.1 (0.0-0.4) th/mm3 Baso # (Auto) 0.0 (0.0-0.2) th/mm3 WBC Differential . Differential Comment Auto diff final PT (9.8-11.6) sec INR Ratio APTT (24.3-30.1) sec Sodium 140 (136-145) meq/L Potassium 3.9 (3.5-5.1) meq/L Chloride 107 (98-107) meq/L Carbon Dioxide 23.7 (21.0-32.0) meq/L Anion Gap 9 (5-15) meq/L BUN 10 (7-18) mg/dL Creatinine 0.83 (0.50-1.00) mg/dL Estimated GFR 70 L (>89) mL/min Random Glucose 145 H (74-106) mg/dL Calcium 8.3 L (8.5-10.1) mg/dL Magnesium 1.6 (1.5-2.5) mg/dL Total Bilirubin 0.3 (0.2-1.0) mg/dL AST 16 (15-37) U/L ALT 17 (10-53) U/L Alkaline Phosphatase 136 H (45-117) U/L Total Protein 7.2 (6.4-8.2) g/dL Albumin 3.3 L (3.4-5.0) g/dL Lipase 126 (73-393) U/L Urine Color Straw (Yellw/Straw) Urine Clarity Clear (Clear) Urine pH 6.0 (5.0-8.5) Ur Specific [place] 1.016 (1.002-1.035) Urine Protein Negative (Neg-Trace) mg/dL Urine Glucose (UA) Negative (Negative) mg/dL Urine Ketones Negative (Negative) mg/dL Urine Occult Blood Negative (Negative) Urine Nitrate Negative (Negative) Urine Bilirubin Negative (Negative) Urine Urobilinogen Less than 2 (Less than 2) mg/dL Ur Leukocyte Esterase Negative (Negative) Urine RBC Less than 1 (0-3) /hpf Urine WBC 1 (0-5) /hpf Ur Squamous Epith Cells <1 (0-5) /hpf Micro UA Comment Culture not ind Ur Microscopic Review Not Reportable Urine Culture Comments Culture not ind 05/19/18 05/20/18 05/20/18 Range/Units 23:00 04:52 04:52 WBC 4.6 (4.0-11.0) th/mm3 RBC 3.57 L (4.00-5.30) mil/mm3 Hgb 11.1 L (11.6-15.3) gm/dL Hct 32.5 L (35.0-46.0) % MCV 91.0 (80.0-100.0) fL MCH 31.2 (27.0-34.0) pg MCHC 34.3 (32.0-36.0) % RDW 16.9 (11.6-17.2) % Plt Count 187 (150-450) th/mm3 MPV 7.5 (7.0-11.0) fL Neut % (Auto) 82.2 H (16.0-70.0) % Lymph % (Auto) 8.6 L (9.0-44.0) % M[place] % (Auto) 8.4 H (0.0-8.0) % Eos % (Auto) 0.5 (0.0-4.0) % Baso % (Auto) 0.3 (0.0-2.0) % Neut # (Auto) 3.8 (1.8-7.7) th/mm3 Lymph # (Auto) 0.4 L (1.0-4.8) th/mm3 Mingo # (Auto) 0.4 (0.0-0.9) th/mm3 Eos # (Auto) 0.0 (0.0-0.4) th/mm3 Baso # (Auto) 0.0 (0.0-0.2) th/mm3 WBC Differential . Differential Comment Auto diff final PT 10.7 (9.8-11.6) sec INR 1.1 Ratio APTT 24.3 65.5 H D (24.3-30.1) sec Sodium (136-145) meq/L Potassium (3.5-5.1) meq/L Chloride (98-107) meq/L Carbon Dioxide (21.0-32.0) meq/L Anion Gap (5-15) meq/L BUN (7-18) mg/dL Creatinine (0.50-1.00) mg/dL Estimated GFR (>89) mL/min Random Glucose (74-106) mg/dL Calcium (8.5-10.1) mg/dL Magnesium (1.5-2.5) mg/dL Total Bilirubin (0.2-1.0) mg/dL AST (15-37) U/L ALT (10-53) U/L Alkaline Phosphatase (45-117) U/L Total Protein (6.4-8.2) g/dL Albumin (3.4-5.0) g/dL Lipase (73-393) U/L Urine Color (Yellw/Straw) Urine Clarity (Clear) Urine pH (5.0-8.5) Ur Specific [place] (1.002-1.035) Urine Protein (Neg-Trace) mg/dL Urine Glucose (UA) (Negative) mg/dL Urine Ketones (Negative) mg/dL Urine Occult Blood (Negative) Urine Nitrate (Negative) Urine Bilirubin (Negative) Urine Urobilinogen (Less than 2) mg/dL Ur Leukocyte Esterase (Negative) Urine RBC (0-3) /hpf Urine WBC (0-5) /hpf Ur Squamous Epith Cells (0-5) /hpf Micro UA Comment Ur Microscopic Review Urine Culture Comments 05/20/18 Range/Units 04:52 WBC (4.0-11.0) th/mm3 RBC (4.00-5.30) mil/mm3 Hgb (11.6-15.3) gm/dL Hct (35.0-46.0) % MCV (80.0-100.0) fL MCH (27.0-34.0) pg MCHC (32.0-36.0) % RDW (11.6-17.2) % Plt Count (150-450) th/mm3 MPV (7.0-11.0) fL Neut % (Auto) (16.0-70.0) % Lymph % (Auto) (9.0-44.0) % [place] % (Auto) (0.0-8.0) % Eos % (Auto) (0.0-4.0) % Baso % (Auto) (0.0-2.0) % Neut # (Auto) (1.8-7.7) th/mm3 Lymph # (Auto) (1.0-4.8) th/mm3 [place] # (Auto) (0.0-0.9) th/mm3 Eos # (Auto) (0.0-0.4) th/mm3 Baso # (Auto) (0.0-0.2) th/mm3 WBC Differential Differential Comment PT (9.8-11.6) sec INR Ratio APTT (24.3-30.1) sec Sodium 141 (136-145) meq/L Potassium 3.6 (3.5-5.1) meq/L Chloride 106 (98-107) meq/L Carbon Dioxide 28.0 (21.0-32.0) meq/L Anion Gap 7 (5-15) meq/L BUN 8 (7-18) mg/dL Creatinine 0.76 (0.50-1.00) mg/dL Estimated GFR 78 L (>89) mL/min Random Glucose 111 H (74-106) mg/dL Calcium 7.7 L (8.5-10.1) mg/dL Magnesium (1.5-2.5) mg/dL Total Bilirubin 0.3 (0.2-1.0) mg/dL AST 15 (15-37) U/L ALT 14 (10-53) U/L Alkaline Phosphatase 112 (45-117) U/L Total Protein 6.3 L D (6.4-8.2) g/dL Albumin 2.9 L (3.4-5.0) g/dL Lipase (73-393) U/L Urine Color (Yellw/Straw) Urine Clarity (Clear) Urine pH (5.0-8.5) Ur Specific [place] (1.002-1.035) Urine Protein (Neg-Trace) mg/dL Urine Glucose (UA) (Negative) mg/dL Urine Ketones (Negative) mg/dL Urine Occult Blood (Negative) Urine Nitrate (Negative) Urine Bilirubin (Negative) Urine Urobilinogen (Less than 2) mg/dL Ur Leukocyte Esterase (Negative) Urine RBC (0-3) /hpf Urine WBC (0-5) /hpf Ur Squamous Epith Cells (0-5) /hpf Micro UA Comment Ur Microscopic Review Urine Culture Comments Imaging Data Radiologist's impression: Lumbar Spine MRI 05/19/18 19:11 CONCLUSION: 1. At L3-4 there is a broad-based left paracentral disc protrusion with left lateral recess stenosis. 2. Normal alignment of the lumbar spine. Conus medullaris intact. No significant central canal stenosis. Venous Doppler Study 05/19/18 20:22 CONCLUSION: 1. Negative for deep venous thrombosis. Mildly enlarged left inguinal lymph node. Small left popliteal cyst measuring about 1 cm. Aorta w/Runoff CTA 05/19/18 20:35 CONCLUSION: 1. Acute occlusion of the left inflow with reconstitution of the common femoral. Runoff is seen to the ankle joint and delusional effect from the proximal occlusion prevents adequate evaluation of the distal trifurcation vessels. 2. Patent inflow with mild outflow disease. Runoff via the posterior tibial artery. 3. Metastatic involvement of the lungs has progressed from the prior examination. 4. Bilateral hydronephrosis which is new from the prior examination of December 2017. 5. Mild inflammatory change involving the subcutaneous fat involving the perineum. No abscess. 6. Soft tissue thickening involving the presacral soft tissues. This may simply be postsurgical in nature. Discharge Plan Discharge Disposition Patient Disposition: 30 Still Patient Discharge Details Diagnosis: Iliac artery occlusion, left Physicians Team ED Provider: Milli Sy Primary Care Provider: UNKNOWN, Attending Provider: Will Mcgraw Other Providers: Bernardino Barreto ; Higinio Felix Status ED Status: Left Department Discharge Information Discharge Date/Time: 05/19/18 23:41
--- NOTE | 2018-05-19 20:19 | MR ---
EXAM DATE: 05/19/2018 7:21 PM EDT AGE/SEX: 58 years / Female INDICATIONS: . Bilateral lower extremity weakness. CLINICAL DATA: This is the patient's initial encounter. Patient reports that signs and symptoms have been present for 1 day and indicates a pain score of 0/10. MEDICAL/SURGICAL HISTORY: Carcinoma, rectal. Colostomy. Stent placed in her leg to restore flow to her left foot one year previous. COMPARISON: No prior exams available for comparison. TECHNIQUE: Multiplanar, multisequence MRI of the lumbar spine was performed without contrast. Patie nt was scanned in a sitting position; neutral, flexion, and extension scans were performed in the sa gittal plane. FINDINGS: At [id number]-G4 there is no significant abnormality at the disc interspace. Mild facet arthropathy. T here is bilateral hydronephrosis noted incidentally. At L3-4 there is a broad-based left paracentral disc protrusion with mild left lateral recess stenosi s At L4-5 there is mild facet arthropathy without significant canal or foraminal stenosis. At L5-S1 there is a minimal disc bulge and facet arthropathy without stenosis. CONCLUSION: 1. At L3-4 there is a broad-based left paracentral disc protrusion with left lateral recess stenosis . 2. Normal alignment of the lumbar spine. Conus medullaris intact. No significant central canal steno sis. Electronically signed by: Fausto Mistry MD 05/19/2018 8:17 PM EDT
[2018-05-19] MEDS ORDERED: Sod Chloride 0.9% Inj 1,000 ML IV.SIG ONE (20:22)
[2018-05-19] MEDS ORDERED: Vancomycin Inj 1 GM/200 ML PIGGYBACK IV.SIG ONE (20:27)
[2018-05-19] MEDS ORDERED: Piperacil/Tazo 3.375 GM Premix 50 ML IV.SIG ONE (20:27)
--- NOTE | 2018-05-19 20:57 | US ---
EXAM DATE: 05/19/2018 8:22 PM EDT AGE/SEX: 58 years / Female INDICATIONS: Left leg swelling. CLINICAL DATA: This is the patient's subsequent encounter. Patient reports that signs and symptoms h ave been present for 1 month and indicates a pain score of 4/10. MEDICAL/SURGICAL HISTORY: . Colorectal cancer. Left leg swelling. None. [place] [facility] [place]. . TECHNIQUE: Venous ultrasound of both lower extremities was performed from the inguinal ligament to t he proximal calf. Real-time, color Doppler and spectral tracing, compression and augmentation techni ques were used. FINDINGS: Normal compression of the deep venous system from the inguinal region to the proximal calf . No echogenic clot is seen. Normal response of the venous system to augmentation and respiration. CONCLUSION: 1. Negative for deep venous thrombosis. Mildly enlarged left inguinal lymph node. Small left poplite al cyst measuring about 1 cm. Electronically signed by: Fausto Mistry MD 05/19/2018 8:55 PM EDT
[2018-05-19 22:29] LABS: Bilirubin,Urine Negative (Negative); Clarity,Urine Clear (Clear); Color,Urine Straw (Yellw/Straw); Glucose,Urine (UA) Negative (Negative); Leukocyte Esterase,Urine Negative (Negative); Nitrite,Urine Negative (Negative); Specific Gravity,Urine 1.016 (1.002-1.035); Squamous Epithelial Cell,Urine <1 /hpf (0-5)
[2018-05-19] MEDS ORDERED: Vancomycin Consult Pharmacy OTHER PRN (22:37)
[2018-05-19] MEDS ORDERED: Acetaminophen 325 MG Tablet PO PRN (22:39)
[2018-05-19] MEDS ORDERED: Bisacodyl 10 MG Supp RECTAL PRN (22:39)
--- NOTE | 2018-05-19 22:41 | P.HPIM ---
History of Present Illness Primary Care Physician: UNKNOWN [facility] - History History Provided By: Patient - Medical History Medical History: Medical History (Last Updated 05/19/18 @ 17:49 by Itzel Gorman) Colorectal cancer - Tobacco History Second Hand Smoke Exposure: No Tobacco Use In Past 30 Days: No Smoking Status: Never smoker Tobacco Type: Cigarettes - Alcohol History How Often Do You Have a Drink Containing Alcohol: Monthly or less - Substance Use History Substance History: No History of Abuse - Travel History Recent Travel in the [place] Within the Last 8 Weeks: No Recent Travel Out of the Country Within the Last 8 Weeks: No - Immunization History Tetanus Immunization: Unsure Medications and Allergies Active Medications: Active Medications Acetaminophen (Tylenol) 650 mg PO Q4H PRN PRN Reason: Temp > 100.4 Hydrocodone Bitart/Acetaminophen ([place] 10/325) 1 tab PO Q4H PRN PRN Reason: PAIN 3-5 Al Hydroxide/Mg Hydroxide (Milk Of Magnesia Liq) 30 ml PO Q12H PRN PRN Reason: Mild Constipation Bisacodyl (Dulcolax Supp) 10 mg RECTAL DAILY PRN PRN Reason: SEVERE CONSITIPATION Vancomycin HCl 1,000 mg/ (Sodium Chloride) 250 mls @ 200 mls/hr IV.SIG ONCE ONE Stop: 05/20/18 00:14 Heparin Sodium/Dextrose (Heparin/D5w 25,000 U/250 Ml) 25,000 unit in 250 mls @ 0 mls/hr IV.CONT TITRATE PRN; Protocol PRN Reason: Per Protocol Cefepime HCl 1,000 mg/ Sodium (Chloride) 100 mls @ 200 mls/hr IV.SIG Q12H MERLE Lactulose (Lactulose Liq) 30 ml PO DAILY PRN PRN Reason: SEVERE CONSITIPATION Sodium Chloride (Ns Flush) 2 ml IV.FLUSH PRN PRN PRN Reason: FLUSH AFTER USING IV ACCESS Last Admin: 05/19/18 21:00 Dose: 2 ml Allergies Allergy/AdvReac Type Severity Reaction Status Date / Time No Known Allergies Allergy Uncoded 04/26/17 11:22 Home Medications Medication Instructions Recorded Confirmed Type No Known Home Medications 05/19/18 05/19/18 History Exam Vital signs: Vital Signs 05/19/18 17:27 05/19/18 17:48 05/19/18 19:01 Temperature 98.2 F Pulse Rate 102 H 97 H 91 H Respiratory Rate 32 H 18 16 Blood Pressure 164/74 H 148/91 H 148/77 H Pulse Oximetry 100 100 97 Intake & Output 05/19/18 05/19/18 05/20/18 06:59 18:59 06:59 Weight 61.235 kg Results - Labs CBC & Chem 7: 05/19/18 18:11 05/19/18 18:11 Labs: Short CBC 05/19/18 Range/Units 18:11 WBC 5.6 (4.0-11.0) th/mm3 Hgb 12.1 (11.6-15.3) gm/dL Hct 35.5 (35.0-46.0) % Plt Count 224 (150-450) th/mm3 BMP 05/19/18 18:11 Sodium 140 Potassium 3.9 Chloride 107 Carbon Dioxide 23.7 BUN 10 Creatinine 0.83 Calcium 8.3 L Liver Function 05/19/18 Range/Units 18:11 Total Bilirubin 0.3 (0.2-1.0) mg/dL AST 16 (15-37) U/L ALT 17 (10-53) U/L Alkaline Phosphatase 136 H (45-117) U/L Albumin 3.3 L (3.4-5.0) g/dL Urine 05/19/18 Range/Units 22:10 Urine Color Straw (Yellw/Straw) Urine Clarity Clear (Clear) Urine pH 6.0 (5.0-8.5) Ur Specific [place] 1.016 (1.002-1.035) Urine Protein Negative (Neg-Trace) mg/dL Urine Glucose (UA) Negative (Negative) mg/dL - Imaging Impressions Lumbar Spine MRI 05/19/18 19:11 CONCLUSION: 1. At L3-4 there is a broad-based left paracentral disc protrusion with left lateral recess stenosis. 2. Normal alignment of the lumbar spine. Conus medullaris intact. No significant central canal stenosis. Venous Doppler Study 05/19/18 20:22 CONCLUSION: 1. Negative for deep venous thrombosis. Mildly enlarged left inguinal lymph node. Small left popliteal cyst measuring about 1 cm. Caprini VTE Risk Assessment Caprini Risk Assessment Model: Point Value = 1 Point Value = 2 Point Value = 3 Point Value = 5 Age 41-60 Minor surgery BMI > 25 kg/m2 Swollen legs Varicose veins or History of unexplained or recurrent spontaneous Oral contraceptives or hormone replacement Sepsis (< 1 month) Serious lung disease, including pneumonia (< 1 month) Abnormal pulmonary function Acute myocardial infarction Congestive heart failure (< 1 month) History of inflammatory bowel disease Medical patient at bed rest Age 61-74 Arthroscopic surgery Major open surgery (> 45 min) Laparoscopic surgery (> 45 min) Malignancy Confined to bed (> 72 hours) Immobilizing plaster cast Central venous access Age >= 75 History of VTE Family history of VTE Factor V Leiden Prothrombin [id number] Lupus anticoagulant Anticardiolipin antibodies Elevated serum homocysteine Heparin-induced thrombocytopenia Other congenital or acquired thrombophilia Stroke (< 1 month) Elective arthroplasty Hip, pelvis, or leg fracture Acute spinal cord injury (< 1 month) Prophylaxis Regimen: Total Risk Factor Score Risk Level Prophylaxis Regimen 0-1 Low Early ambulation 2 Moderate Order ONE of the following: *Sequential Compression Device (SCD) *Heparin 5000 units SQ BID 3-4 Higher Order ONE of the following medications: *Heparin 5000 units SQ TID *Enoxaparin/Lovenox 40 mg SQ daily (WT < 150 kg, CrCl > 30 mL/min) *Enoxaparin/Lovenox 30 mg SQ daily (WT < 150 kg, CrCl > 10-29 mL/min) *Enoxaparin/Lovenox 30 mg SQ BID (WT < 150 kg, CrCl > 30 mL/min) AND/OR *Sequential Compression Device (SCD) 5 or more Highest Order ONE of the following medications: *Heparin 5000 units SQ TID (Preferred with Epidurals) *Enoxaparin/Lovenox 40 mg SQ daily (WT < 150 kg, CrCl > 30 mL/min) *Enoxaparin/Lovenox 30 mg SQ daily (WT < 150 kg, CrCl > 10-29 mL/min) *Enoxaparin/Lovenox 30 mg SQ BID (WT < 150 kg, CrCl > 30 mL/min) AND *Sequential Compression Device (SCD)
[2018-05-19] MEDS ORDERED: Vancomycin Inj 1,000 MG in Sodium Chlor 0.9% Inj 250 ML IV.SIG ONE (23:00)
[2018-05-19] MEDS ORDERED: Sodium Chloride 0.9% 2 ML Flush PRN IV.FLUSH (23:14)
[2018-05-19 23:25] LABS: Activated Partial Thrombo Time 24.3 sec (24.3-30.1); INR 1.1 Ratio; Prothrombin Time 10.7 sec (9.8-11.6)
--- NOTE | 2018-05-19 23:32 | P.HPIM ---
History of Present Illness Service: [facility] hospitalists . Primary Care Physician: UNKNOWN Chief Complaint: Left lower extremity pain History of Present Illness: Ms. 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 She was found to have a left iliac occlusion and was admitted to the hospitalist service for further medical management. The patient is seen in her hospital room on [facility]. She is very pleasant and cooperative. She reports significant improvement in LLE pain since receiving IV Dilaudid in the ER. She is complaining of nausea and actively vomited twice while I was in the room. She reports no relief from IV zofran given in ED. Patient reports that her left leg and left perineal region began swelling a " few days ago" but left lower extremity pain and pallor began abruptly today. She reports that her pain is in the whole leg and this differs from the occlusion she had of the left iliac in 2017 when she just had great toe pain. Inpatient Certification: I certify that the inpatient services were ordered in accordance with Medicare regulations governing the order. This includes certification that hospital inpatient services are reasonable and necessary and in the case of services not specified as inpatient-only under 42 CFR 419.22(n), that they are appropriately provided as inpatient services in accordance to with the 2-midnight benchmark under 43 CFR 412.3(e) Estimated Total Length of Stay (Days): 2 Plans for Post Hospital Care: Not yet determined Review of Systems All other systems reviewed negative except as stated in HPI [facility] - History History Provided By: Patient - Medical History Medical History: Medical History (Last Updated 05/20/18 @ 01:12 by TETE Gaming) Colorectal cancer Duodenal ulcer Duodenal ulcer perforation Onset Date: ~08/28/16 Iliac artery occlusion, 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 - Surgical History Surgical History: Surgical History (Last Updated 05/19/18 @ 23:55 by TETE Gaming) History of colostomy Onset Date: ~04/26/17 History of laparotomy Onset Date: ~08/28/16 Status post insertion of iliac artery stent Onset Date: ~2016 - Family History Family History: Family History (Last Updated 05/19/18 @ 23:42 by TETE Gaming) Sister Cervical cancer - Social History I have reviewed the patient's Social History: Yes - Tobacco History Second Hand Smoke Exposure: No Tobacco Use In Past 30 Days: No Smoking Status: Former smoker Tobacco Type: Cigarettes Packs Per Day: 1 Years Smoked: 40 Smoking End Date: 04/2017 - Alcohol History How Often Do You Have a Drink Containing Alcohol: Monthly or less - Substance Use History Substance History: No History of Abuse - Travel History Recent Travel in the [place] Within the Last 8 Weeks: No Recent Travel Out of the Country Within the Last 8 Weeks: No - Immunization History Tetanus Immunization: Unsure Medications and Allergies Active Medications: Active Medications Acetaminophen (Tylenol) 650 mg PO Q4H PRN PRN Reason: Temp > 100.4 Hydrocodone Bitart/Acetaminophen ([place] 10/325) 1 tab PO Q4H PRN PRN Reason: PAIN 3-5 Al Hydroxide/Mg Hydroxide (Milk Of Magnesia Liq) 30 ml PO Q12H PRN PRN Reason: Mild Constipation Bisacodyl (Dulcolax Supp) 10 mg RECTAL DAILY PRN PRN Reason: SEVERE CONSITIPATION Hydromorphone HCl (Dilaudid Pf Inj) 1 mg IV.PUSH Q4H PRN PRN Reason: PAIN 6-10 Vancomycin HCl 1,000 mg/ (Sodium Chloride) 250 mls @ 200 mls/hr IV.SIG ONCE ONE Stop: 05/20/18 00:14 Last Admin: 05/19/18 22:41 Dose: 200 mls/hr Heparin Sodium/Dextrose (Heparin/D5w 25,000 U/250 Ml) 25,000 unit in 250 mls @ 0 mls/hr IV.CONT TITRATE PRN; Protocol PRN Reason: Per Protocol Cefepime HCl 1,000 mg/ Sodium (Chloride) 100 mls @ 200 mls/hr IV.SIG Q12H MERLE Sodium Chloride (Ns Inj) 1,000 mls @ 100 mls/hr IV.CONT .Q10H MERLE Lactulose (Lactulose Liq) 30 ml PO DAILY PRN PRN Reason: SEVERE CONSITIPATION Ondansetron HCl (Zofran Inj) 4 mg IV.PUSH Q6H PRN PRN Reason: NAUSEA OR VOMITING Pharmacy Profile Note (Vancomycin Consult Pharmacy) 1 each OTHER UNSCH PRN PRN Reason: Pharmacy to dose Senna/Docusate Sodium (Keshia-Colace) 1 tab PO BID MERLE Sennosides (Senokot) 17.2 mg PO Q12H PRN PRN Reason: Moderate Constipation Sodium Chloride (Ns Flush) 2 ml IV.FLUSH BID MERLE Sodium Chloride (Ns Flush) 2 ml IV.FLUSH PRN PRN PRN Reason: FLUSH AFTER USING IV ACCESS Allergies Allergy/AdvReac Type Severity Reaction Status Date / Time No Known Allergies Allergy Uncoded 04/26/17 11:22 Home Medications Medication Instructions Recorded Confirmed Type No Known Home Medications 05/19/18 05/19/18 History Exam Vital signs: Vital Signs 05/19/18 17:27 05/19/18 17:48 05/19/18 19:01 Temperature 98.2 F Pulse Rate 102 H 97 H 91 H Respiratory Rate 32 H 18 16 Blood Pressure 164/74 H 148/91 H 148/77 H Pulse Oximetry 100 100 97 Intake & Output 05/19/18 05/19/18 05/20/18 06:59 18:59 06:59 Weight 61.235 kg Narrative: GENERAL: This is a well-nourished, well-developed patient, in no apparent distress. SKIN: Wound in central gluteal crevice erythematous with central pustular lesion. HEAD: Atraumatic. Normocephalic. EYES: No scleral icterus. No injection or drainage. ENT: Nose without bleeding, purulent drainage. NECK: Trachea midline. No JVD. CARDIOVASCULAR: Regular rate and rhythm without murmurs, gallops, or rubs. LLE with pallor and cool to touch; pulses Doppler-able. Left leg with generalized swelling. RESPIRATORY: Clear to auscultation. Breath sounds equal bilaterally. No wheezes , rales, or rhonchi. GASTROINTESTINAL: Abdomen soft, non-tender, nondistended. No guarding. MUSCULOSKELETAL: Extremities without clubbing, cyanosis, or edema. No calf tenderness. NEUROLOGICAL: Awake and alert. Motor and sensory grossly within normal limits. Normal speech. . Results - Labs CBC & Chem 7: 05/19/18 18:11 05/19/18 18:11 Labs: Short CBC 05/19/18 Range/Units 18:11 WBC 5.6 (4.0-11.0) th/mm3 Hgb 12.1 (11.6-15.3) gm/dL Hct 35.5 (35.0-46.0) % Plt Count 224 (150-450) th/mm3 BMP 05/19/18 18:11 Sodium 140 Potassium 3.9 Chloride 107 Carbon Dioxide 23.7 BUN 10 Creatinine 0.83 Calcium 8.3 L Liver Function 05/19/18 Range/Units 18:11 Total Bilirubin 0.3 (0.2-1.0) mg/dL AST 16 (15-37) U/L ALT 17 (10-53) U/L Alkaline Phosphatase 136 H (45-117) U/L Albumin 3.3 L (3.4-5.0) g/dL Urine 05/19/18 Range/Units 22:10 Urine Color Straw (Yellw/Straw) Urine Clarity Clear (Clear) Urine pH 6.0 (5.0-8.5) Ur Specific [place] 1.016 (1.002-1.035) Urine Protein Negative (Neg-Trace) mg/dL Urine Glucose (UA) Negative (Negative) mg/dL - Imaging Impressions Lumbar Spine MRI 05/19/18 19:11 CONCLUSION: 1. At L3-4 there is a broad-based left paracentral disc protrusion with left lateral recess stenosis. 2. Normal alignment of the lumbar spine. Conus medullaris intact. No significant central canal stenosis. Venous Doppler Study 05/19/18 20:22 CONCLUSION: 1. Negative for deep venous thrombosis. Mildly enlarged left inguinal lymph node. Small left popliteal cyst measuring about 1 cm. Caprini VTE Risk Assessment Caprini VTE Risk Assessment: Moderate/High Risk (score >= 2) Caprini Risk Assessment Model: Point Value = 1 Point Value = 2 Point Value = 3 Point Value = 5 Age 41-60 Minor surgery BMI > 25 kg/m2 Swollen legs Varicose veins or History of unexplained or recurrent spontaneous Oral contraceptives or hormone replacement Sepsis (< 1 month) Serious lung disease, including pneumonia (< 1 month) Abnormal pulmonary function Acute myocardial infarction Congestive heart failure (< 1 month) History of inflammatory bowel disease Medical patient at bed rest Age 61-74 Arthroscopic surgery Major open surgery (> 45 min) Laparoscopic surgery (> 45 min) Malignancy Confined to bed (> 72 hours) Immobilizing plaster cast Central venous access Age >= 75 History of VTE Family history of VTE Factor V Leiden Prothrombin [id number] Lupus anticoagulant Anticardiolipin antibodies Elevated serum homocysteine Heparin-induced thrombocytopenia Other congenital or acquired thrombophilia Stroke (< 1 month) Elective arthroplasty Hip, pelvis, or leg fracture Acute spinal cord injury (< 1 month) Prophylaxis Regimen: Total Risk Factor Score Risk Level Prophylaxis Regimen 0-1 Low Early ambulation 2 Moderate Order ONE of the following: *Sequential Compression Device (SCD) *Heparin 5000 units SQ BID 3-4 Higher Order ONE of the following medications: *Heparin 5000 units SQ TID *Enoxaparin/Lovenox 40 mg SQ daily (WT < 150 kg, CrCl > 30 mL/min) *Enoxaparin/Lovenox 30 mg SQ daily (WT < 150 kg, CrCl > 10-29 mL/min) *Enoxaparin/Lovenox 30 mg SQ BID (WT < 150 kg, CrCl > 30 mL/min) AND/OR *Sequential Compression Device (SCD) 5 or more Highest Order ONE of the following medications: *Heparin 5000 units SQ TID (Preferred with Epidurals) *Enoxaparin/Lovenox 40 mg SQ daily (WT < 150 kg, CrCl > 30 mL/min) *Enoxaparin/Lovenox 30 mg SQ daily (WT < 150 kg, CrCl > 10-29 mL/min) *Enoxaparin/Lovenox 30 mg SQ BID (WT < 150 kg, CrCl > 30 mL/min) AND *Sequential Compression Device (SCD) Assessment and Plan - Plan Ms. 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 She was found to have a left iliac occlusion and was admitted to the hospitalist service for further medical management. Left iliac artery occlusion -Heparin drip -consult vascular surgery - appreciate assistance -NPO -Analgesia: Mobile 10/325 mg q4h p.o. or Dilaudid 1 mg q4h IV per pain scale -Left LE venous Doppler negative for DVT - mildly enlarged left inguinal lymph node and small left popliteal cyst were incidental findings. Chronic gluteal wound Colorectal Cancer -consult wound care nurse -consult colorectal surgeon - Dr. Barreto - appreciate his assistance - possible biopsy planned for Sunday -Antibiotics: IV Vancomycin (with pharmacy consultation to monitor and manage therapeutic regimen) and cefepime 1 gm IV q12h Nausea with vomiting -maybe secondary to medications given in ED -will switch zofran to IV compazine -monitor for effectiveness Urinary incontinence -She had an episode of incontinence earlier today - UA in ED was negative -Lumbar MRI showed L3-L4 herniation but no cord compression -uncertain if this is a limited event or if she's developing stress incontinence - she's not had this in the past -continue to monitor L3-L4 herniated disc -noted on lumbar MRI in ED -patient can f/u as an outpatient once medical condition is stabilized History of ruptured duodenal ulcer -Protonix 40 mg IV q24h DVT prophylaxis -currently on heparin drip . Discussed Condition With: Dr. Lees .
[2018-05-20] MEDS: Sod Chloride 0.9% Inj 1,000 ML IV.CONT SCH ×3 (00:29→20:41)
[2018-05-20] MEDS: Heparin Drip 25,000 UNIT/250 ML BAG IV.CONT PRN ×2 (00:38→15:13)
[2018-05-20] MEDS: Pantoprazole Inj 40 MG Vial IV.PUSH SCH (02:03)
[2018-05-20] MEDS: HYDROmorphone PF Inj 2 MG/ML Vial IV.PUSH PRN ×5 (02:52→21:25)
[2018-05-20 06:34] LABS: Baso % (Auto) 0.3 % (0.0-2.0); Eos % (Auto) 0.5 % (0.0-4.0); Hematocrit 32.5 % (35.0-46.0); Hemoglobin 11.1 gm/dL (11.6-15.3); Lymph # (Auto) 0.4 th/mm3 (1.0-4.8); Lymph % (Auto) 8.6 % (9.0-44.0); Mean Corpuscular HGB Conc 34.3 % (32.0-36.0); Mean Corpuscular Hemoglobin 31.2 pg (27.0-34.0); Mean Platelet Volume 7.5 fL (7.0-11.0); Mono # (Auto) 0.4 th/mm3 (0.0-0.9); Mono % (Auto) 8.4 % (0.0-8.0); Neut # (Auto) 3.8 th/mm3 (1.8-7.7); Neut % (Auto) 82.2 % (16.0-70.0); Platelet Count 187 th/mm3 (150-450); Red Blood Count 3.57 mil/mm3 (4.00-5.30); Red Cell Distribution Width 16.9 % (11.6-17.2); White Blood Count 4.6 th/mm3 (4.0-11.0)
[2018-05-20 07:01] LABS: Albumin 2.9 g/dL (3.4-5.0); Anion Gap 7 meq/L (5-15); Aspartate Aminotransferase 15 U/L (15-37); Blood Urea Nitrogen 8 mg/dL (7-18); Calcium 7.7 mg/dL (8.5-10.1); Chloride 106 meq/L (98-107); Glomerular Filtration Rate 78 mL/min (>89); Glucose,Random 111 mg/dL (74-106); Potassium 3.6 meq/L (3.5-5.1); Sodium 141 meq/L (136-145)
[2018-05-20 07:03] LABS: Alanine Aminotransferase 14 U/L (10-53)
[2018-05-20 07:04] LABS: Alkaline Phosphatase 112 U/L (45-117); Total Protein 6.3 g/dL (6.4-8.2)
--- NOTE | 2018-05-20 08:05 | CT ---
EXAM DATE: 05/19/2018 8:39 PM EDT AGE/SEX: 58 years / Female INDICATIONS: Cold left foot, abdominal pain and lower extremity swelling. CLINICAL DATA: This is the patient's initial encounter. Patient reports that signs and symptoms have been present for 1 day and indicates a pain score of 6/10. MEDICAL/SURGICAL HISTORY: Carcinoma, colon. None. RADIATION DOSE: 1.92 CTDI (mGy) COMPARISON: POI, CT CHEST W/ CONTRAST, 04/09/2018.. CT of the abdomen and pelvis January 01, 2018 . TECHNIQUE: Volumetric scanning was performed using a multi-row detector CT scanner during bolus infu reggie of 99 ml Omnipaque 350 (iohexol) nonionic water-soluble contrast as a single exam dose. The d ryan was post processed with a variety of visualization algorithms including full volume maximum inten sity projection, multi-planar sliding thin slab reformation, curved planar reformation, and surface r endering techniques. Using automated exposure control and adjustment of the mA and/or kV according t o patient size, radiation dose was kept as low as reasonably achievable to obtain optimal diagnostic quality images. DICOM format image data is available electronically for review and comparison. FINDINGS: AORTA: Mild fusiform aneurysmal change of the infrarenal aorta reaching a maximum diameter 2.6 x 2.6 cm. Concentric mural thrombus seen. There is a stent within the left common iliac artery. This is occ luded. The left external iliac artery is totally occluded as well. The right inflow shows calcified p laque at the origin of the right common iliac artery generating a high-grade stenosis. The right exte rnal iliac artery is patent. Both internal iliac arteries are occluded. Mild luminal narrowing involv ing the celiac origin. This measures 10-20%. The SMA is patent. Atherosclerotic plaque generates a 40 % stenosis of the right renal artery and a 10-20% stenosis of the left renal artery. RIGHT LOWER EXTREMITY: The common femoral artery and profunda femoris are patent. Scattered SFA disea se most pronounced within the abductor canal. Here there are 50 and 60% stenoses seen. The popliteal artery is patent. The anterior tibial artery is chronically occluded within the proximal calf. The ti bioperoneal trunk is a very long vessel but is patent. Posterior tibial artery is the dominant runoff to the foot and is patent. Peroneal artery is small in caliber but also patent. No reconstitution of the dorsalis pedis observed. LEFT LOWER EXTREMITY: There is reconstitution of the common femoral artery largely via the inferior epigastric artery. The common femoral artery and profunda femoris are patent. Mild scattered disease involving the SFA and krsny-rrr-eogi popliteal artery most pronounced within the abductor canal. No s ignificant stenosis appreciated. The anterior tibial artery is chronically occluded proximally. A breanna g tibioperoneal trunk noted similar to the contralateral side. Delusional effect from the proximal oc clusion results in limited opacification of the distal trifurcation vessels. The posterior tibial art joe is patent to the level of the distal calf and the peroneal artery is patent to the level the ankl e joint. Distal to this I cannot confirm patency. OTHER STRUCTURES: Multiple metastatic lesions are seen involving the visualized lung bases. There ar e new lesions as well as larger lesions compared to the prior examination. For example the right mid dle lobe lesion on the prior study measured 12 mm in diameter and now measures 17 mm. A new lesion is seen posteriorly within the right base measuring 6 mm. A 1.4 cm nodular area of enhancement is seen within the right lobe of the liver. Bilateral hydronephrosis which is new from the prior exam in December . Mild stranding of the subcutaneous fat involving the perineum and labia majora. No fluid collection or abscess. Patient has a low anterior resection. There is soft tissue thickening within the presacr al soft tissues. No fluid collection. A left lower quadrant colostomy. Degenerative spine. CONCLUSION: 1. Acute occlusion of the left inflow with reconstitution of the common femoral. Runoff is seen to t he ankle joint and delusional effect from the proximal occlusion prevents adequate evaluation of the distal trifurcation vessels. 2. Patent inflow with mild outflow disease. Runoff via the posterior tibial artery. 3. Metastatic involvement of the lungs has progressed from the prior examination. 4. Bilateral hydronephrosis which is new from the prior examination of December 2017. 5. Mild inflammatory change involving the subcutaneous fat involving the perineum. No abscess. 6. Soft tissue thickening involving the presacral soft tissues. This may simply be postsurgical in n ature. Electronically signed by: Jose Smallwood MD 05/20/2018 8:03 AM EDT
[2018-05-20] MEDS: Senna/Docusate Sodium 8.6/50 MG Tablet PO SCH ×2 (09:07→20:44)
[2018-05-20] MEDS: Sodium Chloride 0.9% 2 ML Flush BID IV.FLUSH SCH ×2 (09:08→20:44)
[2018-05-20] MEDS: Vancomycin Inj 1,000 MG in Sodium Chlor 0.9% Inj 250 ML IV.SIG SCH ×2 (10:11→22:48)
[2018-05-20] MEDS ORDERED: HYDROmorphone PF Inj 2 MG/ML Vial IV.PUSH ONE (10:15)
--- NOTE | 2018-05-20 11:48 | P.CONVS ---
History of Present Illness Service: Cardiovascular Consult date: 05/20/18 Reason for Consult: L LE rest pain Primary Care Provider: UNKNOWN Chief Complaint: Left lower extremity pain History of Present Illness: 58/F with a PMH of Colorectal Cancer, Peripheral Vascular Disease and L common external iliac artery stent placement (05/01/17/Dr. Mcclure) Pt c/o sudden onset L LE rest pain for a duration of 2 days with cold discolored 1st/2nd digit toes Pt denied claudication LE warm w/ motor intact Cold dusky L 1st,2nd digit toes noted Review of Systems Cardiovascular: Denies chest pain, Denies foot swelling, Denies leg sores, Denies leg swelling, Denies shortness of breath Musculoskeletal: Reports other (L LE rest pain ) Skin/Breast: Reports change in skin color (cold and dusky 1/2nd digit toes ) PMFSH - History History Provided By: Patient - Medical History Medical History: Medical History (Last Reviewed 05/20/18 @ 11:30 by Rachel Lagunas) Colorectal cancer Duodenal ulcer Duodenal ulcer perforation Onset Date: ~08/28/16 Iliac artery occlusion, 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 - Surgical History Surgical History: Surgical History (Last Reviewed 05/20/18 @ 11:30 by Rachel Lagunas) History of colostomy Onset Date: ~04/26/17 History of laparotomy Onset Date: ~08/28/16 Status post insertion of iliac artery stent Onset Date: ~2016 - Family History Family History: Family History (Last Reviewed 05/20/18 @ 11:30 by Rachel Lagunas) Sister Cervical cancer - Social History I have reviewed the patient's Social History: Yes - Tobacco History Second Hand Smoke Exposure: No Tobacco Use In Past 30 Days: No Smoking Status: Former smoker Tobacco Type: Cigarettes Packs Per Day: 1 Years Smoked: 40 Smoking End Date: 04/2017 - Alcohol History How Often Do You Have a Drink Containing Alcohol: Monthly or less - Substance Use History Substance History: No History of Abuse - Travel History Recent Travel in the [place] Within the Last 8 Weeks: No Recent Travel Out of the Country Within the Last 8 Weeks: No - Immunization History Tetanus Immunization: Unsure Hx Influenza Vaccine This Season: No Medications and Allergies Active Medications: Active Medications Acetaminophen (Tylenol) 650 mg PO Q4H PRN PRN Reason: Temp > 100.4 Hydrocodone Bitart/Acetaminophen ([place] 10/325) 1 tab PO Q4H PRN PRN Reason: PAIN 3-5 Last Admin: 05/20/18 00:29 Dose: 1 tab Al Hydroxide/Mg Hydroxide (Milk Of Magnesia Liq) 30 ml PO Q12H PRN PRN Reason: Mild Constipation Bisacodyl (Dulcolax Supp) 10 mg RECTAL DAILY PRN PRN Reason: SEVERE CONSITIPATION Hydromorphone HCl (Dilaudid Pf Inj) 1 mg IV.PUSH Q4H PRN PRN Reason: PAIN 6-10 Last Admin: 05/20/18 11:12 Dose: 1 mg Heparin Sodium/Dextrose (Heparin/D5w 25,000 U/250 Ml) 25,000 unit in 250 mls @ 0 mls/hr IV.CONT TITRATE PRN; Protocol PRN Reason: Per Protocol Last Admin: 05/20/18 00:38 Dose: 18 units/hr, 0.18 mls/hr Cefepime HCl 1,000 mg/ Sodium (Chloride) 100 mls @ 200 mls/hr IV.SIG Q12H [facility] Last Infusion: 05/20/18 10:12 Dose: Infused Sodium Chloride (Ns Inj) 1,000 mls @ 100 mls/hr IV.CONT .Q10H [facility] Last Admin: 05/20/18 11:11 Dose: 100 mls/hr Vancomycin HCl 1,000 mg/ (Sodium Chloride) 250 mls @ 250 mls/hr IV.SIG Q12H [facility] Last Admin: 05/20/18 10:11 Dose: 250 mls/hr Lactulose (Lactulose Liq) 30 ml PO DAILY PRN PRN Reason: SEVERE CONSITIPATION Miscellaneous Information ([facility] Ordered Lab Info) 0 each OTHER ONCE ONE Stop: 05/21/18 10:46 Pantoprazole Sodium (Protonix Inj) 40 mg IV.PUSH Q24H [facility] Last Admin: 05/20/18 02:03 Dose: 40 mg Pharmacy Profile Note (Vancomycin Consult Pharmacy) 1 each OTHER UNSCH PRN PRN Reason: Pharmacy to dose Prochlorperazine Edisylate (Compazine Inj) 5 mg IV.PUSH Q4H PRN PRN Reason: NAUSEA OR VOMITING Last Admin: 05/20/18 02:03 Dose: 5 mg Senna/Docusate Sodium (Keshia-Colace) 1 tab PO BID [facility] Last Admin: 05/20/18 09:07 Dose: Not Given Sennosides (Senokot) 17.2 mg PO Q12H PRN PRN Reason: Moderate Constipation Sodium Chloride (Ns Flush) 2 ml IV.FLUSH BID [facility] Last Admin: 05/20/18 09:08 Dose: Not Given Sodium Chloride (Ns Flush) 2 ml IV.FLUSH PRN PRN PRN Reason: FLUSH AFTER USING IV ACCESS Allergies Allergy/AdvReac Type Severity Reaction Status Date / Time No Known Allergies Allergy Uncoded 04/26/17 11:22 Home Medications Medication Instructions Recorded Confirmed Type No Known Home Medications 05/19/18 05/20/18 History Physical Exam Vital Signs / I&O: Vital Signs 05/19/18 17:27 05/19/18 17:48 05/19/18 19:01 Temperature 98.2 F Pulse Rate 102 H 97 H 91 H Respiratory Rate 32 H 18 16 Blood Pressure 164/74 H 148/91 H 148/77 H Pulse Oximetry 100 100 97 05/19/18 22:39 05/19/18 23:32 05/20/18 01:39 Temperature 97.7 F Pulse Rate 80 74 Respiratory Rate 16 18 16 Blood Pressure 158/72 H 151/78 H Pulse Oximetry 96 94 L 05/20/18 04:00 05/20/18 04:55 05/20/18 07:00 Temperature 97.9 F Pulse Rate 83 69 78 Respiratory Rate 17 Blood Pressure 116/62 Pulse Oximetry 95 05/20/18 09:00 05/20/18 11:06 Temperature 97.8 F 97.6 F Pulse Rate 64 75 Respiratory Rate 18 18 Blood Pressure 132/62 139/74 Pulse Oximetry 99 96 Intake & Output 05/19/18 05/20/18 05/20/18 18:59 06:59 18:59 Intake Total 1740 / 1740 1100 / 1100 Output Total 600 / 600 Balance 1140 / 1140 1100 / 1100 Weight 61.235 kg 65.5 kg Intake: IV 1500 / 1500 1100 / 1100 NS Inj 1,000 ML @ 100 mls/hr IV 1000 / 1000 .CONT .Q10H [facility] Rx#:[id number] Maxipime Inj 1,000 MG In NS Inj 100 / 100 100 ML @ 200 mls/hr IV.SIG Q12H [facility] Rx#:[id number] Zosyn 3.375 GM Premix 50 ML @ 50 / 50 100 mls/hr IV.SIG ONCE ONE Rx#: [id number] NS Inj 1,000 ML @ Wide Open IV. 1000 / 1000 SIG BOLUS ONE Rx#:[id number] Vancomycin Inj 1 gm In 200 ml @ 200 / 200 200 mls/hr IV.SIG ONCE ONE Rx# :[id number] Vancomycin Inj 1,000 MG In NS 250 / 250 Inj 250 ML @ 200 mls/hr IV.SIG ONCE ONE Rx#:[id number] Oral 240 / 240 Output: Urine 600 / 600 Other: Date of Last Bowel Movement 05/19/18 05/20/18 # Emeses 1 Neuro: A&Ox3 GCS 15 Speech clear CN 2-12 intact HEENT: No JVD distention Heart: RRR Lungs: Bilateral inspiratory and expiratory rhonchi Abdomen: S/NT Vascular: LE warm w/ motor intact Left sided 1/2nd digit toes cold and dusky Palpable RIGHT femoral/PT NON palpable LEFT femoral/PT/DP Laboratory Results - last 24 hr 05/19/18 05/19/18 05/19/18 18:11 18:11 22:10 WBC 5.6 RBC 3.95 L Hgb 12.1 Hct 35.5 MCV 90.0 MCH 30.7 MCHC 34.1 RDW 16.7 Plt Count 224 MPV 7.4 Neut % (Auto) 85.5 H Lymph % (Auto) 5.1 L [place] % (Auto) 6.9 Eos % (Auto) 2.3 Baso % (Auto) 0.2 Neut # (Auto) 4.8 Lymph # (Auto) 0.3 L [place] # (Auto) 0.4 Eos # (Auto) 0.1 Baso # (Auto) 0.0 WBC Differential . Differential Comment Auto diff final PT INR APTT Sodium 140 Potassium 3.9 Chloride 107 Carbon Dioxide 23.7 Anion Gap 9 BUN 10 Creatinine 0.83 Estimated GFR 70 L Random Glucose 145 H Calcium 8.3 L Magnesium 1.6 Total Bilirubin 0.3 AST 16 ALT 17 Alkaline Phosphatase 136 H Total Protein 7.2 Albumin 3.3 L Lipase 126 Urine Color Straw Urine Clarity Clear Urine pH 6.0 Ur Specific [place] 1.016 Urine Protein Negative Urine Glucose (UA) Negative Urine Ketones Negative Urine Occult Blood Negative Urine Nitrate Negative Urine Bilirubin Negative Urine Urobilinogen Less than 2 Ur Leukocyte Esterase Negative Urine RBC Less than 1 Urine WBC 1 Ur Squamous Epith Cells <1 Micro UA Comment Culture not ind Ur Microscopic Review Not Reportable Urine Culture Comments Culture not ind 05/19/18 05/20/18 05/20/18 23:00 04:52 04:52 WBC 4.6 RBC 3.57 L Hgb 11.1 L Hct 32.5 L MCV 91.0 MCH 31.2 MCHC 34.3 RDW 16.9 Plt Count 187 MPV 7.5 Neut % (Auto) 82.2 H Lymph % (Auto) 8.6 L [place] % (Auto) 8.4 H Eos % (Auto) 0.5 Baso % (Auto) 0.3 Neut # (Auto) 3.8 Lymph # (Auto) 0.4 L [place] # (Auto) 0.4 Eos # (Auto) 0.0 Baso # (Auto) 0.0 WBC Differential . Differential Comment Auto diff final PT 10.7 INR 1.1 APTT 24.3 65.5 H D Sodium Potassium Chloride Carbon Dioxide Anion Gap BUN Creatinine Estimated GFR Random Glucose Calcium Magnesium Total Bilirubin AST ALT Alkaline Phosphatase Total Protein Albumin Lipase Urine Color Urine Clarity Urine pH Ur Specific [place] Urine Protein Urine Glucose (UA) Urine Ketones Urine Occult Blood Urine Nitrate Urine Bilirubin Urine Urobilinogen Ur Leukocyte Esterase Urine RBC Urine WBC Ur Squamous Epith Cells Micro UA Comment Ur Microscopic Review Urine Culture Comments 05/20/18 04:52 WBC RBC Hgb Hct MCV MCH MCHC RDW Plt Count MPV Neut % (Auto) Lymph % (Auto) [place] % (Auto) Eos % (Auto) Baso % (Auto) Neut # (Auto) Lymph # (Auto) [place] # (Auto) Eos # (Auto) Baso # (Auto) WBC Differential Differential Comment PT INR APTT Sodium 141 Potassium 3.6 Chloride 106 Carbon Dioxide 28.0 Anion Gap 7 BUN 8 Creatinine 0.76 Estimated GFR 78 L Random Glucose 111 H Calcium 7.7 L Magnesium Total Bilirubin 0.3 AST 15 ALT 14 Alkaline Phosphatase 112 Total Protein 6.3 L D Albumin 2.9 L Lipase Urine Color Urine Clarity Urine pH Ur Specific [place] Urine Protein Urine Glucose (UA) Urine Ketones Urine Occult Blood Urine Nitrate Urine Bilirubin Urine Urobilinogen Ur Leukocyte Esterase Urine RBC Urine WBC Ur Squamous Epith Cells Micro UA Comment Ur Microscopic Review Urine Culture Comments Microbiology 05/19/18 21:00 Aerobic Blood Culture - Preliminary Blood - Peripheral No growth in 1 day Anaerobic Blood Culture - Preliminary No growth in 1 day 05/19/18 20:50 Aerobic Blood Culture - Preliminary Blood - Peripheral No growth in 1 day Anaerobic Blood Culture - Preliminary No growth in 1 day 05/20/18 00:42 Stool Occult Blood (THI) - Final Stool Hemoccult negative Impressions Lumbar Spine MRI 05/19/18 19:11 CONCLUSION: 1. At L3-4 there is a broad-based left paracentral disc protrusion with left lateral recess stenosis. 2. Normal alignment of the lumbar spine. Conus medullaris intact. No significant central canal stenosis. Venous Doppler Study 05/19/18 20:22 CONCLUSION: 1. Negative for deep venous thrombosis. Mildly enlarged left inguinal lymph node. Small left popliteal cyst measuring about 1 cm. Aorta w/Runoff CTA 05/19/18 20:35 CONCLUSION: 1. Acute occlusion of the left inflow with reconstitution of the common femoral. Runoff is seen to the ankle joint and delusional effect from the proximal occlusion prevents adequate evaluation of the distal trifurcation vessels. 2. Patent inflow with mild outflow disease. Runoff via the posterior tibial artery. 3. Metastatic involvement of the lungs has progressed from the prior examination. 4. Bilateral hydronephrosis which is new from the prior examination of December 2017. 5. Mild inflammatory change involving the subcutaneous fat involving the perineum. No abscess. 6. Soft tissue thickening involving the presacral soft tissues. This may simply be postsurgical in nature. Assessment and Plan - Assessment (1) Iliac artery occlusion, left Code(s): I74.5 - Embolism and thrombosis of iliac artery Status: Acute (2) Peripheral arterial occlusive disease Code(s): I77.9 - Disorder of arteries and arterioles, unspecified Status: Acute - Plan 58/F c/o L LE rest pain for 2 days LE warm w/ motor intact CTA reviewed- Acute L iliac artery stent occlusion/ Small 2.6 x 2.6 cm infrarenal AAA Plan Revascularization planning for tomorrow am Continue pain control Continue Heparin drip Regular diet today NPO after midnight Rachel Lagunas [employer] [phone]
--- NOTE | 2018-05-20 15:33 | P.PNWCN ---
Wound Care Nurse Consult Description: Wound consult ordered by for wound management. Communicated with: Thong SAMAYOA, ,Rachel EPSTEIN Recommendation: 1. While under the skilled care of vascular surgeon in OR. 2. Please use silver nitrate to reduce epibole to perineal wound margins 3. Apply Puracol AG cut to fit wound base cover with dressing of choice. 4. Puracol AG to remain in wound base x7 days reapply if dislodged or soiled. 5. Please feel free to contact wound care team if treatment fails or wound worsen. Additional information: Patient was seen today by casualty underwriter for wound management.Patient has complex history of cancer with a rectal flap performed ~18 months ago.Patient received radiation therapy prior to flap in rectal/perineal area.Miter Cutter was able to visualized flap site with a partal thickness wound located to perineal area measuring ~2.0cm x ~1.0cm x 0.2cm wound base is dull pink scant serous exudate noted without odor.Wound margins are 100% thickened epibole.Induration palpated from ~2-6 O'clock.Affected area very tender to touch .patient noted with facial grimacing upon assessment.Wound cleansed with normal saline pat dry.Patient continent of bladder though wound region is high moisture area. Medline dry sheets provided for comfort and moisture control.Miter Cutter spoke with and Rachel EPSTEIN.Patient to go to OR tomorrow where she will receive revascularization.While under anaesthesia collaboration of tissue biopsy and wound care hopes to be performed.Miter Cutter to follow up with patient status. Wound/Pressure Injury - Wound Perineal Wound Assessment: Ongoing Wound Type: Traumatic Wound Is This a Chronic Wound: Yes Requested from Provider a Wound Care Consult: No (Addison SAMAYOA,[facility] seen 05/20) Length (cm): 2.0 Width (cm): 1.0 Depth (cm): 0.2 Wound Bed Appearance: Pale, [place] Surrounding Tissue Appearance: Indurated Surrounding Tissue Temperature: Cool Drainage Description: Serous Drainage Amount: Scant Drainage Odor: No Odor Dressing Status: Open to Air Cleansing Solution: Saline Wound Packing Type: Collagen
--- NOTE | 2018-05-20 17:27 | P.PNIM ---
Subjective Interval history: Patient reports continued pain in left lower extremity. Denies any chest pain or shortness of breath. Physical Exam Vital signs: Vital Signs 05/19/18 17:27 05/19/18 17:48 05/19/18 19:01 Temperature 98.2 F Pulse Rate 102 H 97 H 91 H Respiratory Rate 32 H 18 16 Blood Pressure 164/74 H 148/91 H 148/77 H Pulse Oximetry 100 100 97 05/19/18 22:39 05/19/18 23:32 05/20/18 01:39 Temperature 97.7 F Pulse Rate 80 74 Respiratory Rate 16 18 16 Blood Pressure 158/72 H 151/78 H Pulse Oximetry 96 94 L 05/20/18 04:00 05/20/18 04:55 05/20/18 07:00 Temperature 97.9 F Pulse Rate 83 69 78 Respiratory Rate 17 Blood Pressure 116/62 Pulse Oximetry 95 05/20/18 09:00 05/20/18 11:00 05/20/18 11:06 Temperature 97.8 F 97.6 F Pulse Rate 64 76 75 Respiratory Rate 18 18 Blood Pressure 132/62 139/74 Pulse Oximetry 99 96 05/20/18 15:00 05/20/18 15:15 Temperature 97.4 F L Pulse Rate 91 H 72 Respiratory Rate 18 Blood Pressure 103/54 L Pulse Oximetry 96 Intake & Output 05/19/18 05/20/18 05/20/18 18:59 06:59 18:59 Intake Total 1740 / 1740 1600 / 1600 Output Total 600 / 600 Balance 1140 / 1140 1600 / 1600 Weight 61.235 kg 65.5 kg Intake: IV 1500 / 1500 1600 / 1600 Heparin/D5W 25,000 U/250 mL 25, 250 / 250 000 unit In 250 ml @ Per Protocol IV.CONT TITRATE PRN Rx #:[id number] NS Inj 1,000 ML @ 100 mls/hr IV 1000 / 1000 .CONT .Q10H [facility] Rx#:[id number] Maxipime Inj 1,000 MG In NS Inj 100 / 100 100 ML @ 200 mls/hr IV.SIG Q12H [facility] Rx#:[id number] Zosyn 3.375 GM Premix 50 ML @ 50 / 50 100 mls/hr IV.SIG ONCE ONE Rx#: [id number] NS Inj 1,000 ML @ Wide Open IV. 1000 / 1000 SIG BOLUS ONE Rx#:[id number] Vancomycin Inj 1 gm In 200 ml @ 200 / 200 200 mls/hr IV.SIG ONCE ONE Rx# :[id number] Vancomycin Inj 1,000 MG In NS 250 / 250 250 / 250 Inj 250 ML @ 250 mls/hr IV.SIG Q12H [facility] Rx#:[id number] Oral 240 / 240 Output: Urine 600 / 600 Other: Date of Last Bowel Movement 05/19/18 05/20/18 # Emeses 1 Narrative: GENERAL: Patient lying in bed. Appears comfortable. SKIN: Warm and dry. HEAD: Normocephalic. EYES: No scleral icterus. No injection or drainage. NECK: Supple, trachea midline. No JVD. CARDIOVASCULAR: Regular rate and rhythm without murmurs, gallops, or rubs. RESPIRATORY: Breath sounds equal bilaterally. No accessory muscle use. GASTROINTESTINAL: Abdomen soft, non-tender, nondistended. MUSCULOSKELETAL: Dusky left lower extremity. Imperceptible pulse left lower extremity. Sensation intact. BACK: Nontender without obvious deformity. No CVA tenderness. Results - Labs CBC & Chem 7: 05/20/18 04:52 05/20/18 04:52 Laboratory Results - last 24 hr 05/19/18 05/19/18 05/19/18 18:11 18:11 22:10 WBC 5.6 RBC 3.95 L Hgb 12.1 Hct 35.5 MCV 90.0 MCH 30.7 MCHC 34.1 RDW 16.7 Plt Count 224 MPV 7.4 Neut % (Auto) 85.5 H Lymph % (Auto) 5.1 L [place] % (Auto) 6.9 Eos % (Auto) 2.3 Baso % (Auto) 0.2 Neut # (Auto) 4.8 Lymph # (Auto) 0.3 L [place] # (Auto) 0.4 Eos # (Auto) 0.1 Baso # (Auto) 0.0 WBC Differential . Differential Comment Auto diff final PT INR APTT Sodium 140 Potassium 3.9 Chloride 107 Carbon Dioxide 23.7 Anion Gap 9 BUN 10 Creatinine 0.83 Estimated GFR 70 L Random Glucose 145 H Calcium 8.3 L Magnesium 1.6 Total Bilirubin 0.3 AST 16 ALT 17 Alkaline Phosphatase 136 H Total Protein 7.2 Albumin 3.3 L Lipase 126 Urine Color Straw Urine Clarity Clear Urine pH 6.0 Ur Specific [place] 1.016 Urine Protein Negative Urine Glucose (UA) Negative Urine Ketones Negative Urine Occult Blood Negative Urine Nitrate Negative Urine Bilirubin Negative Urine Urobilinogen Less than 2 Ur Leukocyte Esterase Negative Urine RBC Less than 1 Urine WBC 1 Ur Squamous Epith Cells <1 Micro UA Comment Culture not ind Ur Microscopic Review Not Reportable Urine Culture Comments Culture not ind 05/19/18 05/20/18 05/20/18 23:00 04:52 04:52 WBC 4.6 RBC 3.57 L Hgb 11.1 L Hct 32.5 L MCV 91.0 MCH 31.2 MCHC 34.3 RDW 16.9 Plt Count 187 MPV 7.5 Neut % (Auto) 82.2 H Lymph % (Auto) 8.6 L [place] % (Auto) 8.4 H Eos % (Auto) 0.5 Baso % (Auto) 0.3 Neut # (Auto) 3.8 Lymph # (Auto) 0.4 L [place] # (Auto) 0.4 Eos # (Auto) 0.0 Baso # (Auto) 0.0 WBC Differential . Differential Comment Auto diff final PT 10.7 INR 1.1 APTT 24.3 65.5 H D Sodium Potassium Chloride Carbon Dioxide Anion Gap BUN Creatinine Estimated GFR Random Glucose Calcium Magnesium Total Bilirubin AST ALT Alkaline Phosphatase Total Protein Albumin Lipase Urine Color Urine Clarity Urine pH Ur Specific [place] Urine Protein Urine Glucose (UA) Urine Ketones Urine Occult Blood Urine Nitrate Urine Bilirubin Urine Urobilinogen Ur Leukocyte Esterase Urine RBC Urine WBC Ur Squamous Epith Cells Micro UA Comment Ur Microscopic Review Urine Culture Comments 05/20/18 05/20/18 04:52 13:47 WBC RBC Hgb Hct MCV MCH MCHC RDW Plt Count MPV Neut % (Auto) Lymph % (Auto) [place] % (Auto) Eos % (Auto) Baso % (Auto) Neut # (Auto) Lymph # (Auto) [place] # (Auto) Eos # (Auto) Baso # (Auto) WBC Differential Differential Comment PT INR APTT 102.8 H* D Sodium 141 Potassium 3.6 Chloride 106 Carbon Dioxide 28.0 Anion Gap 7 BUN 8 Creatinine 0.76 Estimated GFR 78 L Random Glucose 111 H Calcium 7.7 L Magnesium Total Bilirubin 0.3 AST 15 ALT 14 Alkaline Phosphatase 112 Total Protein 6.3 L D Albumin 2.9 L Lipase Urine Color Urine Clarity Urine pH Ur Specific [place] Urine Protein Urine Glucose (UA) Urine Ketones Urine Occult Blood Urine Nitrate Urine Bilirubin Urine Urobilinogen Ur Leukocyte Esterase Urine RBC Urine WBC Ur Squamous Epith Cells Micro UA Comment Ur Microscopic Review Urine Culture Comments Microbiology 05/19/18 21:00 Blood - Peripheral Aerobic Blood Culture - Preliminary No growth in 1 day 05/19/18 21:00 Blood - Peripheral Anaerobic Blood Culture - Preliminary No growth in 1 day 05/19/18 20:50 Blood - Peripheral Aerobic Blood Culture - Preliminary No growth in 1 day 05/19/18 20:50 Blood - Peripheral Anaerobic Blood Culture - Preliminary No growth in 1 day 05/20/18 00:42 Stool Stool Occult Blood (THI) - Final Hemoccult negative - Imaging Impressions Lumbar Spine MRI 05/19/18 19:11 CONCLUSION: 1. At L3-4 there is a broad-based left paracentral disc protrusion with left lateral recess stenosis. 2. Normal alignment of the lumbar spine. Conus medullaris intact. No significant central canal stenosis. Venous Doppler Study 05/19/18 20:22 CONCLUSION: 1. Negative for deep venous thrombosis. Mildly enlarged left inguinal lymph node. Small left popliteal cyst measuring about 1 cm. Aorta w/Runoff CTA 05/19/18 20:35 CONCLUSION: 1. Acute occlusion of the left inflow with reconstitution of the common femoral. Runoff is seen to the ankle joint and delusional effect from the proximal occlusion prevents adequate evaluation of the distal trifurcation vessels. 2. Patent inflow with mild outflow disease. Runoff via the posterior tibial artery. 3. Metastatic involvement of the lungs has progressed from the prior examination. 4. Bilateral hydronephrosis which is new from the prior examination of December 2017. 5. Mild inflammatory change involving the subcutaneous fat involving the perineum. No abscess. 6. Soft tissue thickening involving the presacral soft tissues. This may simply be postsurgical in nature. Assessment and Plan - Plan Ms. 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 She was found to have a left iliac occlusion and was admitted to the hospitalist service for further medical management. //Left iliac artery occlusion -Heparin drip -consult vascular surgery - appreciate assistance -NPO -Analgesia: [place] 10/325 mg q4h p.o. or Dilaudid 1 mg q4h IV per pain scale -Left LE venous Doppler negative for DVT - mildly enlarged left inguinal lymph node and small left popliteal cyst were incidental findings. = Continues on heparin drip. Vascular surgery following. Appreciate assistance. //Chronic gluteal wound Colorectal Cancer -consult wound care nurse -consult colorectal surgeon - Dr. Barreto - appreciate his assistance - possible biopsy planned for Sunday -Antibiotics: IV Vancomycin (with pharmacy consultation to monitor and manage therapeutic regimen) and cefepime 1 gm IV q12h = Wound care following. Appreciate assistance = Colorectal surgery following. Appreciate assistance. //Nausea with vomiting -maybe secondary to medications given in ED -will switch zofran to IV compazine -monitor for effectiveness = Appears to have resolved. Monitor. //Urinary incontinence -She had an episode of incontinence earlier today - UA in ED was negative -Lumbar MRI showed L3-L4 herniation but no cord compression -uncertain if this is a limited event or if she's developing stress incontinence - she's not had this in the past -continue to monitor //L3-L4 herniated disc -noted on lumbar MRI in ED -patient can f/u as an outpatient once medical condition is stabilized //History of ruptured duodenal ulcer -Protonix 40 mg IV q24h //DVT prophylaxis -currently on heparin drip Discussed Condition With: Patient, nurse
--- NOTE | 2018-05-20 21:10 | P.PNVS ---
Subjective Subjective/Hospital Course: Pt seen earlier today - see consult note from our service. I repeated nielsen portions of H&P as documented by Rachel TURNER. Pt is a 58 yo with h/o L iliac stent, now with ischemic rest pain and L iliac occlusion. Recent rectal cancer treatment including ostomy and pelvic XRT. Palpable R femoral, PT. Non palp L femoral. Motor intact but + rest pain. CTA reviewed - L VANCE stent occluded and EIA occluded A/ ischemic rest pain after failed endovascular intervention P/ needs inflow procedure and I think best option is fem-fem and possible iliac endovascular treatment (even atherectomy). discussed with patient and sister who agree D/w Dr. Felix who asked us to assume care. Happy to do so. To OR Sunday at 0800. Objective Vital Signs / I&O: Vital Signs 05/19/18 22:39 05/19/18 23:32 05/20/18 01:39 Temperature 97.7 F Pulse Rate 80 74 Respiratory Rate 16 18 16 Blood Pressure 158/72 H 151/78 H Pulse Oximetry 96 94 L 05/20/18 04:00 05/20/18 04:55 05/20/18 07:00 Temperature 97.9 F Pulse Rate 83 69 78 Respiratory Rate 17 Blood Pressure 116/62 Pulse Oximetry 95 05/20/18 09:00 05/20/18 11:00 05/20/18 11:06 Temperature 97.8 F 97.6 F Pulse Rate 64 76 75 Respiratory Rate 18 18 Blood Pressure 132/62 139/74 Pulse Oximetry 99 96 05/20/18 15:00 05/20/18 15:15 05/20/18 20:46 Temperature 97.4 F L 98.4 F Pulse Rate 91 H 72 71 Respiratory Rate 18 16 Blood Pressure 103/54 L 118/57 L Pulse Oximetry 96 94 L Intake & Output 05/20/18 05/20/18 05/21/18 06:59 18:59 06:59 Intake Total 1740 / 1740 2200 / 2200 600 / 600 Output Total 600 / 600 1350 / 1350 1450 / 1450 Balance 1140 / 1140 850 / 850 -850 / -850 Weight 65.5 kg Intake: IV 1500 / 1500 1600 / 1600 Heparin/D5W 25,000 U/250 mL 25, 250 / 250 000 unit In 250 ml @ Per Protocol IV.CONT TITRATE PRN Rx #:[id number] NS Inj 1,000 ML @ 100 mls/hr IV 1000 / 1000 .CONT .Q10H [facility] Rx#:[id number] Maxipime Inj 1,000 MG In NS Inj 100 / 100 100 ML @ 200 mls/hr IV.SIG Q12H [facility] Rx#:[id number] Zosyn 3.375 GM Premix 50 ML @ 50 / 50 100 mls/hr IV.SIG ONCE ONE Rx#: [id number] NS Inj 1,000 ML @ Wide Open IV. 1000 / 1000 SIG BOLUS ONE Rx#:[id number] Vancomycin Inj 1 gm In 200 ml @ 200 / 200 200 mls/hr IV.SIG ONCE ONE Rx# :[id number] Vancomycin Inj 1,000 MG In NS 250 / 250 250 / 250 Inj 250 ML @ 250 mls/hr IV.SIG Q12H [facility] Rx#:[id number] Oral 240 / 240 600 / 600 600 / 600 Output: Urine 600 / 600 1350 / 1350 1450 / 1450 Other: Date of Last Bowel Movement 05/19/18 05/20/18 05/20/18 # Emeses 1 Laboratory Results - last 24 hr 05/19/18 05/19/18 05/20/18 22:10 23:00 04:52 WBC RBC Hgb Hct MCV MCH MCHC RDW Plt Count MPV Neut % (Auto) Lymph % (Auto) Humphreys % (Auto) Eos % (Auto) Baso % (Auto) Neut # (Auto) Lymph # (Auto) Humphreys # (Auto) Eos # (Auto) Baso # (Auto) WBC Differential Differential Comment PT 10.7 INR 1.1 APTT 24.3 65.5 H D Sodium Potassium Chloride Carbon Dioxide Anion Gap BUN Creatinine Estimated GFR Random Glucose Calcium Total Bilirubin AST ALT Alkaline Phosphatase Total Protein Albumin Urine Color Straw Urine Clarity Clear Urine pH 6.0 Ur Specific [place] 1.016 Urine Protein Negative Urine Glucose (UA) Negative Urine Ketones Negative Urine Occult Blood Negative Urine Nitrate Negative Urine Bilirubin Negative Urine Urobilinogen Less than 2 Ur Leukocyte Esterase Negative Urine RBC Less than 1 Urine WBC 1 Ur Squamous Epith Cells <1 Micro UA Comment Culture not ind Ur Microscopic Review Not Reportable Urine Culture Comments Culture not ind 05/20/18 05/20/18 05/20/18 04:52 04:52 13:47 WBC 4.6 RBC 3.57 L Hgb 11.1 L Hct 32.5 L MCV 91.0 MCH 31.2 MCHC 34.3 RDW 16.9 Plt Count 187 MPV 7.5 Neut % (Auto) 82.2 H Lymph % (Auto) 8.6 L Humphreys % (Auto) 8.4 H Eos % (Auto) 0.5 Baso % (Auto) 0.3 Neut # (Auto) 3.8 Lymph # (Auto) 0.4 L Humphreys # (Auto) 0.4 Eos # (Auto) 0.0 Baso # (Auto) 0.0 WBC Differential . Differential Comment Auto diff final PT INR APTT 102.8 H* D Sodium 141 Potassium 3.6 Chloride 106 Carbon Dioxide 28.0 Anion Gap 7 BUN 8 Creatinine 0.76 Estimated GFR 78 L Random Glucose 111 H Calcium 7.7 L Total Bilirubin 0.3 AST 15 ALT 14 Alkaline Phosphatase 112 Total Protein 6.3 L D Albumin 2.9 L Urine Color Urine Clarity Urine pH Ur Specific [place] Urine Protein Urine Glucose (UA) Urine Ketones Urine Occult Blood Urine Nitrate Urine Bilirubin Urine Urobilinogen Ur Leukocyte Esterase Urine RBC Urine WBC Ur Squamous Epith Cells Micro UA Comment Ur Microscopic Review Urine Culture Comments 05/20/18 16:45 WBC RBC Hgb Hct MCV MCH MCHC RDW Plt Count MPV Neut % (Auto) Lymph % (Auto) Humphreys % (Auto) Eos % (Auto) Baso % (Auto) Neut # (Auto) Lymph # (Auto) Humphreys # (Auto) Eos # (Auto) Baso # (Auto) WBC Differential Differential Comment PT INR APTT 69.2 H D Sodium Potassium Chloride Carbon Dioxide Anion Gap BUN Creatinine Estimated GFR Random Glucose Calcium Total Bilirubin AST ALT Alkaline Phosphatase Total Protein Albumin Urine Color Urine Clarity Urine pH Ur Specific [place] Urine Protein Urine Glucose (UA) Urine Ketones Urine Occult Blood Urine Nitrate Urine Bilirubin Urine Urobilinogen Ur Leukocyte Esterase Urine RBC Urine WBC Ur Squamous Epith Cells Micro UA Comment Ur Microscopic Review Urine Culture Comments Microbiology 05/19/18 21:00 Aerobic Blood Culture - Preliminary Blood - Peripheral No growth in 1 day Anaerobic Blood Culture - Preliminary No growth in 1 day 05/19/18 20:50 Aerobic Blood Culture - Preliminary Blood - Peripheral No growth in 1 day Anaerobic Blood Culture - Preliminary No growth in 1 day 05/20/18 00:42 Stool Occult Blood (THI) - Final Stool Hemoccult negative Impressions Lumbar Spine MRI 05/19/18 19:11 CONCLUSION: 1. At L3-4 there is a broad-based left paracentral disc protrusion with left lateral recess stenosis. 2. Normal alignment of the lumbar spine. Conus medullaris intact. No significant central canal stenosis. Venous Doppler Study 05/19/18 20:22 CONCLUSION: 1. Negative for deep venous thrombosis. Mildly enlarged left inguinal lymph node. Small left popliteal cyst measuring about 1 cm. Aorta w/Runoff CTA 05/19/18 20:35 CONCLUSION: 1. Acute occlusion of the left inflow with reconstitution of the common femoral. Runoff is seen to the ankle joint and delusional effect from the proximal occlusion prevents adequate evaluation of the distal trifurcation vessels. 2. Patent inflow with mild outflow disease. Runoff via the posterior tibial artery. 3. Metastatic involvement of the lungs has progressed from the prior examination. 4. Bilateral hydronephrosis which is new from the prior examination of December 2017. 5. Mild inflammatory change involving the subcutaneous fat involving the perineum. No abscess. 6. Soft tissue thickening involving the presacral soft tissues. This may simply be postsurgical in nature. Assessment and Plan - Assessment (1) Iliac artery occlusion, left Code(s): I74.5 - Embolism and thrombosis of iliac artery Status: Acute (2) Peripheral arterial occlusive disease Code(s): I77.9 - Disorder of arteries and arterioles, unspecified Status: Acute - Plan 58/F c/o L LE rest pain for 2 days LE warm w/ motor intact CTA reviewed- Acute L iliac artery stent occlusion/ Small 2.6 x 2.6 cm infrarenal AAA Plan Revascularization planning for tomorrow am Continue pain control Continue Heparin drip Regular diet today NPO after midnight Rachel Lagunas NURSE ASSISTANT [facility] [phone]
--- NOTE | 2018-05-20 21:32 | MB ---
cc: Higinio Felix MD DATE: 05/20/2018 REASON FOR CONSULTATION: Ischemia of the left leg. HISTORY OF PRESENT ILLNESS: This unfortunate 58-year-old lady who had previous vascular problems presents now with sudden onset of pain in the left leg, which became more prominent, and she presented to the emergency room. She underwent CTA with runoff, which reveals a left iliac stent occlusion and then reconstitution of the common femoral artery at the groin with 2-vessel runoff to the foot with some degree of atherosclerosis throughout. The situation is complicated by the fact that the patient has known colorectal cancer and metastatic lung cancer, question raised about further course of therapy. PAST MEDICAL HISTORY: Colorectal cancer with metastasis, I guess, to the lung. 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 PAST SURGICAL HISTORY: Iliac stent placement to the left common iliac artery, which is now occluded. MEDICATIONS: Can be found in the chart. SOCIAL HISTORY: The patient used to smoke cigarettes for about 40 years. PHYSICAL EXAMINATION: GENERAL: Reveals a pleasant 58-year-old lady. HEENT: Normocephalic. No trauma to the head. Pupils equal, reactive. Extraocular muscles intact. NECK: Supple. Bilateral carotid pulses. No bruits. CHEST: Clear, bilateral breath sounds. HEART: Regular rate and rhythm. ABDOMEN: Soft, active bowel sounds. Left lower quadrant colostomy is noted. Incision is healed and dry. EXTREMITIES: I do not palpate either femoral pulses in the right or the left leg. They both dopplerable and weak. The patient's posterior tibial and dorsalis pedis pulses are fairly weak on the right and only anterior tibial on the left. The foot is cool, but not cold and there is perfusion present. The patient is currently on heparin. RECTAL: Not done. IMPRESSION AND RECOMMENDATIONS: I reviewed laboratory and diagnostic procedures. I have discussed this with Dr. Milli yS yesterday. The patient was placed on heparin at my request and is now in the hospital getting ready for surgery. At this point, there are 2 ways to approach this. One is through aortofemoral bypass by retroperitoneal approach which is a fairly large procedure and the patient is a fairly reasonable candidate for the same. The problem with this is the presence of the known metastasis to the lung and the fact that the patient has been immunosuppressed. This is a fairly large operation. The easier way to deal with it is an external iliac balloon angioplasty followed by a femoral-femoral bypass, and this would be my procedure of choice. I have explained to this patient in detail, and it should be noted that somehow in the process of consultations both Dr. Weeks and myself saw the patient. At this point, I believe it is simply more pragmatic for Dr. Weeks to go ahead with surgery tomorrow because of the timing issue and he can get the OR earlier. Due to some obligations, I cannot get to do surgery this early. Either way, I have explained this to the patient. She is happy with that solution and Dr. Weeks will proceed with surgery tomorrow. Grateful to Dr. Weeks for his collegiality and for taking over this case. Thank you very much for referral. MD AMY Wall/cr , 06:53 PM , 07:02 PM ZEN
[2018-05-21] MEDS: Pantoprazole Inj 40 MG Vial IV.PUSH SCH (00:36)
[2018-05-21] MEDS: Sod Chloride 0.9% Inj 1,000 ML IV.CONT SCH ×3 (00:38→23:43)
[2018-05-21] MEDS: HYDROmorphone PF Inj 2 MG/ML Vial IV.PUSH PRN ×3 (01:35→17:31)
[2018-05-21] MEDS: Heparin Drip 25,000 UNIT/250 ML BAG IV.CONT PRN (06:45)
[2018-05-21] MEDS ORDERED: HYDROmorphone PF Inj 1 MG/ML Ampul ONE (07:31)
[2018-05-21 07:32] LABS: Hematocrit 33.5 % (35.0-46.0); Hemoglobin 11.4 gm/dL (11.6-15.3); Mean Corpuscular Volume 91.2 fL (80.0-100.0); Mean Platelet Volume 7.7 fL (7.0-11.0); Platelet Count 170 th/mm3 (150-450); Red Blood Count 3.67 mil/mm3 (4.00-5.30); Red Cell Distribution Width 16.5 % (11.6-17.2); White Blood Count 5.2 th/mm3 (4.0-11.0)
[2018-05-21] MEDS ORDERED: Ketamine Inj 50 MG/5 ML Syringe IV.PUSH ONE (07:32)
[2018-05-21] MEDS ORDERED: Protamine Sulfate Inj 50 MG/5 ML Vial ONE (07:53)
[2018-05-21] MEDS ORDERED: Thrombin Topical 20,000 UNIT Spray Kit TOPICAL ONE (07:53)
[2018-05-21] MEDS ORDERED: Heparin/NS PF Inj 500 ML ONE (07:53)
[2018-05-21] MEDS ORDERED: Heparin 10,000 UNITS/10 ML Vial (for IV use) ONE (07:53)
[2018-05-21] MEDS ORDERED: Lidocaine PF 1% Inj 5 ML Syringe OTHER ONE (08:15)
[2018-05-21] MEDS ORDERED: Sod Chloride 0.9% Inj 1,000 ML IV.CONT ONE (08:15)
[2018-05-21] MEDS ORDERED: Neostigmine Inj 5 MG/5 ML Syringe IV.PUSH ONE (08:15)
[2018-05-21] MEDS ORDERED: Glycopyrrolate Inj 1 MG/5 ML Syringe IV.PUSH ONE (08:15)
[2018-05-21] MEDS ORDERED: Sodium Chlor 0.9% Inj 500 ML IV.CONT ONE (08:15)
[2018-05-21] MEDS ORDERED: Pharmacy Ordered Lab Info OTHER ONE ×2 (10:45→22:45)
[2018-05-21] MEDS: Vancomycin Inj 1,000 MG in Sodium Chlor 0.9% Inj 250 ML IV.SIG SCH ×2 (11:09→23:44)
[2018-05-21] MEDS ORDERED: Iohexol 300 MG/ML 50 ML Vial (for Rad Diag) IVCONTRAST ONE (11:27)
--- NOTE | 2018-05-21 12:14 | P.OP ---
Preoperative Diagnosis: Left lower extremity acute limb ischemia stage I Postoperative Diagnosis: Left lower extremity acute limb ischemia stage I Date of procedure: 05/21/18 Procedure: #1 abdominal aortogram #2 right extremity second order injection #3 atherectomy of the right common iliac artery #4 right to left femoral to femoral bypass using 8 mm ringed PTFE graft was tunneled in the simultaneous tissue. #5 left lymph node biopsy Implants: 8 mm ringed PTFE graft Anesthesia: GETA Surgeon: Dm Alcantar MD Estimated blood loss (mL): 100 Operation and Findings: Findings #1 90% stenosis of the right common iliac artery with a calcified plaque. There was treated using atherectomy with successful results. There is no flow- limiting dissection and less than 30% residual stenosis at the end of the procedure. #2 Successful right to left femoral to femoral bypass. There is a palpable posterior tibial pulse on the right at the end of the procedure. There is triphasic dorsalis pedis, posterior tibial signal on the left lower extremity. # 3 The patient has mild livedo reticularis involving the anterior aspect of the right thigh, right foot. There is no signs of right lower extremity acute limb ischemia. # 4 enlarged left groin lymph node that was biopsied and sent for pathology. Procedure Patient was taken to the operating room laid supine on the OR table. After general trach anesthesia the patient was prepped and draped in sterile fashion. Timeout was called with all members in the OR in agreement. Right groin incision was made and dissection was taken down through this obtains tissues electrocautery. Common femoral artery/femoral artery profunda femoral artery were all dissected and encircled with Silastic loop. Now attention was turned to the left groin. Similar procedure was followed and the femoral vessels were dissected. in the process was noted lots of scaring of the left groin there were enlarged lymph nodes with the largest measuring 3 cm in diameter. A biopsy of the node with sent for pathology. Patient was heparinized. A 5 Libyan sheath was placed in the right common femoral artery. Abdominal aortogram and right iliac artery angiogram was performed. At this point atherectomy of the right common iliac artery was performed using the CSI device. Completion shuntogram was performed. At this point OR catheter and sheath removed. Proximal distal control was obtained in the femoral vessels. The graft was brought into the field with appropriate length and the anastomosis created using 5-0 Prolene suture in a running fashion. The graft was tunneled and subtenons tissue. Proximal dyscontrol on the left femoral vessels. And the left side anastomosis performed using 5-0 Prolene suture in a running fashion. Hemostasis achieved. At this point we checked the signals in the bilateral lower extremities. The wound was closed in multiple layers using Vicryl suture , Monocryl suture. Suzanna dressing was applied to the bilateral groins. Conclusion Patient presents with left lower extremity acute limb ischemia stage I with occlusion of her left common iliac artery stent, external iliac artery. I noted that the stent is crushed at its proximal portion. I proceeded with femoral to femoral bypass after improving the inflow by performing right common iliac artery atherectomy. I had a concern regarding the patient infectious status since she had pending blood cultures and she is on broad spectrum antibiotics. I noticed that she doesn't have any systemic signs of bacteremia.Then the decision was made to proceed of the use of 8 mm ringed PTFE which would have a better patency than available 4-5 mm cryopreserved veins. Patient has good perfusion to the bilateral lower extremities with mild levator reticularis of the right lower extremity..
[2018-05-21] MEDS ORDERED: *Meperidine Inj 25 MG/ML Vial PERIprocedural Use ONLY ONE (12:26)
[2018-05-21] MEDS ORDERED: *morphine SULFATE 4 MG/ML PERIprocedure ONLY ONE ×2 (12:32→12:51)
[2018-05-21] MEDS ORDERED: *Promethazine Inj 25 MG/ML Vial PERIprocedural use ONLY ONE (12:56)
[2018-05-21] MEDS: Sodium Chloride 0.9% 2 ML Flush BID IV.FLUSH SCH ×2 (13:39→21:45)
[2018-05-21] MEDS: Senna/Docusate Sodium 8.6/50 MG Tablet PO SCH ×2 (13:39→20:23)
--- NOTE | 2018-05-21 22:46 | P.PNIM ---
Subjective Interval history: patient says she is feeling well after revascularization procedure. Reports pain in the left leg has almost resolved. Denies any chest pain or shortness of breath. Physical Exam Vital signs: Vital Signs 05/21/18 00:10 05/21/18 00:39 05/21/18 03:38 Temperature 98.7 F Pulse Rate 76 73 75 Respiratory Rate 18 16 Blood Pressure 145/78 H 150/73 H Pulse Oximetry 94 L 94 L 05/21/18 05:24 05/21/18 12:15 05/21/18 12:30 Temperature 97.5 F L Pulse Rate 96 H 78 78 Respiratory Rate 20 18 Blood Pressure 151/68 H 138/91 H Pulse Oximetry 100 98 05/21/18 12:45 05/21/18 13:00 05/21/18 13:30 Temperature Pulse Rate 75 99 H 80 Respiratory Rate 18 16 20 Blood Pressure 148/65 H 149/81 H 148/74 H Pulse Oximetry 100 95 95 05/21/18 14:30 05/21/18 15:00 05/21/18 16:00 Temperature 98.6 F Pulse Rate 79 81 94 H Respiratory Rate 13 10 L 16 Blood Pressure 139/63 108/55 L 107/61 Pulse Oximetry 100 100 100 05/21/18 17:18 05/21/18 18:00 05/21/18 18:18 Temperature 98.2 F Pulse Rate 81 89 Respiratory Rate 16 14 Blood Pressure 118/56 L Pulse Oximetry 98 Intake & Output 05/21/18 05/21/18 05/22/18 06:59 18:59 06:59 Intake Total 2960 / 2960 3950 / 3950 100 / 100 Output Total 2750 / 2750 2800 / 2800 Balance 210 / 210 1150 / 1150 100 / 100 Weight 65 kg Intake: IV 2120 / 2120 1350 / 1350 100 / 100 Heparin/NS PF Inj 500 ML @ 0 500 / 500 mls/hr .ROUTE .STK-MED ONE Rx#: [id number] Heparin/D5W 25,000 U/250 mL 25, 250 / 250 000 unit In 250 ml @ Per Protocol IV.CONT TITRATE PRN Rx #:[id number] NS Inj 1,000 ML @ 100 mls/hr IV 1500 / 1500 500 / 500 .CONT .Q10H [facility] Rx#:[id number] Maxipime Inj 1,000 MG In NS Inj 110 / 110 100 / 100 100 / 100 100 ML @ 200 mls/hr IV.SIG Q12H [facility] Rx#:[id number] Vancomycin Inj 1,000 MG In NS 260 / 260 250 / 250 Inj 250 ML @ 250 mls/hr IV.SIG Q12H [facility] Rx#:[id number] Oral 840 / 840 600 / 600 Anesthesia Amount 1999 / 1999 Output: Urine 2750 / 2750 Estimated Blood Loss 200 / 200 Urine Amount (Catheter) 2600 / 2600 Indwelling Urethral Catheter 2600 / 2600 Other: Mode Setting Left Groin Continuous Perineal Continuous Right Groin Continuous Date of Last Bowel Movement 05/20/18 Narrative: GENERAL: Patient lying in bed. Appears comfortable. SKIN: Warm and dry. HEAD: Normocephalic. EYES: No scleral icterus. No injection or drainage. NECK: Supple, trachea midline. No JVD. CARDIOVASCULAR: Regular rate and rhythm without murmurs, gallops, or rubs. RESPIRATORY: Breath sounds equal bilaterally. No accessory muscle use. GASTROINTESTINAL: Abdomen soft, non-tender, nondistended. MUSCULOSKELETAL: Dusky left lower extremity. very faint pedal pulse left lower extremity. Better color today. Sensation intact. BACK: Nontender without obvious deformity. No CVA tenderness. - Urinary Catheter Management Indwelling Urethral Catheter Cath placed during this visit: yes Reason for continuing: Hourly intake/output Insertion date: 05/21/18 Insertion time: 08:35 Results - Labs CBC & Chem 7: 05/21/18 07:02 05/20/18 04:52 Laboratory Results - last 24 hr 05/21/18 05/21/18 05/21/18 00:29 07:02 07:02 WBC 5.2 RBC 3.67 L Hgb 11.4 L Hct 33.5 L MCV 91.2 MCH 31.0 MCHC 34.0 RDW 16.5 Plt Count 170 MPV 7.7 APTT 55.8 H 57.4 H Blood Type Antibody Screen MTS Gel Crossmatch 05/21/18 07:48 WBC RBC Hgb Hct MCV MCH MCHC RDW Plt Count MPV APTT Blood Type B Positive Antibody Screen Negative MTS Gel Crossmatch See Detail Microbiology 05/19/18 21:00 Blood - Peripheral Aerobic Blood Culture - Preliminary No growth in 2 days 05/19/18 21:00 Blood - Peripheral Anaerobic Blood Culture - Preliminary No growth in 2 days 05/19/18 20:50 Blood - Peripheral Aerobic Blood Culture - Preliminary No growth in 2 days 05/19/18 20:50 Blood - Peripheral Anaerobic Blood Culture - Preliminary No growth in 2 days Assessment and Plan - Plan Ms. 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 She was found to have a left iliac occlusion and was admitted to the hospitalist service for further medical management. //Left iliac artery occlusion //postoperative left iliac artery revascularization on 05/21 -Heparin drip -consult vascular surgery - appreciate assistance -NPO -Analgesia: Sandgap 10/325 mg q4h p.o. or Dilaudid 1 mg q4h IV per pain scale -Left LE venous Doppler negative for DVT - mildly enlarged left inguinal lymph node and small left popliteal cyst were incidental findings. = postoperative management as per vascular surgery. Pathology from lymph node biopsy pending. //Chronic gluteal wound Colorectal Cancer -consult wound care nurse -consult colorectal surgeon - Dr. Barreto - appreciate his assistance - possible biopsy planned for Sunday -Antibiotics: IV Vancomycin (with pharmacy consultation to monitor and manage therapeutic regimen) and cefepime 1 gm IV q12h = Wound care following. Appreciate assistance = Colorectal surgery following. continues on antibiotics. Appreciate assistance. //Nausea with vomiting -maybe secondary to medications given in ED -will switch zofran to IV compazine -monitor for effectiveness = Appears to have resolved. Monitor. //Urinary incontinence -She had an episode of incontinence earlier today - UA in ED was negative -Lumbar MRI showed L3-L4 herniation but no cord compression -uncertain if this is a limited event or if she's developing stress incontinence - she's not had this in the past -continues at postoperative Dominguez. We'll plan to remove tomorrow //L3-L4 herniated disc -noted on lumbar MRI in ED -patient can f/u as an outpatient once medical condition is stabilized //History of ruptured duodenal ulcer -Protonix 40 mg IV q24h //DVT prophylaxis -currently on heparin drip Discussed Condition With: patient, nurse Discharge Planning: hopefully can go home when cleared by colorectal surgery.
[2018-05-22] MEDS: Pantoprazole Inj 40 MG Vial IV.PUSH SCH (00:03)
[2018-05-22] MEDS: Sod Chloride 0.9% Inj 1,000 ML IV.CONT SCH ×2 (00:48→12:44)
[2018-05-22] MEDS: HYDROmorphone PF Inj 2 MG/ML Vial IV.PUSH PRN ×5 (02:29→22:01)
[2018-05-22] MEDS: Sodium Chloride 0.9% 2 ML Flush BID IV.FLUSH SCH ×2 (08:39→20:23)
--- NOTE | 2018-05-22 08:46 | P.PNCS ---
Subjective Interval history: S/P leg revascularization. Objective Result Diagrams: 05/21/18 07:02 05/20/18 04:52 Objective Remarks: Will biopsy in wound in 1-2 weeks once Vascular surgery clears Assessment and Plan - Plan Per wound care and Vascular surgery
--- NOTE | 2018-05-22 09:18 | P.PNVS ---
Subjective Subjective/Hospital Course: doing well Objective Vital Signs / I&O: Vital Signs 05/21/18 12:15 05/21/18 12:30 05/21/18 12:45 Temperature 97.5 F L Pulse Rate 78 78 75 Respiratory Rate 20 18 18 Blood Pressure 151/68 H 138/91 H 148/65 H Pulse Oximetry 100 98 100 05/21/18 13:00 05/21/18 13:30 05/21/18 14:30 Temperature Pulse Rate 99 H 80 79 Respiratory Rate 16 20 13 Blood Pressure 149/81 H 148/74 H 139/63 Pulse Oximetry 95 95 100 05/21/18 15:00 05/21/18 16:00 05/21/18 17:18 Temperature 98.6 F 98.2 F Pulse Rate 81 94 H 81 Respiratory Rate 10 L 16 16 Blood Pressure 108/55 L 107/61 118/56 L Pulse Oximetry 100 100 98 05/21/18 18:00 05/21/18 18:18 05/21/18 19:00 Temperature Pulse Rate 89 83 Respiratory Rate 14 Blood Pressure Pulse Oximetry 05/21/18 20:00 05/21/18 21:00 05/21/18 22:00 Temperature 98.0 F Pulse Rate 91 H 84 88 Respiratory Rate 16 Blood Pressure 126/60 Pulse Oximetry 96 05/21/18 23:00 05/21/18 23:50 05/22/18 00:00 Temperature 98.0 F Pulse Rate 94 H 87 91 H Respiratory Rate 16 Blood Pressure 121/57 L Pulse Oximetry 96 05/22/18 01:00 05/22/18 01:55 05/22/18 03:00 Temperature Pulse Rate 87 87 90 Respiratory Rate Blood Pressure Pulse Oximetry 05/22/18 04:00 05/22/18 05:00 05/22/18 05:54 Temperature 98.6 F Pulse Rate 91 H 102 H 84 Respiratory Rate 16 Blood Pressure 133/60 Pulse Oximetry 96 Intake & Output 05/21/18 05/22/18 05/22/18 18:59 06:59 18:59 Intake Total 3950 / 3950 850 / 850 Output Total 2800 / 2800 Balance 1150 / 1150 850 / 850 Weight 63.5 kg Intake: IV 1350 / 1350 850 / 850 Heparin/NS PF Inj 500 ML @ 0 500 / 500 mls/hr .ROUTE .STK-MED ONE Rx#: [id number] NS Inj 1,000 ML @ 100 mls/hr IV 500 / 500 500 / 500 .CONT .Q10H [facility] Rx#:[id number] Maxipime Inj 1,000 MG In NS Inj 100 / 100 100 / 100 100 ML @ 200 mls/hr IV.SIG Q12H [facility] Rx#:[id number] Vancomycin Inj 1,000 MG In NS 250 / 250 250 / 250 Inj 250 ML @ 250 mls/hr IV.SIG Q12H [facility] Rx#:[id number] Oral 600 / 600 Anesthesia Amount 1999 Output: Estimated Blood Loss 200 / 200 Urine Amount (Catheter) 2600 / 2600 Indwelling Urethral Catheter 2600 / 2600 Other: Mode Setting Left Groin Continuous Perineal Continuous Right Groin Continuous Date of Last Bowel Movement 05/21/18 Physical Exam: LLE with multiphasic DP and PT signals, soft calf, no compartment syndrome RLE: livido reticularis improving, palpable pt pulse BL groin vac CDI Laboratory Results - last 24 hr 05/21/18 05/22/18 23:30 05:48 APTT 25.9 D Vancomycin Trough 11.8 H Microbiology 05/19/18 21:00 Aerobic Blood Culture - Preliminary Blood - Peripheral No growth in 2 days Anaerobic Blood Culture - Preliminary No growth in 2 days 05/19/18 20:50 Aerobic Blood Culture - Preliminary Blood - Peripheral No growth in 2 days Anaerobic Blood Culture - Preliminary No growth in 2 days Assessment and Plan - Plan s/p Fem-fem bypass doing well will advance diet OOD , consult PT
[2018-05-22] MEDS: Vancomycin Inj 1,000 MG in Sodium Chlor 0.9% Inj 250 ML IV.SIG SCH (10:25)
[2018-05-22] MEDS: Enoxaparin Inj 40 MG/0.4 ML Syringe SQ SCH (10:26)
[2018-05-22] MEDS: Senna/Docusate Sodium 8.6/50 MG Tablet PO SCH ×2 (20:00→20:24)
--- NOTE | 2018-05-22 22:35 | P.PNIM ---
Subjective Interval history: patient says she is feeling all right today. Denies any chest pain shortness of breath. Reports pain is controlled. Physical Exam Vital signs: Vital Signs 05/21/18 23:00 05/21/18 23:50 05/22/18 00:00 Temperature 98.0 F Pulse Rate 94 H 87 91 H Respiratory Rate 16 Blood Pressure 121/57 L Pulse Oximetry 96 05/22/18 01:00 05/22/18 01:55 05/22/18 03:00 Temperature Pulse Rate 87 87 90 Respiratory Rate Blood Pressure Pulse Oximetry 05/22/18 04:00 05/22/18 05:00 05/22/18 05:54 Temperature 98.6 F Pulse Rate 91 H 102 H 84 Respiratory Rate 16 Blood Pressure 133/60 Pulse Oximetry 96 05/22/18 08:00 05/22/18 09:00 05/22/18 10:00 Temperature 98.9 F Pulse Rate 83 90 86 Respiratory Rate 16 Blood Pressure 128/60 Pulse Oximetry 98 05/22/18 11:00 05/22/18 12:00 05/22/18 13:00 Temperature 100.3 F H 98 F Pulse Rate 102 H 93 H 82 Respiratory Rate 17 18 Blood Pressure 157/72 H 148/70 H Pulse Oximetry 05/22/18 14:00 05/22/18 15:00 05/22/18 16:00 Temperature 97.4 F L Pulse Rate 76 80 82 Respiratory Rate Blood Pressure Pulse Oximetry 96 05/22/18 17:00 05/22/18 18:00 05/22/18 19:00 Temperature Pulse Rate 78 78 90 Respiratory Rate Blood Pressure Pulse Oximetry 05/22/18 20:00 05/22/18 21:00 05/22/18 21:07 Temperature 98.9 F Pulse Rate 90 77 Respiratory Rate 20 20 Blood Pressure 128/61 Pulse Oximetry 98 Intake & Output 05/22/18 05/22/18 05/23/18 06:59 18:59 06:59 Intake Total 850 / 850 1100 / 1100 Balance 850 / 850 1100 / 1100 Weight 63.5 kg Intake: IV 850 / 850 1100 / 1100 NS Inj 1,000 ML @ 100 mls/hr IV 500 / 500 1000 / 1000 .CONT .Q10H [facility] Rx#:[id number] Maxipime Inj 1,000 MG In NS Inj 100 / 100 100 / 100 100 ML @ 200 mls/hr IV.SIG Q12H [facility] Rx#:[id number] Vancomycin Inj 1,000 MG In NS 250 / 250 Inj 250 ML @ 250 mls/hr IV.SIG Q12H [facility] Rx#:[id number] Other: Date of Last Bowel Movement 05/21/18 05/21/18 Narrative: GENERAL: Patient lying in bed. Appears comfortable. SKIN: Warm and dry. HEAD: Normocephalic. EYES: No scleral icterus. No injection or drainage. NECK: Supple, trachea midline. No JVD. CARDIOVASCULAR: Regular rate and rhythm without murmurs, gallops, or rubs. RESPIRATORY: Breath sounds equal bilaterally. No accessory muscle use. GASTROINTESTINAL: Abdomen soft, non-tender, nondistended. MUSCULOSKELETAL: very faint pedal pulse left lower extremity, improved from admission. Sensation intact. BACK: Nontender without obvious deformity. No CVA tenderness. - Urinary Catheter Management Indwelling Urethral Catheter Cath placed during this visit: yes, but has since been removed by the nurse Reason for continuing: Decision to DC catheter Insertion date: 05/21/18 Insertion time: 08:35 Removal date: 05/22/18 Removal time: 12:30 Results - Labs CBC & Chem 7: 05/21/18 07:02 05/20/18 04:52 Laboratory Results - last 24 hr 05/21/18 05/22/18 23:30 05:48 APTT 25.9 D Vancomycin Trough 11.8 H Microbiology 05/19/18 21:00 Blood - Peripheral Aerobic Blood Culture - Preliminary No growth in 3 days 05/19/18 21:00 Blood - Peripheral Anaerobic Blood Culture - Preliminary No growth in 3 days 05/19/18 20:50 Blood - Peripheral Aerobic Blood Culture - Preliminary No growth in 3 days 05/19/18 20:50 Blood - Peripheral Anaerobic Blood Culture - Preliminary No growth in 3 days Assessment and Plan - Plan Ms. 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 She was found to have a left iliac occlusion and was admitted to the hospitalist service for further medical management. //Left iliac artery occlusion //postoperative left iliac artery revascularization on 05/21 -Heparin drip -consult vascular surgery - appreciate assistance -NPO -Analgesia: [place] 10/325 mg q4h p.o. or Dilaudid 1 mg q4h IV per pain scale -Left LE venous Doppler negative for DVT - mildly enlarged left inguinal lymph node and small left popliteal cyst were incidental findings. = postoperative management as per vascular surgery. Pathology from lymph node biopsy pending. = per discussion with nursing and vascular surgery [employer], patient will need 2 more days in the hospital. //Chronic gluteal wound Colorectal Cancer -consult wound care nurse -consult colorectal surgeon - Dr. Barreto - appreciate his assistance - possible biopsy planned for Sunday -Antibiotics: IV Vancomycin (with pharmacy consultation to monitor and manage therapeutic regimen) and cefepime 1 gm IV q12h = Wound care following. Appreciate assistance = Colorectal surgery following. continues on antibiotics. Appreciate assistance. //Nausea with vomiting -maybe secondary to medications given in ED -will switch zofran to IV compazine -monitor for effectiveness = Appears to have resolved. Monitor. //Urinary incontinence -She had an episode of incontinence earlier today - UA in ED was negative -Lumbar MRI showed L3-L4 herniation but no cord compression -uncertain if this is a limited event or if she's developing stress incontinence - she's not had this in the past -Dominguez removed //L3-L4 herniated disc -noted on lumbar MRI in ED -patient can f/u as an outpatient once medical condition is stabilized //History of ruptured duodenal ulcer -Protonix 40 mg IV q24h //DVT prophylaxis -currently on heparin drip Discharge Planning: hopefully can go home when cleared by vascular surgery. lymph node was removed during vascular surgery and pathology on this is pending. Patient will need to follow-up with rectal surgery as outpatient
[2018-05-23] MEDS: Pantoprazole Inj 40 MG Vial IV.PUSH SCH (00:09)
[2018-05-23] MEDS: Vancomycin Inj 1,250 MG in Sodium Chlor 0.9% Inj 250 ML IV.SIG SCH ×2 (00:09→13:45)
--- NOTE | 2018-05-23 01:28 | ECG ---
Date Performed: 05/21/2018 Time Performed: 02:28:40 PTAGE: 58 years EKG: Sinus rhythm Normal ECG PREVIOUS TRACING : 04/26/2017 11.18 Since the previous tracing, no significant change noted DOCTOR: Neto Kumar Interpretating Date/Time 05/23/2018 01:26:40
[2018-05-23] MEDS: HYDROmorphone PF Inj 2 MG/ML Vial IV.PUSH PRN ×2 (04:47→11:07)
[2018-05-23] MEDS: Sod Chloride 0.9% Inj 1,000 ML IV.CONT SCH ×2 (04:50→08:58)
[2018-05-23 05:39] LABS: Baso % (Auto) 0.2 % (0.0-2.0); Eos # (Auto) 0.2 th/mm3 (0.0-0.4); Eos % (Auto) 3.9 % (0.0-4.0); Hematocrit 31.7 % (35.0-46.0); Hemoglobin 10.9 gm/dL (11.6-15.3); Lymph # (Auto) 0.3 th/mm3 (1.0-4.8); Lymph % (Auto) 5.3 % (9.0-44.0); Mean Corpuscular HGB Conc 34.3 % (32.0-36.0); Mean Corpuscular Hemoglobin 31.1 pg (27.0-34.0); Mean Corpuscular Volume 90.6 fL (80.0-100.0); Mean Platelet Volume 7.6 fL (7.0-11.0); Mono # (Auto) 0.5 th/mm3 (0.0-0.9); Mono % (Auto) 9.6 % (0.0-8.0); Neut # (Auto) 4.2 th/mm3 (1.8-7.7); Platelet Count 146 th/mm3 (150-450); Red Cell Distribution Width 17.2 % (11.6-17.2); White Blood Count 5.2 th/mm3 (4.0-11.0)
[2018-05-23 06:07] LABS: Albumin 2.6 g/dL (3.4-5.0); Anion Gap 8 meq/L (5-15); Blood Urea Nitrogen 6 mg/dL (7-18); Calcium 7.4 mg/dL (8.5-10.1); Carbon Dioxide 28.1 meq/L (21.0-32.0); Chloride 106 meq/L (98-107); Glomerular Filtration Rate Greater Than 89 mL/min (>89); Glucose,Random 88 mg/dL (74-106); Magnesium 1.6 mg/dL (1.5-2.5); Phosphorus 2.5 mg/dL (2.5-4.9); Sodium 142 meq/L (136-145)
[2018-05-23 06:20] LABS: Potassium 2.8 meq/L (3.5-5.1)
--- NOTE | 2018-05-23 08:15 | P.PNVS ---
Subjective Post Op Day #: 2 Subjective/Hospital Course: doing well ambulating without difficulties Objective Vital Signs / I&O: Vital Signs 05/22/18 09:00 05/22/18 10:00 05/22/18 11:00 Temperature 100.3 F H Pulse Rate 90 86 102 H Respiratory Rate 17 Blood Pressure 157/72 H Pulse Oximetry 05/22/18 12:00 05/22/18 13:00 05/22/18 14:00 Temperature 98 F Pulse Rate 93 H 82 76 Respiratory Rate 18 Blood Pressure 148/70 H Pulse Oximetry 05/22/18 15:00 05/22/18 16:00 05/22/18 17:00 Temperature 97.4 F L Pulse Rate 80 82 78 Respiratory Rate Blood Pressure Pulse Oximetry 96 05/22/18 18:00 05/22/18 19:00 05/22/18 20:00 Temperature 98.9 F Pulse Rate 78 90 90 Respiratory Rate 20 Blood Pressure 128/61 Pulse Oximetry 98 05/22/18 21:00 05/22/18 21:07 05/22/18 22:00 Temperature Pulse Rate 77 79 Respiratory Rate 20 Blood Pressure Pulse Oximetry 05/22/18 23:00 05/23/18 00:00 05/23/18 01:00 Temperature 97.9 F Pulse Rate 80 80 107 H Respiratory Rate 18 Blood Pressure 123/59 L Pulse Oximetry 98 05/23/18 02:00 05/23/18 03:00 05/23/18 04:00 Temperature 98.7 F Pulse Rate 103 H 71 71 Respiratory Rate 18 20 Blood Pressure 141/65 H Pulse Oximetry 98 05/23/18 05:54 Temperature Pulse Rate 104 H Respiratory Rate Blood Pressure Pulse Oximetry Intake & Output 05/22/18 05/23/18 05/23/18 18:59 06:59 18:59 Intake Total 1100 / 1100 1843 / 1843 Output Total 0 / 0 Balance 1100 / 1100 1843 / 1843 Weight 64.5 kg Intake: IV 1100 / 1100 1363 / 1363 NS Inj 1,000 ML @ 100 mls/hr IV 1000 / 1000 1000 / 1000 .CONT .Q10H [facility] Rx#:[id number] Maxipime Inj 1,000 MG In NS Inj 100 / 100 100 / 100 100 ML @ 200 mls/hr IV.SIG Q12H [facility] Rx#:[id number] Vancomycin Inj 1,250 MG In NS 263 / 263 Inj 250 ML @ 250 mls/hr IV.SIG Q12H [facility] Rx#:[id number] Oral 480 / 480 Output: Emesis 0 / 0 Stool Amount (Stoma) 0 / 0 Left Lower Abdomen 0 / 0 Other: # Voids 4 Date of Last Bowel Movement 05/21/18 Exam: palpable pt pulses bl groin CDI Laboratory Results - last 24 hr 05/23/18 05/23/18 04:37 04:37 WBC 5.2 RBC 3.50 L Hgb 10.9 L Hct 31.7 L MCV 90.6 MCH 31.1 MCHC 34.3 RDW 17.2 Plt Count 146 L MPV 7.6 Neut % (Auto) 81.0 H Lymph % (Auto) 5.3 L [place] % (Auto) 9.6 H Eos % (Auto) 3.9 Baso % (Auto) 0.2 Neut # (Auto) 4.2 Lymph # (Auto) 0.3 L [place] # (Auto) 0.5 Eos # (Auto) 0.2 Baso # (Auto) 0.0 WBC Differential . Differential Comment Auto diff final Sodium 142 Potassium 2.8 L* Chloride 106 Carbon Dioxide 28.1 Anion Gap 8 BUN 6 L Creatinine 0.54 Estimated GFR Greater than 89 Random Glucose 88 Calcium 7.4 L* Phosphorus 2.5 Magnesium 1.6 Albumin 2.6 L Microbiology 05/19/18 21:00 Aerobic Blood Culture - Preliminary Blood - Peripheral No growth in 3 days Anaerobic Blood Culture - Preliminary No growth in 3 days 05/19/18 20:50 Aerobic Blood Culture - Preliminary Blood - Peripheral No growth in 3 days Anaerobic Blood Culture - Preliminary No growth in 3 days Assessment and Plan - Plan s/p Fem-fem bypass Stable for DC from vascular standpoint
--- NOTE | 2018-05-23 08:20 | P.PN ---
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 05/23: Seen in her Bedroom, discussed with nurse Miss Cunningham giving replacement of electrolytes started in am her Potassium 2.8, magnesium 1.6 and Calcium 7.4 will follow her potassium in two hours post replacement and follow also in am tomorrow, at this time patient is been cleared for discharge by Vascular surgery, asking for [facility] for wound care. Discussed with nurse with Charge nurse and case picker and MDR will go home after Electrolyte replacement Physical Exam Vital signs: Vital Signs 05/22/18 09:00 05/22/18 10:00 05/22/18 11:00 Temperature 100.3 F H Pulse Rate 90 86 102 H Respiratory Rate 17 Blood Pressure 157/72 H Pulse Oximetry 05/22/18 12:00 05/22/18 13:00 05/22/18 14:00 Temperature 98 F Pulse Rate 93 H 82 76 Respiratory Rate 18 Blood Pressure 148/70 H Pulse Oximetry 05/22/18 15:00 05/22/18 16:00 05/22/18 17:00 Temperature 97.4 F L Pulse Rate 80 82 78 Respiratory Rate Blood Pressure Pulse Oximetry 96 05/22/18 18:00 05/22/18 19:00 05/22/18 20:00 Temperature 98.9 F Pulse Rate 78 90 90 Respiratory Rate 20 Blood Pressure 128/61 Pulse Oximetry 98 05/22/18 21:00 05/22/18 21:07 05/22/18 22:00 Temperature Pulse Rate 77 79 Respiratory Rate 20 Blood Pressure Pulse Oximetry 05/22/18 23:00 05/23/18 00:00 05/23/18 01:00 Temperature 97.9 F Pulse Rate 80 80 107 H Respiratory Rate 18 Blood Pressure 123/59 L Pulse Oximetry 98 05/23/18 02:00 05/23/18 03:00 05/23/18 04:00 Temperature 98.7 F Pulse Rate 103 H 71 71 Respiratory Rate 18 20 Blood Pressure 141/65 H Pulse Oximetry 98 05/23/18 05:54 Temperature Pulse Rate 104 H Respiratory Rate Blood Pressure Pulse Oximetry Intake & Output 05/22/18 05/23/18 05/23/18 18:59 06:59 18:59 Intake Total 1100 / 1100 1842 / 1842 Output Total 0 / 0 Balance 1100 / 1100 1842 / 184 Weight 64.5 kg Intake: IV 1100 / 1100 1363 / 1363 NS Inj 1,000 ML @ 100 mls/hr IV 1000 / 1000 1000 / 1000 .CONT .Q10H [facility] Rx#:[id number] Maxipime Inj 1,000 MG In NS Inj 100 / 100 100 / 100 100 ML @ 200 mls/hr IV.SIG Q12H [facility] Rx#:[id number] Vancomycin Inj 1,250 MG In NS 263 / 263 Inj 250 ML @ 250 mls/hr IV.SIG Q12H [facility] Rx#:[id number] Oral 480 / 480 Output: Emesis 0 / 0 Stool Amount (Stoma) 0 / 0 Left Lower Abdomen 0 / 0 Other: # Voids 4 Date of Last Bowel Movement 05/21/18 Narrative: GENERAL: No acute distress SKIN: Warm and dry. HEAD: Normocephalic. EYES: No scleral icterus. No injection or drainage. NECK: Supple, trachea midline. No JVD. CARDIOVASCULAR: Regular rate and rhythm without murmurs, gallops, or rubs. RESPIRATORY: Breath sounds equal bilaterally. No accessory muscle use. GASTROINTESTINAL: Abdomen soft, non-tender, nondistended. MUSCULOSKELETAL: very faint pedal pulse left lower extremity, improved from admission. Sensation intact. BACK: Nontender without obvious deformity. No CVA tenderness. - Urinary Catheter Management Indwelling Urethral Catheter Cath placed during this visit: yes, but has since been removed by the nurse Reason for continuing: Decision to DC catheter Insertion date: 05/21/18 Insertion time: 08:35 Removal date: 05/22/18 Removal time: 12:30 Results - Labs CBC & Chem 7: 05/23/18 04:37 05/23/18 04:37 Laboratory Results - last 24 hr 05/23/18 05/23/18 04:37 04:37 WBC 5.2 RBC 3.50 L Hgb 10.9 L Hct 31.7 L MCV 90.6 MCH 31.1 MCHC 34.3 RDW 17.2 Plt Count 146 L MPV 7.6 Neut % (Auto) 81.0 H Lymph % (Auto) 5.3 L [place] % (Auto) 9.6 H Eos % (Auto) 3.9 Baso % (Auto) 0.2 Neut # (Auto) 4.2 Lymph # (Auto) 0.3 L [place] # (Auto) 0.5 Eos # (Auto) 0.2 Baso # (Auto) 0.0 WBC Differential . Differential Comment Auto diff final Sodium 142 Potassium 2.8 L* Chloride 106 Carbon Dioxide 28.1 Anion Gap 8 BUN 6 L Creatinine 0.54 Estimated GFR Greater than 89 Random Glucose 88 Calcium 7.4 L* Phosphorus 2.5 Magnesium 1.6 Albumin 2.6 L Microbiology 05/19/18 21:00 Blood - Peripheral Aerobic Blood Culture - Preliminary No growth in 3 days 05/19/18 21:00 Blood - Peripheral Anaerobic Blood Culture - Preliminary No growth in 3 days 05/19/18 20:50 Blood - Peripheral Aerobic Blood Culture - Preliminary No growth in 3 days 05/19/18 20:50 Blood - Peripheral Anaerobic Blood Culture - Preliminary No growth in 3 days - Imaging Lumbar Spine MRI 05/19/18 19:11 CONCLUSION: 1. At L3-4 there is a broad-based left paracentral disc protrusion with left lateral recess stenosis. 2. Normal alignment of the lumbar spine. Conus medullaris intact. No significant central canal stenosis. Venous Doppler Study 05/19/18 20:22 CONCLUSION: 1. Negative for deep venous thrombosis. Mildly enlarged left inguinal lymph node. Small left popliteal cyst measuring about 1 cm. Aorta w/Runoff CTA 05/19/18 20:35 CONCLUSION: 1. Acute occlusion of the left inflow with reconstitution of the common femoral. Runoff is seen to the ankle joint and delusional effect from the proximal occlusion prevents adequate evaluation of the distal trifurcation vessels. 2. Patent inflow with mild outflow disease. Runoff via the posterior tibial artery. 3. Metastatic involvement of the lungs has progressed from the prior examination. 4. Bilateral hydronephrosis which is new from the prior examination of December 2017. 5. Mild inflammatory change involving the subcutaneous fat involving the perineum. No abscess. 6. Soft tissue thickening involving the presacral soft tissues. This may simply be postsurgical in nature. - Procedures postoperative left iliac artery revascularization on 05/21/18 Assessment and Plan - Plan Ms. 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 She was found to have a left iliac occlusion and was admitted to the hospitalist service for further medical management. //Left iliac artery occlusion //postoperative left iliac artery revascularization on 05/21 -Lovenox, Analgesia Evans and Dilaudid, -Analgesia: [place] 10/325 mg q4h p.o. or Dilaudid by mouth, -Left LE venous Doppler negative for DVT - mildly enlarged left inguinal lymph node and small left popliteal cyst were incidental findings. = postoperative management as per vascular surgery. 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 will follow colon and rectal dental specialist as outpatient. //Chronic gluteal wound Colorectal Cancer -network diagnostic support specialist following. -consult colorectal surgeon - Dr. Barreto - appreciate his assistance - possible biopsy planned for Sunday -Antibiotics: IV Vancomycin but her lymph node has no infectious changes but yes Metastatic disease, off antibiotics. //Nausea with vomiting -maybe secondary to medications given in ED = Appears to have resolved. Monitor. //Urinary incontinence Improved. -She had an episode of incontinence earlier today - UA in ED was negative -Lumbar MRI showed L3-L4 herniation but no cord compression -uncertain if this is a limited event or if she's developing stress incontinence - she's not had this in the past //L3-L4 herniated disc -noted on lumbar MRI in ED -patient can f/u as an outpatient once medical condition is stabilized //History of ruptured duodenal ulcer -Protonix 40 mg IV q24h electrolyte derangement replaced and following. //DVT prophylaxis -currently on heparin drip Code Status: Full code. Discussed Condition With: patient and nurse. Discharge Planning: Cleared by Vascular surgery will discharge in am tomorrow.
[2018-05-23] MEDS: Senna/Docusate Sodium 8.6/50 MG Tablet PO SCH ×2 (08:56→20:36)
[2018-05-23] MEDS: Sodium Chloride 0.9% 2 ML Flush BID IV.FLUSH SCH ×2 (08:56→20:36)
[2018-05-23] MEDS: Potassium Chlor 20 mEq Premix 20 MEQ/100 ML PIGGYBACK IV.SIG SCH ×2 (08:57→12:36)
[2018-05-23] MEDS: Mag Sulf 1 gm/100 ml Premix 100 ML IV.SIG SCH ×2 (09:02→10:15)
[2018-05-23] MEDS ORDERED: Calcium Gluconate Inj 1 GM in Dextrose 5% in Water Inj 100 ML IV.SIG ONE ×2 (10:00)
[2018-05-23] MEDS: Enoxaparin Inj 40 MG/0.4 ML Syringe SQ SCH (10:14)
--- NOTE | 2018-05-23 15:21 | P.PNWCN ---
Wound Care Nurse Consult Description: Wound consult ordered by for wound management. Communicated with: Marisa Colbert Recommendation: 1. Cleanse sacral/ intra gluteal cleft with remedy soft cloth barrier wipes. 3. Apply Cavilon skin prep to periwound Then apply Puracol AG cut to fit wound base may leave open to air 4. Puracol AG to remain in wound base x4 days reapply if dislodged or soiled. 5. Please feel free to contact wound care team if treatment fails or wound worsen. Additional information: Follow up of wound management.Patient was seen today by technical writer and editor and [facility] Velazquez [facility] for follow up of perineal partial thickness wound .Patient alert and oriented ambulating in room upon arrival.Order obtained for lidocaine 4% topical. 2mm thick layer of lidocaine applied to wound base and periwound let sit for 5 min.Silver nitrate stick activated with tap water and epibole wound edges debrided .Wound cleansed with normal saline pat dry Puracol AG cut to fit wound base applied after Cavilon skin prep to periwound.Wound left open to air.induration still noted from 2-5 O'clock with scant serosanguineous exudate noted.Patient tolerated wound acre well care package left with patient including gauze ,saline and Puracol AG patient to follow up with upon discharge.Patient had no further questions or concerns upon writers departure. Wound/Pressure Injury - Wound Perineal Wound Assessment: Admission Wound Type: Traumatic Wound Is This a Chronic Wound: Yes Requested from Provider a Wound Care Consult: No (Addison SAMAYOA,[facility] seen 05/23) Length (cm): 2.0 Width (cm): 1.0 Depth (cm): 0.2 Wound Bed Appearance: [place], Pale Surrounding Tissue Temperature: Cool Drainage Description: Serosanguinous Drainage Amount: Scant Drainage Odor: No Odor Cleansing Solution: Saline Wound Packing Type: Collagen Wound Dressing Change Date: 05/23/18
[2018-05-23] MEDS ORDERED: fentaNYL Citrate Inj 250 MCG/5 ML Ampul ONE (15:42)
--- NOTE | 2018-05-23 16:10 | P.DCO ---
- Diagnosis (1) Iliac artery occlusion, left Status: Acute (2) Peripheral arterial occlusive disease Status: Acute - Home Health Nursing Order: Medical education, Signs/symptoms of disease process, Medication education-adverse effect, Wound care and dressing changes, Nursing assessment with vital signs - Case Management Consult No - Certification I have seen patient Michelle Vora on 05/23/18. My clinical findings support the need for the requested home health care services because: Deconditioned with increased weakness I certify that my clinical findings support that this patient is homebound because: Unsafe to leave home unassisted
[2018-05-23 23:11] VITALS: RESP 18
[2018-05-24] MEDS: Pantoprazole Inj 40 MG Vial IV.PUSH SCH (01:02)
[2018-05-24 08:31] LABS: Anion Gap 7 meq/L (5-15); Blood Urea Nitrogen 5 mg/dL (7-18); Calcium 8.2 mg/dL (8.5-10.1); Carbon Dioxide 28.8 meq/L (21.0-32.0); Chloride 106 meq/L (98-107); Glomerular Filtration Rate Greater Than 89 mL/min (>89); Glucose,Random 104 mg/dL (74-106); Magnesium 2.1 mg/dL (1.5-2.5); Potassium 3.1 meq/L (3.5-5.1); Sodium 142 meq/L (136-145)
[2018-05-24] MEDS: Senna/Docusate Sodium 8.6/50 MG Tablet PO SCH (08:41)
[2018-05-24] MEDS: Sodium Chloride 0.9% 2 ML Flush BID IV.FLUSH SCH (08:41)
[2018-05-24] MEDS ORDERED: Enoxaparin Inj 40 MG/0.4 ML Syringe SQ SCH (09:00)
--- NOTE | 2018-05-24 10:23 | P.PN ---
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 05/23: Seen in her Bedroom, discussed with nurse Miss Cunningham giving replacement of electrolytes started in am her Potassium 2.8, magnesium 1.6 and Calcium 7.4 will follow her potassium in two hours post replacement and follow also in am tomorrow, at this time patient is been cleared for discharge by Vascular surgery, asking for [facility] for wound care. Discussed with nurse with Charge nurse and watch caser and MDR will go home after Electrolyte replacement 05/24: Stable in her bedroom, has her two vacuum placed and working well, she will go home on [facility] for wound care and Physical therapy, no nausea, vomit or diarrhea. she states won't take Aspirin or Plavix due to that she had important duodenal ulcer complications. Physical Exam Vital signs: Vital Signs 05/23/18 11:00 05/23/18 12:00 05/23/18 13:00 Temperature 98.2 F Pulse Rate 76 83 94 H Respiratory Rate 16 Blood Pressure 112/58 L Pulse Oximetry 98 05/23/18 14:00 05/23/18 15:00 05/23/18 16:00 Temperature 98.6 F Pulse Rate 97 H 75 83 Respiratory Rate 18 Blood Pressure 127/59 L Pulse Oximetry 97 05/23/18 17:00 05/23/18 18:00 05/23/18 19:00 Temperature 98.2 F Pulse Rate 74 80 76 Respiratory Rate 17 Blood Pressure 124/65 Pulse Oximetry 100 05/23/18 20:00 05/23/18 21:00 05/23/18 21:35 Temperature Pulse Rate 80 77 Respiratory Rate 18 Blood Pressure Pulse Oximetry 05/23/18 22:00 05/23/18 22:39 05/23/18 23:00 Temperature 98.3 F Pulse Rate 78 81 Respiratory Rate 17 18 Blood Pressure 125/80 Pulse Oximetry 97 05/23/18 23:59 05/24/18 00:00 05/24/18 01:00 Temperature Pulse Rate 87 83 Respiratory Rate 18 Blood Pressure Pulse Oximetry 05/24/18 01:32 05/24/18 02:00 05/24/18 03:00 Temperature 98.0 F Pulse Rate 73 77 Respiratory Rate 18 18 Blood Pressure 128/76 Pulse Oximetry 99 05/24/18 04:00 05/24/18 05:00 05/24/18 05:30 Temperature Pulse Rate 74 82 Respiratory Rate 18 Blood Pressure Pulse Oximetry 05/24/18 06:00 05/24/18 06:02 05/24/18 08:38 Temperature Pulse Rate 73 Respiratory Rate 18 18 Blood Pressure Pulse Oximetry 05/24/18 09:52 Temperature Pulse Rate Respiratory Rate 18 Blood Pressure Pulse Oximetry Intake & Output 05/23/18 05/24/18 05/24/18 18:59 06:59 18:59 Intake Total 2072 340 / 340 Output Total 50 / 50 Balance 2072 290 / 290 Weight 64.4 kg Intake: IV 1373 / 1373 100 / 100 NS Inj 1,000 ML @ 100 mls/hr IV 500 / 500 .CONT .Q10H [facility] Rx#:[id number] Calcium Gluconate Inj 1 GM In 110 / 110 D5W Inj 100 ML @ 110 mls/hr IV. SIG ONCE ONE Rx#:[id number] Maxipime Inj 1,000 MG In NS Inj 100 / 100 100 / 100 100 ML @ 200 mls/hr IV.SIG Q12H [facility]LE Rx#:[id number] Magnesium Sulfate 1 gm/D5W 100 200 / 200 ml Premix 100 ML @ 100 mls/hr IV.SIG Q1H [facility]LE Rx#:[id number] KCl 20 mEq Premix Inj 20 meq In 200 / 200 100 ml @ 50 mls/hr IV.SIG Q2H [facility]LE Rx#:[id number] Vancomycin Inj 1,250 MG In NS 263 / 263 Inj 250 ML @ 250 mls/hr IV.SIG Q12H [facility] Rx#:[id number] Oral 700 / 700 240 / 240 Output: Stool Amount (Stoma) 50 / 50 Left Lower Abdomen 50 / 50 Other: # Voids 7 5 Date of Last Bowel Movement 05/21/18 Narrative: GENERAL: No acute distress SKIN: Warm and dry. HEAD: Normocephalic. EYES: No scleral icterus. No injection or drainage. NECK: Supple, trachea midline. No JVD. CARDIOVASCULAR: Regular rate and rhythm without murmurs, gallops, or rubs. RESPIRATORY: Breath sounds equal bilaterally. No accessory muscle use. GASTROINTESTINAL: Abdomen soft, non-tender, nondistended. bilateral inguinal area with Vacuum in place and \ working well. MUSCULOSKELETAL: very faint pedal pulse left lower extremity, improved from admission. Sensation intact. BACK: Nontender without obvious deformity. No CVA tenderness. - Urinary Catheter Management Indwelling Urethral Catheter Cath placed during this visit: yes, but has since been removed by the nurse Reason for continuing: Decision to DC catheter Insertion date: 05/21/18 Insertion time: 08:35 Removal date: 05/22/18 Removal time: 12:30 Results - Labs CBC & Chem 7: 05/23/18 04:37 05/24/18 06:45 Laboratory Results - last 24 hr 05/21/18 05/23/18 05/24/18 07:48 16:06 06:45 Sodium 142 Potassium 3.3 L 3.1 L Chloride 106 Carbon Dioxide 28.8 Anion Gap 7 BUN 5 L Creatinine 0.43 L Estimated GFR Greater than 89 Random Glucose 104 Calcium 8.2 L D Magnesium 2.1 MTS Gel Crossmatch See Detail Microbiology 05/19/18 21:00 Blood - Peripheral Aerobic Blood Culture - Preliminary No growth in 4 days 05/19/18 21:00 Blood - Peripheral Anaerobic Blood Culture - Preliminary No growth in 4 days 05/19/18 20:50 Blood - Peripheral Aerobic Blood Culture - Preliminary No growth in 4 days 05/19/18 20:50 Blood - Peripheral Anaerobic Blood Culture - Preliminary No growth in 4 days - Imaging Lumbar Spine MRI 05/19/18 19:11 CONCLUSION: 1. At L3-4 there is a broad-based left paracentral disc protrusion with left lateral recess stenosis. 2. Normal alignment of the lumbar spine. Conus medullaris intact. No significant central canal stenosis. Venous Doppler Study 05/19/18 20:22 CONCLUSION: 1. Negative for deep venous thrombosis. Mildly enlarged left inguinal lymph node. Small left popliteal cyst measuring about 1 cm. Aorta w/Runoff CTA 05/19/18 20:35 CONCLUSION: 1. Acute occlusion of the left inflow with reconstitution of the common femoral. Runoff is seen to the ankle joint and delusional effect from the proximal occlusion prevents adequate evaluation of the distal trifurcation vessels. 2. Patent inflow with mild outflow disease. Runoff via the posterior tibial artery. 3. Metastatic involvement of the lungs has progressed from the prior examination. 4. Bilateral hydronephrosis which is new from the prior examination of December 2017. 5. Mild inflammatory change involving the subcutaneous fat involving the perineum. No abscess. 6. Soft tissue thickening involving the presacral soft tissues. This may simply be postsurgical in nature. - Procedures postoperative left iliac artery revascularization on 05/21/18 Assessment and Plan - Plan Ms. 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 She was found to have a left iliac occlusion and was admitted to the hospitalist service for further medical management. //Left iliac artery occlusion //postoperative left iliac artery revascularization on 05/21 -Lovenox, Analgesia [place] and Dilaudid, -Analgesia: [place] 10/325 mg q4h p.o. or Dilaudid by mouth, -Left LE venous Doppler negative for DVT - mildly enlarged left inguinal lymph node and small left popliteal cyst were incidental findings. = postoperative management as per vascular surgery. 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 will follow colon and rectal satellite specialist as outpatient. Okay to discharge Home as per Vascular satellite specialist, the patient has history of Duodenal ulcer and will continue Protonix and is not been recommended for Aspirin or Plavix. //Chronic gluteal wound Colorectal Cancer -asset protection specialist following. -consult colorectal surgeon - Dr. Barreto - appreciate his assistance - possible biopsy planned for Sunday -Antibiotics: IV Vancomycin but her lymph node has no infectious changes but yes Metastatic disease, off antibiotics. //Nausea with vomiting -maybe secondary to medications given in ED = Appears to have resolved. Monitor. //Urinary incontinence Improved. -She had an episode of incontinence earlier today - UA in ED was negative -Lumbar MRI showed L3-L4 herniation but no cord compression -uncertain if this is a limited event or if she's developing stress incontinence - she's not had this in the past //L3-L4 herniated disc -noted on lumbar MRI in ED -patient can f/u as an outpatient once medical condition is stabilized //History of ruptured duodenal ulcer -Protonix 40 mg IV q24h electrolyte derangement replaced and will continue Potassium at home for 10 days. follow by her PCP in three days. //DVT prophylaxis -currently on heparin drip Code Status: Full code. Discussed Condition With: Patient and Nurse Miss Pino Discharge Planning: Cleared by Vascular surgery Discharge Home with [facility] for PT and Wound care.
--- NOTE | 2018-05-24 10:29 | P.DS ---
Date of admission: 05/19/18 22:38 Primary care physician: UNKNOWN Attending physician on discharge: Edu Martínez Anticipated date of discharge: 05/24/18 Brief History from admission: Ms. 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 She was found to have a left iliac occlusion and was admitted to the hospitalist service for further medical management. The patient is seen in her hospital room on [facility]. She is very pleasant and cooperative. She reports significant improvement in LLE pain since receiving IV Dilaudid in the ER. She is complaining of nausea and actively vomited twice while I was in the room. She reports no relief from IV zofran given in ED. Patient reports that her left leg and left perineal region began swelling a " few days ago" but left lower extremity pain and pallor began abruptly today. She reports that her pain is in the whole leg and this differs from the occlusion she had of the left iliac in 2017 when she just had great toe pain. 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 05/23: Seen in her Bedroom, discussed with nurse Miss Cunningham giving replacement of electrolytes started in am her Potassium 2.8, magnesium 1.6 and Calcium 7.4 will follow her potassium in two hours post replacement and follow also in am tomorrow, at this time patient is been cleared for discharge by Vascular surgery, asking for [facility] for wound care. Discussed with nurse with Charge nurse and case worker and MDR will go home after Electrolyte replacement 05/24: Stable in her bedroom, has her two vacuum placed and working well, she will go home on [facility] for wound care and Physical therapy, no nausea, vomit or diarrhea. she states won't take Aspirin or Plavix due to that she had important duodenal ulcer complications. Results - Labs CBC & Chem 7: 05/23/18 04:37 05/24/18 06:45 Laboratory Results - last 24 hr 05/21/18 05/23/18 05/24/18 07:48 16:06 06:45 Sodium 142 Potassium 3.3 L 3.1 L Chloride 106 Carbon Dioxide 28.8 Anion Gap 7 BUN 5 L Creatinine 0.43 L Estimated GFR Greater than 89 Random Glucose 104 Calcium 8.2 L D Magnesium 2.1 MTS Gel Crossmatch See Detail Microbiology 05/19/18 21:00 Blood - Peripheral Aerobic Blood Culture - Preliminary No growth in 4 days 05/19/18 21:00 Blood - Peripheral Anaerobic Blood Culture - Preliminary No growth in 4 days 05/19/18 20:50 Blood - Peripheral Aerobic Blood Culture - Preliminary No growth in 4 days 05/19/18 20:50 Blood - Peripheral Anaerobic Blood Culture - Preliminary No growth in 4 days - Imaging Lumbar Spine MRI 05/19/18 19:11 CONCLUSION: 1. At L3-4 there is a broad-based left paracentral disc protrusion with left lateral recess stenosis. 2. Normal alignment of the lumbar spine. Conus medullaris intact. No significant central canal stenosis. Venous Doppler Study 05/19/18 20:22 CONCLUSION: 1. Negative for deep venous thrombosis. Mildly enlarged left inguinal lymph node. Small left popliteal cyst measuring about 1 cm. Aorta w/Runoff CTA 05/19/18 20:35 CONCLUSION: 1. Acute occlusion of the left inflow with reconstitution of the common femoral. Runoff is seen to the ankle joint and delusional effect from the proximal occlusion prevents adequate evaluation of the distal trifurcation vessels. 2. Patent inflow with mild outflow disease. Runoff via the posterior tibial artery. 3. Metastatic involvement of the lungs has progressed from the prior examination. 4. Bilateral hydronephrosis which is new from the prior examination of December 2017. 5. Mild inflammatory change involving the subcutaneous fat involving the perineum. No abscess. 6. Soft tissue thickening involving the presacral soft tissues. This may simply be postsurgical in nature. - Procedures postoperative left iliac artery revascularization on 05/21/18 Assessment and Plan - Plan Ms. 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 She was found to have a left iliac occlusion and was admitted to the hospitalist service for further medical management. //Left iliac artery occlusion //postoperative left iliac artery revascularization on 05/21 -Lovenox, Analgesia [place] and Dilaudid, -Analgesia: [place] 10/325 mg q4h p.o. or Dilaudid by mouth, -Left LE venous Doppler negative for DVT - mildly enlarged left inguinal lymph node and small left popliteal cyst were incidental findings. = postoperative management as per vascular surgery. 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 will follow colon and rectal satellite specialist as outpatient. Okay to discharge Home as per Vascular satellite specialist, the patient has history of Duodenal ulcer and will continue Protonix and is not been recommended for Aspirin or Plavix. //Chronic gluteal wound Colorectal Cancer -financial reporting specialist following. -consult colorectal surgeon - Dr. Barreto - appreciate his assistance - possible biopsy planned for Sunday -Antibiotics: IV Vancomycin but her lymph node has no infectious changes but yes Metastatic disease, off antibiotics. //Nausea with vomiting -maybe secondary to medications given in ED = Appears to have resolved. Monitor. //Urinary incontinence Improved. -She had an episode of incontinence earlier today - UA in ED was negative -Lumbar MRI showed L3-L4 herniation but no cord compression -uncertain if this is a limited event or if she's developing stress incontinence - she's not had this in the past //L3-L4 herniated disc -noted on lumbar MRI in ED -patient can f/u as an outpatient once medical condition is stabilized //History of ruptured duodenal ulcer -Protonix 40 mg IV q24h electrolyte derangement replaced and will continue Potassium at home for 10 days. follow by her PCP in three days. //DVT prophylaxis -currently on heparin drip Code Status: Full code. Discussed Condition With: Patient and Nurse Miss Pino Discharge Planning: Cleared by Vascular surgery Discharge Home with [facility] for PT and Wound care. - Time Spent with Patient Total time spent providing and/or coordinating discharge services: Greater than 30 minutes - Quality: VTE Deep Vein Thrombosis/Pulmonary Embolism Present on Admission: Yes Exam Vital signs: Vital Signs 05/23/18 11:00 05/23/18 12:00 05/23/18 13:00 Temperature 98.2 F Pulse Rate 76 83 94 H Respiratory Rate 16 Blood Pressure 112/58 L Pulse Oximetry 98 05/23/18 14:00 05/23/18 15:00 05/23/18 16:00 Temperature 98.6 F Pulse Rate 97 H 75 83 Respiratory Rate 18 Blood Pressure 127/59 L Pulse Oximetry 97 05/23/18 17:00 05/23/18 18:00 05/23/18 19:00 Temperature 98.2 F Pulse Rate 74 80 76 Respiratory Rate 17 Blood Pressure 124/65 Pulse Oximetry 100 05/23/18 20:00 05/23/18 21:00 05/23/18 21:35 Temperature Pulse Rate 80 77 Respiratory Rate 18 Blood Pressure Pulse Oximetry 05/23/18 22:00 05/23/18 22:39 05/23/18 23:00 Temperature 98.3 F Pulse Rate 78 81 Respiratory Rate 17 18 Blood Pressure 125/80 Pulse Oximetry 97 05/23/18 23:59 05/24/18 00:00 05/24/18 01:00 Temperature Pulse Rate 87 83 Respiratory Rate 18 Blood Pressure Pulse Oximetry 05/24/18 01:32 05/24/18 02:00 05/24/18 03:00 Temperature 98.0 F Pulse Rate 73 77 Respiratory Rate 18 18 Blood Pressure 128/76 Pulse Oximetry 99 05/24/18 04:00 05/24/18 05:00 05/24/18 05:30 Temperature Pulse Rate 74 82 Respiratory Rate 18 Blood Pressure Pulse Oximetry 05/24/18 06:00 05/24/18 06:02 05/24/18 07:00 Temperature 98.1 F Pulse Rate 73 71 Respiratory Rate 18 18 Blood Pressure 129/63 Pulse Oximetry 98 05/24/18 08:38 05/24/18 09:52 Temperature Pulse Rate Respiratory Rate 18 18 Blood Pressure Pulse Oximetry Intake & Output 05/23/18 05/24/18 05/24/18 18:59 06:59 18:59 Intake Total 2072 340 / 340 Output Total 50 / 50 Balance 2072 290 / 290 Weight 64.4 kg Intake: IV 1373 / 1373 100 / 100 NS Inj 1,000 ML @ 100 mls/hr IV 500 / 500 .CONT .Q10H [facility] Rx#:[id number] Calcium Gluconate Inj 1 GM In 110 / 110 D5W Inj 100 ML @ 110 mls/hr IV. SIG ONCE ONE Rx#:[id number] Maxipime Inj 1,000 MG In NS Inj 100 / 100 100 / 100 100 ML @ 200 mls/hr IV.SIG Q12H [facility]LE Rx#:[id number] Magnesium Sulfate 1 gm/D5W 100 200 / 200 ml Premix 100 ML @ 100 mls/hr IV.SIG Q1H [facility] Rx#:[id number] KCl 20 mEq Premix Inj 20 meq In 200 / 200 100 ml @ 50 mls/hr IV.SIG Q2H [facility] Rx#:[id number] Vancomycin Inj 1,250 MG In NS 263 / 263 Inj 250 ML @ 250 mls/hr IV.SIG Q12H [facility] Rx#:[id number] Oral 700 / 700 240 / 240 Output: Stool Amount (Stoma) 50 / 50 Left Lower Abdomen 50 / 50 Other: # Voids 7 5 Date of Last Bowel Movement 05/21/18 05/24/18 Narrative: GENERAL: No acute distress SKIN: Warm and dry. HEAD: Normocephalic. EYES: No scleral icterus. No injection or drainage. NECK: Supple, trachea midline. No JVD. CARDIOVASCULAR: Regular rate and rhythm without murmurs, gallops, or rubs. RESPIRATORY: Breath sounds equal bilaterally. No accessory muscle use. GASTROINTESTINAL: Abdomen soft, non-tender, nondistended. bilateral inguinal area with Vacuum in place and \\ working well. MUSCULOSKELETAL: very faint pedal pulse left lower extremity, improved from admission. Sensation intact. BACK: Nontender without obvious deformity. No CVA tenderness. Results Procedures completed during hospitalization: postoperative left iliac artery revascularization on 05/21/18 Labs on day of discharge: Labs from last 24 hours 05/24/18 05/23/18 05/21/18 06:45 16:06 07:48 Sodium 142 Potassium 3.1 L 3.3 L Chloride 106 Carbon Dioxide 28.8 Anion Gap 7 BUN 5 L Creatinine 0.43 L Estimated GFR Greater than 89 Random Glucose 104 Calcium 8.2 L D Magnesium 2.1 MTS Gel Crossmatch See Detail Preliminary micro results at discharge 05/19/18 21:00 Aerobic Blood Culture - Preliminary Blood - Peripheral No growth in 4 days Anaerobic Blood Culture - Preliminary No growth in 4 days 05/19/18 20:50 Aerobic Blood Culture - Preliminary Blood - Peripheral No growth in 4 days Anaerobic Blood Culture - Preliminary No growth in 4 days - Impressions ITS Impressions Lumbar Spine MRI 05/19/18 19:11 CONCLUSION: 1. At L3-4 there is a broad-based left paracentral disc protrusion with left lateral recess stenosis. 2. Normal alignment of the lumbar spine. Conus medullaris intact. No significant central canal stenosis. Venous Doppler Study 05/19/18 20:22 CONCLUSION: 1. Negative for deep venous thrombosis. Mildly enlarged left inguinal lymph node. Small left popliteal cyst measuring about 1 cm. Aorta w/Runoff CTA 05/19/18 20:35 CONCLUSION: 1. Acute occlusion of the left inflow with reconstitution of the common femoral. Runoff is seen to the ankle joint and delusional effect from the proximal occlusion prevents adequate evaluation of the distal trifurcation vessels. 2. Patent inflow with mild outflow disease. Runoff via the posterior tibial artery. 3. Metastatic involvement of the lungs has progressed from the prior examination. 4. Bilateral hydronephrosis which is new from the prior examination of December 2017. 5. Mild inflammatory change involving the subcutaneous fat involving the perineum. No abscess. 6. Soft tissue thickening involving the presacral soft tissues. This may simply be postsurgical in nature. Discharge Plan - Discharge Disposition Patient Disposition: W/Home Health Service - Discharge Condition Condition: Stable - Discharge Order Discharge Orders: Discharge Order (Routine); Ordered 05/24/18 Ordered By: Edu Martínez Vascular Surgery Clear for Discharge (Routine); Ordered 05/23/18 Ordered By: Rachel Lagunas - Discharge Details Anticipated Discharge Date: 05/24/18 Discharge Comment: Follow with PCP in three days - Physicians Team Primary Care Provider: UNKNOWN, Attending Provider: Edu Martínez Other Providers: Bernardino Barreto MD ; Higinio Felix MD
[2018-05-24] MEDS ORDERED: Pharmacy Ordered Lab Info OTHER ONE (10:45)
[2018-05-24 13:01] VITALS: BP 110/58; TEMP 98.2; O2SAT 99
[2018-05-24 14:52] VITALS: PULSE 80
== END 2018-05-24 13:05 | disposition home health service (06) ==
LOC: NEPE 17:18 → NEDA 22:38 → HCIN 23:26 → HCIS 05-21 11:14 → HCPC 05-21 17:00 → HCIS 05-23 17:11
PROVIDERS: ADMIT Internal Medicine; ATTEND Internal Medicine

== ENCOUNTER 2018-06-16 12:43 | Inpatient (IN) ==
[2018-06-16] MEDS ORDERED: Morphine Inj 4 MG/ML Vial IV.PUSH ONE (13:49)
--- NOTE | 2018-06-16 13:56 | ED ---
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 Mix, presents for evaluation of intractable rectal pain. She reports that for the past several months she has had pain associate with a chronic wound in the rectal region. 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 Status post revascularization. She was seen by Dr. Barreto and apparently has a biopsy scheduled for June 18. She is here today for intractable pain. Her primary care physician has been prescribing her hydrocodone acetaminophen however she has been using it very frequently and has now run out. She reports that she signed a pain contract with her primary care physician and that she cannot receive any prescribed opiates at this time from anybody else. During her hospital stay she had a biopsy of a lymph node in the lower extremity which did reveal metastatic disease as well. She is denying any fevers, chills. She has no other complaints. Related Data Previous Rx's Medication Instructions Recorded hydrocodone-acetaminophen 1 tab PO Q4H PRN #20 tab 05/23/18 hydrocodone-acetaminophen 1 tab PO Q6H PRN #14 tab 05/24/18 pantoprazole [Protonix] 40 mg PO BID #60 tab 05/24/18 potassium chloride 20 meq PO BID #16 tab 05/24/18 Allergies Allergy/AdvReac Type Severity Reaction Status Date / Time No Known Allergies Allergy Verified 06/16/18 12:49 Review of Systems ROS: all other systems reviewed are negative PMFSH Social History Social History Substance History: No History of Abuse Second Hand Smoke Exposure: No Smoking Status: Never smoker Tobacco Type: Cigarettes Packs Per Day: 1 Cigarettes Per Day: 20.0 Years Smoked: 40 Pack-Years: 40.00 Smoking End Date: 04/2017 How Often Do You Have a Drink Containing Alcohol: Never Recent Travel in [facility] within the Last 8 Weeks: No Recent Out of Country Travel within the Last 8 Weeks: No Exam Narrative Exam Narrative: Examined in the presence of a female nurse GENERAL: Pleasant well-developed well-nourished female no acute distress SKIN: Warm and dry. Examination of the gluteal fold reveals an area of deep ulceration, some surrounding induration. Some induration is labial folds as well. There are wounds in the left and right inguinal region as well. There is some purulent drainage from the left inguinal ring. A wound culture was obtained. HEAD: Atraumatic. Normocephalic. EYES: Pupils equal and round. No scleral icterus. No injection or drainage. ENT: No nasal bleeding or discharge. Mucous membranes pink and moist. NECK: Trachea midline. No JVD. CARDIOVASCULAR: Regular rate and rhythm. No murmur appreciated. RESPIRATORY: No accessory muscle use. Clear to auscultation. Breath sounds equal bilaterally. GASTROINTESTINAL: Abdomen soft, non-tender, nondistended. Hepatic and splenic margins not palpable. Colostomy in place. MUSCULOSKELETAL: No obvious deformities. No clubbing. No cyanosis. No edema. NEUROLOGICAL: Awake and alert. No obvious cranial nerve deficits. Motor grossly within normal limits. Normal speech. Course Initial Documented Vital Signs Temperature 98.3 F 06/16/18 12:45 Pulse Rate 94 H 06/16/18 12:45 Respiratory Rate 18 06/16/18 12:45 Blood Pressure 146/66 H 06/16/18 12:45 Pulse Oximetry 98 06/16/18 12:45 Last Documented Vital Signs Temperature 98.3 F 06/16/18 12:45 Pulse Rate 106 H 06/16/18 18:22 Respiratory Rate 20 06/16/18 18:22 Blood Pressure 171/79 H 06/16/18 18:22 Pulse Oximetry 100 06/16/18 18:22 Medical Decision Making MDM Narrative Medical decision making narrative: The left inguinal region was cultured. She reports that her vascular surgeon started, antibiotics for this wound last week , she does not recall the name of the antibiotic. Plan is for lab work, CT imaging. She will be given IV morphine. 1500: The patient was reexamined, still in significant pain despite the morphine administration. Additional analgesics ordered. The patient required multiple additional analgesic doses, she required Versed and fentanyl in order to get CT imaging. At this point in time the plan is to admit her for intractable pain. Medical Screen Exam Complete: Yes Emergency Medical Condition: Yes Differential Diagnosis Differential Diagnosis: Intractable rectal pain, metastatic rectal cancer, infected wound Lab Data Result diagrams: 06/16/18 13:52 06/16/18 13:52 Lab Results 06/16/18 06/16/18 06/16/18 Range/Units 13:52 13:52 13:52 WBC 6.9 (4.0-11.0) th/mm3 RBC 3.90 L (4.00-5.30) mil/mm3 Hgb 11.7 (11.6-15.3) gm/dL Hct 36.0 (35.0-46.0) % MCV 92.4 (80.0-100.0) fL MCH 30.1 (27.0-34.0) pg MCHC 32.6 (32.0-36.0) % RDW 16.6 (11.6-17.2) % Plt Count 333 D (150-450) th/mm3 MPV 8.1 (7.0-11.0) fL Neut % (Auto) 75.8 H (16.0-70.0) % Lymph % (Auto) 7.1 L (9.0-44.0) % Dixon % (Auto) 8.7 H (0.0-8.0) % Eos % (Auto) 8.1 H (0.0-4.0) % Baso % (Auto) 0.3 (0.0-2.0) % Neut # (Auto) 5.3 (1.8-7.7) th/mm3 Lymph # (Auto) 0.5 L (1.0-4.8) th/mm3 Dixon # (Auto) 0.6 (0.0-0.9) th/mm3 Eos # (Auto) 0.6 H (0.0-0.4) th/mm3 Baso # (Auto) 0.0 (0.0-0.2) th/mm3 WBC Differential . Differential Comment Auto diff final PT 10.0 (9.8-11.6) sec INR 1.0 Ratio APTT 26.9 (23.4-31.7) sec Sodium 141 (136-145) meq/L Potassium 4.1 (3.5-5.1) meq/L Chloride 108 H (98-107) meq/L Carbon Dioxide 26.5 (21.0-32.0) meq/L Anion Gap 7 (5-15) meq/L BUN 13 (7-18) mg/dL Creatinine 0.72 (0.50-1.00) mg/dL Estimated GFR 83 L (>89) mL/min Random Glucose 98 (74-106) mg/dL Calcium 8.5 (8.5-10.1) mg/dL Magnesium 2.1 (1.5-2.5) mg/dL Total Bilirubin 0.2 (0.2-1.0) mg/dL AST 21 (15-37) U/L ALT 15 (10-53) U/L Alkaline Phosphatase 125 H (45-117) U/L Total Protein 7.8 (6.4-8.2) g/dL Albumin 3.3 L (3.4-5.0) g/dL Lipase 282 (73-393) U/L Imaging Data Radiologist's impression: Abdomen/Pelvis CT 06/16/18 13:49 CONCLUSION: 1. Interval enlargement of multiple nodules within the visualized lung bases consistent with worsening pulmonary metastatic disease. The largest nodule within the left lung base measures 2.6 cm in size. The largest nodule within the right lung base measures 2.0 cm in size. 2. Increased soft tissue nodularity within the presacral space particularly on the left at the level of the coccyx measuring 2.9 cm in size. This finding raises possibility of tumor recurrence. PET\CT scan may be helpful for further evaluation. 3. Stable subtle enhancing nodule within the left lobe of the liver. 4. Extensive subcutaneous edema is noted within the lower abdomen and anterior pelvis likely related to femoral-femoral bypass graft placement. 5. Mild infrarenal abdominal aortic ectasia which measures 2.7 x 2.7 cm. 6. Stable 3.1 cm left renal cyst. 7. Degenerative changes throughout the thoracolumbar spine. Discharge Plan Discharge Disposition Patient Disposition: 30 Still Patient Discharge Condition Condition: Stable Discharge Details Diagnosis: Intractable pain Physicians Team ED Provider: Micah Leal ED Midlevel Provider: Avni Vasquez Primary Care Provider: North Bell Attending Provider: Eleazar Parker Status ED Status: Admitted Observation Patient
[2018-06-16 14:12] LABS: Baso % (Auto) 0.3 % (0.0-2.0); Eos # (Auto) 0.6 th/mm3 (0.0-0.4); Eos % (Auto) 8.1 % (0.0-4.0); Hemoglobin 11.7 gm/dL (11.6-15.3); Lymph # (Auto) 0.5 th/mm3 (1.0-4.8); Lymph % (Auto) 7.1 % (9.0-44.0); Mean Corpuscular HGB Conc 32.6 % (32.0-36.0); Mean Corpuscular Hemoglobin 30.1 pg (27.0-34.0); Mean Corpuscular Volume 92.4 fL (80.0-100.0); Mean Platelet Volume 8.1 fL (7.0-11.0); Mono # (Auto) 0.6 th/mm3 (0.0-0.9); Mono % (Auto) 8.7 % (0.0-8.0); Neut # (Auto) 5.3 th/mm3 (1.8-7.7); Neut % (Auto) 75.8 % (16.0-70.0); Platelet Count 333 th/mm3 (150-450); Red Cell Distribution Width 16.6 % (11.6-17.2); White Blood Count 6.9 th/mm3 (4.0-11.0)
[2018-06-16 14:21] LABS: Activated Partial Thrombo Time 26.9 sec (23.4-31.7)
[2018-06-16 14:35] LABS: Alanine Aminotransferase 15 U/L (10-53); Albumin 3.3 g/dL (3.4-5.0); Anion Gap 7 meq/L (5-15); Aspartate Aminotransferase 21 U/L (15-37); Blood Urea Nitrogen 13 mg/dL (7-18); Calcium 8.5 mg/dL (8.5-10.1); Carbon Dioxide 26.5 meq/L (21.0-32.0); Chloride 108 meq/L (98-107); Glomerular Filtration Rate 83 mL/min (>89); Glucose,Random 98 mg/dL (74-106); Lipase 282 U/L (73-393); Magnesium 2.1 mg/dL (1.5-2.5); Potassium 4.1 meq/L (3.5-5.1); Sodium 141 meq/L (136-145)
[2018-06-16 14:37] LABS: Alkaline Phosphatase 125 U/L (45-117); Total Protein 7.8 g/dL (6.4-8.2)
[2018-06-16] MEDS ORDERED: HYDROmorphone PF Inj 2 MG/ML Vial IV.PUSH ONE (15:03)
[2018-06-16] MEDS ORDERED: Midazolam Inj 5 MG/ML 1 ML Vial IV.PUSH ONE (15:57)
[2018-06-16] MEDS ORDERED: fentaNYL Citrate Inj 100 MCG/2 ML Ampul IV.PUSH ONE (15:57)
--- NOTE | 2018-06-16 16:40 | CT ---
EXAM DATE: 06/16/2018 4:24 PM EST AGE/SEX: 58 years / Female INDICATIONS: Rectal pain, history of colorectal cancer CLINICAL DATA: This is the patient's initial encounter. Patient reports that signs and symptoms have been present for 1 day and indicates a pain score of 10/10. MEDICAL/SURGICAL HISTORY: Carcinoma, rectal. Duodenal Ulcer, Rectal/vaginal fistula Colostomy. iliac artery stent ORAL CONTRAST: No oral contrast ingested. RADIATION DOSE: 6.88 CTDI (mGy) COMPARISON: POI, CT ABDOMEN AND PELVIS W/ CONTRAST, 01/01/2018. . TECHNIQUE: Multiple contiguous axial images were obtained through the abdomen and pelvis following b olus infusion of 90ML ml Omnipaque 350 (iohexol) nonionic water-soluble contrast as a single exam d ose. No oral contrast ingested. Using automated exposure control and adjustment of the mA and/or kV according to patient size, radiation dose was kept as low as reasonably achievable to obtain optimal diagnostic quality images. DICOM format image data is available electronically for review and compar haroon. FINDINGS: Lower Lungs: There has been interval enlargement of multiple nodules within the visualized lung bases consistent with worsening pulmonary metastatic disease. The largest nodule within the left lung base measures 2.6 cm in size. The largest nodule within the right lung base measures 2.0 cm in size. Liver: There is a stable subtle enhancing nodule within the left lobe of the liver. There is no dilat ion of the biliary tree. Spleen: Homogeneous density without enlargement. Pancreas: Unremarkable without mass or calcification. Kidneys: Normal in size and shape. No evidence of mass or hydronephrosis. Stable 3.1 cm left renal c yst is noted. Adrenal Glands: Unremarkable. Aorta: There is mild infrarenal abdominal aortic ectasia which measures 2.7 x 2.7 cm. This is stabl e compared to the previous examination. Femoral-femoral bypass graft has been placed. Bowel/Mesentery: The bowel loops are grossly unremarkable. The cecum and sigmoid colon have a normal configuration. Abdominal Wall: Extensive subcutaneous edema is noted within the lower abdomen and anterior pelvis l ikely related to femoral-femoral bypass graft placement. Retroperitoneum: There is increased soft tissue nodularity within the presacral space particularly o n the left at the level of the coccyx measuring 2.9 cm in size. This finding raises possibility of tu mor recurrence. PET\CT scan may be helpful for further evaluation. Bladder: Contours are smooth. Reproductive Organs: No abnormal masses or calcifications seen. Inguinal: The inguinal region is unremarkable without evidence of adenopathy. Bony Structures: Degenerative changes are noted throughout the thoracolumbar spine. CONCLUSION: 1. Interval enlargement of multiple nodules within the visualized lung bases consistent with worseni ng pulmonary metastatic disease. The largest nodule within the left lung base measures 2.6 cm in size . The largest nodule within the right lung base measures 2.0 cm in size. 2. Increased soft tissue nodularity within the presacral space particularly on the left at the level of the coccyx measuring 2.9 cm in size. This finding raises possibility of tumor recurrence. PET\CT scan may be helpful for further evaluation. 3. Stable subtle enhancing nodule within the left lobe of the liver. 4. Extensive subcutaneous edema is noted within the lower abdomen and anterior pelvis likely related to femoral-femoral bypass graft placement. 5. Mild infrarenal abdominal aortic ectasia which measures 2.7 x 2.7 cm. 6. Stable 3.1 cm left renal cyst. 7. Degenerative changes throughout the thoracolumbar spine. Electronically signed by: Aime Park MD 06/16/2018 4:38 PM EST
[2018-06-16] MEDS ORDERED: Acetaminophen 325 MG Tablet PO PRN (17:30)
[2018-06-16] MEDS ORDERED: Sod Chloride 0.9% Inj 1,000 ML IV.CONT SCH (17:45)
--- NOTE | 2018-06-16 19:25 | P.HPIM ---
History of Present Illness Primary Care Physician: North Bell MD History of Present Illness: Pt is 58 yr old with hx metastatic colorectal ca. s/ p colostomy and perineal/vaginal resection, chemoradiation. Pt says she took a "break" from chemo in November. She follows with Dr Hyman. Last month developed acute left leg pain and found to have Iliac occlusion s/p fem/fem bypass. She had left inguinal lymph node bx's and found to have metastatic mucinous adenoca which appears same as before. She had prior known lung mets. She has had chronic wound intergluteal cleft/perirectal area. over past 2-3 months she is unable to sit and even sleepy on her knees leaning over back of chair/couch. She reports this area was supposed to be biopsied this week to see if any malignancy within this tissue. Pt has had more intense pain not controlled by her norco. She comes to the ED and given morphine/dilaudid/fentanyl. She is now vomiting. Her CT a/p showed lung field mets bilaterally, presacral soft tissue nodular change possible mets. PMH: colorectal cancer. s/p chemoradiation. chemo stopped in November 2017 pt with know lung mets. 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 stent placment by IR 2017 left iliac occlusion 05/16..Fem/Fem bypass left inguinal lymph node removal. 10/02. metastatic mucinous adenocarcinoma. 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 SH: 1/2ppd tobacco x 35yrs. hx heAvy etoh abuse in past. quit last year. FH: NC Diagnosis (1) Colorectal cancer: (2) Buttock wound: (3) Intractable pain: Inpatient Certification Inpatient Certification: I certify that the inpatient services were ordered in accordance with Medicare regulations governing the order. This includes certification that hospital inpatient services are reasonable and necessary and in the case of services not specified as inpatient-only under 42 CFR 419.22(n), that they are appropriately provided as inpatient services in accordance to with the 2-midnight benchmark under 43 CFR 412.3(e) Estimated Total Length of Stay (Days): 3 Plans for Post Hospital Care: Not yet determined Medications and Allergies Allergies Allergy/AdvReac Type Severity Reaction Status Date / Time No Known Allergies Allergy Verified 06/16/18 12:49 Active Medications: Active Medications Acetaminophen (Tylenol) 650 mg PO Q4H PRN PRN Reason: Temp > 100.4 Hydrocodone Bitart/Acetaminophen ([place] 10/325) 1 tab PO Q4H PRN PRN Reason: pain 3-6 Al Hydroxide/Mg Hydroxide (Milk Of Magnesia Liq) 30 ml PO Q12H PRN PRN Reason: Mild Constipation Hydromorphone HCl (Dilaudid Pf Inj) 1 mg IV.PUSH Q2HR PRN PRN Reason: pain 7-10 Sodium Chloride (Ns Inj) 1,000 mls @ 50 mls/hr IV.CONT .Q20H MERLE Ondansetron HCl (Zofran Inj) 4 mg IV.PUSH Q4HR PRN PRN Reason: NAUSEA OR VOMITING Pantoprazole Sodium (Protonix Inj) 40 mg IV.PUSH Q12H MERLE Promethazine HCl (Phenergan) 25 mg PO Q4H PRN PRN Reason: n/v Senna/Docusate Sodium (Keshia-Colace) 1 tab PO BID MERLE Sodium Chloride (Ns Flush) 2 ml IV.FLUSH PRN PRN PRN Reason: FLUSH AFTER USING IV ACCESS Last Admin: 06/16/18 14:09 Dose: 2 ml Physical Exam Vital signs: Last Vital Signs Temp 98.3 F 06/16/18 12:45 Pulse 106 H 06/16/18 18:22 Resp 20 06/16/18 18:22 BP 171/79 H 06/16/18 18:22 Pulse Ox 100 06/16/18 18:22 Narrative: pt on her knees unable to sit oriented. able stand heart reg lung cta ab s/nt/ostomy ext stasis and edema lower ext hard/indurated tissue bilateral buttock and intergluteal cleft with nodular skin changes extending to pubic area open wound in interglut cleft Results Labs CBC & Chem 7: 06/16/18 13:52 06/16/18 13:52 Caprini VTE Risk Assessment Ethanrini Risk Assessment Model: Point Value = 1 Point Value = 2 Point Value = 3 Point Value = 5 Age 41-60 Minor surgery BMI > 25 kg/m2 Swollen legs Varicose veins or History of unexplained or recurrent spontaneous Oral contraceptives or hormone replacement Sepsis (< 1 month) Serious lung disease, including pneumonia (< 1 month) Abnormal pulmonary function Acute myocardial infarction Congestive heart failure (< 1 month) History of inflammatory bowel disease Medical patient at bed rest Age 61-74 Arthroscopic surgery Major open surgery (> 45 min) Laparoscopic surgery (> 45 min) Malignancy Confined to bed (> 72 hours) Immobilizing plaster cast Central venous access Age >= 75 History of VTE Family history of VTE Factor V Leiden Prothrombin [id number] Lupus anticoagulant Anticardiolipin antibodies Elevated serum homocysteine Heparin-induced thrombocytopenia Other congenital or acquired thrombophilia Stroke (< 1 month) Elective arthroplasty Hip, pelvis, or leg fracture Acute spinal cord injury (< 1 month) Prophylaxis Regimen: Total Risk Factor Score Risk Level Prophylaxis Regimen 0-1 Low Early ambulation 2 Moderate Order ONE of the following: *Sequential Compression Device (SCD) *Heparin 5000 units SQ BID 3-4 Higher Order ONE of the following medications: *Heparin 5000 units SQ TID *Enoxaparin/Lovenox 40 mg SQ daily (WT < 150 kg, CrCl > 30 mL/min) *Enoxaparin/Lovenox 30 mg SQ daily (WT < 150 kg, CrCl > 10-29 mL/min) *Enoxaparin/Lovenox 30 mg SQ BID (WT < 150 kg, CrCl > 30 mL/min) AND/OR *Sequential Compression Device (SCD) 5 or more Highest Order ONE of the following medications: *Heparin 5000 units SQ TID (Preferred with Epidurals) *Enoxaparin/Lovenox 40 mg SQ daily (WT < 150 kg, CrCl > 30 mL/min) *Enoxaparin/Lovenox 30 mg SQ daily (WT < 150 kg, CrCl > 10-29 mL/min) *Enoxaparin/Lovenox 30 mg SQ BID (WT < 150 kg, CrCl > 30 mL/min) AND *Sequential Compression Device (SCD) Assessment and Plan Assessment (1) Colorectal cancer: Code(s): C19 - Malignant neoplasm of rectosigmoid junction Status: Acute (2) Buttock wound: Code(s): S31.809A - Unspecified open wound of unspecified buttock, initial encounter Status: Acute (3) Intractable pain: Code(s): R52 - Pain, unspecified Status: Acute Plan: Pt is 58 yr old with hx metastatic colorectal ca. s/p colostomy and perineal/vaginal resection, chemoradiation. Pt says she took a "break" from chemo in November. She follows with Dr Hyman. Last month developed acute left leg pain and found to have Iliac occlusion s/p fem/fem bypass. She had left inguinal lymph node bx's and found to have metastatic mucinous adenoca which appears same as before. She had prior known lung mets. She has had chronic wound intergluteal cleft/perirectal area. over past 2-3 months she is unable to sit and even sleeping on her knees leaning over back of chair/couch. She reports this area was supposed to be biopsied this week to see if any malignancy within this tissue. Pt has had more intense pain not controlled by her norco. She comes to the ED and given morphine/dilaudid/fentanyl. She is now vomiting. Her CT a/p showed lung field mets bilaterally, presacral soft tissue nodular change possible mets. consult to her oncologist Dr Hyman to assist with establishing a treatment plan for metastatic adenocarcinoma consult to her CRS Dr Barreto. Pt says he was planning a bx on Sunday of the perirectal tissue. She has a nonhealing wound and it's unclear if this is all radiation dermatitis or malignancy. cont IVF and liquid diet tonight prn zofran/phenergan cont prn norco and dilaudid KAREN hose for leg swelling. exacerbated by her persistent upright position/even during sleep
[2018-06-16] MEDS: HYDROmorphone PF Inj 2 MG/ML Vial IV.PUSH PRN ×2 (19:41→22:45)
[2018-06-16] MEDS: Sod Chloride 0.9% Inj 1,000 ML IV.CONT SCH (19:42)
[2018-06-16] MEDS: Pantoprazole Inj 40 MG Vial IV.PUSH SCH (20:58)
[2018-06-16] MEDS: Senna/Docusate Sodium 8.6/50 MG Tablet PO SCH (21:01)
[2018-06-17] MEDS: HYDROmorphone PF Inj 2 MG/ML Vial IV.PUSH PRN ×10 (00:52→21:57)
[2018-06-17 07:21] LABS: Baso % (Auto) 0.3 % (0.0-2.0); Eos % (Auto) 0.4 % (0.0-4.0); Hematocrit 33.2 % (35.0-46.0); Lymph # (Auto) 0.2 th/mm3 (1.0-4.8); Lymph % (Auto) 2.5 % (9.0-44.0); Mean Corpuscular HGB Conc 33.1 % (32.0-36.0); Mean Corpuscular Hemoglobin 30.3 pg (27.0-34.0); Mean Corpuscular Volume 91.6 fL (80.0-100.0); Mean Platelet Volume 7.6 fL (7.0-11.0); Mono # (Auto) 0.6 th/mm3 (0.0-0.9); Mono % (Auto) 6.3 % (0.0-8.0); Neut # (Auto) 9.1 th/mm3 (1.8-7.7); Neut % (Auto) 90.5 % (16.0-70.0); Platelet Count 325 th/mm3 (150-450); Red Blood Count 3.63 mil/mm3 (4.00-5.30); Red Cell Distribution Width 16.4 % (11.6-17.2); White Blood Count 10.1 th/mm3 (4.0-11.0)
[2018-06-17 07:59] LABS: Calcium 8.7 mg/dL (8.5-10.1); Carbon Dioxide 26.5 meq/L (21.0-32.0); Potassium 4.1 meq/L (3.5-5.1)
[2018-06-17] MEDS: Senna/Docusate Sodium 8.6/50 MG Tablet PO SCH ×2 (09:23→20:30)
[2018-06-17] MEDS: Enoxaparin Inj 40 MG/0.4 ML Syringe SQ SCH (09:24)
[2018-06-17] MEDS: Pantoprazole Inj 40 MG Vial IV.PUSH SCH ×2 (09:25→20:30)
--- NOTE | 2018-06-17 10:35 | MB ---
cc: Bernardino Barreto MD,North Alcantar,Dm Parker,Eleazar Hyman,Katelynn Cuevas,Kira Tang MD DATE: 06/17/2018 CHIEF COMPLAINT: Pelvic and sacral pain. HISTORY OF PRESENT ILLNESS: This patient is well-known to me. She originally had a perforated duodenal ulcer treated by Dr. Fausto Kenyon about 2 years ago. At that time, she was found to have a large rectal cancer with a rectovaginal fistula involved. She took some time to get over her perforated duodenal ulcer and then received radiation therapy, chemotherapy for this rectal cancer. This left her with still residual rectal cancer and continued rectovaginal fistula. About 1 year ago, she underwent major surgery with me including abdominoperineal resection and a rectus flap mobilization from her right rectus muscle down to her perineum with Dr. Kira Cuevas of the plastic surgery department. Since that time, she has done well and the wound fully healed; but over the last couple of months, the wound has been breaking down and we did not know whether this was due to radiation changes or whether she indeed had recurrent carcinoma present. This has become increasingly painful for her, so much so that I had her scheduled for biopsy of this wound in late April. However, she was in the hospital at that time. She came in with an ischemic limb and needed a femoral-femoral bypass grafting done by the vascular surgery department. At that time, I saw her in the hospital. She was having perineal pain. At that time, Dr. Dm Alcantar of the vascular surgery department did biopsy a left groin node that showed metastatic mucinous adenocarcinoma consistent with her rectal primary. She had known metastases in her lungs at the time of our surgery and has been on chemotherapy until about a month ago when this event occurred. Dr. Hyman is her oncologist. She was scheduled for biopsy of this perineal wound by me tomorrow as an outpatient in our ambulatory surgical center. However, she is now in the hospital once again. She is having intractable pain with this. She lives with her 82-year-old mother, who was just diagnosed with vulvar cancer; and her mother is having a hard time watching her suffer in pain. She had been receiving pain medications from Dr. North Bell; however, they have not been adequate to hold her chronic pain with this recurrent cancer and perineal wound. The patient, at this time, is in pain. She just vomited while I was in the room with her. They are maintaining her, at this time, on intravenous pain medications, which will not be a long-term solution. I was asked to see her by Dr. Parker and Dr. Hyman has been consulted. PAST MEDICAL HISTORY, FAMILY HISTORY, SOCIAL HISTORY, REVIEW OF SYSTEMS: Summarized above. PHYSICAL EXAMINATION: GENERAL: Well-developed thin female in acute distress with nausea, vomiting, and pain in the perineum and groin. SKIN: Warm and dry. HEENT: Extraocular muscles intact. NECK: Supple. ABDOMEN/GROIN: Soft, nontender. No masses. Her colostomy is functioning well. She does have left groin induration and an open wound there that is being followed by her vascular surgeon. She is presently on antibiotics for that. She has poor healing due to her vascular disease and smoking history. The perineal wound is also ulcerated and more open than it was at the tip of her coccyx. There is induration there. There is no evidence of any abscess. EXTREMITIES: Leg extremities are both warm at this time since her revascularization a month ago. IMPRESSION: Widely metastatic rectal carcinoma with metastases to the lung and her groin and probably her perineum. PLAN: She was originally scheduled for biopsy of the perineum to see if there was a carcinoma present here and to see if plastic surgery could do anything flap lopez to improve her pain. It is not entirely clear to me whether her pain is due to this wound or whether it is due to recurrence in the pelvis, which appears possible on the recent CT scan on admission. She is willing to undergo further chemotherapy if she feels that it will help her extend her life, knowing that she has widely metastatic disease; however, I am not certain that oncology can even give chemotherapy with these wounds present. I will definitely talk with Dr. Hyman, or if he is not in town, one of his partners. This may be a time to consider hospice for this patient as it appears as if the carcinoma is widespread and she has very little reserve and has poor pain control at home. I will continue to follow her along with you in the hospital. MD KLEBER Flores/cynthia , 09:52 AM , 10:02 AM
--- NOTE | 2018-06-17 10:38 | P.PNIM ---
Subjective Interval history: Pt reports that she fell this morning in her room after she got tangled up with her IV line walking back from the bathroom She sustained a small skin tear on her mid to lower back, no bleeding noted. She states that the pain is tolerable if she is receiving the IV Dilaudid every 2 hours In the past she had been on Fentanyl patch which she said did help with her pain after her previous abdominal surgeries She is still unable to lie down or sit for more than a few mins. She is not sleeping Afebrile Physical Exam Vital signs: Last Vital Signs Temp 97.5 F L 06/17/18 08:00 Pulse 90 06/17/18 08:00 Resp 16 06/17/18 08:00 BP 128/63 06/17/18 08:00 Pulse Ox 95 06/17/18 08:00 Narrative: General: NAD, standing in her room, unable to sit Chest: Regular Chest: CTA bilaterally Abd: +BS, soft, NT, ostomy in place. Ext: Stasis skin changes and edema in bilateral lower ext Skin: Hard/indurated tissue on bilateral buttock and intergluteal cleft with nodular skin changes extending to pubic area. Open wound in intergluteal cleft Results Labs CBC & Chem 7: 06/17/18 06:05 06/17/18 06:05 Imaging Abdomen/Pelvis CT 06/16/18 13:49 CONCLUSION: 1. Interval enlargement of multiple nodules within the visualized lung bases consistent with worsening pulmonary metastatic disease. The largest nodule within the left lung base measures 2.6 cm in size. The largest nodule within the right lung base measures 2.0 cm in size. 2. Increased soft tissue nodularity within the presacral space particularly on the left at the level of the coccyx measuring 2.9 cm in size. This finding raises possibility of tumor recurrence. PET\\CT scan may be helpful for further evaluation. 3. Stable subtle enhancing nodule within the left lobe of the liver. 4. Extensive subcutaneous edema is noted within the lower abdomen and anterior pelvis likely related to femoral-femoral bypass graft placement. 5. Mild infrarenal abdominal aortic ectasia which measures 2.7 x 2.7 cm. 6. Stable 3.1 cm left renal cyst. 7. Degenerative changes throughout the thoracolumbar spine. Assessment and Plan Assessment (1) Colorectal cancer: Code(s): C19 - Malignant neoplasm of rectosigmoid junction Status: Acute (2) Buttock wound: Code(s): S31.809A - Unspecified open wound of unspecified buttock, initial encounter Status: Acute (3) Intractable pain: Code(s): R52 - Pain, unspecified Status: Acute Plan: Intractable pain Buttock wound Metastatic colorectal cancer - Pt is 58 y/o female with hx metastatic colorectal cancer s/p colostomy and perineal/vaginal resection, and chemoradiation. Pt says she took a "break" from chemo in November. She follows with Dr Hyman. Last month developed acute left leg pain and found to have iliac occlusion s/p fem/fem bypass. She had left inguinal lymph node bx's and found to have metastatic mucinous adenocarcinoma which appears consitent with her colorectal cancer. She had prior known lung mets. - She has had chronic wound intergluteal cleft/perirectal area. Over past 2-3 months she is unable to sit and even sleeping on her knees leaning over back of chair/couch. She reports this area was supposed to be biopsied this week to see if any malignancy within this tissue. Pts pain has been more intense and not controlled by her [place]. - She presented back to the ED on 06/16/18 and given morphine/Dilaudid/fentanyl. - CT abd/pelvis (06/16/18): 1. Interval enlargement of multiple nodules within the visualized lung bases consistent with worsening pulmonary metastatic disease. The largest nodule within the left lung base measures 2.6 cm in size. The largest nodule within the right lung base measures 2.0 cm in size. 2. Increased soft tissue nodularity within the presacral space particularly on the left at the level of the coccyx measuring 2.9 cm in size. This finding raises possibility of tumor recurrence. PET\\CT scan may be helpful for further evaluation. 3. Stable subtle enhancing nodule within the left lobe of the liver. 4. Extensive subcutaneous edema is noted within the lower abdomen and anterior pelvis likely related to femoral-femoral bypass graft placement. 5. Mild infrarenal abdominal aortic ectasia which measures 2.7 x 2.7 cm. 6. Stable 3.1 cm left renal cyst. 7. Degenerative changes throughout the thoracolumbar spine. - Consult has been placed to her oncologist Dr Hyman to assist with establishing a treatment plan for metastatic adenocarcinoma - Consult has been placed to her CRS Dr Barreto. Pt has reported had a biopsy scheduled for 06/18 of the perirectal tissue. She has a nonhealing wound and it' s unclear if this is all radiation dermatitis or malignancy. - Cont IVF and liquid diet tonight - Pt has been on Dilaudid IV Q2H PRN and [place] but pt still unable to sit or lie down due to pain. - Consider Fentanyl patch for more steady state pain control. - PRN Zofran/Phenergan - KAREN hose for leg swelling, exacerbated by her persistent upright position/ even during sleep Progress Note: Quality VTE Deep Vein Thrombosis/Pulmonary Embolism Present on Admission: No
[2018-06-17] MEDS: Sod Chloride 0.9% Inj 1,000 ML IV.CONT SCH ×2 (11:53→18:32)
--- NOTE | 2018-06-17 16:02 | P.PNWCN ---
Wound Care Nurse Consult Description: Received wound management consult for buttock area from Doctor Parker. Communicated with: DANITA poe and Ricarda KHAN Recommendation: Please cleanse buttock wound with normal saline and pat dry gently. Apply Ritters cream (Silver sulfadiazine mixed with Lidocaine) to wounds and leave open to air bid Wound/Pressure Injury - Patient Status Premedicated for Pain Prior to Dressing Change: Yes - Wound Midline Buttocks Wound Assessment: Ongoing Wound Type: Traumatic Wound Is This a Chronic Wound: Yes Requested from Provider a Wound Care Consult: Yes (Wound care saw patient today) Length (cm): 4 (~4cm) Width (cm): 0.6 (~0.6cm) Depth (cm): 0.5 (~0.5cm) Wound Bed Appearance: [place], Yellow Wound Bed Appearance: Wound bed is noted with ~50% yellow tissue and ~50% pink tissue. Periwound presents with induration circumferentially and erythema Surrounding Tissue Appearance: Erythema, Indurated, Shiny Surrounding Tissue Temperature: Warm Drainage Amount: None Drainage Odor: No Odor Dressing Status: Open to Air Cleansing Solution: Saline Wound Margin Description: Wound margins are jagged - Additional Information Patient seen on for evaluation of wound to buttock area. Wound began as rectal cancer that was resected and treated by plastic surgeon Doctor Cuevas. Wound did heal initially, but has reopened within the last couple of months, possibly from radiation changes vs recurrent rectal cancer. Patient was seen by inpatient wound care on previous admission for this wound, at that time puracol AG and silver nitrate to treat epible edges was recommended. Today patient is in severe pain and wound to buttocks presents with circumferential induration and erythema. Cause of the wound must be addressed. For now would recommend Ritters cream (Silvadene and lidocaine mixed) BID. Wound was cleansed with normal saline and left open to air. Patient is standing, because she can't tolerate laying down due to pain.
--- NOTE | 2018-06-17 21:54 | MB ---
cc: Katelynn Hyman MD,Eleazar Vincent MD DATE: 06/17/2018 REASON FOR CONSULTATION: Consult requested by Dr. Parker for evaluation and management of metastatic rectal cancer. HISTORY OF PRESENT ILLNESS: Michelle is a pleasant 58-year-old female. She was diagnosed with rectal cancer last year. She was treated with neoadjuvant radiation and Xeloda chemotherapy. Subsequent to that, she had a restaging scan which unfortunately showed metastatic disease to the lung. Due to the rectovaginal fistula and significant drainage, it was decided that the patient should undergo palliative surgery. She had APR resection with a colostomy bag. After several months of that surgery, she came back for followup in [facility]. She was treated with palliative chemotherapy, Avastin and FOLFOX. She had a total of 6 months of chemotherapy, which she completed in November 2017. At that point, the patient had elected for a "chemo holiday". The patient was supposed to come back to see me last February for followup. However, she had canceled the appointment. She states that she was sick and she has been in the hospital in and out. She had developed severe left lower leg pain and workup showed an ischemic left leg. She underwent fem-fem bypass surgery. During that procedure, a left inguinal lymph node was biopsied and the pathology report came back as mucinous adenocarcinoma consistent with rectal cancer. She was advised to see me for further followup. However, the patient failed to do that. When she was discharged to home, she did not have enough narcotics. She was advised to see her primary physician. She saw Dr. Bell, who has been managing her pain medications. The patient started having more pain, especially in the perianal area. It came to the point that she was unable to sit or sleep on her back. Most of the time, she was sleeping face down on the sofa or recliner. When she ran out of her narcotics, she start taking Advil. The Advil was not able to control her pain adequately. She decided to come to the emergency room for pain control. The patient had CAT scan of the abdomen and pelvis yesterday which show interval enlargement of multiple nodules within the visualized lung bases consistent with worsening pulmonary metastatic disease. The largest nodule is within the left lung base, 2.6 cm in size. There is increased soft tissue nodularity noted within the presacral space, particularly on the left at the level of the coccyx measuring 2.9 cm. There is a stable enhancing nodule noted within the left lobe of the liver. Extensive subcutaneous edema is noted within the lower abdomen and anterior pelvis, likely related to femoral-femoral bypass graft placement. The patient is admitted to the hospital. Dr. Barreto and the undersigned have been consulted for further evaluation. The patient is standing in the room as she is unable to sit or lie on the bed. Her sister and niece were present in the room. The patient states that they just started her on Duragesic patch 50 mcg. She is also getting Dilaudid IV. She had nausea and vomiting yesterday. She feels miserable. The rest of the review of systems is negative. PAST MEDICAL HISTORY: Rectal cancer with metastatic disease to the lung, stage IV, duodenal ulcer, peripheral vascular disease. PAST SURGICAL HISTORY: Infusaport placement, APR resection, fem-fem bypass surgery. ALLERGIES: NONE. MEDICATIONS PRIOR TO COMING IN THE HOSPITAL: 1. Protonix. 2. Advil. FAMILY HISTORY: Her mother has vulvar cancer. SOCIAL HISTORY: The patient used to smoke cigarettes, 1 pack a day for 40 years. She stopped smoking in April 2017. She also used to drink alcohol heavily, but has quit. 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 PHYSICAL EXAMINATION: GENERAL: A well-developed, chronically ill-appearing white female in no apparent distress. VITAL SIGNS: Temperature 97.8, heart rate 75, blood pressure 121/57. HEENT: PERRLA. EOMI. Anicteric. No oral lesions noted. NECK: No lymphadenopathy noted. LUNGS: Clear. No wheezing, rhonchi or rales. CARDIOVASCULAR: Regular rate and rhythm. ABDOMEN: Soft, nontender. PERIANAL: The patient has multiple lesions around the perianal area consistent with infiltration by tumor. EXTREMITIES: Edema noted in both lower legs, more on the left than the right. NEUROLOGIC: Awake, alert, oriented x 3. SKIN: No significant lesions are noted. ASSESSMENT: 1. History of rectal cancer, status post neoadjuvant radiation and Xeloda chemotherapy. Subsequently, she was found to have lung metastasis and underwent palliative abdominoperineal resection due to a rectovaginal fistula. This was followed up by 6 months of Avastin and FOLFOX palliative chemotherapy, completed in November 2017. 2. She now has progressive disease with tumor extension to the perianal area, presacral and both lungs bases. 3. Perianal pain due to recurrent rectal cancer. PLAN: I have reviewed her available records and I had an extensive discussion with the patient, sister and niece regarding her options. The patient clearly is in agony due to the pain. In the past, I have given her Duragesic patch and [place] and her pain was under control. The Duragesic patch 50 mcg was just started today. She has been getting IV Dilaudid. I will start her on scheduled [place], which has worked better in the past. We had an extensive discussion about her options of treatment. One option is best supportive care with hospice given that she has incurable widely metastatic disease. The second option is palliative chemotherapy. The pros and cons of each option were discussed with her. At this time, the patient is unable to make any decisions. She said, "Let me sleep on it and I will let you know tomorrow." I think this is very reasonable. If the patient decides against palliative chemotherapy, then I will consult hospice for best supportive care and pain management. However, if she decides for the chemotherapy option, then I will see her in our [place] office next week. The patient states that she already had made an appointment for next week, Sunday, at our [place] office. The patient states that she has signed a contract for pain management with Dr. Bell. She needs to rescind that contract so that I can manage her pain with the narcotics if she decides for the chemotherapy option. Otherwise, hospice would be able to manage her pain. We discussed that if she chooses the palliative chemotherapy option, it is going to take at least 6-8 weeks to see any response. During that time, she will be suffering from the pain if the narcotics do not work. At the end, she said, "I am a fighter." Case discussed with Dr. Barreto. Thank you for asking my opinion. MD SANDY English/percy , 06:52 PM , 07:14 PM ZEN
[2018-06-18] MEDS: HYDROmorphone PF Inj 2 MG/ML Vial IV.PUSH PRN ×10 (00:16→22:18)
[2018-06-18] MEDS: Sod Chloride 0.9% Inj 1,000 ML IV.CONT SCH ×2 (07:50→11:50)
--- NOTE | 2018-06-18 08:51 | P.PNIM ---
Subjective Interval history: Pt fell again this morning in the room and she states that she lost her balance and landed on her buttock She felt that one of the groin wounds on the left side "split open" when she fell. There are currently two open wound in the left groin and one on the right with with purulent drainage from the right side wound. She met with Dr. Hymna last night who discussed two options with her, one is Hospice for pain control given her wide spread metastatic disease, the other is for palliative chemo. She has not made a decision yet on what she wants to do. Physical Exam Vital signs: Last Vital Signs Temp 97.8 F 06/18/18 08:00 Pulse 81 06/18/18 08:00 Resp 16 06/18/18 08:00 BP 121/60 06/18/18 08:00 Pulse Ox 94 L 06/18/18 08:00 Narrative: General: NAD, standing in her room, unable to sit Chest: Regular Chest: CTA bilaterally Abd: +BS, soft, NT, ostomy in place. Ext: Stasis skin changes and hard edema in bilateral lower ext to the groin. Some blistering on the right foot and small wound on the right lateral foot. Skin: Hard/indurated tissue on bilateral buttock and intergluteal cleft with nodular skin changes extending to pubic area. Open wound in intergluteal cleft on both sides , the one on the right with some purulent drainage, now with two open wounds on the left groin Results Labs CBC & Chem 7: 06/17/18 06:05 06/17/18 06:05 Imaging Abdomen/Pelvis CT 06/16/18 13:49 CONCLUSION: 1. Interval enlargement of multiple nodules within the visualized lung bases consistent with worsening pulmonary metastatic disease. The largest nodule within the left lung base measures 2.6 cm in size. The largest nodule within the right lung base measures 2.0 cm in size. 2. Increased soft tissue nodularity within the presacral space particularly on the left at the level of the coccyx measuring 2.9 cm in size. This finding raises possibility of tumor recurrence. PET\\CT scan may be helpful for further evaluation. 3. Stable subtle enhancing nodule within the left lobe of the liver. 4. Extensive subcutaneous edema is noted within the lower abdomen and anterior pelvis likely related to femoral-femoral bypass graft placement. 5. Mild infrarenal abdominal aortic ectasia which measures 2.7 x 2.7 cm. 6. Stable 3.1 cm left renal cyst. 7. Degenerative changes throughout the thoracolumbar spine. Assessment and Plan Assessment (1) Colorectal cancer: Code(s): C19 - Malignant neoplasm of rectosigmoid junction Status: Acute (2) Buttock wound: Code(s): S31.809A - Unspecified open wound of unspecified buttock, initial encounter Status: Acute (3) Intractable pain: Code(s): R52 - Pain, unspecified Status: Acute Plan: Intractable pain Buttock wound Metastatic colorectal cancer - Pt is 58 y/o female with hx metastatic colorectal cancer s/p colostomy and perineal/vaginal resection, and chemoradiation. Pt says she took a "break" from chemo in November. She follows with Dr Hyman. Last month developed acute left leg pain and found to have iliac occlusion s/p fem/fem bypass. 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 She had prior known lung mets. - She has had chronic wound intergluteal cleft/perirectal area. Over past 2-3 months she is unable to sit and even sleeping on her knees leaning over back of chair/couch. She reports this area was supposed to be biopsied this week to see if any malignancy within this tissue. Pts pain has been more intense and not controlled by her [place]. - She presented back to the ED on 06/16/18 and given morphine/Dilaudid/fentanyl. - CT abd/pelvis (06/16/18): 1. Interval enlargement of multiple nodules within the visualized lung bases consistent with worsening pulmonary metastatic disease. The largest nodule within the left lung base measures 2.6 cm in size. The largest nodule within the right lung base measures 2.0 cm in size. 2. Increased soft tissue nodularity within the presacral space particularly on the left at the level of the coccyx measuring 2.9 cm in size. This finding raises possibility of tumor recurrence. PET\\CT scan may be helpful for further evaluation. 3. Stable subtle enhancing nodule within the left lobe of the liver. 4. Extensive subcutaneous edema is noted within the lower abdomen and anterior pelvis likely related to femoral-femoral bypass graft placement. 5. Mild infrarenal abdominal aortic ectasia which measures 2.7 x 2.7 cm. 6. Stable 3.1 cm left renal cyst. 7. Degenerative changes throughout the thoracolumbar spine. - Consult has been placed to her oncologist Dr Hyman. He has recommended Hospice vs. palliative chemotherapy. The pt is considering her options. - Consult has been placed to her CRS Dr Barreto. No biopsy is planned at this time. - Cont IVF and advance to regular diet per pt request. - Fentanyl patch 50mcg started on 06/17, [place] changed to a scheduled dosing of 10/325 Q6H, and pt has Dilaudid IV Q2H PRN but pt still unable to sit or lie down due to pain. - PRN Zofran/Phenergan - Culture from groin wound (06/16) currently growing Gram negative rods and Group B strep. Await final culture. - Bactrim was prescribed by Vascular surgery as an outpt last week for possible infection in her open groin wounds. - Appreciate wound care recs for buttock wound: - Please cleanse buttock wound with normal saline and pat dry gently. Apply Ritters cream (Silver sulfadiazine mixed with Lidocaine) to wounds and leave open to air bid - Request vascular surgery re-evaluate her groin wounds as well. - Ancef 1gram Q8H started on 06/18 for her open groin wounds - KAREN hose for leg swelling, exacerbated by her persistent upright position/ even during sleep Attending Attestation Patient examined. Assessment and plan formulated with Ricarda Larios PA-C. I agree with the above. metastatic colon ca. possible involvement of buttock/perineum area skin bilateral groin wound dehiscence. Pt will f/u oncology for chemo pain control with fentanyl and norco abx. po at dc wound care. Progress Note: Quality VTE Deep Vein Thrombosis/Pulmonary Embolism Present on Admission: No
[2018-06-18] MEDS: Pantoprazole Inj 40 MG Vial IV.PUSH SCH ×2 (09:15→20:25)
[2018-06-18] MEDS: Enoxaparin Inj 40 MG/0.4 ML Syringe SQ SCH (09:26)
[2018-06-18] MEDS: Senna/Docusate Sodium 8.6/50 MG Tablet PO SCH ×2 (09:26→20:26)
--- NOTE | 2018-06-18 11:31 | P.PNONC ---
Subjective Interval history: Patient ambulating in room. She reports a fall on her buttocks this morning after turning and losing her balance. She denies any dizziness or syncope, denies LOC. She has decided to undergo palliative chemotherapy, stating "I am a fighter and I do not want to give up too early" Confirm she has an appointment next week with Dr Hyman. Objective Vital Signs/Intake & Output: Vital Signs 06/17/18 16:00 06/17/18 20:00 06/17/18 20:15 Temperature 97.8 F 98.0 F 98.0 F Pulse Rate 75 83 83 Respiratory Rate 16 18 18 Blood Pressure 121/57 L 126/60 126/60 Pulse Oximetry 95 93 L 93 L 06/18/18 00:00 06/18/18 08:00 06/18/18 10:27 Temperature 97.6 F 97.8 F Pulse Rate 82 81 Respiratory Rate 18 16 20 Blood Pressure 135/60 121/60 Pulse Oximetry 98 94 L Intake & Output 06/17/18 06/18/18 06/18/18 18:59 06:59 18:59 Intake Total 3200 / 3200 240 / 240 1000 / 1000 Balance 3200 / 3200 240 / 240 1000 / 1000 Weight 67.7 kg Intake: IV 2000 / 2000 1000 / 1000 NS Inj 1,000 ML @ 50 mls/hr IV. 1000 / 1000 1000 / 1000 CONT .Q20H [facility] Rx#:[id number] Oral 1200 / 1200 240 / 240 Other: # Voids 3 1 # Bowel Movements 0 Weight On Admission 65.8 kg Result Diagrams: 06/17/18 06:05 06/17/18 06:05 Culture Results: Microbiology 06/16/18 13:50 Gram Stain - Final Abscess - Groin Wound Culture - Preliminary gram negative rods Group B beta Strep Medications: Active Medications Generic Name Dose Route Start Last Admin Trade Name Freq PRN Reason Stop Dose Admin Hydrocodone Bitart/Acetaminophen 1 tab 06/17/18 20:00 06/18/18 09:15 [place] 10/325 PO 1 tab Q6H [facility] Administration Enoxaparin Sodium 40 mg 06/17/18 09:00 06/18/18 09:26 Lovenox Inj SQ Not Given DAILY [facility] Fentanyl 1 patch 06/17/18 16:00 06/17/18 17:07 Duragesic 50 Mcg Patch.72hr T-DERMAL 1 patch Q3D [facility] Administration Hydromorphone HCl 1 mg 06/16/18 19:04 06/18/18 09:57 Dilaudid Pf Inj IV.PUSH 1 mg Q2HR PRN Administration pain 7-10 Sodium Chloride 1,000 mls @ 50 mls/hr 06/16/18 19:04 06/18/18 07:50 Ns Inj IV.CONT 50 mls/hr .Q20H [facility] Administration Ondansetron HCl 4 mg 06/16/18 19:07 06/17/18 17:09 Zofran Inj IV.PUSH 4 mg Q4HR PRN Administration NAUSEA OR VOMITING Pantoprazole Sodium 40 mg 06/16/18 20:00 06/18/18 09:15 Protonix Inj IV.PUSH 40 mg Q12H [facility] Administration Promethazine HCl 25 mg 06/16/18 19:04 06/16/18 21:01 Phenergan PO 25 mg Q4H PRN Administration n/v Senna/Docusate Sodium 1 tab 06/16/18 21:00 06/18/18 09:26 Keshia-Colace PO Not Given BID [facility] Silver Sulfadiazine 1 applicatio 06/18/18 10:00 06/18/18 10:53 Ritter's Cream TOPICAL 1 applicatio BID [facility] Administration Sodium Chloride 2 ml 06/16/18 13:49 06/16/18 14:09 Ns Flush IV.FLUSH 2 ml PRN PRN Administration FLUSH AFTER USING IV ACCESS Trimethoprim/Sulfamethoxazole 1 tab 06/18/18 09:00 06/18/18 09:22 Bactrim Ds PO 06/21/18 23:59 1 tab Q12HR [facility] Administration Objective Remarks: GENERAL: Well-nourished, well-developed female patient, in no acute distress. SKIN: Warm and dry. HEAD: Normocephalic. EYES: No scleral icterus. No injection or drainage. NECK: Supple, trachea midline. CARDIOVASCULAR: Regular rate and rhythm without murmurs. RESPIRATORY: Breath sounds equal bilaterally. No accessory muscle use. GASTROINTESTINAL: Abdomen soft, non-tender, nondistended. EXTREMITIES: No cyanosis, or edema. KAREN hose in place. MUSCULOSKELETAL: Adequate muscle tone. NEUROLOGICAL: No obvious focal deficit. Awake, alert, and oriented x3. PSYCHIATRIC: Appropriate mood and affect; insight and judgment normal. Assessment/Plan - Plan Ms. Vora is a pleasant 58-year-old female patient, diagnosed with rectal cancer last year. She was treated with neoadjuvant radiation and Xeloda chemotherapy. Restaging showed metastatic disease to the lung. 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 She was then treated with palliative chemotherapy, Avastin and FOLFOX. She had a total of 6 months of chemotherapy, which completed in November 2017. She elected for a "chemo holiday" and then canceled her follow-up appointments. 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 Recommendations: 1. Metastatic rectal cancer, patient has elected to have palliative chemotherapy. She will keep her appointment next week with Dr. Hyman. 2. Pain, continue scheduled [place] 10/325 every 6 hours. Oncology will manage pain medications once discharged. 3. Patient cleared for discharge from an oncology standpoint, she has an appointment next week in the clinic to follow-up.
[2018-06-18] MEDS ORDERED: Levofloxacin 500 mg Premix Inj 500 MG/100 ML PIGGYBACK IV.SIG SCH (14:00)
--- NOTE | 2018-06-18 14:02 | P.PNCS ---
Subjective Interval history: D/W Dr Hyman. Pt wants to try chemo since she had a good response before stopping in November. Discussed with Dr Alcantar. Not suprising wound is growing bacteria as it is open. No obvious abscess. Wounds in perineum may heal if secondary to metastatic disease. Objective Result Diagrams: 06/17/18 06:05 06/17/18 06:05 Objective Remarks: No changes. Pain better controlled Assessment and Plan - Plan F/U Dr Hyman for chemo.
--- NOTE | 2018-06-18 14:10 | P.CONVS ---
History of Present Illness Service: Vascular surgery Consult date: 06/18/18 Primary Care Provider: North Bell MD History of Present Illness: 58-year-old female with past medical history of left lower extremity acute limb ischemia status post right to left femorofemoral bypass. I recently saw her in the office. She developed an ulceration in the medial aspect of her left thigh just medial to her incision. She denies any fever or chills. She reports drainage from the bilateral groin wounds which is serosanguineous. 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 - Surgical History Surgical History: Surgical History (Last Reviewed 06/16/18 @ 14:04 by Kasandra Rodriguez) History of colostomy Onset Date: ~04/26/17 History of laparotomy Onset Date: ~08/28/16 Status post insertion of iliac artery stent Onset Date: ~2016 - Family History Family History: Family History (Last Reviewed 05/22/18 @ 10:42 by Christina Gary) Sister Cervical cancer - Tobacco History Second Hand Smoke Exposure: No Smoking Status: Never smoker Tobacco Type: Cigarettes Packs Per Day: 1 Years Smoked: 40 Smoking End Date: 04/2017 - Alcohol History How Often Do You Have a Drink Containing Alcohol: Never - Substance Use History Substance History: No History of Abuse - Travel History Recent Travel in the [place] Within the Last 8 Weeks: No Recent Travel Out of the Country Within the Last 8 Weeks: No - Immunization History Tetanus Immunization: >5 Years Hx Influenza Vaccine This Season: Yes Medications and Allergies Active Medications: Active Medications Acetaminophen (Tylenol) 650 mg PO Q4H PRN PRN Reason: Temp > 100.4 Hydrocodone Bitart/Acetaminophen ([place] 10/325) 1 tab PO Q6H [facility] Last Admin: 06/18/18 09:15 Dose: 1 tab Al Hydroxide/Mg Hydroxide (Milk Of Magnesia Liq) 30 ml PO Q12H PRN PRN Reason: Mild Constipation Enoxaparin Sodium (Lovenox Inj) 40 mg SQ DAILY [facility] Last Admin: 06/18/18 09:26 Dose: Not Given Fentanyl (Duragesic 50 Mcg Patch.72hr) 1 patch T-DERMAL Q3D [facility] Last Admin: 06/17/18 17:07 Dose: 1 patch Hydromorphone HCl (Dilaudid Pf Inj) 1 mg IV.PUSH Q2HR PRN PRN Reason: pain 7-10 Last Admin: 06/18/18 11:55 Dose: 1 mg Sodium Chloride (Ns Inj) 1,000 mls @ 50 mls/hr IV.CONT .Q20H [facility] Last Infusion: 06/18/18 11:50 Dose: Infused Cefazolin Sodium/Dextrose (Ancef 1 Gm Premix Inj) 1 gm in 50 mls @ 200 mls/hr IV.SIG Q8H [facility] Ondansetron HCl (Zofran Inj) 4 mg IV.PUSH Q4HR PRN PRN Reason: NAUSEA OR VOMITING Last Admin: 06/18/18 11:58 Dose: 4 mg Pantoprazole Sodium (Protonix Inj) 40 mg IV.PUSH Q12H [facility] Last Admin: 06/18/18 09:15 Dose: 40 mg Patch Removal (Remove Old Patch) 1 each T-DERMAL Q3D [facility] Promethazine HCl (Phenergan) 25 mg PO Q4H PRN PRN Reason: n/v Last Admin: 06/16/18 21:01 Dose: 25 mg Senna/Docusate Sodium (Keshia-Colace) 1 tab PO BID [facility] Last Admin: 06/18/18 09:26 Dose: Not Given Silver Sulfadiazine (Ritter's Cream) 1 applicatio TOPICAL BID [facility] Last Admin: 06/18/18 10:53 Dose: 1 applicatio Sodium Chloride (Ns Flush) 2 ml IV.FLUSH PRN PRN PRN Reason: FLUSH AFTER USING IV ACCESS Last Admin: 06/16/18 14:09 Dose: 2 ml Allergies Allergy/AdvReac Type Severity Reaction Status Date / Time No Known Allergies Allergy Verified 06/16/18 12:49 Physical Exam Vital Signs / I&O: Vital Signs 06/17/18 16:00 06/17/18 20:00 06/17/18 20:15 Temperature 97.8 F 98.0 F 98.0 F Pulse Rate 75 83 83 Respiratory Rate 16 18 18 Blood Pressure 121/57 L 126/60 126/60 Pulse Oximetry 95 93 L 93 L 06/18/18 00:00 06/18/18 08:00 06/18/18 08:15 Temperature 97.6 F 97.8 F 97.6 F Pulse Rate 82 81 88 Respiratory Rate 18 16 16 Blood Pressure 135/60 121/60 162/54 H Pulse Oximetry 98 94 L 98 06/18/18 10:27 06/18/18 12:00 Temperature 98.0 F Pulse Rate 87 Respiratory Rate 20 16 Blood Pressure 111/56 L Pulse Oximetry 95 Intake & Output 06/17/18 06/18/18 06/18/18 18:59 06:59 18:59 Intake Total 3200 / 3200 240 / 240 1250 / 1250 Balance 3200 / 3200 240 / 240 1250 / 1250 Weight 67.7 kg Intake: IV 2000 / 2000 1250 / 1250 NS Inj 1,000 ML @ 50 mls/hr IV. 1000 / 1000 1250 / 1250 CONT .Q20H [facility] Rx#:[id number] Oral 1200 / 1200 240 / 240 Other: # Voids 3 1 # Bowel Movements 0 Weight On Admission 65.8 kg Vascular: Multiphasic pedal signals bilaterally. The bilateral groin wounds are healing slowly. There is small areas of dehiscence was noted on the right groin wound with fibrinous material. There is 2 centimeter x 2 centimeter openings just medial to her groin incision. There is fibrinous material noted with serosanguineous discharge. There is surrounding skin in the induration. The graft is incorporated and not exposed in the wound. Microbiology 06/16/18 13:50 Gram Stain - Final Abscess - Groin Wound Culture - Final Klebsiella pneumoniae Group B beta Strep Impressions Abdomen/Pelvis CT 06/16/18 13:49 CONCLUSION: 1. Interval enlargement of multiple nodules within the visualized lung bases consistent with worsening pulmonary metastatic disease. The largest nodule within the left lung base measures 2.6 cm in size. The largest nodule within the right lung base measures 2.0 cm in size. 2. Increased soft tissue nodularity within the presacral space particularly on the left at the level of the coccyx measuring 2.9 cm in size. This finding raises possibility of tumor recurrence. PET\CT scan may be helpful for further evaluation. 3. Stable subtle enhancing nodule within the left lobe of the liver. 4. Extensive subcutaneous edema is noted within the lower abdomen and anterior pelvis likely related to femoral-femoral bypass graft placement. 5. Mild infrarenal abdominal aortic ectasia which measures 2.7 x 2.7 cm. 6. Stable 3.1 cm left renal cyst. 7. Degenerative changes throughout the thoracolumbar spine. Assessment and Plan - Plan Status post femorofemoral bypass. With metastatic cancer to the left groin. Left groin open wound due to poor wound healing (history of radiation, metastatic cancer). The femoral to femoral bypass graft is incorporated, doubt graft infection Patient does not have any systemic signs of infection. I recommend to continue with local wound care with wet-to-dry dressing to the left groin. I will do a local bedside debridement of the left groin wound. Currently on IV Ancef Okay to start p.o. antibiotics after discharge. She is a high risk of developing graft infection and needing a muscle flap.
[2018-06-18] MEDS ORDERED: ceFAZolin 1 GM Premix Inj 1 GM/50 ML FROZ.PIGGY IV.SIG ONE ×2 (14:12→22:03)
[2018-06-18] MEDS: ceFAZolin 1 GM Premix Inj 1 GM/50 ML FROZ.PIGGY IV.SIG SCH ×2 (14:13→22:17)
[2018-06-19] MEDS: HYDROmorphone PF Inj 2 MG/ML Vial IV.PUSH PRN ×5 (00:32→12:50)
[2018-06-19] MEDS ORDERED: ceFAZolin 1 GM Premix Inj 1 GM/50 ML FROZ.PIGGY IV.SIG ONE ×2 (05:24→13:11)
[2018-06-19] MEDS: ceFAZolin 1 GM Premix Inj 1 GM/50 ML FROZ.PIGGY IV.SIG SCH ×2 (05:55→14:29)
[2018-06-19 07:41] LABS: Baso % (Auto) 0.1 % (0.0-2.0); Eos # (Auto) 0.2 th/mm3 (0.0-0.4); Eos % (Auto) 3.9 % (0.0-4.0); Hemoglobin 10.4 gm/dL (11.6-15.3); Lymph # (Auto) 0.3 th/mm3 (1.0-4.8); Mean Corpuscular HGB Conc 33.5 % (32.0-36.0); Mean Corpuscular Hemoglobin 30.3 pg (27.0-34.0); Mean Corpuscular Volume 90.4 fL (80.0-100.0); Mean Platelet Volume 7.1 fL (7.0-11.0); Mono # (Auto) 0.7 th/mm3 (0.0-0.9); Mono % (Auto) 10.4 % (0.0-8.0); Neut # (Auto) 5.1 th/mm3 (1.8-7.7); Neut % (Auto) 80.6 % (16.0-70.0); Platelet Count 232 th/mm3 (150-450); Red Blood Count 3.43 mil/mm3 (4.00-5.30); Red Cell Distribution Width 16.5 % (11.6-17.2); White Blood Count 6.3 th/mm3 (4.0-11.0)
[2018-06-19 08:04] LABS: Anion Gap 5 meq/L (5-15); Blood Urea Nitrogen 8 mg/dL (7-18); Calcium 8.6 mg/dL (8.5-10.1); Carbon Dioxide 31.4 meq/L (21.0-32.0); Chloride 99 meq/L (98-107); Glomerular Filtration Rate Greater Than 89 mL/min (>89); Glucose,Random 105 mg/dL (74-106); Potassium 3.8 meq/L (3.5-5.1); Sodium 135 meq/L (136-145)
[2018-06-19] MEDS: Pantoprazole Inj 40 MG Vial IV.PUSH SCH (08:11)
[2018-06-19] MEDS: Senna/Docusate Sodium 8.6/50 MG Tablet PO SCH (08:12)
[2018-06-19] MEDS: Enoxaparin Inj 40 MG/0.4 ML Syringe SQ SCH (08:14)
[2018-06-19 08:32] VITALS: O2SAT 97
--- NOTE | 2018-06-19 08:55 | P.PNIM ---
Subjective Interval history: Patient up ambulating about the room reports feeling much better today was able to sit down and even lay down for short periods of time pain better with fentanyl patch - if possible would like to go home later today after the bedside debridement Physical Exam Vital signs: Last Vital Signs Temp 97.8 F 06/19/18 08:00 Pulse 79 06/19/18 08:00 Resp 16 06/19/18 08:00 BP 119/60 06/19/18 08:00 Pulse Ox 97 06/19/18 08:00 Narrative: General: NAD, standing in her room Chest: Regular Chest: CTA bilaterally Abd: +BS, soft, NT, ostomy in place. Ext: Stasis skin changes and hard edema in bilateral lower ext to the groin. Some blistering on the right foot and small wound on the right lateral foot. Skin: Hard/indurated tissue on bilateral buttock and intergluteal cleft with nodular skin changes extending to pubic area. Open wound in intergluteal cleft on both sides, the one on the right with some purulent drainage, now with two open wounds on the left groin Results Labs CBC & Chem 7: 06/19/18 07:16 06/19/18 07:16 Assessment and Plan Assessment (1) Colorectal cancer: Code(s): C19 - Malignant neoplasm of rectosigmoid junction Status: Acute (2) Buttock wound: Code(s): S31.809A - Unspecified open wound of unspecified buttock, initial encounter Status: Acute (3) Intractable pain: Code(s): R52 - Pain, unspecified Status: Acute Plan: Intractable pain Buttock wound Metastatic colorectal cancer - Pt is 58 y/o female with hx metastatic colorectal cancer s/p colostomy and perineal/vaginal resection, and chemoradiation. Pt says she took a "break" from chemo in November. She follows with Dr Hyman. Last month developed acute left leg pain and found to have iliac occlusion s/p fem/fem bypass. 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 She had prior known lung mets. - She has had chronic wound intergluteal cleft/perirectal area. Over past 2-3 months she is unable to sit and even sleeping on her knees leaning over back of chair/couch. She reports this area was supposed to be biopsied this week to see if any malignancy within this tissue. Pts pain has been more intense and not controlled by her [place]. - She presented back to the ED on 06/16/18 and given morphine/Dilaudid/fentanyl. - CT abd/pelvis (06/16/18): 1. Interval enlargement of multiple nodules within the visualized lung bases consistent with worsening pulmonary metastatic disease. The largest nodule within the left lung base measures 2.6 cm in size. The largest nodule within the right lung base measures 2.0 cm in size. 2. Increased soft tissue nodularity within the presacral space particularly on the left at the level of the coccyx measuring 2.9 cm in size. This finding raises possibility of tumor recurrence. PET\\CT scan may be helpful for further evaluation. 3. Stable subtle enhancing nodule within the left lobe of the liver. 4. Extensive subcutaneous edema is noted within the lower abdomen and anterior pelvis likely related to femoral-femoral bypass graft placement. 5. Mild infrarenal abdominal aortic ectasia which measures 2.7 x 2.7 cm. 6. Stable 3.1 cm left renal cyst. 7. Degenerative changes throughout the thoracolumbar spine. - Consult has been placed to her oncologist Dr Hyman. He has recommended Hospice vs. palliative chemotherapy. The pt is considering her options. - Consult has been placed to her CRS Dr Barreto. No biopsy is planned at this time. - Cont IVF and advance to regular diet per pt request. - Fentanyl patch 50mcg started on 06/17, [place] changed to a scheduled dosing of 10/325 Q6H, and pt has Dilaudid IV Q2H PRN but pt still unable to sit or lie down due to pain. - PRN Zofran/Phenergan - Culture from groin wound (06/16) currently growing Gram negative rods and Group B strep. Await final culture. - Bactrim was prescribed by Vascular surgery as an outpt last week for possible infection in her open groin wounds. - Appreciate wound care recs for buttock wound: - Please cleanse buttock wound with normal saline and pat dry gently. Apply Ritters cream (Silver sulfadiazine mixed with Lidocaine) to wounds and leave open to air bid - Request vascular surgery re-evaluate her groin wounds as well. - Ancef 1gram Q8H started on 06/18 for her open groin wounds - KAREN hose for leg swelling, exacerbated by her persistent upright position/ even during sleep - Cleared for DC with hematology/oncology -> will need to follow up with Dr. Hyman - Vascular surgery plans for bedside debridement of bilateral groin wounds today - Possible DC later today vs tomorrow AM (patient would like to be home for Thanksgiving) Progress Note: Quality VTE Deep Vein Thrombosis/Pulmonary Embolism Present on Admission: No
--- NOTE | 2018-06-19 09:09 | P.DCO ---
Diagnosis (1) Colorectal cancer: Status: Acute (2) Buttock wound: Status: Acute (3) Intractable pain: Status: Acute Home Health Nursing Order: Medical education, Signs/symptoms of disease process, Wound care and dressing changes and Nursing assessment with vital signs Instructions: - Please cleanse buttock wound with normal saline and pat dry gently. Apply Ritters cream (Silver sulfadiazine mixed with Lidocaine) to wounds and leave open to air bid Case Management Consult Case Management Consult-Home Health: Yes I have seen patient Michelle Vora on 06/19/18. My clinical findings support the need for the requested home health care services because: Limited ability to care for self I certify that my clinical findings support that this patient is homebound because: Unable to use public transportation
[2018-06-19 12:10] VITALS: BP 133/60; PULSE 88; RESP 17; TEMP 97.3
--- NOTE | 2018-06-19 12:33 | P.DS ---
DS: Providers Date of admission: 06/16/18 17:30 Primary care physician: North Bell MD Consults: 06/16/18 19:09 Consult to Colorectal Surgery Routine Consulting Provider: Truman Fang Preferred Workers Compensation Specialist:: Bernardino Barreto Reason for Consultation: Pt known to Dr Barreto. 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 metastatic colorectal ca Notified:: Service Spoke with:: ricardo Date Notified:: 06/16/18 Time Notified:: 19:23 Ordering Provider: ROBYN 06/18/18 13:12 Consult to Vascular Surgery Routine Consulting Provider: Dm Agosto Workers Compensation Specialist:: Dm Agosto Patient known to:: Dm Agosto Reason for Consultation: Hx fem-fem bypass, groin wound infection Notified:: Physician Spoke with:: DR. AGOSTO Date Notified:: 06/18/18 Time Notified:: 13:31 Ordering Provider: LILIYA 06/19/18 10:05 HUB Only Consult Order Routine Consulting Provider: [facility] Brief History from admission: Pt is 58 yr old with hx metastatic colorectal ca. s/p colostomy and perineal/vaginal resection, chemoradiation. Pt says she took a "break" from chemo in November. She follows with Dr Hyman. Last month developed acute left leg pain and found to have Iliac occlusion s/p fem/fem bypass. She had left inguinal lymph node bx's and found to have metastatic mucinous adenoca which appears same as before. She had prior known lung mets. She has had chronic wound intergluteal cleft/perirectal area. over past 2-3 months she is unable to sit and even sleepy on her knees leaning over back of chair/couch. She reports this area was supposed to be biopsied this week to see if any malignancy within this tissue. Pt has had more intense pain not controlled by her norco. She comes to the ED and given morphine/dilaudid/fentanyl. She is now vomiting. Her CT a/p showed lung field mets bilaterally, presacral soft tissue nodular change possible mets. PMH: colorectal cancer. s/p chemoradiation. chemo stopped in November 2017 pt with know lung mets. 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 stent placment by IR 2017 left iliac occlusion 05/16..Fem/Fem bypass left inguinal lymph node removal. 10/02. metastatic mucinous adenocarcinoma. 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 SH: 1/2ppd tobacco x 35yrs. hx heAvy etoh abuse in past. quit last year. FH: NC DS: Diagnosis Discharge Diagnosis (1) Colorectal cancer: Status: Acute (2) Buttock wound: Status: Acute (3) Intractable pain: Status: Acute DS: Summary Buttock wound Metastatic colorectal cancer - Pt is 58 y/o female with hx metastatic colorectal cancer s/p colostomy and perineal/vaginal resection, and chemoradiation. Pt says she took a "break" from chemo in November. She follows with Dr Hyman. Last month developed acute left leg pain and found to have iliac occlusion s/p fem/fem bypass. 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 She had prior known lung mets. - She has had chronic wound intergluteal cleft/perirectal area. Over past 2-3 months she is unable to sit and even sleeping on her knees leaning over back of chair/couch. She reports this area was supposed to be biopsied this week to see if any malignancy within this tissue. Pts pain has been more intense and not controlled by her Owen. - She presented back to the ED on 06/16/18 and given morphine/Dilaudid/fentanyl. - CT abd/pelvis (06/16/18): 1. Interval enlargement of multiple nodules within the visualized lung bases consistent with worsening pulmonary metastatic disease. The largest nodule within the left lung base measures 2.6 cm in size. The largest nodule within the right lung base measures 2.0 cm in size. 2. Increased soft tissue nodularity within the presacral space particularly on the left at the level of the coccyx measuring 2.9 cm in size. This finding raises possibility of tumor recurrence. PET\\CT scan may be helpful for further evaluation. 3. Stable subtle enhancing nodule within the left lobe of the liver. 4. Extensive subcutaneous edema is noted within the lower abdomen and anterior pelvis likely related to femoral-femoral bypass graft placement. 5. Mild infrarenal abdominal aortic ectasia which measures 2.7 x 2.7 cm. 6. Stable 3.1 cm left renal cyst. 7. Degenerative changes throughout the thoracolumbar spine. - Consult has been placed to her oncologist Dr Hyman. He has recommended Hospice vs. palliative chemotherapy. The pt is considering her options. - Consult has been placed to her CRS Dr Barreto. No biopsy is planned at this time. - Cont IVF and advance to regular diet per pt request. - Fentanyl patch 50mcg started on 06/17, Owen changed to a scheduled dosing of 10/325 Q6H, and pt has Dilaudid IV Q2H PRN but pt still unable to sit or lie down due to pain. - PRN Zofran/Phenergan - Culture from groin wound (06/16) currently growing Gram negative rods and Group B strep. Await final culture. - Bactrim was prescribed by Vascular surgery as an outpt last week for possible infection in her open groin wounds. - Appreciate wound care recs for buttock wound: - Please cleanse buttock wound with normal saline and pat dry gently. Apply Ritters cream (Silver sulfadiazine mixed with Lidocaine) to wounds and leave open to air bid - Request vascular surgery re-evaluate her groin wounds as well. - Ancef 1gram Q8H started on 06/18 for her open groin wounds - KAREN hose for leg swelling, exacerbated by her persistent upright position/ even during sleep - Cleared for DC with hematology/oncology -> will need to follow up with Dr. Hyman - Vascular surgery plans for bedside debridement of bilateral groin wounds today - patient would like to be home for Thanksgiving Time Spent with Patient Total time spent providing and/or coordinating discharge services: Quality: VTE Deep Vein Thrombosis/Pulmonary Embolism Present on Admission: No Exam Narrative Exam Narrative: General: NAD, standing in her room Chest: Regular Chest: CTA bilaterally Abd: +BS, soft, NT, ostomy in place. Ext: Stasis skin changes and hard edema in bilateral lower ext to the groin. Some blistering on the right foot and small wound on the right lateral foot. Skin: Hard/indurated tissue on bilateral buttock and intergluteal cleft with nodular skin changes extending to pubic area. Open wound in intergluteal cleft on both sides, the one on the right with some purulent drainage, now with two open wounds on the left groin Results Labs on day of discharge: Labs from last 24 hours 06/19/18 06/19/18 07:16 07:16 WBC 6.3 RBC 3.43 L Hgb 10.4 L Hct 31.0 L MCV 90.4 MCH 30.3 MCHC 33.5 RDW 16.5 Plt Count 232 MPV 7.1 Neut % (Auto) 80.6 H Lymph % (Auto) 5.0 L [place] % (Auto) 10.4 H Eos % (Auto) 3.9 Baso % (Auto) 0.1 Neut # (Auto) 5.1 Lymph # (Auto) 0.3 L [place] # (Auto) 0.7 Eos # (Auto) 0.2 Baso # (Auto) 0.0 WBC Differential . Differential Comment Auto diff final Sodium 135 L Potassium 3.8 Chloride 99 Carbon Dioxide 31.4 Anion Gap 5 BUN 8 Creatinine 0.59 Estimated GFR Greater than 89 Random Glucose 105 Calcium 8.6 Impressions ITS Impressions Abdomen/Pelvis CT 06/16/18 13:49 CONCLUSION: 1. Interval enlargement of multiple nodules within the visualized lung bases consistent with worsening pulmonary metastatic disease. The largest nodule within the left lung base measures 2.6 cm in size. The largest nodule within the right lung base measures 2.0 cm in size. 2. Increased soft tissue nodularity within the presacral space particularly on the left at the level of the coccyx measuring 2.9 cm in size. This finding raises possibility of tumor recurrence. PET\\CT scan may be helpful for further evaluation. 3. Stable subtle enhancing nodule within the left lobe of the liver. 4. Extensive subcutaneous edema is noted within the lower abdomen and anterior pelvis likely related to femoral-femoral bypass graft placement. 5. Mild infrarenal abdominal aortic ectasia which measures 2.7 x 2.7 cm. 6. Stable 3.1 cm left renal cyst. 7. Degenerative changes throughout the thoracolumbar spine. Discharge Plan Discharge Disposition Patient Disposition: 06 Disch W/Home Health Service Discharge Condition Condition: Stable Discharge Order Discharge Orders: Discharge Order (Routine); Ordered 06/19/18 Ordered By: Asha Cash Discharge Details Discharge Comment: DC home after vascular surgery does bedside debridement Physicians Team ED Provider: Micah Leal ED Midlevel Provider: Avni Vasquez Primary Care Provider: North Bell Attending Provider: Eleazar Parker Other Providers: Truman Fang ; Margie Hyman ; Dm Agosto ; [facility] Rxs /Orders / Referrals /Forms Prescriptions: New fentanyl [Duragesic] 50 mcg/hr Patch 72 Hour 1 patch Transdermal Q3D Qty: 2 RF: 0 hydrocodone-acetaminophen 10-325 mg Tablet 1 tab PO Q4H PRN (Reason: pain ) Qty: 42 RF: 0 cephalexin [Keflex] 500 mg capsule 500 mg PO TID 7 Days Qty: 21 RF: 0 Continue pantoprazole [Protonix] 40 mg Tablet,Delayed Release (Dr/Ec) 40 mg PO BID Qty: 60 RF: 0 potassium chloride 20 mEq Tablet,Er Particles/Crystals 20 meq PO BID Qty: 16 RF: 0 Discontinued hydrocodone-acetaminophen 10-300 mg Tablet 1 tab PO Q6H PRN (Reason: Pain) Qty: 14 RF: 0 Referrals: Margie Hyman MD [Family Provider] - See Instructions ( follow up within one week) North Bell MD [Primary Care Provider] - See Instructions (follow up within one week) Dm Agosto MD [Physician] - See Instructions (follow up with in 1 week) Discharge Instructions Patient Printed Instructions: Hydrocodone/Acetaminophen (By mouth), Fentanyl ( Absorbed through the skin), Acute Wound Care (GEN), Side Effects of Radiation Therapy (DC) Status ED Status: Left Department
--- NOTE | 2018-06-19 13:40 | P.PNONC ---
Subjective Interval history: Patient states that her pain is under control on present narcotics. She has decided for palliative chemotherapy Objective Vital Signs/Intake & Output: Vital Signs 06/18/18 16:00 06/18/18 20:00 06/19/18 00:00 Temperature 98 F 98.4 F 98.3 F Pulse Rate 80 77 75 Respiratory Rate 17 17 16 Blood Pressure 131/75 131/60 115/54 L Pulse Oximetry 95 93 L 95 06/19/18 08:00 06/19/18 12:00 Temperature 97.8 F 97.3 F L Pulse Rate 79 88 Respiratory Rate 16 17 Blood Pressure 119/60 133/60 Pulse Oximetry 97 97 Intake & Output 06/18/18 06/19/18 06/19/18 18:59 06:59 18:59 Intake Total 1300 / 1300 680 / 680 Output Total 700 / 700 Balance 1300 / 1300 -20 / -20 Weight 68 kg Intake: IV 1300 / 1300 100 / 100 NS Inj 1,000 ML @ 50 mls/hr IV. 1250 / 1250 CONT .Q20H [facility] Rx#:[id number] Ancef 1 GM Premix Inj 1 gm In 50 / 50 100 / 100 50 ml @ 200 mls/hr IV.SIG Q8H [facility] Rx#:[id number] Oral 580 / 580 Output: Urine 700 / 700 Other: # Bowel Movements 0 Result Diagrams: 06/19/18 07:16 06/19/18 07:16 Laboratory Results: Laboratory Results - last 24 hr 06/19/18 06/19/18 07:16 07:16 WBC 6.3 RBC 3.43 L Hgb 10.4 L Hct 31.0 L MCV 90.4 MCH 30.3 MCHC 33.5 RDW 16.5 Plt Count 232 MPV 7.1 Neut % (Auto) 80.6 H Lymph % (Auto) 5.0 L [place] % (Auto) 10.4 H Eos % (Auto) 3.9 Baso % (Auto) 0.1 Neut # (Auto) 5.1 Lymph # (Auto) 0.3 L [place] # (Auto) 0.7 Eos # (Auto) 0.2 Baso # (Auto) 0.0 WBC Differential . Differential Comment Auto diff final Sodium 135 L Potassium 3.8 Chloride 99 Carbon Dioxide 31.4 Anion Gap 5 BUN 8 Creatinine 0.59 Estimated GFR Greater than 89 Random Glucose 105 Calcium 8.6 Culture Results: Microbiology 06/16/18 13:50 Gram Stain - Final Abscess - Groin Wound Culture - Final Klebsiella pneumoniae Group B beta Strep Medications: Active Medications Generic Name Dose Route Start Last Admin Trade Name Freq PRN Reason Stop Dose Admin Hydrocodone Bitart/Acetaminophen 1 tab 06/17/18 20:00 06/19/18 08:15 Kimberly 10/325 PO 1 tab Q6H [facility] Administration Enoxaparin Sodium 40 mg 06/17/18 09:00 06/19/18 08:14 Lovenox Inj SQ 40 mg DAILY [facility] Administration Fentanyl 1 patch 06/17/18 16:00 06/17/18 17:07 Duragesic 50 Mcg Patch.72hr T-DERMAL 1 patch Q3D [facility] Administration Hydromorphone HCl 1 mg 06/16/18 19:04 06/19/18 12:50 Dilaudid Pf Inj IV.PUSH 1 mg Q2HR PRN Administration pain 7-10 Cefazolin Sodium/Dextrose 1 gm in 50 mls @ 200 mls/hr 06/18/18 14:00 06:10 Ancef 1 Gm Premix Inj IV.SIG Infused Q8H [facility] Infusion Ondansetron HCl 4 mg 06/16/18 19:07 06/18/18 20:40 Zofran Inj IV.PUSH 4 mg Q4HR PRN Administration NAUSEA OR VOMITING Pantoprazole Sodium 40 mg 06/16/18 20:00 06/19/18 08:11 Protonix Inj IV.PUSH 40 mg Q12H [facility] Administration Promethazine HCl 25 mg 06/16/18 19:04 06/16/18 21:01 Phenergan PO 25 mg Q4H PRN Administration n/v Senna/Docusate Sodium 1 tab 06/16/18 21:00 06/19/18 08:12 Keshia-Colace PO 1 tab BID [facility] Administration Silver Sulfadiazine 1 applicatio 06/18/18 10:00 06/19/18 08:16 Ritter's Cream TOPICAL 1 applicatio BID [facility] Administration Sodium Chloride 2 ml 06/16/18 13:49 06/16/18 14:09 Ns Flush IV.FLUSH 2 ml PRN PRN Administration FLUSH AFTER USING IV ACCESS Objective Remarks: GENERAL: Well-nourished, well-developed patient. SKIN: Warm and dry. HEAD: Normocephalic. EYES: No scleral icterus. No injection or drainage. NECK: Supple, trachea midline. No JVD or lymphadenopathy. LYMPHATIC: No adenopathy. CARDIOVASCULAR: Regular rate and rhythm without murmurs. RESPIRATORY: Breath sounds equal bilaterally. No accessory muscle use. GASTROINTESTINAL: Abdomen soft, non-tender, nondistended. EXTREMITIES: No cyanosis, or edema. MUSCULOSKELETAL: Adequate muscle tone. NEUROLOGICAL: No obvious focal deficit. Awake, alert, and oriented x3. Assessment/Plan - Plan Ms. Vora is a pleasant 58-year-old female patient, diagnosed with rectal cancer last year. She was treated with neoadjuvant radiation and Xeloda chemotherapy. Restaging showed metastatic disease to the lung. 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 She was then treated with palliative chemotherapy, Avastin and FOLFOX. She had a total of 6 months of chemotherapy, which completed in November 2017. She elected for a "chemo holiday" and then canceled her follow-up appointments. 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 Recommendations: 1. Metastatic rectal cancer, patient has elected to have palliative chemotherapy. She will keep her appointment next week with Dr. Hyman. 2. Pain, continue scheduled Kimberly 10/325 every 6 hours. Oncology will manage pain medications once discharged. 3. Patient cleared for discharge from an oncology standpoint, she has an appointment next week in the clinic to follow-up. 06/19/2018 Pain is under control on present narcotic Kimberly and Duragesic patch 50 mcg Again I have discussed with the patient regarding the options hospice versus palliative chemotherapy She wants to try palliative chemotherapy again. "I am a fighter" Patient understand that she has nonhealing wound in both groin and the chemotherapy may delay the healing She does have an appointment with me next week Sunday at [facility] office Case discussed with hospitalist Dr. Parker. Patient can be discharged from my standpoint Sign off Available as needed
--- NOTE | 2018-06-19 14:22 | P.PNVS ---
Subjective Subjective/Hospital Course: Patient reports decreased discharge from groin wounds. Objective Vital Signs / I&O: Vital Signs 06/18/18 16:00 06/18/18 20:00 06/19/18 00:00 Temperature 98 F 98.4 F 98.3 F Pulse Rate 80 77 75 Respiratory Rate 17 17 16 Blood Pressure 131/75 131/60 115/54 L Pulse Oximetry 95 93 L 95 06/19/18 08:00 06/19/18 12:00 Temperature 97.8 F 97.3 F L Pulse Rate 79 88 Respiratory Rate 16 17 Blood Pressure 119/60 133/60 Pulse Oximetry 97 97 Intake & Output 06/18/18 06/19/18 06/19/18 18:59 06:59 18:59 Intake Total 1300 / 1300 680 / 680 Output Total 700 / 700 Balance 1300 / 1300 - / -20 Weight 68 kg Intake: IV 1300 / 1300 100 / 100 NS Inj 1,000 ML @ 50 mls/hr IV. 1250 / 1250 CONT .Q20H [facility] Rx#:[id number] Ancef 1 GM Premix Inj 1 gm In 50 / 50 100 / 100 50 ml @ 200 mls/hr IV.SIG Q8H [facility] Rx#:[id number] Oral 580 / 580 Output: Urine 700 / 700 Other: # Bowel Movements 0 Physical Exam: Left groin wound with good granulation tissue. Serous discharge was observed on physical exam. Laboratory Results - last 24 hr 06/19/18 06/19/18 07:16 07:16 WBC 6.3 RBC 3.43 L Hgb 10.4 L Hct 31.0 L MCV 90.4 MCH 30.3 MCHC 33.5 RDW 16.5 Plt Count 232 MPV 7.1 Neut % (Auto) 80.6 H Lymph % (Auto) 5.0 L [place] % (Auto) 10.4 H Eos % (Auto) 3.9 Baso % (Auto) 0.1 Neut # (Auto) 5.1 Lymph # (Auto) 0.3 L [place] # (Auto) 0.7 Eos # (Auto) 0.2 Baso # (Auto) 0.0 WBC Differential . Differential Comment Auto diff final Sodium 135 L Potassium 3.8 Chloride 99 Carbon Dioxide 31.4 Anion Gap 5 BUN 8 Creatinine 0.59 Estimated GFR Greater than 89 Random Glucose 105 Calcium 8.6 Microbiology 06/16/18 13:50 Gram Stain - Final Abscess - Groin Wound Culture - Final Klebsiella pneumoniae Group B beta Strep Assessment and Plan - Plan Status post femorofemoral bypass. With metastatic cancer to the left groin. Left groin wound is debrided at the bedside. There is good granulation tissue. Graft is incorporated. No signs of graft infection. Continue with local wound care. Continue with antibiotics I will schedule the patient follow-up visit next Sunday.
== END 2018-06-19 15:21 | disposition home health service (06) ==
LOC: NEDA 12:43 → NEPC 12:43 → N07 20:15
PROVIDERS: ADMIT Hospitalist; ATTEND Hospitalist
DX: Z80.49 Family history of malignant neoplasm of other genital organs; C78.01 Secondary malignant neoplasm of right lung; C78.02 Secondary malignant neoplasm of left lung; S90.821A Blister (nonthermal), right foot, initial encounter; T81.41XA Infection following a procedure, superficial incisional surgical site, initial encounter; W01.0XXA Fall on same level from slipping, tripping and stumbling without subsequent striking against object, initial encounter; Y92.230 Patient room in hospital as the place of occurrence of the external cause; R11.2 Nausea with vomiting, unspecified; B96.1 Klebsiella pneumoniae [K. pneumoniae] as the cause of diseases classified elsewhere; Z92.3 Personal history of irradiation; I73.9 Peripheral vascular disease, unspecified; C77.1 Secondary and unspecified malignant neoplasm of intrathoracic lymph nodes; Z87.891 Personal history of nicotine dependence; Z92.21 Personal history of antineoplastic chemotherapy; C19 Malignant neoplasm of rectosigmoid junction; C77.4 Secondary and unspecified malignant neoplasm of inguinal and lower limb lymph nodes; Z93.3 Colostomy status; S31.010A Laceration without foreign body of lower back and pelvis without penetration into retroperitoneum, initial encounter; M53.3 Sacrococcygeal disorders, not elsewhere classified; T81.31XA Disruption of external operation (surgical) wound, not elsewhere classified, initial encounter; C79.89 Secondary malignant neoplasm of other specified sites
CPT/HCPCS: 74177; 80048; 80053; 83690; 83735; 85025; 85610; 85730; 86403; 87070; 87077; 87186; 87205; C9113; J0690; J1170; J1650; J2250; J2270; J2405; J3010; J7030; Q0169; Q9967

== ENCOUNTER 2018-06-28 22:32 | Inpatient (IN) ==
[2018-06-28] MEDS ORDERED: HYDROmorphone PF Inj 2 MG/ML Vial IV.PUSH ONE (23:11)
[2018-06-28] MEDS ORDERED: Sod Chloride 0.9% Inj 1,000 ML IV.SIG SCH (23:30)
[2018-06-28 23:34] LABS: Baso % (Auto) 0.3 % (0.0-2.0); Eos # (Auto) 0.2 th/mm3 (0.0-0.4); Eos % (Auto) 1.2 % (0.0-4.0); Hematocrit 28.7 % (35.0-46.0); Hemoglobin 9.6 gm/dL (11.6-15.3); Lymph # (Auto) 0.6 th/mm3 (1.0-4.8); Lymph % (Auto) 4.3 % (9.0-44.0); Mean Corpuscular HGB Conc 33.4 % (32.0-36.0); Mean Corpuscular Hemoglobin 29.3 pg (27.0-34.0); Mean Corpuscular Volume 87.9 fL (80.0-100.0); Mono # (Auto) 0.9 th/mm3 (0.0-0.9); Mono % (Auto) 6.8 % (0.0-8.0); Neut # (Auto) 11.6 th/mm3 (1.8-7.7); Neut % (Auto) 87.4 % (16.0-70.0); Platelet Count 330 th/mm3 (150-450); Red Blood Count 3.26 mil/mm3 (4.00-5.30); Red Cell Distribution Width 15.9 % (11.6-17.2); White Blood Count 13.3 th/mm3 (4.0-11.0)
[2018-06-28] MEDS ORDERED: fentaNYL Citrate Inj 100 MCG/2 ML Ampul IV.PUSH ONE (23:34)
[2018-06-28 23:46] LABS: Carbon Dioxide 31.2 meq/L (21.0-32.0); Potassium 3.4 meq/L (3.5-5.1)
[2018-06-28 23:48] LABS: Activated Partial Thrombo Time 27.7 sec (23.4-31.7); INR 1.1 Ratio; Prothrombin Time 10.9 sec (9.8-11.6)
--- NOTE | 2018-06-28 23:57 | ED ---
HPI General Chief complaint: Skin/Abscess/Foreign Body Stated complaint: Transfer Time Seen by Provider: 06/28/18 22:58 Source: patient Mode of arrival: ambulatory Limitations: no limitations History of Present Illness HPI narrative: Ms Vora is a 58 year old female who presents to the ED with bleeding from a surgical site in her groin. The patient had an arterial bypass performed several weeks ago and she has 2 surgical sites on either side of the groin that are open. She packs these at home and finished an antibiotic regimen today. She saw her surgeon on Sunday who thought the sites were healing and increased her packing size from 2x2 to 4x4 in each wound. The patient states that normally these surgical sites drain clear fluid but this afternoon she went to stand from kneeling and there was a large flow of blood from the site on the left. The patient also has rectal cancer and a rectal wound and cannot sit or lie on her back due to 10/10 pain, therefore she sits on her knees or on all fours all the time, including for sleep. The patient has had several episodes of nausea and vomiting that are related to when she has to change her fentanyl patch every 3 days. She states she will be nauseous and vomit once, then she will not be nauseous again until the patch is changed again. She denies fatigue, fever, syncope, chest pain, SOB, or palpitations. The patient denies any other PMH. She takes [place] 10mg every 4-5 hours, and was given morphine and dilaudid at [facility] before being transferred here. The patient denies tobacco use, but her sister states the patient smokes about 1 pack of cigarettes per day. The patient does admit to marijuana use several times per day for pain relief. She denies alcohol use. Per patient it was significant bleeding and was sent here from [facility] for evaluation of this after Dr Weeks agreed to transfer. 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) Surgical History Surgical History History of femoropopliteal bypass (Acute) History of colostomy (Acute ~04/26/17) History of laparotomy (Acute ~08/28/16) Status post insertion of iliac artery stent (Acute ~2016) Family History Family History Sister Cervical cancer Social History Social History Substance History: Active Abuse Second Hand Smoke Exposure: No Smoking Status: Former smoker Tobacco Type: Cigarettes Packs Per Day: 1 Cigarettes Per Day: 20.0 Years Smoked: 40 Pack-Years: 40.00 Smoking End Date: 04/2017 How Often Do You Have a Drink Containing Alcohol: Never Recent Travel in [facility] within the Last 8 Weeks: No Recent Out of Country Travel within the Last 8 Weeks: No Substance Abuse Detail Marijuana: Substance Use Status: Active Route Used Substance Abuse: Inhalation Substance Abuse Comment: Used for medical Immunization History Tetanus Immunization: Unsure Exam Narrative Exam Narrative: GENERAL: The patient is a well developed well nourished female who appears in moderate distress. She cannot sit and has to be on all fours due to pain. SKIN: Warm and dry. Open surgical wounds on the left and right groin. Wound on the right is approximately 1cm and is draining clear fluid. Wound on the left has two openings of approximately 2-3cm each with visible packing. The wound on the left is draining clear fluid and has dried blood around the opening. HEAD: Atraumatic. Normocephalic. EYES: Pupils equal and round. No scleral icterus. No injection or drainage. ENT: No nasal bleeding or discharge. Mucous membranes pink and moist. NECK: Trachea midline. No JVD. CARDIOVASCULAR: Regular rate and rhythm. No murmurs rubs or gallops. RESPIRATORY: No accessory muscle use. Clear to auscultation. Breath sounds equal bilaterally. GASTROINTESTINAL: Abdomen soft. Diffuse edema across the lower abdomen and inner thighs bilaterally. Colostomy bag present. Hepatic and splenic margins not palpable. Rectum is edematous and there are 3 ulcerative lesions surrounding the anus. MUSCULOSKELETAL: Extremities without clubbing, cyanosis, or edema. No obvious deformities. Full ROM in upper and lower extremities bilaterally. NEUROLOGICAL: Awake and alert. No obvious cranial nerve deficits. Motor grossly within normal limits. Five out of 5 muscle strength in the arms and legs. Normal speech. PSYCHIATRIC: Appropriate mood and affect; insight and judgment normal. Course Initial Documented Vital Signs Temperature 98.4 F 06/28/18 22:44 Pulse Rate 95 H 06/28/18 22:44 Respiratory Rate 18 06/28/18 22:44 Blood Pressure 110/58 L 06/28/18 22:44 Pulse Oximetry 100 06/28/18 22:44 Last Documented Vital Signs Temperature 98.6 F 06/29/18 07:00 Pulse Rate 98 H 06/29/18 11:00 Respiratory Rate 16 06/29/18 08:10 Blood Pressure 156/73 H 06/29/18 07:00 Pulse Oximetry 97 06/29/18 08:10 Medical Decision Making MDM Narrative Medical decision making narrative: 58 yo female here for evaluation of left arterial bleed from iliac graft. Patient was properly examined and found to have signs and symptoms concerning for active bleed from iliac graft. Discussed case with Dr Weeks over the phone who wants CTA run off and blood work and to admit to ICU. My attending Dr Walker and Dr Kwon where made aware of this and agree with plan. Labs and imaging ordered. Patient had to be given dilaudid and versed to get her to get CTA. Dr Weeks was contacted as he wanted us to contact him after CTA is done and will come and see patient. Admitted patient to Dr Santana who agreed to admission. Family and patient agreed to proceed with plan. Medical Screen Exam Complete: Yes Emergency Medical Condition: Yes Differential Diagnosis Differential Diagnosis: bleeding wound vs arterial bleed vs iliac artery graft bleeding Medical Records Medical records reviewed: Yes I reviewed the patient's medical records. Lab Data Lab results reviewed: Yes I reviewed the patient's lab results. Result diagrams: 06/29/18 09:57 06/29/18 07:32 Lab Results 06/28/18 06/28/18 06/28/18 Range/Units 23:25 23:25 23:25 WBC 13.3 H (4.0-11.0) th/mm3 RBC 3.26 L (4.00-5.30) mil/mm3 Hgb 9.6 L (11.6-15.3) gm/dL POC Hgb (Calc) (11.6-15.3) g/dL Hct 28.7 L (35.0-46.0) % POC Hct (35-46.0) % MCV 87.9 (80.0-100.0) fL MCH 29.3 (27.0-34.0) pg MCHC 33.4 (32.0-36.0) % RDW 15.9 (11.6-17.2) % Plt Count 330 D (150-450) th/mm3 MPV 7.0 (7.0-11.0) fL Neut % (Auto) 87.4 H (16.0-70.0) % Lymph % (Auto) 4.3 L (9.0-44.0) % Russell % (Auto) 6.8 (0.0-8.0) % Eos % (Auto) 1.2 (0.0-4.0) % Baso % (Auto) 0.3 (0.0-2.0) % Neut # (Auto) 11.6 H (1.8-7.7) th/mm3 Lymph # (Auto) 0.6 L (1.0-4.8) th/mm3 Russell # (Auto) 0.9 (0.0-0.9) th/mm3 Eos # (Auto) 0.2 (0.0-0.4) th/mm3 Baso # (Auto) 0.0 (0.0-0.2) th/mm3 WBC Differential . Differential Comment Auto diff final PT 10.9 (9.8-11.6) sec INR 1.1 Ratio APTT 27.7 (23.4-31.7) sec Fibrinogen (227-377) mg/dL POC Sodium (137-144) mmol/L Sodium 138 (136-145) meq/L POC Potassium (3.6-5.0) mmol/L Potassium 3.4 L (3.5-5.1) meq/L POC Chloride (102-111) mmol/L Chloride 100 (98-107) meq/L Carbon Dioxide 31.2 (21.0-32.0) meq/L Anion Gap 7 (5-15) meq/L POC BUN (5-21) mg/dL BUN 13 (7-18) mg/dL Creatinine 0.69 (0.50-1.00) mg/dL POC Creatinine (0.6-1.3) mg/dL Estimated GFR 87 L (>89) mL/min POC Glucose (68-110) mg/dL Random Glucose 141 H (74-106) mg/dL Calcium 8.0 L (8.5-10.1) mg/dL Calcium Adj for Albumin (8.5-10.1) mg/dL Phosphorus (2.5-4.9) mg/dL Magnesium (1.5-2.5) mg/dL Ammonia (11-32) mcmol/L Total Creatine Kinase (26-192) U/L CK-MB (CK-2) (0.5-3.6) ng/mL CK-MB (CK-2) % (0.0-4.0) % Albumin (3.4-5.0) g/dL Blood Type Antibody Screen MTS Gel Crossmatch 06/28/18 06/28/18 06/28/18 Range/Units 23:25 23:25 23:25 WBC (4.0-11.0) th/mm3 RBC (4.00-5.30) mil/mm3 Hgb (11.6-15.3) gm/dL POC Hgb (Calc) 9.2 L (11.6-15.3) g/dL Hct (35.0-46.0) % POC Hct 27.0 L (35-46.0) % MCV (80.0-100.0) fL MCH (27.0-34.0) pg MCHC (32.0-36.0) % RDW (11.6-17.2) % Plt Count (150-450) th/mm3 MPV (7.0-11.0) fL Neut % (Auto) (16.0-70.0) % Lymph % (Auto) (9.0-44.0) % Russell % (Auto) (0.0-8.0) % Eos % (Auto) (0.0-4.0) % Baso % (Auto) (0.0-2.0) % Neut # (Auto) (1.8-7.7) th/mm3 Lymph # (Auto) (1.0-4.8) th/mm3 Russell # (Auto) (0.0-0.9) th/mm3 Eos # (Auto) (0.0-0.4) th/mm3 Baso # (Auto) (0.0-0.2) th/mm3 WBC Differential Differential Comment PT (9.8-11.6) sec INR Ratio APTT (23.4-31.7) sec Fibrinogen (227-377) mg/dL POC Sodium 137 (137-144) mmol/L Sodium (136-145) meq/L POC Potassium 3.3 L (3.6-5.0) mmol/L Potassium (3.5-5.1) meq/L POC Chloride 94 L (102-111) mmol/L Chloride (98-107) meq/L Carbon Dioxide (21.0-32.0) meq/L Anion Gap (5-15) meq/L POC BUN 11 (5-21) mg/dL BUN (7-18) mg/dL Creatinine (0.50-1.00) mg/dL POC Creatinine 0.6 (0.6-1.3) mg/dL Estimated GFR (>89) mL/min POC Glucose 140 H (68-110) mg/dL Random Glucose (74-106) mg/dL Calcium (8.5-10.1) mg/dL Calcium Adj for Albumin (8.5-10.1) mg/dL Phosphorus (2.5-4.9) mg/dL Magnesium (1.5-2.5) mg/dL Ammonia (11-32) mcmol/L Total Creatine Kinase 343 H (26-192) U/L CK-MB (CK-2) 6.7 H (0.5-3.6) ng/mL CK-MB (CK-2) % 2.0 (0.0-4.0) % Albumin (3.4-5.0) g/dL Blood Type B Positive Antibody Screen Negative MTS Gel Crossmatch See Detail 06/29/18 06/29/18 06/29/18 Range/Units 03:44 07:32 07:32 WBC 5.8 D (4.0-11.0) th/mm3 RBC 3.72 L (4.00-5.30) mil/mm3 Hgb 11.0 L (11.6-15.3) gm/dL POC Hgb (Calc) (11.6-15.3) g/dL Hct 31.4 L (35.0-46.0) % POC Hct (35-46.0) % MCV 84.6 (80.0-100.0) fL MCH 29.5 (27.0-34.0) pg MCHC 34.8 (32.0-36.0) % RDW 15.8 (11.6-17.2) % Plt Count 136 L D (150-450) th/mm3 MPV 7.0 (7.0-11.0) fL Neut % (Auto) 94.0 H (16.0-70.0) % Lymph % (Auto) 3.4 L (9.0-44.0) % Russell % (Auto) 0.3 (0.0-8.0) % Eos % (Auto) 2.1 (0.0-4.0) % Baso % (Auto) 0.2 (0.0-2.0) % Neut # (Auto) 5.5 (1.8-7.7) th/mm3 Lymph # (Auto) 0.2 L (1.0-4.8) th/mm3 Russell # (Auto) 0.0 (0.0-0.9) th/mm3 Eos # (Auto) 0.1 (0.0-0.4) th/mm3 Baso # (Auto) 0.0 (0.0-0.2) th/mm3 WBC Differential . Differential Comment Auto diff final PT (9.8-11.6) sec INR Ratio APTT (23.4-31.7) sec Fibrinogen 353 (227-377) mg/dL POC Sodium (137-144) mmol/L Sodium 142 (136-145) meq/L POC Potassium (3.6-5.0) mmol/L Potassium 3.3 L (3.5-5.1) meq/L POC Chloride (102-111) mmol/L Chloride 108 H D (98-107) meq/L Carbon Dioxide 25.9 (21.0-32.0) meq/L Anion Gap 8 (5-15) meq/L POC BUN (5-21) mg/dL BUN 9 (7-18) mg/dL Creatinine 0.45 L (0.50-1.00) mg/dL POC Creatinine (0.6-1.3) mg/dL Estimated GFR Greater than 89 (>89) mL/min POC Glucose (68-110) mg/dL Random Glucose 107 H (74-106) mg/dL Calcium 6.7 L* D (8.5-10.1) mg/dL Calcium Adj for Albumin 8.2 L (8.5-10.1) mg/dL Phosphorus 3.0 (2.5-4.9) mg/dL Magnesium 1.7 (1.5-2.5) mg/dL Ammonia (11-32) mcmol/L Total Creatine Kinase (26-192) U/L CK-MB (CK-2) (0.5-3.6) ng/mL CK-MB (CK-2) % (0.0-4.0) % Albumin 2.1 L (3.4-5.0) g/dL Blood Type Antibody Screen MTS Gel Crossmatch 06/29/18 06/29/18 Range/Units 09:20 09:57 WBC (4.0-11.0) th/mm3 RBC (4.00-5.30) mil/mm3 Hgb 11.3 L (11.6-15.3) gm/dL POC Hgb (Calc) (11.6-15.3) g/dL Hct 32.8 L (35.0-46.0) % POC Hct (35-46.0) % MCV (80.0-100.0) fL MCH (27.0-34.0) pg MCHC (32.0-36.0) % RDW (11.6-17.2) % Plt Count (150-450) th/mm3 MPV (7.0-11.0) fL Neut % (Auto) (16.0-70.0) % Lymph % (Auto) (9.0-44.0) % Russell % (Auto) (0.0-8.0) % Eos % (Auto) (0.0-4.0) % Baso % (Auto) (0.0-2.0) % Neut # (Auto) (1.8-7.7) th/mm3 Lymph # (Auto) (1.0-4.8) th/mm3 Russell # (Auto) (0.0-0.9) th/mm3 Eos # (Auto) (0.0-0.4) th/mm3 Baso # (Auto) (0.0-0.2) th/mm3 WBC Differential Differential Comment PT (9.8-11.6) sec INR Ratio APTT (23.4-31.7) sec Fibrinogen (227-377) mg/dL POC Sodium (137-144) mmol/L Sodium (136-145) meq/L POC Potassium (3.6-5.0) mmol/L Potassium (3.5-5.1) meq/L POC Chloride (102-111) mmol/L Chloride (98-107) meq/L Carbon Dioxide (21.0-32.0) meq/L Anion Gap (5-15) meq/L POC BUN (5-21) mg/dL BUN (7-18) mg/dL Creatinine (0.50-1.00) mg/dL POC Creatinine (0.6-1.3) mg/dL Estimated GFR (>89) mL/min POC Glucose (68-110) mg/dL Random Glucose (74-106) mg/dL Calcium (8.5-10.1) mg/dL Calcium Adj for Albumin (8.5-10.1) mg/dL Phosphorus (2.5-4.9) mg/dL Magnesium (1.5-2.5) mg/dL Ammonia 31 (11-32) mcmol/L Total Creatine Kinase (26-192) U/L CK-MB (CK-2) (0.5-3.6) ng/mL CK-MB (CK-2) % (0.0-4.0) % Albumin (3.4-5.0) g/dL Blood Type Antibody Screen MTS Gel Crossmatch Imaging Data Attestation: I personally reviewed and interpreted this imaging study as follows : Radiologist's impression: Aorta w/Runoff CTA 06/28/18 23:16 CONCLUSION: 1. 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 2. There has been interval placement of a femoral-femoral bypass graft which is patent. There is air adjacent to the bypass graft anastomosis bilaterally. Suggest correlating with the clinical history since this could be a normal finding if recently placed. Also suggest correlating clinically for any findings which could indicate infection in this area. The left lower extremity vessels appear patent. The popliteal arteries are not well evaluated bilaterally secondary to motion artifact on both passes through this anatomic region. 3. Severe atherosclerotic disease of the abdominal aorta with ectasia measuring up to 2.8 cm. 4. Continued innumerable pulmonary nodules at both lung bases characteristic of metastatic disease. Chest X-Ray 06/29/18 01:54 CONCLUSION: 1. Endotracheal tube is in appropriate position with tip measuring approximately 4 cm from the sofia. Right IJ sheath distal tip is likely in the superior aspect in the SVC. 2. There are 2 pulmonary nodules in the right lung. Many additional no pulmonary nodules are present bilaterally in this patient with known metastatic disease. Discharge Plan Discharge Disposition Patient Disposition: 30 Still Patient Discharge Details Diagnosis: Vascular graft infection, Hemorrhage due to vascular prosthetic devices, implants and grafts, initial encounter Physicians Team ED Provider: Jennifer Kwon ED Midlevel Provider: Ernie Zhang Primary Care Provider: [place] Ramirez Attending Provider: Natanael Santana Other Providers: Aime Weeks Discharge Interventions Interventions: ED Discharge Assessment Last Done: 06/29/18 01:30 Status ED Status: Left Department Discharge Information Discharge Date/Time: 06/29/18 01:30
[2018-06-29] MEDS ORDERED: Acetaminophen 325 MG Tablet PO PRN (00:46)
[2018-06-29] MEDS ORDERED: Bisacodyl 10 MG Supp RECTAL PRN (00:46)
[2018-06-29] MEDS ORDERED: Potassium Phosphate 500 MG Soluble Tablet PO PRN ×2 (00:49)
[2018-06-29] MEDS ORDERED: Potassium Phosphate Inj 30 MMOL in Sodium Chlor 0.9% Inj 250 ML IV.SIG PRN (00:49)
[2018-06-29] MEDS ORDERED: Potassium Chloride 25 MEQ Effervescent Tablet PO PRN (00:49)
[2018-06-29] MEDS ORDERED: Magnesium Sulfate Inj 4 GM in Sodium Chlor 0.9% Inj 92 ML IV.SIG PRN (00:49)
[2018-06-29] MEDS ORDERED: Potassium Chlor 40 mEq Premix 40 MEQ/100 ML PIGGYBACK IV.SIG PRN ×2 (00:49)
[2018-06-29] MEDS ORDERED: Magnesium Sulfate Inj 2 GM in Sodium Chlor 0.9% Inj 96 ML IV.SIG PRN (00:49)
[2018-06-29] MEDS ORDERED: Magnesium Oxide 400 MG Tablet PO PRN (00:49)
[2018-06-29] MEDS ORDERED: Sodium Phosphate Inj 30 MMOL in Sodium Chlor 0.9% Inj 250 ML IV.SIG PRN (00:49)
[2018-06-29] MEDS ORDERED: Potassium Chlor 20 mEq Premix 20 MEQ/100 ML PIGGYBACK IV.SIG PRN ×2 (00:49)
[2018-06-29] MEDS ORDERED: Dextrose 50% in Water 50 ML Vial IV.PUSH PRN (00:50)
[2018-06-29] MEDS ORDERED: Sod Chloride 0.9% Inj 1,000 ML IV.CONT SCH (01:00)
[2018-06-29] MEDS: Morphine Sulfate Inj 2 MG/ML Vial IV.PUSH PRN ×2 (01:20→01:21)
[2018-06-29] MEDS ORDERED: Morphine Inj 4 MG/ML Vial IV.PUSH ONE (01:20)
[2018-06-29] MEDS ORDERED: Phenylephrine Inj 160 MG in Sodium Chlor 0.9% Inj 484 ML IV.CONT PRN (01:34)
--- NOTE | 2018-06-29 01:34 | CT ---
EXAM DATE: 06/29/2018 1:13 AM EST AGE/SEX: 58 years / Female INDICATIONS: Left leg pain. CLINICAL DATA: This is the patient's initial encounter. Patient reports that signs and symptoms have been present for 1 day and indicates a pain score of 6/10. MEDICAL/SURGICAL HISTORY: Carcinoma, rectal. Rectal vaginal fistula. Left iliac artery occlusion. . Femoropopliteal bypass. Colostomy. RADIATION DOSE: 3.07 CTDI (mGy) COMPARISON: [facility], CTA RUNOFF W CONTRAST W 3D, 05/19/2018. [facility], CT ABDOMEN & PELVIS W CONTRAST, 1 08/16/2017. . TECHNIQUE: Volumetric scanning was performed using a multi-row detector CT scanner during bolus infu reggie of 100 ml Omnipaque 350 (iohexol) nonionic water-soluble contrast as a single exam dose. The data was post processed with a variety of visualization algorithms including full volume maximum inte nsity projection, multi-planar sliding thin slab reformation, curved planar reformation, and surface rendering techniques. Using automated exposure control and adjustment of the mA and/or kV according to patient size, radiation dose was kept as low as reasonably achievable to obtain optimal diagnostic quality images. DICOM format image data is available electronically for review and comparison. FINDINGS: Nonvascular findings: There are innumerable large pulmonary nodules at the lung bases bilaterally. Th e largest in the left lower lobe measures 2.5 x 1.7 cm and the largest in the right lung base is in t he middle lobe measuring 2.0 x 1.9 cm. There are degenerative changes throughout the lumbar spine. Th e liver, adrenal glands, spleen, and pancreas demonstrate no significant abnormality. In the left upp er pole kidney there is a 2.9 cm low-density lesion with density measurements characteristic of a sim ple cyst. Gallbladder demonstrates no abnormality. Urinary bladder is within normal limits. There has been prior abdominal perineal resection and the presacral region has a stable appearance. There is a left lower quadrant ostomy. No free peritoneal air or fluid is present. There is diffuse subcutaneou s edema along the anterior abdominal wall. Since the prior study there has been interval femoral-femo ral bypass graft placement. Vascular findings: There is severe atherosclerotic disease of the abdominal aorta. The infrarenal por tion is ectatic measuring up to 2.8 x 2.7 cm. The celiac trunk and superior mesenteric artery are pat ent. The inferior mesenteric artery is not visualized. There are patent single renal arteries bilater ally with ostial atherosclerotic calcification without definite high-grade stenosis seen. There is se feliciano calcified and noncalcified plaque in the right common iliac artery without high-grade stenosis. There is high-grade narrowing in the proximal right internal iliac artery. The right external iliac a rtery is within normal limits. There is a stent within the left common iliac artery which is occluded , stable from the prior examination. The left external and internal iliac artery branches demonstrate no flow. As described above, there is a new femoral to femoral bypass graft in the inguinal region. There is adjacent subcutaneous air, possibly related to recent placement. The bypass graft is patent. The right common femoral artery, profunda femoris, and superficial femoral artery are patent. There is moderate calcified plaque scattered throughout the superficial femoral artery with mild narrowing distally. The popliteal artery is patent but not well evaluated secondary to motion artifact. The tri furcation visualization is degraded by motion artifact. Distal flow is primarily through the posterio r tibial artery. The appearance is similar to the prior examination. The left common femoral artery d emonstrates blood flow. There is moderate plaque scattered throughout the superficial femoral artery. Profunda femoris is patent. The popliteal artery is not well-visualized secondary to motion artifact . The blood vessels in the left leg appear patent. There is diffuse subcutaneous edema of the legs bi laterally. CONCLUSION: 1. 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 2. There has been interval placement of a femoral-femoral bypass graft which is patent. There is air adjacent to the bypass graft anastomosis bilaterally. Suggest correlating with the clinical history since this could be a normal finding if recently placed. Also suggest correlating clinically for any findings which could indicate infection in this area. The left lower extremity vessels appear patent. The popliteal arteries are not well evaluated bilaterally secondary to motion artifact on both passe s through this anatomic region. 3. Severe atherosclerotic disease of the abdominal aorta with ectasia measuring up to 2.8 cm. 4. Continued innumerable pulmonary nodules at both lung bases characteristic of metastatic disease. Electronically signed by: Bernardino Jacome MD 06/29/2018 1:33 AM EST
[2018-06-29 01:35] LABS: Creatine Kinase MB 6.7 ng/mL (0.5-3.6)
--- NOTE | 2018-06-29 01:52 | P.HPCC ---
History of Present Illness Service: [facility] Primary Care Physician: North Ramirez MD Chief Complaint: Bleeding LLE graft History of Present Illness: 58 year old female.. DOA 06/29/18. PMH stage IV lmet rectal CAlast 12/14 avastin and FOLFOX. She presents to ED with bleeding from a surgical site in her left groin. The patient had an atherectomy and R-L fem/fem PTFE graft for L VANCE stent occusion and EIA occlusion. Currently 2 surgical sites on either side of the groin that are open. She packs these at home and finished an antibiotic regimen today. She saw Dr. Alcantar on Sunday who thought the sites were healing and increased her packing size from 2x2 to 4x4 in each wound. The patient states that normally these surgical sites drain clear fluid but this afternoon she went to stand from kneeling and there was a large flow of blood from the site on the left. The patient also has rectal cancer and a rectal wound and cannot sit or lie on her back due to 10/10 pain, therefore she sits on her knees or on all fours. Hgb 8.2 at [facility] and given morphine and dilaudid at [facility] before being transferred here. The patient denies tobacco use, but her sister states the patient smokes about 1 pack of cigarettes per day. The patient does admit to marijuana use several times per day for pain relief. She denies alcohol use. Per patient it was significant bleeding and was sent here from [facility] for evaluation of this after Dr Weeks agreed to transfer. 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 There is air adjacent to the bypass graft anastomosis bilaterally. Suggest correlating with the clinical history since this could be a normal finding if recently placed. Also suggest correlating clinically for any findings which could indicate infection in this area. The left lower extremity vessels appear patent. The popliteal arteries are not well evaluated bilaterally secondary to motion artifact on both passes through this anatomic region. Severe atherosclerotic disease of the abdominal aorta with ectasia measuring up to 2.8 cm. Upon arrival to floor, active bleeding.. Patient went on all fours and massive amounts of blood from left groin. Rapidly transfuse 4 units emergency blood, RIJ cordis placed, dayna, 1 L crystalloid - Dr. Weeks to OR. Inpatient Certification: I certify that the inpatient services were ordered in accordance with Medicare regulations governing the order. This includes certification that hospital inpatient services are reasonable and necessary and in the case of services not specified as inpatient-only under 42 CFR 419.22(n), that they are appropriately provided as inpatient services in accordance to with the 2-midnight benchmark under 43 CFR 412.3(e) Estimated Total Length of Stay (Days): 5 Plans for Post Hospital Care: Not yet determined Review of Systems unobtainable due to endotracheal tube PMFSH - History History Provided By: Patient - Medical History Medical History: Medical History (Last Reviewed 06/29/18 @ 02:14 by Aime Weeks MD) Colostomy in place Colorectal cancer Duodenal ulcer Duodenal ulcer perforation Onset Date: ~08/28/16 Iliac artery occlusion, 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 - Surgical History Surgical History: Surgical History (Last Reviewed 06/29/18 @ 02:14 by Aime Weeks MD) History of femoropopliteal bypass History of colostomy Onset Date: ~04/26/17 History of laparotomy Onset Date: ~08/28/16 Status post insertion of iliac artery stent Onset Date: ~2016 - Family History Family History: Family History (Last Reviewed 06/29/18 @ 00:44 by Natanael Santana MD) Sister Cervical cancer - Tobacco History Second Hand Smoke Exposure: No Tobacco Use In Past 30 Days: No Smoking Status: Former smoker Tobacco Type: Cigarettes Packs Per Day: 1 Years Smoked: 40 Smoking End Date: 04/2017 - Alcohol History How Often Do You Have a Drink Containing Alcohol: Never - Substance Use History Substance History: Active Abuse - Substance Use Type Marijuana Status: Active Route Used: Inhalation Comment: Used for medical - Travel History Recent Travel in the [place] Within the Last 8 Weeks: No Recent Travel Out of the Country Within the Last 8 Weeks: No - Immunization History Tetanus Immunization: Unsure Medications and Allergies Active Medications: Active Medications Acetaminophen (Tylenol) 650 mg PO Q6H PRN PRN Reason: FEVER >101F Hydrocodone Bitart/Acetaminophen ([place] 5/325) 1 tab PO Q4H PRN PRN Reason: PAIN SCALE 1 TO 5 Al Hydroxide/Mg Hydroxide (Milk Of Magnesia Liq) 30 ml PO Q12H PRN PRN Reason: Mild Constipation Albuterol (Albuterol Neb (Prn)) 2.5 mg NEB Q2HR NEB PRN PRN Reason: SHORTNESS OF BREATH/WHEEZING Albuterol (Duoneb Neb (Steven)) 1 ampul NEB Q4HR NEB STEVEN Bisacodyl (Dulcolax Supp) 10 mg RECTAL DAILY PRN PRN Reason: SEVERE CONSITIPATION Chlorhexidine Gluconate (Chlorhexidine 2% Cloth) 3 pack TOPICAL DAILY@0400 STEVEN Stop: 07/04/18 03:59 Chlorhexidine Gluconate (Chlorhexidine 2% Cloth) 3 pack TOPICAL DAILY@0400 PRN PRN Reason: Extra cloth needed Stop: 07/04/18 03:59 Dextrose (D50w Vial) 50 ml IV.PUSH UNSCH PRN PRN Reason: PER HYPOGLYCEMIA PROTOCOL Glucagon (Glucagon Inj) 1 mg OTHER PRN PRN PRN Reason: for Hypoglycemia Protocol Sodium Chloride (Ns Inj) 1,000 mls @ 84 mls/hr IV.CONT .[id number] [facility] Magnesium Sulfate 4 gm/ Sodium (Chloride) 100 mls @ 50 mls/hr IV.SIG UNSCH PRN PRN Reason: For Magnesium 0.9 - 1.1 mg/dL Magnesium Sulfate 2 gm/ Sodium (Chloride) 100 mls @ 50 mls/hr IV.SIG UNSCH PRN PRN Reason: For Magnesium 1.2 - 1.6 mg/dL Potassium Chloride (Kcl 20 Meq Premix Inj) 20 meq in 100 mls @ 50 mls/hr IV.SIG Q2H PRN PRN Reason: For Potassium 3.3 - 3.5 mEq/L Potassium Chloride (Kcl 40 Meq Premix Inj) 40 meq in 100 mls @ 25 mls/hr IV.SIG UNSCH PRN PRN Reason: For Potassium 3.3 - 3.5 mEq/L Potassium Chloride (Kcl 20 Meq Premix Inj) 20 meq in 100 mls @ 50 mls/hr IV.SIG Q2H PRN PRN Reason: For Potassium 2.8 - 3.2 mEq/L Potassium Phosphate 30 mmol/ (Sodium Chloride) 260 mls @ 42 mls/hr IV.SIG UNSCH PRN PRN Reason: SEE LABEL COMMENTS Sodium Phosphate 30 mmol/ (Sodium Chloride) 260 mls @ 42 mls/hr IV.SIG UNSCH PRN PRN Reason: For Phosphorus < 2.5 mg/dL Potassium Chloride (Kcl 40 Meq Premix Inj) 40 meq in 100 mls @ 25 mls/hr IV.SIG Q2H PRN PRN Reason: For Potassium 2.8 - 3.2 mEq/L Phenylephrine HCl 160 mg/ (Sodium Chloride) 500 mls @ 7.5 mls/hr IV.CONT TITRATE PRN; Protocol PRN Reason: See protol Insulin Aspart (Novolog Insulin Correctional Sugar Inj) 0 unit SQ Q6HR STEVEN; Protocol Lactulose (Lactulose Liq) 30 ml PO DAILY PRN PRN Reason: SEVERE CONSITIPATION Magnesium Oxide (Mag-Ox) 800 mg PO UNSCH PRN PRN Reason: For Magnesium 1.2 - 1.6 mg/dL Morphine Sulfate (Morphine Inj) 2 mg IV.PUSH Q2H PRN PRN Reason: PAIN SCALE 6 TO 10 Ondansetron HCl (Zofran Inj) 4 mg IV.PUSH Q6H PRN PRN Reason: NAUSEA OR VOMITING Pantoprazole Sodium (Protonix Inj) 40 mg IV.PUSH DAILY STEVEN Potassium Bicarb/Potassium Chloride (K-Lyte Cl Eff) 50 meq PO UNSCH PRN PRN Reason: For Potassium 3.3 - 3.5 mEq/L Potassium Phosphate (K-Phos Original) 2,000 mg PO Q4H PRN PRN Reason: Phosphorus Less Than 2.5 mg/dL Potassium Phosphate (K-Phos Original) 2,000 mg PO UNSCH PRN PRN Reason: SEE LABEL COMMENTS Senna/Docusate Sodium (Keshia-Colace) 1 tab PO BID [facility] Sennosides (Senokot) 17.2 mg PO Q12H PRN PRN Reason: Moderate Constipation Sodium Chloride (Ns Flush) 2 ml IV.FLUSH BID [facility] Sodium Chloride (Ns Flush) 2 ml IV.FLUSH PRN PRN PRN Reason: FLUSH AFTER USING IV ACCESS Terbutaline Sulfate (Brethine Inj) 1 mg SQ UNSCH PRN PRN Reason: For Extravasation Allergies Allergy/AdvReac Type Severity Reaction Status Date / Time No Known Allergies Allergy Verified 06/28/18 22:44 Results - Labs CBC & Chem 7: 06/28/18 23:25 06/28/18 23:25 Labs: Short CBC 06/28/18 Range/Units 23:25 WBC 13.3 H (4.0-11.0) th/mm3 Hgb 9.6 L (11.6-15.3) gm/dL Hct 28.7 L (35.0-46.0) % Plt Count 330 D (150-450) th/mm3 [place] 06/28/18 23:25 Sodium 138 Potassium 3.4 L Chloride 100 Carbon Dioxide 31.2 BUN 13 Creatinine 0.69 Calcium 8.0 L Cardiac Enzymes 06/28/18 Range/Units 23:25 Total Creatine Kinase 343 H (26-192) U/L CK-MB (CK-2) 6.7 H (0.5-3.6) ng/mL - Imaging Impressions Aorta w/Runoff CTA 06/28/18 23:16 CONCLUSION: 1. 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 2. There has been interval placement of a femoral-femoral bypass graft which is patent. There is air adjacent to the bypass graft anastomosis bilaterally. Suggest correlating with the clinical history since this could be a normal finding if recently placed. Also suggest correlating clinically for any findings which could indicate infection in this area. The left lower extremity vessels appear patent. The popliteal arteries are not well evaluated bilaterally secondary to motion artifact on both passes through this anatomic region. 3. Severe atherosclerotic disease of the abdominal aorta with ectasia measuring up to 2.8 cm. 4. Continued innumerable pulmonary nodules at both lung bases characteristic of metastatic disease. Exam Vital signs: Vital Signs 06/28/18 22:44 06/28/18 23:15 06/28/18 23:45 Temperature 98.4 F Pulse Rate 95 H 72 77 Respiratory Rate 18 16 16 Blood Pressure 110/58 L 102/56 L 95/58 L Pulse Oximetry 100 97 97 06/29/18 00:30 06/29/18 01:10 06/29/18 01:30 Temperature Pulse Rate 90 92 H Respiratory Rate 16 18 16 Blood Pressure 103/51 L 123/61 Pulse Oximetry 98 98 06/29/18 01:46 06/29/18 01:48 Temperature 98.4 F 98.4 F Pulse Rate 120 H 121 H Respiratory Rate 24 30 H Blood Pressure 130/66 127/63 Pulse Oximetry 100 100 Intake & Output 06/28/18 06/28/18 06/29/18 06:59 18:59 06:59 Intake Total 0 / 0 Balance 0 / 0 Weight 63.503 kg Intake: Intake (Blood Product) Amt 0 / 0 Rbc As-3 Leukoreduced Unit 0 / 0 [id number] Rbc As-3 Leukoreduced Unit 0 / 0 [id number] - Constitutional mild distress - Routine HEENT Exam Head: Present: normocephalic, atraumatic Eye: Present: EOMI, PERRL, normal accommodation ENT: Present: mucous membranes dry - Routine Neck Exam Present: supple, full ROM. Absent: JVD, carotid bruit - Routine Chest/Breast/Axilla Exam Chest wall: Absent: tenderness Breast: Absent: tenderness Axillae: Absent: lymphadenopathy - Routine Respiratory Exam Present: CTA bilaterally. Absent: accessory muscle use - Routine Cardiovascular Exam Present: S1, S2, tachycardia. Absent: murmur - Routine Abdominal Exam Present: soft, normoactive bowel sounds. Absent: tenderness - Routine Extremities Exam Present: cyanosis. Absent: clubbing, edema - Routine Skin Exam Present: intact, mottling Comments: 2 incisions L inguinal bleeding. Cool LLE - Routine Neurological Exam Present: CN II-XII intact. Absent: alert, oriented X3 Septic Shock Reassessment Septic shock perfusion: reassessment completed Caprini VTE Risk Assessment Caprini VTE Risk Assessment: Moderate/High Risk (score >= 2) VTE Pharmacological Exception Reason: Hemorrhage VTE Mechanical Exception: LE ischemia Caprini Risk Assessment Model: Point Value = 1 Point Value = 2 Point Value = 3 Point Value = 5 Age 41-60 Minor surgery BMI > 25 kg/m2 Swollen legs Varicose veins or History of unexplained or recurrent spontaneous Oral contraceptives or hormone replacement Sepsis (< 1 month) Serious lung disease, including pneumonia (< 1 month) Abnormal pulmonary function Acute myocardial infarction Congestive heart failure (< 1 month) History of inflammatory bowel disease Medical patient at bed rest Age 61-74 Arthroscopic surgery Major open surgery (> 45 min) Laparoscopic surgery (> 45 min) Malignancy Confined to bed (> 72 hours) Immobilizing plaster cast Central venous access Age >= 75 History of VTE Family history of VTE Factor V Leiden Prothrombin [id number] Lupus anticoagulant Anticardiolipin antibodies Elevated serum homocysteine Heparin-induced thrombocytopenia Other congenital or acquired thrombophilia Stroke (< 1 month) Elective arthroplasty Hip, pelvis, or leg fracture Acute spinal cord injury (< 1 month) Prophylaxis Regimen: Total Risk Factor Score Risk Level Prophylaxis Regimen 0-1 Low Early ambulation 2 Moderate Order ONE of the following: *Sequential Compression Device (SCD) *Heparin 5000 units SQ BID 3-4 Higher Order ONE of the following medications: *Heparin 5000 units SQ TID *Enoxaparin/Lovenox 40 mg SQ daily (WT < 150 kg, CrCl > 30 mL/min) *Enoxaparin/Lovenox 30 mg SQ daily (WT < 150 kg, CrCl > 10-29 mL/min) *Enoxaparin/Lovenox 30 mg SQ BID (WT < 150 kg, CrCl > 30 mL/min) AND/OR *Sequential Compression Device (SCD) 5 or more Highest Order ONE of the following medications: *Heparin 5000 units SQ TID (Preferred with Epidurals) *Enoxaparin/Lovenox 40 mg SQ daily (WT < 150 kg, CrCl > 30 mL/min) *Enoxaparin/Lovenox 30 mg SQ daily (WT < 150 kg, CrCl > 10-29 mL/min) *Enoxaparin/Lovenox 30 mg SQ BID (WT < 150 kg, CrCl > 30 mL/min) AND *Sequential Compression Device (SCD) Assessment and Plan - Assessment and Plan Plan: NEURO/Psych Propofol/fentanyl gtt for sedation/analgesia while intubated Fent patch to be removed Goal of RASS -2 Daily sedation vacation CV Hemorrhagic shock PVD Prior to a received 4 units red blood cells.. 1 L NS, Phenylephrine GTT initiated R IJ cordis Goal keep MAP > 65 mmHg Reevaluation post OR. PULM Acute resp failure Tobacco abuse Multiple mets B/l lungs PRVC vent HOB 30 degrees Alb/ipatropium q4h/alb q2h prn dyspnea Follow up post intubation CXR/ABG Tobacco cessation when appropriate GI Hx DU hypoalbuminia NPO NGT to LIWS Pantoprazole - GI proph Docustae sodium/senna 1 tablet twice daily for bowel regimen /RENAL Monitor UOP accurate I/Os HEME ABL anemia Leukocytosis Rectal CA mets lung mucinous adenoCA - rectal CA - Follow up Dr. Barreto for Bx Transfuse 4 units PRBCs with Filemon emergently prior to OR. Recheck hemoglobin post OR q6h Hgb Coags WNL Dr. 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 There has been interval placement of a femoral-femoral bypass graft which is patent. There is air adjacent to the bypass graft anastomosis bilaterally. Suggest correlating with the clinical history since this could be a normal finding if recently placed. Also suggest correlating clinically for any findings which could indicate infection in this area. The left lower extremity vessels appear patent. The popliteal arteries are not well evaluated bilaterally secondary to motion artifact on both passes through this anatomic region. Severe atherosclerotic disease of the abdominal aorta with ectasia measuring up to 2.[address] Weeks to OR repair ACCESS - RIJ CORDIS PROPH GI - Pantoprazole DVT - No pharm or mech proph - Bleeding. PVD CCT 35 min Code Status: Full code Discussed Condition With: ED physician. Patient. Dr. Weeks. Care plan discussed and all questions answered.
--- NOTE | 2018-06-29 01:54 | P.PCN ---
Date of procedure: 06/29/18 Pre-op diagnosis: hemorrhage Post-op diagnosis: same Procedure: DATE: 06/29/2018 CENTRAL LINE PLACEMENT: Right IJ vein. Ultrasound-guided INDICATION: Central venous access CONSENT Informed consent for procedure was obtained from patient. DESCRIPTION OF THE PROCEDURE The patient was placed in supine position. The skin was cleansed with Chloraprep. Additional barrier precautions included large sterile drape, sterile gloves, sterile gown, face mask, and hat. 1 % lidocaine was used for local anesthesia. Under direct ultrasound guidance and on initial attempt, the vein was accessed with an introducer needle. The guide wire was advanced and the tract was dilated. Using Seldinger technique a 8.5 Spanish 10 cm antimicrobial coated triple-lumen catheter was advanced to a depth of 10 centimeters. The guide wire was removed. All ports had good return of dark venous blood and flushed easily with saline. The central line was secured with 2.0 silk. A sterile dressing with antibiotic disc was applied. ESTIMATED BLOOD LOSS: Minimal COMPLICATIONS: No apparent complications. STAT chest x-ray pending at time of dictation
[2018-06-29] MEDS ORDERED: Etomidate Inj 40 MG/20 ML Vial IV.PUSH ONE ×2 (01:57→02:00)
--- NOTE | 2018-06-29 02:07 | P.PCN ---
Date of procedure: 06/29/18 Pre-op diagnosis: resp failure Post-op diagnosis: same Procedure: DATE: 06/29/2018 PROCEDURE: Orotracheal intubation INDICATION: Acute respiratory failure DETAILS OF PROCEDURE The patient was placed in optimal position and preoxygenated with 100% FiO2 via bag valve mask. At the start oxygen saturation was 100 %. The patient was administered 20 mg etomidate IV and 50 milligrams rocuronium IV. I entered the oropharynx with a size 4 laryngoscope blade and obtained a grade 2 view of the airway. On single attempt a size 7.5 cuffed endotracheal tube was passed through the vocal cords. Correct tube location was confirmed with end tidal CO2 detector and by auscultating over bilateral lung jenkins. The endotracheal tube was secured with adhesive tape at a depth of 23 cm at the lips. The patient was connected to the ventilator. The patient tolerated the procedure well without any apparent complications. Oxygen saturations were maintained greater than 95% all times. STAT chest x-ray pending at time of dictation.
--- NOTE | 2018-06-29 02:16 | P.HPVS ---
History of Present Illness Chief Complaint: bleeding LEFT groin History of Present Illness: 58 yo female s/p fem-fem who had open wound, adm for L groin wound and began bleeding profusely a few moments ago. to OR emergently. - Inpatient Certification If this patient has been admitted as an Inpatient: I certify that the inpatient services were ordered in accordance with Medicare regulations governing the order. This includes certification that hospital inpatient services are reasonable and necessary and in the case of services not specified as inpatient-only under 42 CFR 419.22(n), that they are appropriately provided as inpatient services in accordance to with the 2-midnight benchmark under 43 CFR 412.3(e) Estimated Total Length of Stay (Days): 14 Plans for Post Hospital Care: Not yet determined Review of Systems unobtainable due to mental condition PMFSH - History History Provided By: Patient - Medical History Medical History: Medical History (Last Reviewed 06/29/18 @ 02:14 by Aime Weeks MD) Colostomy in place Colorectal cancer Duodenal ulcer Duodenal ulcer perforation Onset Date: ~08/28/16 Iliac artery occlusion, 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 - Surgical History Surgical History: Surgical History (Last Reviewed 06/29/18 @ 02:14 by Aime Weeks MD) History of femoropopliteal bypass History of colostomy Onset Date: ~04/26/17 History of laparotomy Onset Date: ~08/28/16 Status post insertion of iliac artery stent Onset Date: ~2016 - Family History Family History: Family History (Last Reviewed 06/29/18 @ 00:44 by Natanael Santana MD) Sister Cervical cancer - Tobacco History Second Hand Smoke Exposure: No Tobacco Use In Past 30 Days: No Smoking Status: Former smoker Tobacco Type: Cigarettes Packs Per Day: 1 Years Smoked: 40 Smoking End Date: 04/2017 - Alcohol History How Often Do You Have a Drink Containing Alcohol: Never - Substance Use History Substance History: Active Abuse - Substance Use Type Marijuana Status: Active Route Used: Inhalation Comment: Used for medical - Travel History Recent Travel in the [place] Within the Last 8 Weeks: No Recent Travel Out of the Country Within the Last 8 Weeks: No - Immunization History Tetanus Immunization: Unsure Medications and Allergies Active Medications: Active Medications Acetaminophen (Tylenol) 650 mg PO Q6H PRN PRN Reason: FEVER >101F Hydrocodone Bitart/Acetaminophen ([place] 5/325) 1 tab PO Q4H PRN PRN Reason: PAIN SCALE 1 TO 5 Al Hydroxide/Mg Hydroxide (Milk Of Elly Ram) 30 ml PO Q12H PRN PRN Reason: Mild Constipation Albuterol (Albuterol Neb (Prn)) 2.5 mg NEB Q2HR NEB PRN PRN Reason: SHORTNESS OF BREATH/WHEEZING Albuterol (Duoneb Neb (Steven)) 1 ampul NEB Q4HR NEB STEVEN Albuterol (Duoneb Neb (Prn)) 1 ampul NEB Q2HR NEB PRN PRN Reason: SHORTNESS OF BREATH Bisacodyl (Dulcolax Supp) 10 mg RECTAL DAILY PRN PRN Reason: SEVERE CONSITIPATION Chlorhexidine Gluconate (Chlorhexidine 2% Cloth) 3 pack TOPICAL DAILY@0400 STEVEN Stop: 07/04/18 03:59 Chlorhexidine Gluconate (Chlorhexidine 2% Cloth) 3 pack TOPICAL DAILY@0400 PRN PRN Reason: Extra cloth needed Stop: 07/04/18 03:59 Chlorhexidine Gluconate (Peridex 0.12% Oral Kit) 15 ml OROPHARYNG BID@0800, 2000 [facility] Dextrose (D50w Vial) 50 ml IV.PUSH UNSCH PRN PRN Reason: PER HYPOGLYCEMIA PROTOCOL Glucagon (Glucagon Inj) 1 mg OTHER PRN PRN PRN Reason: for Hypoglycemia Protocol Sodium Chloride (Ns Inj) 1,000 mls @ 84 mls/hr IV.CONT .[id number] [facility] Magnesium Sulfate 4 gm/ Sodium (Chloride) 100 mls @ 50 mls/hr IV.SIG UNSCH PRN PRN Reason: For Magnesium 0.9 - 1.1 mg/dL Magnesium Sulfate 2 gm/ Sodium (Chloride) 100 mls @ 50 mls/hr IV.SIG UNSCH PRN PRN Reason: For Magnesium 1.2 - 1.6 mg/dL Potassium Chloride (Kcl 20 Meq Premix Inj) 20 meq in 100 mls @ 50 mls/hr IV.SIG Q2H PRN PRN Reason: For Potassium 3.3 - 3.5 mEq/L Potassium Chloride (Kcl 40 Meq Premix Inj) 40 meq in 100 mls @ 25 mls/hr IV.SIG UNSCH PRN PRN Reason: For Potassium 3.3 - 3.5 mEq/L Potassium Chloride (Kcl 20 Meq Premix Inj) 20 meq in 100 mls @ 50 mls/hr IV.SIG Q2H PRN PRN Reason: For Potassium 2.8 - 3.2 mEq/L Potassium Phosphate 30 mmol/ (Sodium Chloride) 260 mls @ 42 mls/hr IV.SIG UNSCH PRN PRN Reason: SEE LABEL COMMENTS Sodium Phosphate 30 mmol/ (Sodium Chloride) 260 mls @ 42 mls/hr IV.SIG UNSCH PRN PRN Reason: For Phosphorus < 2.5 mg/dL Potassium Chloride (Kcl 40 Meq Premix Inj) 40 meq in 100 mls @ 25 mls/hr IV.SIG Q2H PRN PRN Reason: For Potassium 2.8 - 3.2 mEq/L Phenylephrine HCl 160 mg/ (Sodium Chloride) 500 mls @ 7.5 mls/hr IV.CONT TITRATE PRN; Protocol PRN Reason: See protol Last Admin: 06/29/18 02:03 Dose: 40 mcg/min, 7.5 mls/hr Propofol (Diprivan 1000 Mg/100 Ml Inj) 1,000 mg in 100 mls @ 1.905 mls/hr IV.CONT TITRATE PRN; Protocol PRN Reason: Per Protocol Fentanyl (Fentanyl 10 Mcg/Ml Premix Drip) 2,500 mcg in 250 mls @ 5 mls/hr IV.SIG TITRATE PRN; Protocol PRN Reason: Per Protocol Insulin Aspart (Novolog Insulin Correctional Sugar Inj) 0 unit SQ Q6HR STEVEN; Protocol Lactulose (Lactulose Liq) 30 ml PO DAILY PRN PRN Reason: SEVERE CONSITIPATION Magnesium Oxide (Mag-Ox) 800 mg PO UNSCH PRN PRN Reason: For Magnesium 1.2 - 1.6 mg/dL Miscellaneous Medication () 1 each OROPHARYNG 0000,0400,1200,1600 STEVEN Morphine Sulfate (Morphine Inj) 2 mg IV.PUSH Q2H PRN PRN Reason: PAIN SCALE 6 TO 10 Ondansetron HCl (Zofran Inj) 4 mg IV.PUSH Q6H PRN PRN Reason: NAUSEA OR VOMITING Pantoprazole Sodium (Protonix Inj) 40 mg IV.PUSH DAILY STEVEN Pantoprazole Sodium (Protonix Inj) 40 mg IV.PUSH Q24H STEVEN Potassium Bicarb/Potassium Chloride (K-Lyte Cl Eff) 50 meq PO UNSCH PRN PRN Reason: For Potassium 3.3 - 3.5 mEq/L Potassium Phosphate (K-Phos Original) 2,000 mg PO Q4H PRN PRN Reason: Phosphorus Less Than 2.5 mg/dL Potassium Phosphate (K-Phos Original) 2,000 mg PO UNSCH PRN PRN Reason: SEE LABEL COMMENTS Senna/Docusate Sodium (Keshia-Colace) 1 tab PO BID STEVEN Sennosides (Senokot) 17.2 mg PO Q12H PRN PRN Reason: Moderate Constipation Sodium Chloride (Ns Flush) 2 ml IV.FLUSH BID STEVEN Sodium Chloride (Ns Flush) 2 ml IV.FLUSH PRN PRN PRN Reason: FLUSH AFTER USING IV ACCESS Sodium Chloride (Ns Flush) 0 ml IV.FLUSH DAILY STEVEN Terbutaline Sulfate (Brethine Inj) 1 mg SQ UNSCH PRN PRN Reason: For Extravasation Allergies Allergy/AdvReac Type Severity Reaction Status Date / Time No Known Allergies Allergy Verified 06/28/18 22:44 Physical Exam Vital Signs / I&O: Vital Signs 06/28/18 22:44 06/28/18 23:15 06/28/18 23:45 Temperature 98.4 F Pulse Rate 95 H 72 77 Respiratory Rate 18 16 16 Blood Pressure 110/58 L 102/56 L 95/58 L Pulse Oximetry 100 97 97 06/29/18 00:30 06/29/18 01:10 06/29/18 01:30 Temperature Pulse Rate 90 92 H Respiratory Rate 16 18 16 Blood Pressure 103/51 L 123/61 Pulse Oximetry 98 98 06/29/18 01:46 06/29/18 01:48 06/29/18 01:59 Temperature 98.4 F 98.4 F Pulse Rate 120 H 121 H 109 H Respiratory Rate 24 30 H 24 Blood Pressure 130/66 127/63 156/108 H Pulse Oximetry 100 100 06/29/18 02:00 Temperature Pulse Rate 110 H Respiratory Rate 26 H Blood Pressure 147/78 H Pulse Oximetry 99 Intake & Output 06/28/18 06/28/18 06/29/18 06:59 18:59 06:59 Intake Total 0 / 0 Balance 0 / 0 Weight 63.503 kg Intake: Intake (Blood Product) Amt 0 / 0 Rbc As-3 Leukoreduced Unit 0 / 0 [id number] Rbc As-3 Leukoreduced Unit 0 / 0 [id number] Rbc As-3 Leukoreduced Unit 0 / 0 [id number] Rbc As-3 Leukoreduced Unit 0 / 0 [id number] Neuro: GOODE but distress from perirectal wound HEENT: NC/AT Neck: no JVD Heart: tachy Lungs: clear B Abdomen: ostomy Vascular: L groin bleeding, pressure held and L foot without pulse with appropriate pressure Laboratory Results - last 24 hr 06/28/18 06/28/18 06/28/18 23:25 23:25 23:25 WBC 13.3 H RBC 3.26 L Hgb 9.6 L POC Hgb (Calc) Hct 28.7 L POC Hct MCV 87.9 MCH 29.3 MCHC 33.4 RDW 15.9 Plt Count 330 D MPV 7.0 Neut % (Auto) 87.4 H Lymph % (Auto) 4.3 L [place] % (Auto) 6.8 Eos % (Auto) 1.2 Baso % (Auto) 0.3 Neut # (Auto) 11.6 H Lymph # (Auto) 0.6 L [place] # (Auto) 0.9 Eos # (Auto) 0.2 Baso # (Auto) 0.0 WBC Differential . Differential Comment Auto diff final PT 10.9 INR 1.1 APTT 27.7 POC Sodium Sodium 138 POC Potassium Potassium 3.4 L POC Chloride Chloride 100 Carbon Dioxide 31.2 Anion Gap 7 POC BUN BUN 13 Creatinine 0.69 POC Creatinine Estimated GFR 87 L POC Glucose Random Glucose 141 H Calcium 8.0 L Total Creatine Kinase CK-MB (CK-2) CK-MB (CK-2) % Blood Type Antibody Screen MTS Gel Crossmatch 06/28/18 06/28/18 06/28/18 23:25 23:25 23:25 WBC RBC Hgb POC Hgb (Calc) 9.2 L Hct POC Hct 27.0 L MCV MCH MCHC RDW Plt Count MPV Neut % (Auto) Lymph % (Auto) [place] % (Auto) Eos % (Auto) Baso % (Auto) Neut # (Auto) Lymph # (Auto) [place] # (Auto) Eos # (Auto) Baso # (Auto) WBC Differential Differential Comment PT INR APTT POC Sodium 137 Sodium POC Potassium 3.3 L Potassium POC Chloride 94 L Chloride Carbon Dioxide Anion Gap POC BUN 11 BUN Creatinine POC Creatinine 0.6 Estimated GFR POC Glucose 140 H Random Glucose Calcium Total Creatine Kinase 343 H CK-MB (CK-2) 6.7 H CK-MB (CK-2) % 2.0 Blood Type B Positive Antibody Screen Negative MTS Gel Crossmatch See Detail Impressions Aorta w/Runoff CTA 06/28/18 23:16 CONCLUSION: 1. 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 2. There has been interval placement of a femoral-femoral bypass graft which is patent. There is air adjacent to the bypass graft anastomosis bilaterally. Suggest correlating with the clinical history since this could be a normal finding if recently placed. Also suggest correlating clinically for any findings which could indicate infection in this area. The left lower extremity vessels appear patent. The popliteal arteries are not well evaluated bilaterally secondary to motion artifact on both passes through this anatomic region. 3. Severe atherosclerotic disease of the abdominal aorta with ectasia measuring up to 2.8 cm. 4. Continued innumerable pulmonary nodules at both lung bases characteristic of metastatic disease. Caprini VTE Risk Assessment Caprini VTE Risk Assessment: No/Low Risk (score <= 1) (bleeding) VTE Pharmacological Exception Reason: Hemorrhage VTE Mechanical Exception: LE ischemia Caprini Risk Assessment Model: Point Value = 1 Point Value = 2 Point Value = 3 Point Value = 5 Age 41-60 Minor surgery BMI > 25 kg/m2 Swollen legs Varicose veins or History of unexplained or recurrent spontaneous Oral contraceptives or hormone replacement Sepsis (< 1 month) Serious lung disease, including pneumonia (< 1 month) Abnormal pulmonary function Acute myocardial infarction Congestive heart failure (< 1 month) History of inflammatory bowel disease Medical patient at bed rest Age 61-74 Arthroscopic surgery Major open surgery (> 45 min) Laparoscopic surgery (> 45 min) Malignancy Confined to bed (> 72 hours) Immobilizing plaster cast Central venous access Age >= 75 History of VTE Family history of VTE Factor V Leiden Prothrombin [id number] Lupus anticoagulant Anticardiolipin antibodies Elevated serum homocysteine Heparin-induced thrombocytopenia Other congenital or acquired thrombophilia Stroke (< 1 month) Elective arthroplasty Hip, pelvis, or leg fracture Acute spinal cord injury (< 1 month) Prophylaxis Regimen: Total Risk Factor Score Risk Level Prophylaxis Regimen 0-1 Low Early ambulation 2 Moderate Order ONE of the following: *Sequential Compression Device (SCD) *Heparin 5000 units SQ BID 3-4 Higher Order ONE of the following medications: *Heparin 5000 units SQ TID *Enoxaparin/Lovenox 40 mg SQ daily (WT < 150 kg, CrCl > 30 mL/min) *Enoxaparin/Lovenox 30 mg SQ daily (WT < 150 kg, CrCl > 10-29 mL/min) *Enoxaparin/Lovenox 30 mg SQ BID (WT < 150 kg, CrCl > 30 mL/min) AND/OR *Sequential Compression Device (SCD) 5 or more Highest Order ONE of the following medications: *Heparin 5000 units SQ TID (Preferred with Epidurals) *Enoxaparin/Lovenox 40 mg SQ daily (WT < 150 kg, CrCl > 30 mL/min) *Enoxaparin/Lovenox 30 mg SQ daily (WT < 150 kg, CrCl > 10-29 mL/min) *Enoxaparin/Lovenox 30 mg SQ BID (WT < 150 kg, CrCl > 30 mL/min) AND *Sequential Compression Device (SCD) Assessment and Plan - Plan to OR emergently. Discussed with patient.
[2018-06-29] MEDS ORDERED: Protamine Sulfate Inj 50 MG/5 ML Vial ONE (02:22)
[2018-06-29] MEDS ORDERED: Thrombin Topical 20,000 UNIT Spray Kit TOPICAL ONE (02:22)
[2018-06-29] MEDS ORDERED: ceFAZolin 1 GM Premix Inj 2 GM/100 ML FROZ.PIGGY IV.SIG ONE (02:22)
[2018-06-29] MEDS ORDERED: Heparin/NS PF Inj 500 ML ONE (02:22)
[2018-06-29] MEDS ORDERED: Heparin 10,000 UNITS/10 ML Vial (for IV use) ONE (02:22)
[2018-06-29 03:52] LABS: Baso % (Auto) 0.2 % (0.0-2.0); Eos # (Auto) 0.1 th/mm3 (0.0-0.4); Eos % (Auto) 2.1 % (0.0-4.0); Hematocrit 31.4 % (35.0-46.0); Lymph # (Auto) 0.2 th/mm3 (1.0-4.8); Lymph % (Auto) 3.4 % (9.0-44.0); Mean Corpuscular HGB Conc 34.8 % (32.0-36.0); Mean Corpuscular Hemoglobin 29.5 pg (27.0-34.0); Mean Corpuscular Volume 84.6 fL (80.0-100.0); Mono % (Auto) 0.3 % (0.0-8.0); Neut # (Auto) 5.5 th/mm3 (1.8-7.7); Platelet Count 136 th/mm3 (150-450); Red Blood Count 3.72 mil/mm3 (4.00-5.30); Red Cell Distribution Width 15.8 % (11.6-17.2); White Blood Count 5.8 th/mm3 (4.0-11.0)
[2018-06-29] MEDS ORDERED: Chlorhexidine Gluconate 2% 1 Pack (2 Cloths) TOPICAL PRN (04:00)
[2018-06-29] MEDS ORDERED: Chlorhexidine Gluconate 2% 1 Pack (2 Cloths) TOPICAL SCH (04:00)
[2018-06-29] MEDS ORDERED: Vancomycin Consult Pharmacy OTHER PRN (05:07)
--- NOTE | 2018-06-29 05:30 | P.OP ---
- Preoperative Diagnosis (1) Vascular graft infection - Postoperative Diagnosis (1) Vascular graft infection Date of procedure: 06/29/18 Procedure: 1. Excision of L groin graft (outflow of fem-fem bypass) 2. ilioprofunda (8mm rifampin-soaked Dacron) 3. CVICU NURSE-SFA (8mm rifampin-soaked Dacron) 4. fem-pop embolectomy 5. tibioperoneal embolectomy 6. debridement of skin, subcutaneous tissue 7. Sartorius rotational flap Implants: Dacron Anesthesia: GETA Surgeon: Aime Weeks MD Yoga Teacher: Bernardino Smith Estimated blood loss (mL): 300 IV fluids (mL): 2,500 Urine output (mL): 1,500 Pathology: other (graft and groin tissue for culture) Operation and Findings: Infected, disrupted graft resected and debrided re-created CVICU NURSE bifurcation from fem-fem with rifampin soaked Dacron embolectomy of fem-pop via groin incision embolectomy of tibial arteries via calf incision sartorius flap with 10flat GIO in [place] sartorial bed + PT signal at end of case
[2018-06-29] MEDS ORDERED: Vancomycin Inj 1,250 MG in Sodium Chlor 0.9% Inj 250 ML IV.SIG ONE (06:00)
[2018-06-29] MEDS: niCARdipine Inj 25 MG in Sodium Chlor 0.9% Inj 240 ML IV.CONT PRN ×2 (06:00→09:34)
[2018-06-29] MEDS: Propofol 1000 mg/100 ml Inj 1,000 MG/100 ML BOTTLE IV.CONT PRN ×5 (06:00→23:50)
[2018-06-29] MEDS: fentaNYL 10 mcg/mL Premix Drip 2,500 MCG/250 ML BAG IV.SIG PRN ×2 (06:00→18:35)
--- NOTE | 2018-06-29 06:59 | XR ---
EXAM DATE: 06/29/2018 6:49 AM EST AGE/SEX: 58 years / Female INDICATIONS: Right IJ and ET tube placement post surgical intervention of a iliac graft bleed. CLINICAL DATA: This is the patient's subsequent encounter. Patient reports that signs and symptoms h ave been present for 1 day and indicates a pain score of Nonresponsive. MEDICAL/SURGICAL HISTORY: Carcinoma, rectal. Colostomy. Left fem-pop. COMPARISON: POI, CT CHEST W/ CONTRAST, 04/09/2018. . FINDINGS: Portable AP view of the chest demonstrates a normal-sized cardiac silhouette with calcification of th e aorta. ETT, [id number], and right IJ introducer sheath are in place. No effusion, consolidation, or pneumothorax is identified. The nodules documented on the a prior chest CT are again visualized i n the right midlung zone and right lower lung zone. Many of the additional nodules are not visualized on this examination. Bones and soft tissues demonstrate no acute abnormality. CONCLUSION: 1. Endotracheal tube is in appropriate position with tip measuring approximately 4 cm from the maynor a. Right IJ sheath distal tip is likely in the superior aspect in the SVC. 2. There are 2 pulmonary nodules in the right lung. Many additional no pulmonary nodules are present bilaterally in this patient with known metastatic disease. Electronically signed by: Bernardino Jacome MD 06/29/2018 6:58 AM EST
[2018-06-29 08:17] LABS: Anion Gap 8 meq/L (5-15); Blood Urea Nitrogen 9 mg/dL (7-18); Calcium 6.7 mg/dL (8.5-10.1); Carbon Dioxide 25.9 meq/L (21.0-32.0); Chloride 108 meq/L (98-107); Glomerular Filtration Rate Greater Than 89 mL/min (>89); Glucose,Random 107 mg/dL (74-106); Magnesium 1.7 mg/dL (1.5-2.5); Potassium 3.3 meq/L (3.5-5.1); Sodium 142 meq/L (136-145)
[2018-06-29 09:00] LABS: Albumin 2.1 g/dL (3.4-5.0); Calcium-Albumin Corrected 8.2 mg/dL (8.5-10.1)
[2018-06-29] MEDS ORDERED: Vancomycin Inj 1,250 MG in Sodium Chlor 0.9% Inj 250 ML IV.SIG SCH ×2 (09:00→21:00)
[2018-06-29] MEDS ORDERED: Senna/Docusate Sodium 8.6/50 MG Tablet PO SCH (09:00)
[2018-06-29] MEDS ORDERED: Pantoprazole Inj 40 MG Vial IV.PUSH SCH ×2 (09:00)
[2018-06-29] MEDS: Chlorhexidine 0.12% Oral Kit 15 ML UDC OROPHARYNG SCH ×2 (09:36→20:36)
[2018-06-29] MEDS: Piperacil/Tazo 4.5 GM Premix 4.5 GM/100 ML BAG IV.SIG SCH ×2 (09:40→11:43)
[2018-06-29] MEDS: Oral Hygiene Kit OROPHARYNG SCH ×3 (09:41→16:54)
--- NOTE | 2018-06-29 09:46 | MP ---
cc: Aime Weeks MD DATE OF OPERATION: 06/29/2018 PREOPERATIVE DIAGNOSIS: Left groin infection, status post fem-fem bypass, massive hemorrhage. POSTOPERATIVE DIAGNOSIS: Left groin infection, status post fem-fem bypass, massive hemorrhage. PROCEDURES: 1. Excision of left groin graft. 2. Left ilioprofunda with 8 mm rifampin-soaked Dacron. 3. Common femoral to superficial femoral artery bypass with 8 mm right rifampin-soaked Dacron. 4. Femoropopliteal embolectomy via groin incision. 5. Tibioperoneal embolectomy via calf incision. 6. Debridement of skin and subcutaneous tissue, approximately 10 square cm from the medial left groin. 7. Rotational sartorius flap. ATTENDING SURGEON: Aime Weeks MD. ANESTHESIA: General. TEASEL SETTER SURGEON: Bernardino Smith. INDICATIONS: Ms. Vora is a 58-year-old unfortunate female, who has a history of rectal cancer, radiation, cervical cancer, and iliac artery occlusion. She underwent a fem-fem bypass several weeks ago. This had a superficial wound that has eroded, and she presents to the emergency department with a deep wound. She was being admitted, and in the course of this, developed exsanguinating hemorrhage. Pressure was held for hemostasis, and the patient was emergently transferred to the OR for therapy. DESCRIPTION OF PROCEDURE: No informed consent could be obtained from the patient as this was an emergency procedure. However, I had a candid discussion with the patient before she was intubated, and she verbally agreed to all the parts of the procedure. She was taken to the operating room emergently, and while manual pressure was being held on her groin, she was induced under general anesthesia. Then, 2 grams of Ancef were initiated, and the patient was prepped from her waist to her toes circumferentially with lower extremities. The open left groin wound was then extended cranially and caudally, and control of the fem-fem bypass was obtained with a profunda clamp. Once control was obtained of the fem-fem bypass, we then obtained control of the profunda and the superficial femoral artery. The patient was then systemically heparinized, and the graft was excised from the false pass arteries. The graft was excised to the point at which it dove underneath the subcutaneous tissue medially. The external iliac artery was debrided and oversewn with 4-0 Prolene suture. An 8 mm Dacron was brought to the field, soaked in rifampin, and sewn end-to-end to the existing fem-fem with a running 5-0 Prolene suture and end-to-end to the profunda clamp with 6-0 Prolene suture. The occlusion was flushed and hemostatic. There was a nice pulse in the profunda. The Dacron itself was then clamped proximally and distally, and a longitudinal graftotomy was made with an 11 blade, extended with Steve scissors. Another piece of Dacron was spatulated and sewn end-to-side to the ilioprofunda bypass with running 5-0 Prolene suture, and into the spatulated SFA with a running 5-0 Prolene suture. The patient was flushed and noted to be hemostatic. All the anastomoses were hemostatic, and there was a palpable pulse in the SFA distal to the distal anastomosis. The medial aspect of the wound was sharply debrided, approximately 10 square cm, and samples of the excised graft, as well as fluid were all sent for tissue culture. No signal was obtained in the foot, and as such, a medial incision was made in the proximal calf, carried down through subcutaneous tissue with electrocautery. The below-knee popliteal artery and tibioperoneal trunk were dissected free and encircled with Vesseloops. A transverse arteriotomy was made with an 11 blade. A #3 Mey embolectomy catheter was placed, going down to the tibial arteries, and retrograde up to the femoropopliteal arteries. Some thrombus was encountered, and the arteriotomy was closed with interrupted 6-0 Prolene suture. The jump graft from the common femoral to SFA was similarly controlled, and a transverse graftotomy was made and the Mey embolectomy catheter was passed down the SFA from above with extraction of a significant amount of fresh thrombus. At this point, backbleeding was restored, and the graftotomy was closed with interrupted 6-0 Prolene suture. There was a biphasic posterior tibial signal at this point. The wounds were all irrigated and made hemostatic. The calf wound was closed with 2-0 Polysorb and skin diamante. The sartorius was mobilized in the lateral aspect of the groin incision, rotated over, and tacked down with a series of interrupted 2-0 Polysorb sutures. A 10 flat GIO drain was placed into the sartorial bed and secured to the skin with 2-0 nylon, and then the groin wound was reapproximated with a series of interrupted 2-0 Polysorb sutures, and then 2-0 nylon. The sponge and needle counts were correct at the end of the case. I was present, scrubbed, and performed the entire procedure. Aime Weeks MD [id number]/[id number] , 07:04 AM , 07:14 AM
[2018-06-29 10:38] LABS: Hematocrit 32.8 % (35.0-46.0); Hemoglobin 11.3 gm/dL (11.6-15.3)
[2018-06-29] MEDS: Insulin NovoLOG Aspart Correctional Sugar Inj SQ SCH (12:05)
--- NOTE | 2018-06-29 14:16 | P.PNVS ---
Subjective Subjective/Hospital Course: POD#0 s/p L groin reconstruction, embolectomy, sartorius flap. She is intubated and as expected, septic - on pressors. She has limited life expectancy from an oncologic standpoint, let alone the infection problem which is more acute. Dr. Amezcua and I had a long discussion with the family (mother, sisters, nephew ) and they would like Hospice care. Apparently there was consideration of Hospice several months ago. She has a son who is estranged but we will make an effort to reach him. Objective Vital Signs / I&O: Vital Signs 06/28/18 22:44 06/28/18 23:15 06/28/18 23:45 Temperature 98.4 F Pulse Rate 95 H 72 77 Respiratory Rate 18 16 16 Blood Pressure 110/58 L 102/56 L 95/58 L Pulse Oximetry 100 97 97 06/29/18 00:30 06/29/18 01:10 06/29/18 01:30 Temperature Pulse Rate 90 92 H Respiratory Rate 16 18 16 Blood Pressure 103/51 L 123/61 Pulse Oximetry 98 98 06/29/18 01:46 06/29/18 01:48 06/29/18 01:59 Temperature 98.4 F 98.4 F Pulse Rate 120 H 121 H 109 H Respiratory Rate 24 30 H 24 Blood Pressure 130/66 127/63 156/108 H Pulse Oximetry 100 100 06/29/18 02:00 06/29/18 02:19 06/29/18 05:38 Temperature Pulse Rate 110 H Respiratory Rate 26 H 32 H Blood Pressure 147/78 H Pulse Oximetry 99 100 97 06/29/18 06:45 06/29/18 07:00 06/29/18 08:00 Temperature 98.6 F Pulse Rate 109 H 93 H Respiratory Rate 21 Blood Pressure 156/73 H 90/52 L Pulse Oximetry 100 99 06/29/18 08:10 06/29/18 11:00 06/29/18 12:00 Temperature 101 F H Pulse Rate 99 H 93 H Respiratory Rate 16 16 Blood Pressure 91/52 L 96/54 L Pulse Oximetry 97 99 06/29/18 12:20 Temperature Pulse Rate Respiratory Rate 16 Blood Pressure Pulse Oximetry 99 Intake & Output 06/28/18 06/29/18 06/29/18 18:59 06:59 18:59 Intake Total 3500 / 3500 800 / 800 Output Total 1800 / 1800 Balance 1700 / 1700 800 / 800 Weight 63.503 kg Intake: IV 1000 / 1000 800 / 800 Heparin/NS PF Inj 500 ML @ 0 0 / 0 mls/hr .ROUTE .STK-MED ONE Rx#: [id number] Diprivan 1000 mg/100 ml Inj 1, 100 / 100 000 mg In 100 ml @ 5 MCG/KG/MIN 1.905 mls/hr IV.CONT TITRATE PRN Rx#:[id number] Cardene Inj 25 MG In NS Inj 240 250 / 250 ML @ 2.5 MG/HR 25 mls/hr IV. CONT TITRATE PRN Rx#:[id number] Ofirmev Inj 1,000 mg In 100 ml 100 / 100 @ 200 mls/hr IV.SIG Q6H PRN Rx# :[id number] NS Inj 1,000 ML @ 1000 mls/hr 1000 / 1000 IV.SIG BOLUS MERLE Rx#:[id number] Vancomycin Inj 1,250 MG In NS 250 / 250 Inj 250 ML @ 250 mls/hr IV.SIG ONCE ONE Rx#:[id number] Ancef 1 GM Premix Inj 2 gm In 100 / 100 100 ml @ 0 mls/hr IV.SIG .STK- MED ONE Rx#:[id number] Anesthesia Amount 2500 / 2500 Intake (Blood Product) Amt 0 / 0 Rbc As-3 Leukoreduced Unit 0 / 0 [id number] Rbc As-3 Leukoreduced Unit 0 / 0 [id number] Rbc As-3 Leukoreduced Unit 0 / 0 [id number] Rbc As-3 Leukoreduced Unit 0 / 0 [id number] Output: Estimated Blood Loss 300 / 300 Urine Amount (Catheter) 1500 / 1500 Indwelling Urethral Catheter 1500 / 1500 Physical Exam: sedated, on pressors and intubated Groin soft, foot warm and pink Laboratory Results - last 24 hr 06/28/18 06/28/18 06/28/18 23:25 23:25 23:25 WBC 13.3 H RBC 3.26 L Hgb 9.6 L POC Hgb (Calc) Hct 28.7 L POC Hct MCV 87.9 MCH 29.3 MCHC 33.4 RDW 15.9 Plt Count 330 D MPV 7.0 Neut % (Auto) 87.4 H Lymph % (Auto) 4.3 L [place] % (Auto) 6.8 Eos % (Auto) 1.2 Baso % (Auto) 0.3 Neut # (Auto) 11.6 H Lymph # (Auto) 0.6 L [place] # (Auto) 0.9 Eos # (Auto) 0.2 Baso # (Auto) 0.0 WBC Differential . Differential Comment Auto diff final PT 10.9 INR 1.1 APTT 27.7 Fibrinogen POC Sodium Sodium 138 POC Potassium Potassium 3.4 L POC Chloride Chloride 100 Carbon Dioxide 31.2 Anion Gap 7 POC BUN BUN 13 Creatinine 0.69 POC Creatinine Estimated GFR 87 L POC Glucose Random Glucose 141 H Calcium 8.0 L Calcium Adj for Albumin Phosphorus Magnesium Ammonia Total Creatine Kinase CK-MB (CK-2) CK-MB (CK-2) % Albumin Blood Type Antibody Screen MTS Gel Crossmatch 06/28/18 06/28/18 06/28/18 23:25 23:25 23:25 WBC RBC Hgb POC Hgb (Calc) 9.2 L Hct POC Hct 27.0 L MCV MCH MCHC RDW Plt Count MPV Neut % (Auto) Lymph % (Auto) [place] % (Auto) Eos % (Auto) Baso % (Auto) Neut # (Auto) Lymph # (Auto) [place] # (Auto) Eos # (Auto) Baso # (Auto) WBC Differential Differential Comment PT INR APTT Fibrinogen POC Sodium 137 Sodium POC Potassium 3.3 L Potassium POC Chloride 94 L Chloride Carbon Dioxide Anion Gap POC BUN 11 BUN Creatinine POC Creatinine 0.6 Estimated GFR POC Glucose 140 H Random Glucose Calcium Calcium Adj for Albumin Phosphorus Magnesium Ammonia Total Creatine Kinase 343 H CK-MB (CK-2) 6.7 H CK-MB (CK-2) % 2.0 Albumin Blood Type B Positive Antibody Screen Negative MTS Gel Crossmatch See Detail 06/29/18 06/29/18 06/29/18 03:44 07:32 07:32 WBC 5.8 D RBC 3.72 L Hgb 11.0 L POC Hgb (Calc) Hct 31.4 L POC Hct MCV 84.6 MCH 29.5 MCHC 34.8 RDW 15.8 Plt Count 136 L D MPV 7.0 Neut % (Auto) 94.0 H Lymph % (Auto) 3.4 L [place] % (Auto) 0.3 Eos % (Auto) 2.1 Baso % (Auto) 0.2 Neut # (Auto) 5.5 Lymph # (Auto) 0.2 L [place] # (Auto) 0.0 Eos # (Auto) 0.1 Baso # (Auto) 0.0 WBC Differential . Differential Comment Auto diff final PT INR APTT Fibrinogen 353 POC Sodium Sodium 142 POC Potassium Potassium 3.3 L POC Chloride Chloride 108 H D Carbon Dioxide 25.9 Anion Gap 8 POC BUN BUN 9 Creatinine 0.45 L POC Creatinine Estimated GFR Greater than 89 POC Glucose Random Glucose 107 H Calcium 6.7 L* D Calcium Adj for Albumin 8.2 L Phosphorus 3.0 Magnesium 1.7 Ammonia Total Creatine Kinase CK-MB (CK-2) CK-MB (CK-2) % Albumin 2.1 L Blood Type Antibody Screen MTS Gel Crossmatch 06/29/18 06/29/18 06/29/18 09:20 09:57 12:05 WBC RBC Hgb 11.3 L POC Hgb (Calc) Hct 32.8 L POC Hct MCV MCH MCHC RDW Plt Count MPV Neut % (Auto) Lymph % (Auto) [place] % (Auto) Eos % (Auto) Baso % (Auto) Neut # (Auto) Lymph # (Auto) [place] # (Auto) Eos # (Auto) Baso # (Auto) WBC Differential Differential Comment PT INR APTT Fibrinogen POC Sodium Sodium POC Potassium Potassium POC Chloride Chloride Carbon Dioxide Anion Gap POC BUN BUN Creatinine POC Creatinine Estimated GFR POC Glucose 109 Random Glucose Calcium Calcium Adj for Albumin Phosphorus Magnesium Ammonia 31 Total Creatine Kinase CK-MB (CK-2) CK-MB (CK-2) % Albumin Blood Type Antibody Screen MTS Gel Crossmatch Microbiology 06/28/18 23:20 Aerobic Blood Culture - Preliminary Blood - Peripheral No growth in 1 day Anaerobic Blood Culture - Preliminary No growth in 1 day 06/28/18 23:25 Aerobic Blood Culture - Preliminary Blood - Peripheral No growth in 1 day Anaerobic Blood Culture - Preliminary No growth in 1 day 06/28/18 23:25 Gram Stain - Final Abscess - Groin Impressions Aorta w/Runoff CTA 06/28/18 23:16 CONCLUSION: 1. 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 2. There has been interval placement of a femoral-femoral bypass graft which is patent. There is air adjacent to the bypass graft anastomosis bilaterally. Suggest correlating with the clinical history since this could be a normal finding if recently placed. Also suggest correlating clinically for any findings which could indicate infection in this area. The left lower extremity vessels appear patent. The popliteal arteries are not well evaluated bilaterally secondary to motion artifact on both passes through this anatomic region. 3. Severe atherosclerotic disease of the abdominal aorta with ectasia measuring up to 2.8 cm. 4. Continued innumerable pulmonary nodules at both lung bases characteristic of metastatic disease. Chest X-Ray 06/29/18 01:54 CONCLUSION: 1. Endotracheal tube is in appropriate position with tip measuring approximately 4 cm from the sofia. Right IJ sheath distal tip is likely in the superior aspect in the SVC. 2. There are 2 pulmonary nodules in the right lung. Many additional no pulmonary nodules are present bilaterally in this patient with known metastatic disease. Assessment and Plan - Assessment (1) Peripheral arterial occlusive disease Code(s): I77.9 - Disorder of arteries and arterioles, unspecified Status: Acute (2) Hemorrhage due to vascular prosthetic devices, implants and grafts, initial encounter Code(s): T82.838A - Hemorrhage due to vascular prosthetic devices, implants and grafts, initial encounter Status: Acute - Plan POD#0 for L groin revision for septic hemorrhage. guarded prognosis and after discussion with family, they would like to proceed with Hospice care. I think this is appropriate. Dr. Amezcua agrees and participated with the family discussion. I also discussed with Dr. Alcantar via telephone.
[2018-06-29 17:10] LABS: Hematocrit 31.5 % (35.0-46.0); Hemoglobin 10.9 gm/dL (11.6-15.3)
[2018-06-29 22:37] LABS: Hematocrit 30.3 % (35.0-46.0); Hemoglobin 10.7 gm/dL (11.6-15.3)
[2018-06-30] MEDS: Oral Hygiene Kit OROPHARYNG SCH ×2 (04:14)
[2018-06-30] MEDS: Propofol 1000 mg/100 ml Inj 1,000 MG/100 ML BOTTLE IV.CONT PRN (05:40)
[2018-06-30] MEDS: fentaNYL 10 mcg/mL Premix Drip 2,500 MCG/250 ML BAG IV.SIG PRN ×3 (05:40→12:15)
--- NOTE | 2018-06-30 08:01 | P.PNVS ---
Subjective Post Op Day #: 1 Procedure: L groin reconstruction, sartorius flap Subjective/Hospital Course: long discussion with family yesterday - planning on pain meds and withdrawal per family wishes Objective Vital Signs / I&O: Vital Signs 06/29/18 08:00 06/29/18 08:10 06/29/18 11:00 Temperature 101 F H Pulse Rate 93 H 99 H Respiratory Rate 16 16 Blood Pressure 90/52 L 91/52 L Pulse Oximetry 97 99 06/29/18 12:00 06/29/18 12:20 06/29/18 15:00 Temperature 101.1 F H Pulse Rate 93 H 91 H Respiratory Rate 16 16 Blood Pressure 96/54 L 107/63 Pulse Oximetry 99 99 06/29/18 15:39 06/29/18 16:00 06/29/18 19:00 Temperature 101.5 F H Pulse Rate 92 H 96 H 97 H Respiratory Rate 16 16 Blood Pressure 114/64 108/56 L Pulse Oximetry 99 99 06/29/18 20:00 06/29/18 20:15 06/29/18 23:00 Temperature 101.9 F H Pulse Rate 97 H 107 H 98 H Respiratory Rate 16 16 Blood Pressure 108/56 L 124/68 Pulse Oximetry 99 99 06/30/18 00:00 06/30/18 00:23 06/30/18 03:00 Temperature 100.9 F H Pulse Rate 97 H 95 H 96 H Respiratory Rate 16 16 Blood Pressure 114/64 103/56 L Pulse Oximetry 99 100 06/30/18 03:32 06/30/18 04:00 Temperature Pulse Rate 97 H 97 H Respiratory Rate 16 Blood Pressure 107/57 L Pulse Oximetry 99 Intake & Output 06/29/18 06/30/18 06/30/18 18:59 06:59 18:59 Intake Total 1431 / 1431 653 / 653 Output Total 1605 / 1605 675 / 675 Balance -174 / -174 -22 / -22 Weight 71 kg Intake: IV 1431 / 1431 653 / 653 Neosynephrine Inj 160 MG In NS 91 / 103 / 103 Inj 484 ML @ 40 MCG/MIN 7.5 mls /hr IV.CONT TITRATE PRN Rx#: [id number] Diprivan 1000 mg/100 ml Inj 1, 300 / 300 200 / 200 000 mg In 100 ml @ 5 MCG/KG/MIN 1.905 mls/hr IV.CONT TITRATE PRN Rx#:[id number] Cardene Inj 25 MG In NS Inj 240 250 / 250 ML @ 2.5 MG/HR 25 mls/hr IV. CONT TITRATE PRN Rx#:[id number] Ofirmev Inj 1,000 mg In 100 ml 100 / 100 100 / 100 @ 200 mls/hr IV.SIG Q6H PRN Rx# :[id number] Zosyn 4.5 GM Premix 4.5 gm In 100 / 100 100 ml @ 200 mls/hr IV.SIG Q6H MERLE Rx#:[id number] Vancomycin Inj 1,250 MG In NS 250 / 250 Inj 250 ML @ 250 mls/hr IV.SIG ONCE ONE Rx#:[id number] Ancef 1 GM Premix Inj 2 gm In 100 / 100 100 ml @ 0 mls/hr IV.SIG .STK- MED ONE Rx#:[id number] fentaNYL 10 mcg/mL Premix Drip 240 / 240 250 / 250 2,500 mcg In 250 ml @ 250 MCG/ HR 25 mls/hr IV.SIG TITRATE PRN Rx#:[id number] Output: Urine Amount (Catheter) 1555 / 1555 675 / 675 Indwelling Urethral Catheter 1555 / 1555 675 / 675 Wound Drainage 50 / 50 Left Groin GIO Drain 50 / 50 Exam: GODOE, sedated and titrating pain meds Pulses: L foot mobile and warm L groin dressing intact GIO drain with 40 mL serosang Laboratory Results - last 24 hr 06/28/18 06/29/18 06/29/18 23:25 07:32 07:32 Hgb Hct Fibrinogen 353 Sodium 142 Potassium 3.3 L Chloride 108 H D Carbon Dioxide 25.9 Anion Gap 8 BUN 9 Creatinine 0.45 L Estimated GFR Greater than 89 POC Glucose Random Glucose 107 H Calcium 6.7 L* D Calcium Adj for Albumin 8.2 L Phosphorus 3.0 Magnesium 1.7 Ammonia Albumin 2.1 L Blood Type B Positive Antibody Screen Negative MTS Gel Crossmatch See Detail 06/29/18 06/29/18 06/29/18 09:20 09:57 12:05 Hgb 11.3 L Hct 32.8 L Fibrinogen Sodium Potassium Chloride Carbon Dioxide Anion Gap BUN Creatinine Estimated GFR POC Glucose 109 Random Glucose Calcium Calcium Adj for Albumin Phosphorus Magnesium Ammonia 31 Albumin Blood Type Antibody Screen MTS Gel Crossmatch 06/29/18 06/29/18 16:15 22:15 Hgb 10.9 L 10.7 L Hct 31.5 L 30.3 L Fibrinogen Sodium Potassium Chloride Carbon Dioxide Anion Gap BUN Creatinine Estimated GFR POC Glucose Random Glucose Calcium Calcium Adj for Albumin Phosphorus Magnesium Ammonia Albumin Blood Type Antibody Screen MTS Gel Crossmatch Microbiology 06/29/18 03:00 Gram Stain - Final Tissue - Groin 06/29/18 03:00 Gram Stain - Final Wound - Groin 06/28/18 23:20 Aerobic Blood Culture - Preliminary Blood - Peripheral No growth in 1 day Anaerobic Blood Culture - Preliminary No growth in 1 day 06/28/18 23:25 Aerobic Blood Culture - Preliminary Blood - Peripheral No growth in 1 day Anaerobic Blood Culture - Preliminary No growth in 1 day 06/28/18 23:25 Gram Stain - Final Abscess - Groin Assessment and Plan - Assessment (1) Peripheral arterial occlusive disease Code(s): I77.9 - Disorder of arteries and arterioles, unspecified Status: Acute (2) Hemorrhage due to vascular prosthetic devices, implants and grafts, initial encounter Code(s): T82.838A - Hemorrhage due to vascular prosthetic devices, implants and grafts, initial encounter Status: Acute - Plan POD#1 s/p L groin comfort measures after discussion with family I think this is the appropriate decision. pain control
[2018-06-30] MEDS: Chlorhexidine 0.12% Oral Kit 15 ML UDC OROPHARYNG SCH (09:47)
[2018-06-30] MEDS ORDERED: Midazolam 100 MG/100 ML Inj 100 MG/100 ML BAG IV.CONT PRN (11:03)
[2018-06-30] MEDS ORDERED: fentaNYL Citrate Inj 100 MCG/2 ML Ampul IV.PUSH PRN (11:07)
[2018-06-30] MEDS ORDERED: Midazolam Inj 5 MG/ML 1 ML Vial IV.PUSH ONE (11:20)
[2018-06-30] MEDS ORDERED: fentaNYL Citrate Inj 100 MCG/2 ML Ampul IV.PUSH ONE ×2 (11:20→11:50)
[2018-06-30] MEDS ORDERED: Hyoscyamine Inj 0.5 MG/ML Ampul IV.PUSH PRN (12:08)
--- NOTE | 2018-06-30 12:38 | P.PNCC ---
Subjective Subjective Remarks/Hospital Course: Hospital Course: This patient remains critically ill with one or more organ systems which are or may become a threat to life. I have spent in excess of 51 minutes discontinuously in the care and management of this patient. This time is exclusive of procedures, and includes, but is not limited to, evaluation of the patient, review of the medical record, discussions with family, consultants, nursing staff, or respiratory therapy, and documentation in the medical record. Please note that this time spent in active management of this critically ill patient reflects only time spent during the time in which our goals were aggressive and I was aggressively managing her worsening septic shock, anemia, and respiratory failure. This reflects time I spent actively at the bedside regarding transfusions, and guiding vasopressors and fluid resuscitation's, and frequent re-evaluations of my critical patient. 58 year old female.. DOA 06/29/18. PMH stage IV lmet rectal CAlast 12/14 avastin and FOLFOX. She presents to ED with bleeding from a surgical site in her left groin. The patient had an atherectomy and R-L fem/fem PTFE graft for L VANCE stent occusion and EIA occlusion. Currently 2 surgical sites on either side of the groin that are open. She packs these at home and finished an antibiotic regimen today. She saw Dr. Alcantar on Sunday who thought the sites were healing and increased her packing size from 2x2 to 4x4 in each wound. The patient states that normally these surgical sites drain clear fluid but this afternoon she went to stand from kneeling and there was a large flow of blood from the site on the left. The patient also has rectal cancer and a rectal wound and cannot sit or lie on her back due to 10/10 pain, therefore she sits on her knees or on all fours. Hgb 8.2 at [facility] and given morphine and dilaudid at [facility] before being transferred here. The patient denies tobacco use, but her sister states the patient smokes about 1 pack of cigarettes per day. The patient does admit to marijuana use several times per day for pain relief. She denies alcohol use. Per patient it was significant bleeding and was sent here from [facility] for evaluation of this after Dr Weeks agreed to transfer. 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 There is air adjacent to the bypass graft anastomosis bilaterally. Suggest correlating with the clinical history since this could be a normal finding if recently placed. Also suggest correlating clinically for any findings which could indicate infection in this area. The left lower extremity vessels appear patent. The popliteal arteries are not well evaluated bilaterally secondary to motion artifact on both passes through this anatomic region. Severe atherosclerotic disease of the abdominal aorta with ectasia measuring up to 2.8 cm. Upon arrival to floor, active bleeding.. Patient went on all fours and massive amounts of blood from left groin. Rapidly transfuse 4 units emergency blood, RIJ cordis placed, dayna, 1 L crystalloid - Dr. Weeks to OR. 06/29 update: Multiple re-evaluations throughout the day. The patient continued to worsen. She is now in septic shock. Phenylephrine was added. Additional IV fluids were given. She is anemic and required transfusions. Long discussion with the family with Dr. Weeks at bedside: I think that the long- term overall prognosis of the patient is quite poor, and it is our medical opinion that ongoing aggressive therapy would likely result in a long and protracted inpatient hospitalization with significant suffering, that would ultimately in result in her either from her oncologic process or her vascular process or her infectious process. After discussion with the family, the family elected to pursue hospice measures. Of note, the patient does have 1 living adult son who is in [place], with whom she is estranged. The family has made multiple attempts to contact him and have been unable to during her oncologic disease process as well as this most recent vascular emergency. I personally made an attempt to contact the patient's son to discuss her care, and prognosis, but I was unable to reach him. In absence of being able to contact her son, since we have made reasonable times to do so, her mother will fulfill her duties of healthcare surrogate decision-maker. The entire rest of the family is in agreement that the patient would not want aggressive measures and will transition to hospice, with both Dr. Weeks and I feels appropriate. We will make the patient DNR with no escalation of care and proceed with hospice in the near future. On my evaluation, the patient is tachycardic,, hypotensive. Febrile. On phenylephrine. Lower extremities are mottled with poor Doppler signal. She is intubated, FiO2 80%. PRVC mode. Equal chest rise. 06/30: family at bedside. ready to withdraw care. patient on fentanyl infusion at 1000 mcg/hr but awakens, grimaces, and nods her head to questions asking about pain. appears in pain. motions that her lower back is source of pain ( which has been her source of intractable oncologic pain). Objective Vital Signs / I&O: Vital Signs 06/29/18 15:00 06/29/18 15:39 06/29/18 16:00 Temperature 38.4 C H Pulse Rate 91 H 92 H 96 H Respiratory Rate 16 16 Blood Pressure 107/63 114/64 Pulse Oximetry 99 99 06/29/18 19:00 06/29/18 20:00 06/29/18 20:15 Temperature 38.6 C H Pulse Rate 97 H 97 H 107 H Respiratory Rate 16 16 Blood Pressure 108/56 L 108/56 L Pulse Oximetry 99 99 06/29/18 23:00 06/30/18 00:00 06/30/18 00:23 Temperature 38.8 C H Pulse Rate 98 H 97 H 95 H Respiratory Rate 16 16 Blood Pressure 124/68 114/64 Pulse Oximetry 99 99 06/30/18 03:00 06/30/18 03:32 06/30/18 04:00 Temperature 38.3 C H Pulse Rate 96 H 97 H 97 H Respiratory Rate 16 16 Blood Pressure 103/56 L 107/57 L Pulse Oximetry 100 99 06/30/18 07:00 06/30/18 08:00 06/30/18 08:45 Temperature 37.9 C H Pulse Rate 67 67 68 Respiratory Rate 21 16 Blood Pressure 126/62 107/55 L Pulse Oximetry 96 99 06/30/18 09:49 06/30/18 11:00 06/30/18 11:41 Temperature Pulse Rate 68 Respiratory Rate 16 10 L 10 L Blood Pressure 126/63 Pulse Oximetry 99 99 Intake & Output 06/29/18 06/30/18 06/30/18 18:59 06:59 18:59 Intake Total 1431 / 1431 653 / 653 500 / 500 Output Total 1605 / 1605 675 / 675 Balance -174 / -174 -22 / -22 500 / 500 Weight 71 kg Intake: IV 1431 / 1431 653 / 653 500 / 500 Neosynephrine Inj 160 MG In NS 91 / 91 103 / 103 Inj 484 ML @ 40 MCG/MIN 7.5 mls /hr IV.CONT TITRATE PRN Rx#: [id number] Diprivan 1000 mg/100 ml Inj 1, 300 / 300 200 / 200 000 mg In 100 ml @ 5 MCG/KG/MIN 1.905 mls/hr IV.CONT TITRATE PRN Rx#:[id number] Cardene Inj 25 MG In NS Inj 240 250 / 250 ML @ 2.5 MG/HR 25 mls/hr IV. CONT TITRATE PRN Rx#:[id number] Ofirmev Inj 1,000 mg In 100 ml 100 / 100 100 / 100 @ 200 mls/hr IV.SIG Q6H PRN Rx# :[id number] Zosyn 4.5 GM Premix 4.5 gm In 100 / 100 100 ml @ 200 mls/hr IV.SIG Q6H MERLE Rx#:[id number] Vancomycin Inj 1,250 MG In NS 250 / 250 Inj 250 ML @ 250 mls/hr IV.SIG ONCE ONE Rx#:[id number] Ancef 1 GM Premix Inj 2 gm In 100 / 100 100 ml @ 0 mls/hr IV.SIG .STK- MED ONE Rx#:[id number] fentaNYL 10 mcg/mL Premix Drip 240 / 240 250 / 250 500 / 500 2,500 mcg In 250 ml @ 250 MCG/ HR 25 mls/hr IV.SIG TITRATE PRN Rx#:[id number] Output: Urine Amount (Catheter) 1555 / 1555 675 / 675 Indwelling Urethral Catheter 1555 / 1555 675 / 675 Wound Drainage 50 / 50 Left Groin GIO Drain 50 / 50 Result Diagrams: 06/29/18 22:15 06/29/18 07:32 Objective Remarks: GENERAL: Middle-aged female, lying in bed, in distress due to back pain HEENT: Normocephalic. Atraumatic. Pupils equal, round, reactive, conjugate. Mucous membranes are moist NECK: Trachea is midline. There is no JVD. CHEST: Slightly tachypneic. PRVC. FiO2 40%. PEEP of 5. CARDIOVASCULAR: Tachycardic rate, regular rhythm. Sinus. ABDOMEN: Soft, nontender, nondistended. No guarding. MUSCULOSKELETAL: Left lower extremity with poor Doppler signal. Remainder of the distal pulses are 2+. No peripheral edema. NEUROLOGICAL: RASS -3. Does arouse and grimaces to pain. Moves all extremities. Assessment and Plan - Assessment and Plan Plan: Assessment: 58-year-old female with metastatic oncologic process and now hemorrhagic shock and emergent vascular operation for bleeding. Family wishes that patient be withdrawn from life support made comfortable, which I agree with given recent history of intractable oncologic pain and significant functional decline. NEURO/Psych Fentanyl, Versed 4 palliation. Goal of RASS -2 Daily sedation vacation CV Hemorrhagic shock PVD R IJ cordis Goal keep MAP > 65 mmHg Reevaluation post OR. PULM Acute hypoxic and hypercarbic respiratory failure Tobacco abuse Multiple mets B/l lungs PRVC vent HOB 30 degrees Alb/ipatropium q4h/alb q2h prn dyspnea Tobacco cessation when appropriate Move forward with palliative withdrawal. GI Hx DU hypoalbuminia NPO NGT to LIWS Pantoprazole - GI proph Docustae sodium/senna 1 tablet twice daily for bowel regimen /RENAL Monitor UOP accurate I/Os HEME ABL anemia Leukocytosis Rectal CA mets lung mucinous adenoCA - rectal CA - Follow up Dr. Barreto for Bx Dr. 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 There has been interval placement of a femoral-femoral bypass graft which is patent. There is air adjacent to the bypass graft anastomosis bilaterally. Suggest correlating with the clinical history since this could be a normal finding if recently placed. Also suggest correlating clinically for any findings which could indicate infection in this area. The left lower extremity vessels appear patent. The popliteal arteries are not well evaluated bilaterally secondary to motion artifact on both passes through this anatomic region. Severe atherosclerotic disease of the abdominal aorta with ectasia measuring up to 2.8 cm. ACCESS - RIJ CORDIS PROPH GI - Pantoprazole DVT - No pharm or mech proph - Bleeding. PVD Overall impression: Continues to decline. Agree with withdrawal. Will attempt to make as comfortable as possible given intractable pain. This will be very difficult process given her high opiate tolerance and requirements. We will continue to increase fentanyl drip as tolerated.
--- NOTE | 2018-06-30 14:39 | P.DN ---
- Provider Primary care physician: North Ramirez MD Consults: 06/29/18 00:45 Consult to Vascular Surgery Routine Consulting Provider: Aime Weeks Reason for Consultation: L iliac graft bleed. Notified by ED Spoke with:: ADDED TO LIST - CALL IN AM Date Notified:: 06/29/18 Time Notified:: 01:35 Comments:: [place] FROM [facility] ACCEPTED BY DR WEEKS - COURTESY CALL IN AM Ordering Provider: ALBINO Pronouncing clinician: Thuan Amezcua - Admitting Diagnosis (1) Iliac artery occlusion, left (2) Peripheral arterial occlusive disease (3) Intractable pain (4) Colorectal cancer (5) Buttock wound (6) Vascular graft infection (7) Hemorrhage due to vascular prosthetic devices, implants and grafts, initial encounter - Diagnosis at Time of (1) Iliac artery occlusion, left Diagnosis: Principal (2) Peripheral arterial occlusive disease Diagnosis: Principal (3) Intractable pain Diagnosis: Principal (4) Colorectal cancer Diagnosis: Principal (5) Buttock wound Diagnosis: Principal (6) Vascular graft infection Diagnosis: Principal (7) Hemorrhage due to vascular prosthetic devices, implants and grafts, initial encounter Diagnosis: Principal - Date and Time Date of admission: 06/29/18 00:37 Date of : 06/30/18 Time of : 12:28 - Summary Brief History: 58 year old female.. DOA 06/29/18. PMH stage IV lmet rectal CAlast 12/14 avastin and FOLFOX. She presents to ED with bleeding from a surgical site in her left groin. The patient had an atherectomy and R-L fem/fem PTFE graft for L VANCE stent occusion and EIA occlusion. Currently 2 surgical sites on either side of the groin that are open. She packs these at home and finished an antibiotic regimen today. She saw Dr. Alcantar on Sunday who thought the sites were healing and increased her packing size from 2x2 to 4x4 in each wound. The patient states that normally these surgical sites drain clear fluid but this afternoon she went to stand from kneeling and there was a large flow of blood from the site on the left. The patient also has rectal cancer and a rectal wound and cannot sit or lie on her back due to 10/10 pain, therefore she sits on her knees or on all fours. Hgb 8.2 at [facility] and given morphine and dilaudid at [facility] before being transferred here. The patient denies tobacco use, but her sister states the patient smokes about 1 pack of cigarettes per day. The patient does admit to marijuana use several times per day for pain relief. She denies alcohol use. Per patient it was significant bleeding and was sent here from [facility] for evaluation of this after Dr Weeks agreed to transfer. 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 There is air adjacent to the bypass graft anastomosis bilaterally. Suggest correlating with the clinical history since this could be a normal finding if recently placed. Also suggest correlating clinically for any findings which could indicate infection in this area. The left lower extremity vessels appear patent. The popliteal arteries are not well evaluated bilaterally secondary to motion artifact on both passes through this anatomic region. Severe atherosclerotic disease of the abdominal aorta with ectasia measuring up to 2.8 cm. Upon arrival to floor, active bleeding.. Patient went on all fours and massive amounts of blood from left groin. Rapidly transfuse 4 units emergency blood, RIJ cordis placed, dayna, 1 L crystalloid - Dr. Weeks to OR. Result Diagrams: 06/29/18 22:15 06/29/18 07:32 Significant Findings: Abnormal Lab Results 06/29/18 06/29/18 16:15 22:15 Hgb 10.9 L 10.7 L Hct 31.5 L 30.3 L Hospital Course: This patient remains critically ill with one or more organ systems which are or may become a threat to life. I have spent in excess of 51 minutes discontinuously in the care and management of this patient. This time is exclusive of procedures, and includes, but is not limited to, evaluation of the patient, review of the medical record, discussions with family, consultants, nursing staff, or respiratory therapy, and documentation in the medical record. Please note that this time spent in active management of this critically ill patient reflects only time spent during the time in which our goals were aggressive and I was aggressively managing her worsening septic shock, anemia, and respiratory failure. This reflects time I spent actively at the bedside regarding transfusions, and guiding vasopressors and fluid resuscitation's, and frequent re-evaluations of my critical patient. 58 year old female.. DOA 12/1/18. PMH stage IV lmet rectal CAlast 12/14 avastin and FOLFOX. She presents to ED with bleeding from a surgical site in her left groin. The patient had an atherectomy and R-L fem/fem PTFE graft for L VANCE stent occusion and EIA occlusion. Currently 2 surgical sites on either side of the groin that are open. She packs these at home and finished an antibiotic regimen today. She saw Dr. Alcantar on Sunday who thought the sites were healing and increased her packing size from 2x2 to 4x4 in each wound. The patient states that normally these surgical sites drain clear fluid but this afternoon she went to stand from kneeling and there was a large flow of blood from the site on the left. The patient also has rectal cancer and a rectal wound and cannot sit or lie on her back due to 10/10 pain, therefore she sits on her knees or on all fours. Hgb 8.2 at [facility] and given morphine and dilaudid at [facility] before being transferred here. The patient denies tobacco use, but her sister states the patient smokes about 1 pack of cigarettes per day. The patient does admit to marijuana use several times per day for pain relief. She denies alcohol use. Per patient it was significant bleeding and was sent here from [facility] for evaluation of this after Dr Weeks agreed to transfer. 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 There is air adjacent to the bypass graft anastomosis bilaterally. Suggest correlating with the clinical history since this could be a normal finding if recently placed. Also suggest correlating clinically for any findings which could indicate infection in this area. The left lower extremity vessels appear patent. The popliteal arteries are not well evaluated bilaterally secondary to motion artifact on both passes through this anatomic region. Severe atherosclerotic disease of the abdominal aorta with ectasia measuring up to 2.8 cm. Upon arrival to floor, active bleeding.. Patient went on all fours and massive amounts of blood from left groin. Rapidly transfuse 4 units emergency blood, RIJ cordis placed, dayna, 1 L crystalloid - Dr. Weeks to OR. 06/29 update: Multiple re-evaluations throughout the day. The patient continued to worsen. She is now in septic shock. Phenylephrine was added. Additional IV fluids were given. She is anemic and required transfusions. Long discussion with the family with Dr. Weeks at bedside: I think that the long- term overall prognosis of the patient is quite poor, and it is our medical opinion that ongoing aggressive therapy would likely result in a long and protracted inpatient hospitalization with significant suffering, that would ultimately in result in her either from her oncologic process or her vascular process or her infectious process. After discussion with the family, the family elected to pursue hospice measures. Of note, the patient does have 1 living adult son who is in [place], with whom she is estranged. The family has made multiple attempts to contact him and have been unable to during her oncologic disease process as well as this most recent vascular emergency. I personally made an attempt to contact the patient's son to discuss her care, and prognosis, but I was unable to reach him. In absence of being able to contact her son, since we have made reasonable times to do so, her mother will fulfill her duties of healthcare surrogate decision-maker. The entire rest of the family is in agreement that the patient would not want aggressive measures and will transition to hospice, with both Dr. Weeks and I feels appropriate. We will make the patient DNR with no escalation of care and proceed with hospice in the near future. On my evaluation, the patient is tachycardic,, hypotensive. Febrile. On phenylephrine. Lower extremities are mottled with poor Doppler signal. She is intubated, FiO2 80%. PRVC mode. Equal chest rise. 06/30: family at bedside. ready to withdraw care. patient on fentanyl infusion at 1000 mcg/hr but awakens, grimaces, and nods her head to questions asking about pain. appears in pain. motions that her lower back is source of pain ( which has been her source of intractable oncologic pain).
[2018-07-01] MEDS ORDERED: Pharmacy Ordered Lab Info OTHER ONE (08:45)
[2018-07-02 06:59] LABS: ABG PCO2 42 mmHg (38-42); ABG PO2 503 mmHg (60-120)
[2018-07-02 07:00] LABS: ABG Base Excess -0.4 mmol/L (-2-2)
== END 2018-06-30 16:30 | disposition expired ==
LOC: NEPE 22:32 → NEDA 06-29 00:37 → N03 06-29 01:20 → HCPC 06-29 02:00 → HCVI 06-29 05:43
PROVIDERS: ADMIT Internal Medicine Critical Care Medicine; ATTEND Internal Medicine Critical Care Medicine